=== PATIENT | female | born 1930 | race Caucasian/White ===

== ENCOUNTER 2016-12-15 17:38 | Emergency (ER) | payer MEDICARE, OTHER ==
[~2016-12-15] VITALS: Ht 167.6 cm; Wt 97.8 kg
[~2016-12-15 17:38] MED LIST: ACET-703 PO; APIX2.5T PO; ASPI1TAB69 PO; CENTTAB8 PO; CO Q100C9 PO; CODCAP PO; CPAP; FURO40TA PO; IPRASOL INH; LEVEMIR SQ; LIPI80TA PO; LOSA25TA PO; METO100T PO
[2016-12-15 17:42] VITALS: BP 160/86; PULSE 90; RESP 20; TEMP 97.5; O2SAT 92
--- NOTE | 2016-12-15 18:01 | PD ---
HPI . Cough Chief Complaint: Cold / Flu Symptoms Time Seen by Provider: 17:53 Travel History International Travel<30 days: No Contact w/Intl Traveler<30days: No Traveled to known affect area: No History of Present Illness HPI This patient presents with a four-day history of a dry cough. She states that she is concerned about pneumonia. She is also complaining with some nasal congestion. She denies any purulent nasal drainage or purulent sputum production. She has not been running a fever. He states that she has been taking Claritin and using her nebulizer machine with some relief of her symptoms. No exacerbating factors. Symptoms are mild. PFSH Past Medical History Hx Anticoagulant Therapy: Yes Arthritis: No Asthma: No Atrial Fibrillation: Yes Autoimmune Disease: Yes (CLL) Heart Rhythm Problems: Yes (CHRONIC AFIB, CARDIOVERSION) Cancer: Yes (CLL ) Cardiovascular Problems: Yes High Cholesterol: Yes Chest Pain: No Congestive Heart Failure: No COPD: No Cerebrovascular Accident: No Diabetes: Yes Diminished Hearing: No Endocrine: Yes Gastrointestinal Disorders: No GERD: No Genitourinary: Yes Hypertension: Yes Immune Disorder: No Kidney Stones: No Musculoskeletal: Yes Neurologic: No Psychiatric: No Reproductive: No Respiratory: Yes ( ) Immunizations Current: Yes Migraines: No Radiation Therapy: No Renal Failure: Yes (last february while in hospital) Seizures: No Sleep Apnea: Yes (SLEEP APNEA) Thyroid Disease: No (hx of biopsy on thyroid - states benign ) Ulcer: Yes Past Surgical History Abdominal Surgery: No Body Medical Devices: "clip in a breast from a biopsy- unsure of what side" Cardiac Surgery: No Section: Yes Ear Surgery: No Eye Surgery: Yes (bleeding behind eye-lazer surg) Gynecologic Surgery: Yes (2 C-SECTIONS, "clip in one breast - unsure if left or right" ) Insulin Pump: No Joint Replacement: No Oral Surgery: Yes (tonsillectomy ) Thoracic Surgery: No Tonsillectomy: Yes Other Surgery: Yes Social History Alcohol Use: No Tobacco Use: No Substance Use: No Allergies-Medications (Allergen,Severity, Reaction): Coded Allergies: pregabalin (Unverified Allergy, Severe, Anaphylaxis, 12/15/16) Reported Meds & Prescriptions Reported Meds & Active Scripts Active Prometh-Codein 6.25-10 mg/5 ml (Promethazine HCl/Codeine) 5 Ml Syrup 10 Ml PO Q4HR Reported Aspirin 81 Mg Chew 81 Mg CHEW DAILY Co Q 10 (Coenzyme Q10 (Ubidecarenone)) 100 Mg Cap 200 Mg PO DAILY Duoneb (Ipratropium-Albuterol Neb) 0.5-2.5 Mg/3 Ml Neb 1 Nebule INH Q4HR NEB Metoprolol Tartrate 100 Mg Tab 100 Mg PO BID Losartan (Losartan Potassium) 25 Mg Tab 25 Mg PO DAILY Levemir Inj (Insulin Detemir) 1,000 unit/ 10 ML Vial 40 Units SQ DAILY Do not mix with any other Insulin. Furosemide 40 Mg Tab 40 Mg PO DAILY Lipitor (Atorvastatin Calcium) 80 Mg Tab 80 Mg PO HS Eliquis (Apixaban) 2.5 Mg Tab 2.5 Mg PO BID [Cpap] Review of Systems Except as stated in HPI: all other systems reviewed are Neg General / Constitutional: No: Fever, Chills HENT: Positive: Congestion Cardiovascular: No: Chest Pain or Discomfort Respiratory: Positive: Cough, No: Shortness of Breath Physical Exam Narrative Vital Signs Date Time Temp Pulse Resp B/P (MAP) Pulse Ox O2 Delivery O2 Flow Rate FiO2 12/15/16 17:42 97.5 90 20 160/86 (110) 92 GENERAL: Awake and alert and in no acute distress. SKIN: Warm and dry. HEAD: Atraumatic. Normocephalic. EYES: Pupils equal and round. No conjunctival injection or discharge. ENT: Sinuses are nontender. Nasal turbinates are mildly edematous. No purulent drainage. Oropharynx is clear. NECK: Trachea midline. Neck is supple with no cervical lymphadenopathy. CARDIOVASCULAR: Irregularly irregular rhythm with a controlled rate. RESPIRATORY: No accessory muscle use. Lungs are clear with full air movement throughout. MUSCULOSKELETAL: No obvious deformities. No edema. NEUROLOGICAL: Awake and alert. No obvious cranial nerve deficits. Motor grossly within normal limits. Normal speech. PSYCHIATRIC: Appropriate mood and affect; insight and judgment normal. Data Data Last Documented VS Vital Signs Date Time Temp Pulse Resp B/P (MAP) Pulse Ox O2 Delivery O2 Flow Rate FiO2 12/15/16 18:11 88 20 97 12/15/16 17:42 97.5 160/86 (110) Orders Orders Chest, Pa & Lat (12/15/16 17:56) MDM Medical Decision Making Medical Screen Exam Complete: Yes Emergency Medical Condition: Yes Differential Diagnosis Differential diagnosis includes but is not limited to viral respiratory illness , bronchitis, pneumonia, allergies, CHF, asthma/COPD. Narrative Course This patient presents with a cough. She is worried about pneumonia. Her lungs are clear with full air movement throughout. Chest x-ray has been ordered. CXR: No acute cardiopulmonary disease demonstrated. Mild chronic interstitial changes. Diagnosis Primary Impression: Cough Patient Instructions: Acute Cough (ED), General Instructions Med/Other Pt SpecificInfo: Prescription(s) given Scripts Promethazine HCl/Codeine (Prometh-Codein 6.25-10 mg/5 ml) 5 Ml Syrup 10 ML PO Q4HR for cough, #180 Prov: Isidra Mariee MD 12/15/16 Disposition: 01 DISCHARGE HOME Condition: Stable Isidra Mariee MD Dec 15, 2016 18:01
[2016-12-15] MEDS ORDERED: ASPI81CH CHEW (18:02)
[2016-12-15 18:55] VITALS: BP 163/79; PULSE 85; RESP 16; O2SAT 95
[2016-12-15] MEDS ORDERED: PROM2SYP2 PO (18:56)
--- NOTE | 2016-12-15 18:56 | RADRPT ---
EXAM DATE/TIME: 12/15/2016 18:28 [facility] COMPARISON: CHEST SINGLE AP, February 02, 2015, 7:34. INDICATIONS : Short of breath, cough MEDICAL HISTORY : a fib SURGICAL HISTORY : None. ENCOUNTER: Initial ACUITY: 3 days PAIN SCORE: 0/10 LOCATION: Bilateral chest FINDINGS: Mild basilar predominant interstitial opacities are present, probably chronic. No dense or confluent consolidation. No pleural effusion or pneumothorax. Heart size stable, upper limits of normal. CONCLUSION: No acute cardiopulmonary disease demonstrated. Mild chronic interstitial changes. Eben Washburn MD on December 15, 2016 at 18:54 Board Certified Radiologist. This report was verified electronically.
== END 2016-12-15 19:30 | disposition home or self-care (01) ==
LOC: PHED 17:38
DX: R05 Cough (principal); Z79.01 Long term (current) use of anticoagulants; I48.2 Chronic atrial fibrillation; C91.10 Chronic lymphocytic leukemia of B-cell type not having achieved remission; E78.00 Pure hypercholesterolemia, unspecified; E11.9 Type 2 diabetes mellitus without complications; I10 Essential (primary) hypertension; G47.30 Sleep apnea, unspecified
CPT/HCPCS: 71020; 99283

== ENCOUNTER → 2017-03-11 | Outpatient (CLI) | payer MEDICARE, OTHER ==
[~2017-03-11] MED LIST changes: -ACET-703 PO; +ASPI-516 CHEW; -ASPI1TAB69 PO; +AZIT250T3 PO; +BUME2TAB PO; +Budeson-Formot 160-4.5 Mg Inh INH; +CENTCHW4 CHEW; -CENTTAB8 PO; -CODCAP PO; +CODCAP4 PO; +IPRA17I INH; +PRED20 PO; +PROM2SYP2 PO; +VENTAER INH; +guaiFENesin ER PO
[2017-03-11 07:57] LABS: BLOOD GAS BASE EXCESS -3.2 mmol/L (-2-2); BLOOD GAS CARBOXYHEMOGLOBIN 1.8 % (0-4); BLOOD GAS HCO3 22 mmol/L (22-26); BLOOD GAS METHEMOGLOBIN 0.9 % (0-2); BLOOD GAS O2 HGB SATURATION 90 % (90-100); BLOOD GAS OXYGEN CONTENT 12.9 Vol % (12.0-20.0); BLOOD GAS PCO2 40 mmHG (38-42); BLOOD GAS PO2 64 mmHG (61-120); BLOOD GAS TOTAL HGB 10.1 G/DL (12.0-16.0); CRITICAL VALUE NO; DRAW SITE LT RADIAL; NUMBER OF ARTERIAL PUNCTURES 1; OXYGEN DEVICE RA; STAT NO; TEMP CORR TO 98.6; ULNAR PULSE Y
--- NOTE | 2017-03-20 09:12 | RSPPFT ---
DATE OF PROCEDURE: 03/11/17 COMMENTS: Spirometry shows FVC of 1.8 at 72% of predicted, FEV1 of 1.2 at 70%, FEV1/FVC ratio is decreased. Flow is decreased at FEF 25, FEF 50, FEF 75 and FEF 25-75. There is no response after bronchodilator treatment. Lung volumes show residual volume is increased. TLC is normal. Diffusion capacity is decreased. Flow volume loop indicates an obstructive pattern. IMPRESSION: 1. Moderately severe obstructive lung disease. 2. No response after bronchodilator treatment. 3. Lung volumes show mild hyperinflation. 4. Diffusion capacity is decreased.
== END ==
LOC: PHRSP 07:17
PROVIDERS: ATTEND Specialist
DX: R06.00 Dyspnea, unspecified (principal)
CPT/HCPCS: 36600; 82805; 94060; 94726; 94729

== ENCOUNTER 2017-03-13 08:20 | Observation (INO) | payer MEDICARE, OTHER ==
[~2017-03-13] VITALS: Ht 170.2 cm; Wt 100.1 kg
[2017-03-13] VITALS (10 sets, daily range): BP systolic 105–136; BP diastolic 41–62; PULSE 86–109; RESP 20–24; TEMP 97.2–98.9; O2SAT 91–98
[~2017-03-13 08:20] MED LIST changes: -AZIT250T3 PO; -BUME2TAB PO; -Budeson-Formot 160-4.5 Mg Inh INH; -CENTCHW4 CHEW; -CODCAP4 PO; -IPRA17I INH; -PRED20 PO; -VENTAER INH; -guaiFENesin ER PO
--- NOTE | 2017-03-13 08:53 | PD ---
HPI Chief Complaint: Respiratory Symptoms Time Seen by Provider: 08:36 Travel History International Travel<30 days: No Contact w/Intl Traveler<30days: No Traveled to known affect area: No History of Present Illness HPI c/o cough, dry, ongoing for past 4 days, not improving. patient is not oxygen dependant. no alleviating/aggravating factors. chart and rn notes reviewed pcp is dr chappell all:pregabilin pmhx: afib, htn, hyperchol, sciatica, cll, dm, anemia, tia PFSH Past Medical History Hx Anticoagulant Therapy: Yes Arthritis: No Asthma: No Atrial Fibrillation: Yes Autoimmune Disease: Yes (CLL) Heart Rhythm Problems: Yes (CHRONIC AFIB, CARDIOVERSION) Cancer: Yes (CLL ) Cardiovascular Problems: Yes (htn on meds) High Cholesterol: Yes Chest Pain: No Congestive Heart Failure: No COPD: No Cerebrovascular Accident: No Diabetes: Yes (type 2) Patient Takes Glucophage: No Diminished Hearing: No Endocrine: Yes Gastrointestinal Disorders: Yes (hx of bleeding from internal hemmeroid, was treated ) GERD: No Genitourinary: Yes Hypertension: Yes Immune Disorder: No Kidney Stones: No Musculoskeletal: Yes Neurologic: No Psychiatric: No Reproductive: No Respiratory: Yes ( ) Immunizations Current: Yes Migraines: No Radiation Therapy: No Renal Failure: Yes (last february while in hospital) Seizures: No Sleep Apnea: Yes (SLEEP APNEA) Thyroid Disease: No (hx of biopsy on thyroid - states benign ) Ulcer: Yes ?: Not Past Surgical History Abdominal Surgery: No Body Medical Devices: "clip in a breast from a biopsy- unsure of what side" Cardiac Surgery: No Section: Yes (X 2) Ear Surgery: No Eye Surgery: Yes (bleeding behind eye-lazer surg) Gynecologic Surgery: Yes ("marker in one breast - unsure if left or right" ) Insulin Pump: No Joint Replacement: No Oral Surgery: Yes Thoracic Surgery: No Tonsillectomy: Yes Other Surgery: Yes Social History Alcohol Use: No Tobacco Use: No (FORMER) Substance Use: No Allergies-Medications (Allergen,Severity, Reaction): Coded Allergies: pregabalin (Unverified Allergy, Severe, Anaphylaxis, 03/13/17) Reported Meds & Prescriptions Reported Meds & Active Scripts Active Reported Centrum (Multiple Vitamins W/ Minerals) 1 Chew 1 Tab CHEW DAILY Cod Liver Oil 1 Each Capsule 1 Tab PO DAILY Bumetanide 2 Mg Tab 2 Mg PO DAILY Aspirin 81 Mg Chew 81 Mg CHEW DAILY Co Q 10 (Coenzyme Q10 (Ubidecarenone)) 100 Mg Cap 200 Mg PO DAILY Duoneb (Ipratropium-Albuterol Neb) 0.5-2.5 Mg/3 Ml Neb 1 Nebule INH Q4HR NEB Metoprolol Tartrate 100 Mg Tab 100 Mg PO BID Losartan (Losartan Potassium) 25 Mg Tab 25 Mg PO DAILY Levemir Inj (Insulin Detemir) 1,000 unit/ 10 ML Vial 36 Units SQ DAILY Do not mix with any other Insulin. Lipitor (Atorvastatin Calcium) 80 Mg Tab 80 Mg PO HS Eliquis (Apixaban) 2.5 Mg Tab 2.5 Mg PO BID [Cpap] Review of Systems Except as stated in HPI: all other systems reviewed are Neg General / Constitutional: No: Fever Eyes: No: Visual changes HENT: No: Headaches Cardiovascular: No: Chest Pain or Discomfort Respiratory: Positive: Cough, Wheezing Gastrointestinal: No: Abdominal Pain Genitourinary: No: Dysuria Musculoskeletal: No: Pain Skin: No Rash Neurologic: No: Weakness Psychiatric: No: Depression Endocrine: No: Polydipsia Hematologic/Lymphatic: No: Easy Bruising Physical Exam Narrative GENERAL: SKIN: Warm and dry. HEAD: Atraumatic. Normocephalic. EYES: Pupils equal and round. No scleral icterus. No injection or drainage. ENT: No nasal bleeding or discharge. Mucous membranes pink and moist. NECK: Trachea midline. No JVD. CARDIOVASCULAR: Regular rate and rhythm. RESPIRATORY: No accessory muscle use. wheezes, tachypnea, GASTROINTESTINAL: Abdomen soft, non-tender, nondistended. MUSCULOSKELETAL: Extremities without clubbing, cyanosis, or edema. No obvious deformities. NEUROLOGICAL: Awake and alert. No obvious cranial nerve deficits. Motor grossly within normal limits. Five out of 5 muscle strength in the arms and legs. Normal speech. PSYCHIATRIC: Appropriate mood and affect; insight and judgment normal. Data Data Last Documented VS Vital Signs Date Time Temp Pulse Resp B/P (MAP) Pulse Ox O2 Delivery O2 Flow Rate FiO2 03/13/17 10:53 88 24 105/41 (62) 97 Nasal Cannula 2.00 03/13/17 08:27 98.1 Orders Orders Complete Blood Count With Diff (03/13/17 08:53) Comprehensive Metabolic Panel (03/13/17 08:53) B-Type Natriuretic Peptide (03/13/17 08:53) Troponin I (03/13/17 08:53) Influenzae A/B Antigen (03/13/17 08:53) Iv Access Insert/Monitor (03/13/17 08:53) Electrocardiogram (03/13/17 08:53) Ecg Monitoring (03/13/17 08:53) Oximetry (03/13/17 08:53) Oxygen Administration (03/13/17 08:53) Chest, Single Ap (03/13/17 08:53) Sodium Chloride 0.9% Flush (Ns Flush) (03/13/17 09:00) Methylprednisolone So Succ Inj (Solumedr (03/13/17 09:00) Albuterol Neb (Albuterol Neb) (03/13/17 09:00) Lorazepam Inj (Ativan Inj) (03/13/17 10:15) Albuterol Neb (Albuterol Neb) (03/13/17 11:00) Ceftriaxone Inj (Rocephin Inj) (03/13/17 12:00) Azithromycin Inj (Zithromax Inj) (03/13/17 11:00) Admit Order (Ed Use Only) (03/13/17 10:58) Labs Laboratory Tests Test 03/13/17 09:00 White Blood Count 93.0 TH/MM3 Red Blood Count 3.64 MIL/MM3 Hemoglobin 10.8 GM/DL Hematocrit 34.3 % Mean Corpuscular Volume 94.3 FL Mean Corpuscular Hemoglobin 29.5 PG Mean Corpuscular Hemoglobin Concent 31.3 % Red Cell Distribution Width 12.9 % Platelet Count 191 TH/MM3 Mean Platelet Volume 8.2 FL Neutrophils (%) (Auto) 10.3 % Lymphocytes (%) (Auto) 81.7 % Monocytes (%) (Auto) 6.5 % Eosinophils (%) (Auto) 0.1 % Basophils (%) (Auto) 1.4 % Neutrophils # (Auto) 9.6 TH/MM3 Lymphocytes # (Auto) 76.0 TH/MM3 Monocytes # (Auto) 6.0 TH/MM3 Eosinophils # (Auto) 0.1 TH/MM3 Basophils # (Auto) 1.3 TH/MM3 CBC Comment AUTO DIFF Differential Total Cells Counted 100 Neutrophils % (Manual) 8 % Band Neutrophils % 1 % Lymphocytes % 87 % Monocytes % 4 % Neutrophils # (Manual) 8.4 TH/MM3 Differential Comment FINAL DIFF MANUAL Blood Urea Nitrogen 42 MG/DL Creatinine 2.20 MG/DL Random Glucose 58 MG/DL Total Protein 6.6 GM/DL Albumin 3.7 GM/DL Calcium Level 9.1 MG/DL Alkaline Phosphatase 106 U/L Aspartate Amino Transf (AST/SGOT) 22 U/L Alanine Aminotransferase (ALT/SGPT) 21 U/L Total Bilirubin 1.1 MG/DL Sodium Level 138 MEQ/L Potassium Level 4.0 MEQ/L Chloride Level 105 MEQ/L Carbon Dioxide Level 24.7 MEQ/L Anion Gap 8 MEQ/L Estimat Glomerular Filtration Rate 21 ML/MIN Troponin I 0.02 NG/ML B-Type Natriuretic Peptide 191 PG/ML MDM Medical Decision Making Medical Screen Exam Complete: Yes Emergency Medical Condition: Yes Medical Record Reviewed: Yes Interpretation(s) pulse ox: nl oxygenation 96% on ra, with normal pleth wave ekg: afib with cvr, no stemi pattern Differential Diagnosis pna v flu v bronchitis v bronchospasm v atypical stemi Narrative Course flu neg, neg stemi on ekg, bronchospasm improved with treatments however still ongoing and tachypnea is not greatly improved...will order ct r/o pe and admit patient for further evaluation and care, Diagnosis Primary Impression: bronchospasm/dyspnea Additional Impression: renal insufficiency Coy Mireles MD Mar 13, 2017 08:53
[2017-03-13] MEDS ORDERED: BUME2TAB PO (08:54)
[2017-03-13] MEDS ORDERED: CODCAP4 PO (08:54)
[2017-03-13] MEDS ORDERED: CENTCHW4 CHEW (08:54)
[2017-03-13] MEDS ORDERED: SODIUM CHLORIDE 0.9% FLUSH 10 ML FLUSH IVF PRN (09:00)
[2017-03-13] MEDS ORDERED: methylPREDNISolone SOD SUCC 125 MG/2 ML VIAL IV PUSH ONE (09:00)
[2017-03-13] MEDS: RESP: ALBUTEROL 2.5 MG/3 ML NEB (SCH) INH ×2 (09:10→11:12)
[2017-03-13 09:27] LABS: AUTOMATED NEUTROPHIL # 9.6 TH/MM3 (1.8-7.7); BASOPHIL # 1.3 TH/MM3 (0-0.2); BASOPHIL % 1.4 % (0.0-2.0); EOSINOPHIL # 0.1 TH/MM3 (0-0.4); EOSINOPHIL % 0.1 % (0.0-4.0); HEMATOCRIT 34.3 % (35.0-46.0); LYMPH % 81.7 % (9.0-44.0); MEAN CELL VOLUME 94.3 FL (80.0-100.0); MEAN CORPUSCULAR HEMOGLOBIN 29.5 PG (27.0-34.0); MEAN CORPUSCULAR HGB CONC 31.3 % (32.0-36.0); MONO % 6.5 % (0.0-8.0); NEUT % 10.3 % (16.0-70.0); PLATELET COUNT 191 TH/MM3 (150-450); RED BLOOD COUNT 3.64 MIL/MM3 (4.00-5.30); RED CELL DISTRIBUTION WIDTH 12.9 % (11.6-17.2)
[2017-03-13 09:28] LABS: HEMO FLAGS AUTO DIFF
[2017-03-13 09:50] LABS: BANDS 1 % (0-6); NEUTROPHIL # MANUAL DIFF 8.4 TH/MM3 (1.8-7.7); POLYS (SEG NEUTROPHILS) 8 % (16-70); SCAN/DIFF FINAL DIFF MANUAL; WBC DIFF SAMPLE 100
--- NOTE | 2017-03-13 10:04 | RADRPT ---
EXAM DATE/TIME: 03/13/2017 09:49 [facility] COMPARISON: CHEST SINGLE AP, February 02, 2015, 7:34. INDICATIONS : Short of breath, cough, wheezing. MEDICAL HISTORY : Hypercholesterolemia. Hypertension Diabetes mellitus type II. Thyroid disease. A-fib. Sleep apnea . Wheezing. Ulcer. Renal disease/failure. Sciatica. Former smoker. SURGICAL HISTORY : Tonsillectomy. section. Cataract. ENCOUNTER: Initial ACUITY: 4 - 6 days PAIN SCORE: 0/10 LOCATION: chest FINDINGS: Result infiltrate in the left upper lung. Persistent airspace infiltrates in the left mid and left l ower lung. Right lung is clear. The heart is normal size. Both hemidiaphragms well delineated. CONCLUSION: Persistent left mid and lower lung infiltrates and resolved left upper lung infiltrate. Noel Schwartz MD on March 13, 2017 at 10:01 Board Certified Radiologist. This report was verified electronically.
[2017-03-13 10:11] LABS: BICARBONATE 24.7 MEQ/L (21.0-32.0)
[2017-03-13 10:14] LABS: ALT (GPT) 21 U/L (10-53); GLOMERULAR FILTRATION RATE 21 ML/MIN (>89)
[2017-03-13] MEDS ORDERED: LORazepam 2 MG/ML VIAL IV PUSH ONE (10:15)
[2017-03-13 10:16] LABS: ANION GAP 8 MEQ/L (5-15); CHLORIDE 105 MEQ/L (98-107); SODIUM (NA) 138 MEQ/L (136-145); TOTAL BILIRUBIN ADULT 1.1 MG/DL (0.2-1.0)
[2017-03-13 10:17] LABS: ALKALINE PHOSPHATASE 106 U/L (45-117); AST (GOT) 22 U/L (15-37); BLOOD UREA NITROGEN 42 MG/DL (7-18)
[2017-03-13] MEDS ORDERED: AZITHROMYCIN INJ 500 MG in SODIUM CHLOR 0.9% 250 ML INJ 250 ML IV ONE (11:00)
--- NOTE | 2017-03-13 11:25 | HHI.HP ---
[facility] Michael Henderson MD Admission Diagnosis DYSPNEA,RENAL INSUFF, CLL Diagnoses: (1) Asthma exacerbation Chief Complaint: Shortness of breath and wheezing Travel History International Travel<30 Days: No Contact w/Intl Traveler <30 Da: No Traveled to Known Affected Are: No History of Present Illness 86-year-old female with a history of CLL, A. fib presented to the ED for evaluation of 4 days history of shortness of breath, nonproductive cough and wheezing. She denies any febrile episode. Per patient's she has been sleeping more with generalized weakness and lack of appetite. Chest x-ray on admission reveals persisting left mid and lower lung infiltrates and resolved left upper lung infiltrate. Review of Systems Except as stated in HPI: all other systems reviewed are Neg Past Family Social History Past Medical History Chronic lymphocytic leukemia Hypertension Atrial fibrillation Diabetes Hyperlipidemia Chronic kidney disease Hypogammaglobinemia History of GI bleed 1 Past Surgical History Cardioversion 2 Reported Medications Centrum (Multiple Vitamins W/ Minerals) 1 Chew 1 Tab CHEW DAILY Cod Liver Oil 1 Each Capsule 1 Tab PO DAILY Bumetanide 2 Mg Tab 2 Mg PO DAILY Aspirin 81 Mg Chew 81 Mg CHEW DAILY Co Q 10 (Coenzyme Q10 (Ubidecarenone)) 100 Mg Cap 200 Mg PO DAILY Duoneb (Ipratropium-Albuterol Neb) 0.5-2.5 Mg/3 Ml Neb 1 Nebule INH Q4HR NEB Metoprolol Tartrate 100 Mg Tab 100 Mg PO BID Losartan (Losartan Potassium) 25 Mg Tab 25 Mg PO DAILY Levemir Inj (Insulin Detemir) 1,000 unit/ 10 ML Vial 36 Units SQ DAILY Do not mix with any other Insulin. Lipitor (Atorvastatin Calcium) 80 Mg Tab 80 Mg PO HS Eliquis (Apixaban) 2.5 Mg Tab 2.5 Mg PO BID [Cpap] Allergies: Coded Allergies: pregabalin (Unverified Allergy, Severe, Anaphylaxis, 03/13/17) Family History Due to patient's advanced age, family history not relevant Social History Alcohol Use: No Tobacco Use: No (FORMER) Substance Use: No Physical Exam Vital Signs Vital Signs Date Time Temp Pulse Resp B/P (MAP) Pulse Ox O2 Delivery O2 Flow Rate FiO2 03/13/17 09:54 86 24 136/55 (82) 97 Nasal Cannula 2.00 03/13/17 09:13 97 Nasal Cannula 2.00 03/13/17 09:05 20 96 2.00 03/13/17 09:05 96 Nasal Cannula 2.00 03/13/17 08:39 84 20 93 Room Air 03/13/17 08:27 98.1 87 20 136/62 (86) 91 Physical Exam GENERAL: This is a well-nourished, well-developed patient, in no apparent distress. SKIN: No rashes, ecchymoses or lesions. Cool and dry. HEAD: Atraumatic. Normocephalic. No temporal or scalp tenderness. EYES: Pupils equal round and reactive. Extraocular motions intact. No scleral icterus. No injection or drainage. ENT: Nose without bleeding, purulent drainage or septal hematoma. Throat without erythema, tonsillar hypertrophy or exudate. Uvula midline. Airway patent. NECK: Trachea midline. No JVD or lymphadenopathy. Supple, nontender, no meningeal signs. CARDIOVASCULAR: Regular rate and rhythm without murmurs, gallops, or rubs. RESPIRATORY: Clear to auscultation. Breath sounds decrease bilaterally. Bilateral exterior auditory wheezes GASTROINTESTINAL: Abdomen soft, non-tender, nondistended. No hepato-splenomegaly , or palpable masses. No guarding. MUSCULOSKELETAL: Extremities without clubbing, cyanosis.+Trace edema. No joint tenderness, effusion, or edema noted. No calf tenderness. Negative Homans sign bilaterally. NEUROLOGICAL: Awake and alert. Cranial nerves II through XII intact. Motor and sensory grossly within normal limits. Five out of 5 muscle strength in all muscle groups. Normal speech. Laboratory Laboratory Tests Test 03/13/17 09:00 White Blood Count 93.0 Red Blood Count 3.64 Hemoglobin 10.8 Hematocrit 34.3 Mean Corpuscular Volume 94.3 Mean Corpuscular Hemoglobin 29.5 Mean Corpuscular Hemoglobin Concent 31.3 Red Cell Distribution Width 12.9 Platelet Count 191 Mean Platelet Volume 8.2 Neutrophils (%) (Auto) 10.3 Lymphocytes (%) (Auto) 81.7 Monocytes (%) (Auto) 6.5 Eosinophils (%) (Auto) 0.1 Basophils (%) (Auto) 1.4 Neutrophils # (Auto) 9.6 Lymphocytes # (Auto) 76.0 Monocytes # (Auto) 6.0 Eosinophils # (Auto) 0.1 Basophils # (Auto) 1.3 CBC Comment AUTO DIFF Differential Total Cells Counted 100 Neutrophils % (Manual) 8 Band Neutrophils % 1 Lymphocytes % 87 Monocytes % 4 Neutrophils # (Manual) 8.4 Differential Comment FINAL DIFF MANUAL Blood Urea Nitrogen 42 Creatinine 2.20 Random Glucose 58 Total Protein 6.6 Albumin 3.7 Calcium Level 9.1 Alkaline Phosphatase 106 Aspartate Amino Transf (AST/SGOT) 22 Alanine Aminotransferase (ALT/SGPT) 21 Total Bilirubin 1.1 Sodium Level 138 Potassium Level 4.0 Chloride Level 105 Carbon Dioxide Level 24.7 Anion Gap 8 Estimat Glomerular Filtration Rate 21 Troponin I 0.02 B-Type Natriuretic Peptide 191 Date/Time Source Procedure Growth Status 03/13/17 09:05 Nasal Washing Influenza Types A,B Antigen (CHAPIN) - Final NEGATIVE FOR FLU A AND B ANTIGEN.... Complete Result Diagram: 03/13/17 0900 03/13/17 09 Imaging Last Impressions Chest X-Ray 03/13/17 0853 Signed Impressions: Service Date/Time: February 09:49 - CONCLUSION: Persistent left mid and lower lung infiltrates and resolved left upper lung infiltrate. MD [place] VTE Risk Assessment [place] VTE Risk Assessment: Mod/High Risk (score >= 2) Caprini Risk Assessment Model Point Value = 1 Point Value = 2 Point Value = 3 Point Value = 5 Age 41-60 Minor surgery BMI > 25 kg/m2 Swollen legs Varicose veins or History of unexplained or recurrent spontaneous Oral contraceptives or hormone replacement Sepsis (< 1 month) Serious lung disease, including pneumonia (< 1 month) Abnormal pulmonary function Acute myocardial infarction Congestive heart failure (< 1 month) History of inflammatory bowel disease Medical patient at bed rest Age 61-74 Arthroscopic surgery Major open surgery (> 45 min) Laparoscopic surgery (> 45 min) Malignancy Confined to bed (> 72 hours) Immobilizing plaster cast Central venous access Age >= 75 History of VTE Family history of VTE Factor V Leiden Prothrombin [id number] Lupus anticoagulant Anticardiolipin antibodies Elevated serum homocysteine Heparin-induced thrombocytopenia Other congenital or acquired thrombophilia Stroke (< 1 month) Elective arthroplasty Hip, pelvis, or leg fracture Acute spinal cord injury (< 1 month) Prophylaxis Regimen Total Risk Factor Score Risk Level Prophylaxis Regimen 0-1 Low Early ambulation 2 Moderate Order ONE of the following: *Sequential Compression Device (SCD) *Heparin 5000 units SQ BID 3-4 Higher Order ONE of the following medications: *Heparin 5000 units SQ TID *Enoxaparin/Lovenox 40 mg SQ daily (WT < 150 kg, CrCl > 30 mL/min) *Enoxaparin/Lovenox 30 mg SQ daily (WT < 150 kg, CrCl > 10-29 mL/min) *Enoxaparin/Lovenox 30 mg SQ BID (WT < 150 kg, CrCl > 30 mL/min) AND/OR *Sequential Compression Device (SCD) 5 or more Highest Order ONE of the following medications: *Heparin 5000 units SQ TID (Preferred with Epidurals) *Enoxaparin/Lovenox 40 mg SQ daily (WT < 150 kg, CrCl > 30 mL/min) *Enoxaparin/Lovenox 30 mg SQ daily (WT < 150 kg, CrCl > 10-29 mL/min) *Enoxaparin/Lovenox 30 mg SQ BID (WT < 150 kg, CrCl > 30 mL/min) AND *Sequential Compression Device (SCD) Assessment and Plan Problem List: (1) Asthma exacerbation ICD Code: J45.901 - Unspecified asthma with (acute) exacerbation (2) Shortness of breath dyspnea ICD Code: R06.02 - Shortness of breath Status: Acute Assessment and Plan 86-year-old female with Asthma exacerbation Shortness of breath dyspnea Chest x-ray noted and review by me with finding of persistent left mid and lower lung infiltrates and resolved left upper lung infiltrate Status post Solu-Medrol 125 mg IV 1, Solu-Medrol 40 mg IV every 8 hours, Neb scheduled and when necessary, azithromycin 250 mg daily, Symbicort, Mucinex Maintain oxygen saturation above 92% and check ABG History of CLL Chronic, outpatient monitoring Hypertension Resume home medications Hyperlipidemia Resume home medications Diabetes Resume Levemir and Start Accu-Cheks with sliding scale insulin Chronic atrial fibrillation status post ablation Resume home medications and anticoagulation Chronic kidney disease Renal functions appear to be relatively stable Continue monitor renal function DVT prevention: Eliquis Code Status Full code Discussed Condition With Patient, , ED physician Carlos Lan MD Mar 13, 2017 11:25
[2017-03-13] MEDS ORDERED: GLUCAGON 1 MG/ML VIAL OTHER PRN (11:30)
[2017-03-13] MEDS ORDERED: RESP: ALBUTEROL 2.5 MG/IPRATROPIUM 0.5 MG NEB (PRN) NEB (11:30)
[2017-03-13] MEDS ORDERED: ACETAMINOPHEN 325 MG TAB PO PRN ×2 (11:30)
[2017-03-13] MEDS ORDERED: DEXTROSE 50% IN WATER 50 ML VIAL(D50) IV PUSH PRN (11:30)
[2017-03-13] MEDS ORDERED: ONDANSETRON HCL 4 MG/2 ML VIAL IVP PRN (11:30)
[2017-03-13] MEDS ORDERED: SODIUM CHLORIDE 0.9% FLUSH 10 ML FLUSH IV FLUSH PRN (11:30)
[2017-03-13] MEDS ORDERED: NALOXONE HCL 0.4 MG/ML AMP IV PUSH PRN (11:30)
[2017-03-13] MEDS ORDERED: MAGNESIUM HYDROXIDE SUSP 30 ML CUP PO PRN (11:30)
[2017-03-13] MEDS: INSULIN ASPART SUPPLEMENTAL SCALE SQ SCH ×3 (12:00→20:22)
[2017-03-13] MEDS ORDERED: cefTRIAXone INJ 1,000 MG in SODIUM CHLORIDE 0.9% INJ 100 ML IV ONE (12:00)
[2017-03-13 13:53] LABS: BLOOD GAS BASE EXCESS -4.5 mmol/L (-2-2); BLOOD GAS CARBOXYHEMOGLOBIN 1.5 % (0-4); BLOOD GAS HCO3 21 mmol/L (22-26); BLOOD GAS METHEMOGLOBIN 0.9 % (0-2); BLOOD GAS O2 HGB SATURATION 92 % (90-100); BLOOD GAS PCO2 46 mmHG (38-42); BLOOD GAS PO2 77 mmHG (61-120); TEMP CORR TO 98.6
[2017-03-13 13:55] LABS: CRITICAL VALUE YES; DRAW SITE RT BRACHIAL; FIO2 28 %; LITER FLOW 2 L/M; NUMBER OF ARTERIAL PUNCTURES 1; OXYGEN DEVICE NASAL CANNULA; STAT YES; ULNAR PULSE PRESENT
[2017-03-13] MEDS: RESP: ALBUTEROL 2.5 MG/IPRATROPIUM 0.5 MG NEB (SCH) NEB ×2 (13:56→19:43)
--- NOTE | 2017-03-13 14:56 | EKG ---
Date Performed: 03/13/2017 Time Performed: 09:08:25 PTAGE: 86 years EKG: ATRIAL FIBRILLATION MARKED LEFT AXIS DEVIATION MODERATE INTRAVENTRICULAR CONDUCTION DELAY N ONSPECIFIC ST & T-WAVE ABNORMALITY ABNORMAL ECG PREVIOUS TRACING : 12/22/2015 15.51 DOCTOR: Doug Conde Interpretating Date/Time 03/13/2017 14:55:28
[2017-03-13] MEDS: methylPREDNISolone SOD SUCC 40 MG/1 ML VIAL IV PUSH SCH (15:32)
[2017-03-13] MEDS: guaiFENesin E.R. 600 MG TAB PO SCH (20:13)
[2017-03-13] MEDS: APIXABAN 2.5 MG TABLET PO SCH (20:13)
[2017-03-13] MEDS: METOPROLOL TARTRATE 100 MG TAB PO SCH (20:13)
[2017-03-13] MEDS: SODIUM CHLORIDE 0.9% FLUSH 10 ML FLUSH IV FLUSH SCH (20:14)
[2017-03-13] MEDS: BUDESONIDE-FORMOTEROL 160/4.5 MCG INHALER INH SCH (20:21)
[2017-03-13] MEDS ORDERED: methylPREDNISolone SOD SUCC 40 MG/1 ML VIAL IV PUSH SCH (21:00)
[2017-03-13] MEDS ORDERED: ATORVASTATIN 40 MG TAB PO SCH (21:00)
[2017-03-14] VITALS: BP 114/56; PULSE 80; RESP 20; TEMP 97.6; O2SAT 94
[2017-03-14] MEDS: methylPREDNISolone SOD SUCC 40 MG/1 ML VIAL IV PUSH SCH ×2 (01:53→08:39)
[2017-03-14 04:00] VITALS: BP 121/62; PULSE 92; RESP 20; TEMP 98.1; O2SAT 96
[2017-03-14 06:52] LABS: HEMATOCRIT 30.4 % (35.0-46.0); MEAN CELL VOLUME 96.9 FL (80.0-100.0); MEAN CORPUSCULAR HEMOGLOBIN 32.5 PG (27.0-34.0); MEAN CORPUSCULAR HGB CONC 33.5 % (32.0-36.0); PLATELET COUNT 143 TH/MM3 (150-450); RED BLOOD COUNT 3.14 MIL/MM3 (4.00-5.30); RED CELL DISTRIBUTION WIDTH 13.9 % (11.6-17.2); WHITE BLOOD COUNT 94.1 TH/MM3 (4.0-11.0)
[2017-03-14 07:00] LABS: HEMO FLAGS AUTO DIFF
[2017-03-14 07:02] LABS: CHLORIDE 102 MEQ/L (98-107); POTASSIUM 4.3 MEQ/L (3.5-5.1); SODIUM (NA) 135 MEQ/L (136-145)
[2017-03-14 07:09] LABS: ANION GAP 11 MEQ/L (5-15); BICARBONATE 22.1 MEQ/L (21.0-32.0)
[2017-03-14 07:22] LABS: ALKALINE PHOSPHATASE 107 U/L (45-117); ALT (GPT) 21 U/L (10-53); AST (GOT) 21 U/L (15-37); BLOOD UREA NITROGEN 56 MG/DL (7-18); GLOMERULAR FILTRATION RATE 17 ML/MIN (>89); TOTAL BILIRUBIN ADULT 0.6 MG/DL (0.2-1.0)
[2017-03-14] MEDS: RESP: ALBUTEROL 2.5 MG/IPRATROPIUM 0.5 MG NEB (SCH) NEB (07:38)
[2017-03-14 07:39] VITALS: O2SAT 99
[2017-03-14 07:47] LABS: NEUTROPHIL # MANUAL DIFF 10.4 TH/MM3 (1.8-7.7); PLATELET ESTIMATE SMEAR NORMAL (NORMAL); PLATELET MORPHOLOGY NORMAL (NORMAL); POLYS (SEG NEUTROPHILS) 11 % (16-70); SCAN/DIFF FINAL DIFF MANUAL; SMUDGE CELLS PRESENT PRESENT; WBC DIFF SAMPLE 100
[2017-03-14 07:57] VITALS: O2SAT 97
[2017-03-14 08:00] VITALS: BP_SYST 118; BP_SYST 120; BP_DIAS 59; BP_DIAS 68; PULSE 68; PULSE 90; RESP 20; TEMP 97.3; O2SAT 92; O2SAT 93
[2017-03-14] MEDS: INSULIN ASPART SUPPLEMENTAL SCALE SQ SCH (08:00)
[2017-03-14] MEDS: METOPROLOL TARTRATE 100 MG TAB PO SCH (08:38)
[2017-03-14] MEDS: APIXABAN 2.5 MG TABLET PO SCH (08:38)
[2017-03-14] MEDS: guaiFENesin E.R. 600 MG TAB PO SCH (08:38)
[2017-03-14] MEDS: SODIUM CHLORIDE 0.9% FLUSH 10 ML FLUSH IV FLUSH SCH (08:39)
[2017-03-14] MEDS: BUDESONIDE-FORMOTEROL 160/4.5 MCG INHALER INH SCH (08:41)
[2017-03-14] MEDS ORDERED: ASPIRIN 81 MG CHEW TAB CHEW SCH (09:00)
[2017-03-14] MEDS ORDERED: INSULIN DETEMIR 100 UNITS/ML VIAL SQ SCH (09:00)
[2017-03-14] MEDS ORDERED: AZITHROMYCIN 250 MG TAB PO SCH (09:00)
[2017-03-14] MEDS ORDERED: BUMETANIDE 1 MG TAB PO SCH (09:00)
[2017-03-14] MEDS ORDERED: LOSARTAN 25 MG TAB PO SCH (09:00)
--- NOTE | 2017-03-14 10:49 | HHI.PR ---
Subjective Remarks Follow-up asthma exacerbation 03/14/17-patient seen and examined, reports significant improvement of shortness of breath and denies any chest pain. Wheezing improving. Would like to go home. Objective Vitals Vital Signs Date Time Temp Pulse Resp B/P (MAP) Pulse Ox O2 Delivery O2 Flow Rate FiO2 03/14/17 08:00 97.3 90 20 118/59 (78) 92 03/14/17 07:57 97 03/14/17 07:39 99 Nasal Cannula 03/14/17 04:00 98.1 92 20 121/62 (81) 96 03/14/17 00:00 97.6 80 20 114/56 (75) 94 03/13/17 20:00 98.9 109 20 119/59 (79) 95 03/13/17 19:45 93 Nasal Cannula 2.00 03/13/17 13:56 98 Nasal Cannula 3.00 03/13/17 12:00 97.2 92 24 114/56 (75) 93 03/13/17 11:53 92 24 109/56 (73) 96 Nasal Cannula 2.00 03/13/17 11:53 03/13/17 10:53 88 24 105/41 (62) 97 Nasal Cannula 2.00 I/O 03/13/17 03/13/17 03/13/17 03/14/17 03/14/17 03/14/17 06:59 14:59 22:59 06:59 14:59 22:59 Intake Total 100 ml 940 ml 680 ml Balance 100 ml 940 ml 680 ml Intake Oral 690 ml 680 ml IV Total 100 ml 250 ml # Voids 5 3 # Bowel Movements 0 Result Diagram: 03/14/1715 03/14/1715 Imaging Last Impressions Chest X-Ray 03/13/17 0853 Signed Impressions: Service Date/Time: February 09:49 - CONCLUSION: Persistent left mid and lower lung infiltrates and resolved left upper lung infiltrate. Noel Schwartz MD Objective Remarks GENERAL: NAD SKIN: Warm and dry. HEAD: Normocephalic. EYES: No scleral icterus. No injection or drainage. NECK: Supple, trachea midline. No JVD or lymphadenopathy. CARDIOVASCULAR: Regular rate and rhythm without murmurs, gallops, or rubs. RESPIRATORY: Breath sounds equal bilaterally. No accessory muscle use. Slight expiratory wheeze GASTROINTESTINAL: Abdomen soft, non-tender, nondistended. MUSCULOSKELETAL: No cyanosis, or edema. BACK: Nontender without obvious deformity. No CVA tenderness. A/P Problem List: (1) Asthma exacerbation ICD Code: J45.901 - Unspecified asthma with (acute) exacerbation (2) Shortness of breath dyspnea ICD Code: R06.02 - Shortness of breath Status: Acute Assessment and Plan 86-year-old female with Asthma exacerbation-resolved Shortness of breath dyspnea-improved Chest x-ray with finding of persistent left mid and lower lung infiltrates and resolved left upper lung infiltrate Currently on Solu-Medrol 40 mg IV every 8 hours, Neb scheduled and when necessary, azithromycin 250 mg daily, Symbicort, Mucinex Will switch to by mouth prednisone Maintain oxygen saturation above 92% History of CLL Chronic, outpatient monitoring Hypertension Continue home medications Hyperlipidemia Continue home medications Diabetes Continue Levemir and Start Accu-Cheks with sliding scale insulin Chronic atrial fibrillation status post ablation Continue home medications and anticoagulation Chronic kidney disease Renal functions appear to be relatively stable Continue monitor renal function DVT prevention: Eliquis Discharge Planning Discharge patient to home Condition on discharge: Improved Regular Diet as tolerated Ad Maribell activity Rx written:Prednisone taper, Azithromycin 250mg daily Follow-up with primary care physician in 1 week Carlos Lan MD Mar 14, 2017 10:49
[2017-03-14] MEDS ORDERED: VENTAER INH (10:53)
[2017-03-14] MEDS ORDERED: Budeson-Formot 160-4.5 Mg Inh INH (10:53)
[2017-03-14] MEDS ORDERED: PRED20 PO (10:53)
[2017-03-14] MEDS ORDERED: guaiFENesin ER PO (10:53)
[2017-03-14] MEDS ORDERED: AZIT250T3 PO (10:53)
[2017-03-14] MEDS ORDERED: IPRA17I INH (10:53)
== END 2017-03-14 11:16 | disposition home or self-care (01) ==
LOC: PHED 08:20 → PHEDA 10:59 → PH3A 12:03
PROVIDERS: ADMIT Hospitalist; ATTEND Hospitalist
DX: J45.901 Unspecified asthma with (acute) exacerbation (principal); C91.10 Chronic lymphocytic leukemia of B-cell type not having achieved remission; I12.9 Hypertensive chronic kidney disease with stage 1 through stage 4 chronic kidney disease, or unspecified chronic kidney disease; N18.9 Chronic kidney disease, unspecified; E11.22 Type 2 diabetes mellitus with diabetic chronic kidney disease; E78.5 Hyperlipidemia, unspecified; I48.2 Chronic atrial fibrillation; G47.30 Sleep apnea, unspecified; Z79.4 Long term (current) use of insulin
CPT/HCPCS: 36600; 71010; 80053; 82805; 82948; 83880; 84484; 85007; 85027; 87804; 93005; 94640; 94664; 94799; 96365; 96367; 96372; 96375; 96376; 97162; 99285; G0378; G8987; G8988; J0456; J0696; J1815; J2060; J2920; J2930; J7050; J7613

== ENCOUNTER 2017-06-26 12:50 | Emergency (ER) | payer MEDICARE, OTHER ==
[~2017-06-26] VITALS: Ht 170.2 cm; Wt 94.8 kg
[~2017-06-26 12:50] MED LIST changes: +AZIT250T3 PO; +BUME2TAB PO; +Budeson-Formot 160-4.5 Mg Inh INH; +CENTCHW4 CHEW; +CODCAP4 PO; -FURO40TA PO; +IPRA17I INH; -IPRASOL INH; +PRED20 PO; -PROM2SYP2 PO; +VENTAER INH; +guaiFENesin ER PO
[2017-06-26 13:02] VITALS: BP 132/64; PULSE 82; RESP 18; TEMP 98.1; O2SAT 89
[2017-06-26 13:23] VITALS: O2SAT 96
--- NOTE | 2017-06-26 13:31 | PD ---
HPI Chief Complaint: ENT Complaint Time Seen by Provider: 13:16 Travel History International Travel<30 days: No Contact w/Intl Traveler<30days: No Traveled to known affect area: No History of Present Illness HPI 87yo F with PMH of CLL on immunotherapy here with c/o hoarseness that has improved. Said she was diagnosed with the flu 1 month ago and then has been coughing so much so lose her voice. She is starting to get her voice back but it sounds hoarse so she just wanted to come in to make sure. Pt denies any fever, chest pain, sob, n/v, abdominal pain, focal weakness or numbness. PFSH Past Medical History Hx Anticoagulant Therapy: Yes Arthritis: No Asthma: No Atrial Fibrillation: Yes Autoimmune Disease: Yes (CLL) Heart Rhythm Problems: Yes (CHRONIC AFIB, CARDIOVERSION) Cancer: Yes (CLL ) Cardiovascular Problems: Yes High Cholesterol: Yes Chest Pain: No Congestive Heart Failure: No COPD: No Cerebrovascular Accident: No Diabetes: Yes Patient Takes Glucophage: No Diminished Hearing: No Endocrine: Yes Gastrointestinal Disorders: Yes (hx of bleeding from internal hemmeroid, was treated ) GERD: No Genitourinary: Yes Hypertension: Yes Immune Disorder: No Kidney Stones: No Musculoskeletal: Yes Neurologic: No Psychiatric: No Reproductive: No Respiratory: Yes Immunizations Current: Yes Migraines: No Radiation Therapy: No Renal Failure: Yes (last february while in hospital) Seizures: No Sleep Apnea: Yes (SLEEP APNEA) Ulcer: Yes Tetanus Vaccination: Unknown ?: Not Past Surgical History Abdominal Surgery: No Body Medical Devices: "clip in a breast from a biopsy- unsure of what side" Cardiac Surgery: No Section: Yes (X 2) Ear Surgery: No Eye Surgery: Yes (bleeding behind eye-lazer surg) Gynecologic Surgery: Yes ("marker in one breast - unsure if left or right" ) Insulin Pump: No Joint Replacement: No Oral Surgery: Yes Thoracic Surgery: No Tonsillectomy: Yes Other Surgery: Yes Social History Alcohol Use: No Tobacco Use: No (FORMER) Substance Use: No Allergies-Medications (Allergen,Severity, Reaction): Coded Allergies: pregabalin (Unverified Allergy, Severe, Anaphylaxis, 06/26/17) Reported Meds & Prescriptions Reported Meds & Active Scripts Active Ventolin Hfa 18 GM Inh (Albuterol Sulfate) 90 Mcg/Act Aer 2 Puff INH Q4-6H PRN Atrovent HFA 12.9 GM Inh (Ipratropium [place]) 17 Mcg/Actuation Aer 2 Puff INH Q6HR PRN [Budeson-Formot 160-4.5 Mg Inh] 60 PUFF Aero 2 Puff INH Q12HR Reported Centrum (Multiple Vitamins W/ Minerals) 1 Chew 1 Tab CHEW DAILY Cod Liver Oil 1 Each Capsule 1 Tab PO DAILY Bumetanide 2 Mg Tab 2 Mg PO DAILY Aspirin 81 Mg Chew 81 Mg CHEW DAILY Co Q 10 (Coenzyme Q10 (Ubidecarenone)) 100 Mg Cap 200 Mg PO DAILY Metoprolol Tartrate 100 Mg Tab 100 Mg PO BID Losartan (Losartan Potassium) 25 Mg Tab 25 Mg PO DAILY Levemir Inj (Insulin Detemir) 1,000 unit/ 10 ML Vial 36 Units SQ DAILY Do not mix with any other Insulin. Lipitor (Atorvastatin Calcium) 80 Mg Tab 80 Mg PO HS Eliquis (Apixaban) 2.5 Mg Tab 2.5 Mg PO BID [Cpap] Review of Systems Except as stated in HPI: all other systems reviewed are Neg Physical Exam Narrative GENERAL: 87yo F not in distress. SKIN: Focused skin assessment warm/dry. HEAD: Atraumatic. Normocephalic. EYES: Pupils equal and round. No scleral icterus. No injection or drainage. ENT: Throat: Uvula midline. No exudate. No trismus. No tongue elevation. NECK: No mass, tenderness to palpation. No redness. CARDIOVASCULAR: Regular rate and rhythm. No murmur appreciated. RESPIRATORY: No accessory muscle use. Clear to auscultation. Breath sounds equal bilaterally. GASTROINTESTINAL: Abdomen soft, non-tender, nondistended. MUSCULOSKELETAL: No obvious deformities. No clubbing. No cyanosis. No edema. NEUROLOGICAL: Awake and alert. No obvious cranial nerve deficits. Motor grossly within normal limits. Normal speech. PSYCHIATRIC: Appropriate mood and affect; insight and judgment normal. Data Data Last Documented VS Vital Signs Date Time Temp Pulse Resp B/P (MAP) Pulse Ox O2 Delivery O2 Flow Rate FiO2 06/26/17 13:23 96 06/26/17 13:02 98.1 82 18 132/64 (86) Orders Orders Ed Discharge Order (06/26/17 13:51) MDM Medical Decision Making Medical Screen Exam Complete: Yes Emergency Medical Condition: Yes Differential Diagnosis Viral laryngitis vs. URI Narrative Course 87yo F here with hoarse voice after coughing and losing her voice. Her symptoms have actually improve but she just wanted to make sure there is no medication she can take to make it improve faster. Pt is nontoxic appearing. Pt has no fever here, no tachycardia. O2 sat was documented in triage at 89% but on recheck in the room, it was 95-96%. I do not think the 89 was accurate. Pt denies any chest pain or sob. Pt said she does not have throat pain and does not want anything for it. She is eating and drinking normally, no tripoding, no trismus, no signs of neck infection. Pt has good follow up. Return precautions given. Diagnosis Primary Impression: Hoarseness of voice Patient Instructions: General Instructions Departure Forms: Tests/Procedures Additional Instructions: Please follow up with your primary care physician in 2-3 days. Return to the ED if you have pain, fever, decrease intake, trouble breathing or any other concerning symptoms. Drink tea with honey as needed. Med/Other Pt SpecificInfo: No Change to Meds Disposition: 01 DISCHARGE HOME Condition: Stable Raquel Serrano DO Jun 26, 2017 13:31
== END 2017-06-26 14:15 | disposition home or self-care (01) ==
LOC: PHED 12:50
DX: R49.0 Dysphonia (principal); C91.10 Chronic lymphocytic leukemia of B-cell type not having achieved remission; I10 Essential (primary) hypertension; I48.2 Chronic atrial fibrillation; E78.00 Pure hypercholesterolemia, unspecified; E11.9 Type 2 diabetes mellitus without complications; N19 Unspecified kidney failure; Z87.891 Personal history of nicotine dependence; Z88.8 Allergy status to other drugs, medicaments and biological substances; Z79.4 Long term (current) use of insulin; Z79.01 Long term (current) use of anticoagulants; Z79.899 Other long term (current) drug therapy
CPT/HCPCS: 99282

== ENCOUNTER 2017-07-23 10:18 | Inpatient (IN) | payer MEDICARE, OTHER ==
[~2017-07-23] VITALS: Ht 170.2 cm; Wt 105.4 kg
[2017-07-23] VITALS (7 sets, daily range): BP systolic 130–166; BP diastolic 58–70; PULSE 73–96; RESP 12–24; TEMP 98.3–98.4; O2SAT 86–99
[~2017-07-23 10:18] MED LIST changes: -AZIT250T3 PO; -PRED20 PO; -guaiFENesin ER PO
--- NOTE | 2017-07-23 10:34 | PD ---
HPI Chief Complaint: Fall Time Seen by Provider: 10:26 Travel History International Travel<30 days: No Contact w/Intl Traveler<30days: No Traveled to known affect area: No History of Present Illness HPI The patient was seen and examined in the presence of the nurse. This patient is brought in by paramedics after suffering a fall. She lost her balance when she abruptly turned and stumbled and fell. She landed on her right side. She complains of pain in her right shoulder and her right hip. Symptom severity is moderate. Duration is 1 hour. No alleviating factors. Pain is exacerbated by movement. She takes Eliquis for history of A. fib. PFSH Past Medical History Hx Anticoagulant Therapy: Yes Arthritis: No Asthma: No Atrial Fibrillation: Yes Autoimmune Disease: Yes (CLL) Heart Rhythm Problems: Yes (CHRONIC AFIB, CARDIOVERSION) Cancer: Yes (CLL ) Cardiovascular Problems: Yes High Cholesterol: Yes Chest Pain: No Congestive Heart Failure: No COPD: No Cerebrovascular Accident: No Diabetes: Yes Diminished Hearing: No Endocrine: Yes Gastrointestinal Disorders: Yes (hx of bleeding from internal hemmeroid, was treated ) GERD: No Genitourinary: Yes Hypertension: Yes Immune Disorder: No Kidney Stones: No Musculoskeletal: Yes Neurologic: No Psychiatric: No Reproductive: No Respiratory: Yes Immunizations Current: Yes Migraines: No Radiation Therapy: No Renal Failure: Yes (last february while in hospital) Seizures: No Sleep Apnea: Yes (SLEEP APNEA) Ulcer: Yes Past Surgical History Abdominal Surgery: No Body Medical Devices: "clip in a breast from a biopsy- unsure of what side" Cardiac Surgery: No Section: Yes (X 2) Ear Surgery: No Eye Surgery: Yes (bleeding behind eye-lazer surg) Gynecologic Surgery: Yes ("marker in one breast - unsure if left or right" ) Insulin Pump: No Joint Replacement: No Oral Surgery: Yes Thoracic Surgery: No Tonsillectomy: Yes Other Surgery: Yes Social History Alcohol Use: No Tobacco Use: No (FORMER) Substance Use: No Allergies-Medications (Allergen,Severity, Reaction): Coded Allergies: pregabalin (Unverified Allergy, Severe, Anaphylaxis, 07/23/17) Reported Meds & Prescriptions Reported Meds & Active Scripts Active Ventolin Hfa 18 GM Inh (Albuterol Sulfate) 90 Mcg/Act Aer 2 Puff INH Q4-6H PRN Atrovent HFA 12.9 GM Inh (Ipratropium [place]) 17 Mcg/Actuation Aer 2 Puff INH Q6HR PRN [Budeson-Formot 160-4.5 Mg Inh] 60 PUFF Aero 2 Puff INH Q12HR Reported Albuterol Neb (Albuterol Sulfate) 2.5 Mg/3 Ml Neb 2.5 Mg NEB Q4HR PRN Centrum (Multiple Vitamins W/ Minerals) 1 Chew 1 Tab CHEW DAILY Cod Liver Oil 1 Each Capsule 1 Tab PO DAILY Bumetanide 2 Mg Tab 2 Mg PO DAILY Aspirin 81 Mg Chew 81 Mg CHEW DAILY Co Q 10 (Coenzyme Q10 (Ubidecarenone)) 100 Mg Cap 200 Mg PO DAILY Metoprolol Tartrate 100 Mg Tab 100 Mg PO BID Losartan (Losartan Potassium) 25 Mg Tab 25 Mg PO DAILY Levemir Inj (Insulin Detemir) 1,000 unit/ 10 ML Vial 50 Units SQ HS Do not mix with any other Insulin. Lipitor (Atorvastatin Calcium) 80 Mg Tab 80 Mg PO HS Eliquis (Apixaban) 2.5 Mg Tab 2.5 Mg PO BID Review of Systems General / Constitutional: No: Fever Eyes: No: Visual changes HENT: No: Headaches Cardiovascular: No: Chest Pain or Discomfort Respiratory: No: Shortness of Breath Gastrointestinal: No: Abdominal Pain Genitourinary: No: Dysuria Musculoskeletal: Positive: Arthralgias, Limited ROM, Pain Skin: No Rash Neurologic: No: Weakness Psychiatric: No: Depression Endocrine: No: Polydipsia Hematologic/Lymphatic: No: Easy Bruising Physical Exam Narrative GENERAL: Well-nourished, well-developed patient with right hip and right shoulder pain SKIN: Focused skin assessment reveals no rash and nodules. Skin is Warm and dry. HEAD: Atraumatic. Normocephalic. EYES: Pupils equal and round. No scleral icterus. No injection or drainage. ENT: No nasal bleeding or discharge. Mucous membranes pink and moist. NECK: Trachea midline. No JVD. CARDIOVASCULAR: Regular rate and rhythm. No murmur appreciated. RESPIRATORY: No accessory muscle use. Clear to auscultation. Breath sounds equal bilaterally. GASTROINTESTINAL: Abdomen soft, non-tender, nondistended. Hepatic and splenic margins not palpable. MUSCULOSKELETAL: No obvious deformities. No clubbing. No cyanosis. No edema. Patient has tenderness of the right humeral head without open wound or bruising. Right arm is neurovascularly intact. There is tenderness near the right hip and pain when she has right hip movement. Pulse and sensation of the right leg intact NEUROLOGICAL: Awake and alert. No obvious cranial nerve deficits. Motor grossly within normal limits. Normal speech. PSYCHIATRIC: Appropriate mood and affect; insight and judgment normal. Data Data Last Documented VS Vital Signs Date Time Temp Pulse Resp B/P (MAP) Pulse Ox O2 Delivery O2 Flow Rate FiO2 07/23/17 13:00 82 24 153/70 (97) 97 Nasal Cannula 3.00 07/23/17 10:37 98.4 Orders Orders Pelvis, Ap Only (Routine) (07/23/17 ) Femur (Ap & Lat/2vws) (07/23/17 ) Shoulder, Complete (>2vws) (07/23/17 ) Complete Blood Count With Diff (07/23/17 12:23) Basic Metabolic Panel (Bmp) (07/23/17 12:23) Chest, Single Ap (07/23/17 ) Electrocardiogram (07/23/17 ) Iv Access Insert/Monitor (07/23/17 12:23) Support Splint (07/23/17 12:50) Harrison's Traction (07/23/17 ) Oxycodone-Acetamin 5-325 Mg (Percocet (07/23/17 13:00) Urinary Catheter Insert/Apply (07/23/17 12:52) Ct Shoulder W/O Contrast (07/23/17 ) Diet Heart Healthy (07/23/17 Lunch) Diet Diabetic (07/23/17 Lunch) Vital Signs (Adult) VERONICA.Q4H (07/23/17 13:25) Consult Orthopedic (07/23/17 ) Morphine Inj (Morphine Inj) (07/23/17 13:30) Acetamin-Hydrocod 325-5 Mg ([place] 5-325 (07/23/17 13:30) Acetamin-Hydrocod 325-5 Mg ([place] 5-325 (07/23/17 13:30) Blood Glucose Goal (Criteria) (07/23/17 13:25) Hypoglycemia 70 Mg/Dl Or < (07/23/17 13:25) Notify Dr: Other (07/23/17 13:25) Dextrose 50% In [place] (Vial) Inj (D50w (Vi (07/23/17 13:30) Glucagon Inj (Glucagon Inj) (07/23/17 13:30) Insulin Aspart Supplemtl Scale (Novolog (07/23/17 17:00) Albuterol Neb (Albuterol Neb) (07/23/17 13:30) Atorvastatin (Lipitor) (07/23/17 21:00) Bumetanide (Bumetanide) (07/24/17 09:00) Losartan (Cozaar) (07/24/17 09:00) Metoprolol Tartrate (Lopressor) (07/23/17 21:00) (Nf) [Budeson-Formot 160-4.5 Mg Inh] (Sy (07/23/17 21:00) (Hub Use Only)Inp Phy Cons/Ref (07/23/17 ) Labs Laboratory Tests Test 07/23/17 10:43 White Blood Count 107.9 TH/MM3 Red Blood Count 3.27 MIL/MM3 Hemoglobin 9.6 GM/DL Hematocrit 31.2 % Mean Corpuscular Volume 95.4 FL Mean Corpuscular Hemoglobin 29.4 PG Mean Corpuscular Hemoglobin Concent 30.8 % Red Cell Distribution Width 16.4 % Platelet Count 189 TH/MM3 Mean Platelet Volume 9.1 FL Neutrophils (%) (Auto) 10.7 % Lymphocytes (%) (Auto) 86.4 % Monocytes (%) (Auto) 2.6 % Eosinophils (%) (Auto) 0.2 % Basophils (%) (Auto) 0.1 % Neutrophils # (Auto) 11.5 TH/MM3 Lymphocytes # (Auto) 93.2 TH/MM3 Monocytes # (Auto) 2.9 TH/MM3 Eosinophils # (Auto) 0.2 TH/MM3 Basophils # (Auto) 0.2 TH/MM3 CBC Comment AUTO DIFF Blood Urea Nitrogen 33 MG/DL Creatinine 1.60 MG/DL Random Glucose 93 MG/DL Calcium Level 8.1 MG/DL Sodium Level 144 MEQ/L Potassium Level 4.0 MEQ/L Chloride Level 113 MEQ/L Carbon Dioxide Level 22.6 MEQ/L Anion Gap 8 MEQ/L Estimat Glomerular Filtration Rate 31 ML/MIN MDM Medical Decision Making Medical Screen Exam Complete: Yes Emergency Medical Condition: Yes Medical Record Reviewed: Yes Differential Diagnosis Hip fracture, pelvic fracture, shoulder dislocation Narrative Course I have reviewed the patient's electronic medical record. I have ordered a series of x-rays to include shoulder pelvis and femur Patient received 10 mg of morphine in route I reviewed her EKG which reveals A. fib I reviewed her pelvis x-ray which shows no pelvic fracture. I reviewed her femur x-rays which suggest nondisplaced Fracture I reviewed her shoulder x-rays which show a multi-part fracture of the right humerus. The top half of the humeral head is very displaced These were reviewed in detail with orthopedist Dr. Teran who will be consulted I discussed with the hospitalist will admit CBC shows extreme leukocytosis consistent with her CLL history Metabolic profile reveals some mild renal insufficiency Orthopedist has recommended shoulder sling and Harrison's traction Diagnosis Primary Impression: Right humeral fracture Qualified Codes: S42.231A - 3-part fracture of surgical neck of right humerus , initial encounter for closed fracture Additional Impressions: Fracture of femoral neck, right Qualified Codes: S72.001A - Fracture of unspecified part of neck of right femur, initial encounter for closed fracture DM (diabetes mellitus) Qualified Codes: E11.8 - Type 2 diabetes mellitus with unspecified complications; Z79.4 - senior living (current) use of insulin CLL (chronic lymphocytic leukemia) Admitting Information Admitting Physician Requests: Admit Sukumar Forbes MD Jul 23, 2017 10:34
[2017-07-23] MEDS ORDERED: ALBU0.08 NEB (10:41)
--- NOTE | 2017-07-23 11:32 | RADRPT ---
EXAM DATE/TIME: 07/23/2017 10:56 [facility] COMPARISON: No previous studies available for comparison. INDICATIONS : Fall this morning. MEDICAL HISTORY : AFIB SURGICAL HISTORY : None. ENCOUNTER: Initial ACUITY: 1 day PAIN SCORE: 5/10 LOCATION: Right Shoulder FINDINGS: There is a multipart fracture dislocation of the shoulder with a displaced and angulated fragment inv olving the head of the humerus and a displaced and angulated fragment involving greater tuberosity. The shaft of the humerus is displaced inferior and posterior. The a.c. joint is intact the visualize d right upper ribs are intact. CONCLUSION: At least 3 part fracture of the proximal humerus with significantly displaced fragments of the andrez l head and greater tuberosity. Noel Schwartz MD on July 23, 2017 at 11:29 Board Certified Radiologist. This report was verified electronically.
--- NOTE | 2017-07-23 11:33 | RADRPT ---
EXAM DATE/TIME: 07/23/2017 10:59 This report includes an Addendum and supersedes previous reports for this exam. [facility] COMPARISON: No previous studies available for comparison. INDICATIONS : Fall this morning. MEDICAL HISTORY : AFIB SURGICAL HISTORY : None. ENCOUNTER: Initial ACUITY: 1 day PAIN SCORE: 7/10 LOCATION: Right Hip FINDINGS: A single frontal view of the pelvis demonstrates no evidence of fracture. The bony pelvic ring is in tact. Mild and symmetric degenerative changes in both hips. Bony mineralization is diffusely decrea sed. The soft tissues are intact. CONCLUSION: The bony pelvic ring is grossly intact. Noel Schwartz MD on July 23, 2017 at 11:30 Board Certified Radiologist. This report was verified electronically. ADDENDUM: Further view of the radiographs demonstrate a nondisplaced intertrochanteric fracture on the right Duncan Ruiz MD on July 24, 2017 at 8:37 Board Certified Radiologist. This report was verified electronically.
--- NOTE | 2017-07-23 11:59 | RADRPT ---
EXAM DATE/TIME: 07/23/2017 11:00 [facility] COMPARISON: No previous studies available for comparison. INDICATIONS : Fall this morning. MEDICAL HISTORY : AFIB SURGICAL HISTORY : None. ENCOUNTER: Initial ACUITY: 1 day PAIN SCORE: 7/10 LOCATION: Right Hip FINDINGS: There is diffuse osteopenia stopped there is cortical discontinuity the junction of the femoral neck and greater trochanter suggesting a nondisplaced fracture. The shaft of the femur is intact. CONCLUSION: Findings suggestive nondisplaced fracture at the base of the femoral neck and greater trochanter. Noel Schwartz MD on July 23, 2017 at 11:53 Board Certified Radiologist. This report was verified electronically.
--- NOTE | 2017-07-23 12:53 | RADRPT ---
EXAM DATE/TIME: 07/23/2017 12:25 [facility] COMPARISON: CHEST SINGLE AP, March 13, 2017, 9:49. INDICATIONS : Short of breath, fall pain right hip. MEDICAL HISTORY : Renal failure, acute. SURGICAL HISTORY : None. ENCOUNTER: Initial ACUITY: 1 day PAIN SCORE: 2/10 LOCATION: Bilateral chest FINDINGS: A single view of the chest demonstrates the lungs to be symmetrically aerated without evidence of mas s, infiltrate or effusion. The cardiomediastinal contours are unremarkable. Comminuted fracture prox imal right humerus extending to the humeral head and neck. CONCLUSION: 1. No active disease. There is a comminuted fracture of the proximal right humerus. Brock Myrick MD on July 23, 2017 at 12:50 Board Certified Radiologist. This report was verified electronically.
[2017-07-23] MEDS ORDERED: oxyCODONE/ACETAMINOPHEN 5 MG/325 MG TAB PO ONE (13:00)
[2017-07-23 13:05] LABS: AUTOMATED NEUTROPHIL # 11.5 TH/MM3 (1.8-7.7); BASOPHIL # 0.2 TH/MM3 (0-0.2); BASOPHIL % 0.1 % (0.0-2.0); EOSINOPHIL # 0.2 TH/MM3 (0-0.4); EOSINOPHIL % 0.2 % (0.0-4.0); HEMATOCRIT 31.2 % (35.0-46.0); HEMOGLOBIN 9.6 GM/DL (11.6-15.3); LYMPH % 86.4 % (9.0-44.0); LYMPHOCYTE # 93.2 TH/MM3 (1.0-4.8); MEAN CELL VOLUME 95.4 FL (80.0-100.0); MEAN CORPUSCULAR HEMOGLOBIN 29.4 PG (27.0-34.0); MEAN CORPUSCULAR HGB CONC 30.8 % (32.0-36.0); MEAN PLATELET VOLUME 9.1 FL (7.0-11.0); MONO % 2.6 % (0.0-8.0); MONOCYTE # 2.9 TH/MM3 (0-0.9); NEUT % 10.7 % (16.0-70.0); PLATELET COUNT 189 TH/MM3 (150-450); RED BLOOD COUNT 3.27 MIL/MM3 (4.00-5.30); RED CELL DISTRIBUTION WIDTH 16.4 % (11.6-17.2); WHITE BLOOD COUNT 107.9 TH/MM3 (4.0-11.0)
[2017-07-23 13:21] LABS: BICARBONATE 22.6 MEQ/L (21.0-32.0); CALCIUM 8.1 MG/DL (8.5-10.1); CREATININE 1.6 MG/DL (0.50-1.00)
[2017-07-23] MEDS ORDERED: DEXTROSE 50% IN WATER 50 ML VIAL(D50) IV PUSH PRN (13:30)
[2017-07-23] MEDS ORDERED: ACETAMINOPHEN/HYDROcodone 325 MG/5 MG TAB PO PRN (13:30)
[2017-07-23] MEDS ORDERED: GLUCAGON 1 MG/ML VIAL OTHER PRN (13:30)
[2017-07-23] MEDS ORDERED: RESP: ALBUTEROL 2.5 MG/3 ML NEB (PRN) NEB (13:30)
--- NOTE | 2017-07-23 13:38 | HHI.HP ---
[facility] Primary Care Physician Michael Henderson MD Admission Diagnosis right humerus/ femoral neck fractures Diagnoses: (1) Right humeral fracture Diagnosis: Principal (2) Fracture of femoral neck, right Diagnosis: Principal Chief Complaint: fall Travel History International Travel<30 Days: No Contact w/Intl Traveler <30 Da: No Traveled to Known Affected Are: No History of Present Illness patient is a 87 y/o female with history of CLL,atrial fibrillation, asthma, diabetes mellitus, chronic renal insufficiency,who presented to ER after she fell earlier today. she says that she was walking outside the house when she fell on her right side after which she started to have some pain to the right shoulder and hip. she denies any prodromal symptoms including chest pain, sob or dizziness. there's no report of syncopal episode or head trauma. pain was moderate at the time of my evaluation.she denies any abdominal pain, nausea or vomiting. Review of Systems Constitutional: DENIES: Fever, Weight loss, Chills, Night Sweats Eyes: DENIES: Blurred vision, Diplopia, Vision loss, Double Vision Ears, nose, mouth, throat: DENIES: Tinnitus, Vertigo, Throat pain, Epistaxis Respiratory: DENIES: Apneas, Cough, Snoring, Wheezing, Hemoptysis, Sputum production, Shortness of breath Cardiovascular: DENIES: Chest pain, Palpitations, Syncope, Dyspnea on Exertion , PND, Lower Extremity Edema, Orthopnea, Claudication Gastrointestinal: DENIES: Abdominal pain, Black stools, Bloody stools, Constipation, Diarrhea, Nausea, Vomiting, Difficulty Swallowing, Anorexia Genitourinary: DENIES: Urinary frequency, Urgency, Hematuria, Dysuria Musculoskeletal: COMPLAINS OF: Joint pain (right hip and shoulder.), DENIES: Muscle aches, Stiffness, Joint Swelling Integumentary: DENIES: Rash Neurologic: DENIES: Abnormal gait, Headache, Localized weakness, Paresthesias, Seizures, Speech Problems, Tremor, Poor Balance Psychiatric: DENIES: Anxiety, Confusion, Mood changes, Depression, Hallucinations, Agitation, Suicidal Ideation, Homicidal Ideation, Delusions Past Family Social History Past Medical History atrial fibrillation/ diabetes mellitus/ CLL/ asthma/ CRI Past Surgical History / tonsillectomy. Reported Medications Ventolin Hfa 18 GM Inh (Albuterol Sulfate) 90 Mcg/Act Aer 2 Puff INH Q4-6H PRN Atrovent HFA 12.9 GM Inh (Ipratropium [place]) 17 Mcg/Actuation Aer 2 Puff INH Q6HR PRN [Budeson-Formot 160-4.5 Mg Inh] 60 PUFF Aero 2 Puff INH Q12HR Reported Centrum (Multiple Vitamins W/ Minerals) 1 Chew 1 Tab CHEW DAILY Cod Liver Oil 1 Each Capsule 1 Tab PO DAILY Bumetanide 2 Mg Tab 2 Mg PO DAILY Aspirin 81 Mg Chew 81 Mg CHEW DAILY Co Q 10 (Coenzyme Q10 (Ubidecarenone)) 100 Mg Cap 200 Mg PO DAILY Metoprolol Tartrate 100 Mg Tab 100 Mg PO BID Losartan (Losartan Potassium) 25 Mg Tab 25 Mg PO DAILY Levemir Inj (Insulin Detemir) 1,000 unit/ 10 ML Vial 36 Units SQ DAILY Do not mix with any other Insulin. Lipitor (Atorvastatin Calcium) 80 Mg Tab 80 Mg PO HS Eliquis (Apixaban) 2.5 Mg Tab 2.5 Mg PO BID [Cpap] Allergies: Coded Allergies: pregabalin (Unverified Allergy, Severe, Anaphylaxis, 07/23/17) Active Ordered Medications Inpatient Medications Oxycodone/ Acetaminophen (Percocet 5-325 Mg) 2 tab ONCE ONCE PO Last administered on 07/23/17at 13:13; Start 07/23/17 at 13:00; Stop 07/23/17 at 13:01; Status DC Family History not relevant to this admission. Social History quit smoking and drinking years ago. Physical Exam Vital Signs Vital Signs Date Time Temp Pulse Resp B/P (MAP) Pulse Ox O2 Delivery O2 Flow Rate FiO2 07/23/17 13:00 82 24 153/70 (97) 97 Nasal Cannula 3.00 07/23/17 12:21 85 12 130/63 (85) 94 Nasal Cannula 3.00 07/23/17 10:38 Nasal Cannula 2.00 07/23/17 10:37 98.4 73 14 166/69 (101) 86 Room Air Physical Exam GENERAL: This is a well-nourished, well-developed patient, in no apparent distress. SKIN: No rashes, ecchymoses or lesions. Cool and dry. HEAD: Atraumatic. Normocephalic. No temporal or scalp tenderness. EYES: Pupils equal round and reactive. Extraocular motions intact. No scleral icterus. No injection or drainage. ENT: Nose without bleeding, purulent drainage or septal hematoma. Throat without erythema, tonsillar hypertrophy or exudate. Uvula midline. Airway patent. NECK: Trachea midline. No JVD or lymphadenopathy. Supple, nontender, no meningeal signs. CARDIOVASCULAR: Regular rate and rhythm without murmurs, gallops, or rubs. RESPIRATORY: Clear to auscultation. Breath sounds equal bilaterally. No wheezes , rales, or rhonchi. GASTROINTESTINAL: Abdomen soft, non-tender, nondistended. No hepato-splenomegaly , or palpable masses. No guarding. MUSCULOSKELETAL: Extremities without clubbing, cyanosis, or edema. No joint tenderness, effusion, or edema noted. No calf tenderness. Negative Homans sign bilaterally. NEUROLOGICAL: Awake and alert. Cranial nerves II through XII intact. Motor and sensory grossly within normal limits. Five out of 5 muscle strength in all muscle groups. Normal speech. Laboratory Laboratory Tests Test 07/23/17 10:43 White Blood Count 107.9 Red Blood Count 3.27 Hemoglobin 9.6 Hematocrit 31.2 Mean Corpuscular Volume 95.4 Mean Corpuscular Hemoglobin 29.4 Mean Corpuscular Hemoglobin Concent 30.8 Red Cell Distribution Width 16.4 Platelet Count 189 Mean Platelet Volume 9.1 Neutrophils (%) (Auto) 10.7 Lymphocytes (%) (Auto) 86.4 Monocytes (%) (Auto) 2.6 Eosinophils (%) (Auto) 0.2 Basophils (%) (Auto) 0.1 Neutrophils # (Auto) 11.5 Lymphocytes # (Auto) 93.2 Monocytes # (Auto) 2.9 Eosinophils # (Auto) 0.2 Basophils # (Auto) 0.2 CBC Comment AUTO DIFF Blood Urea Nitrogen 33 Creatinine 1.60 Random Glucose 93 Calcium Level 8.1 Sodium Level 144 Potassium Level 4.0 Chloride Level 113 Carbon Dioxide Level 22.6 Anion Gap 8 Estimat Glomerular Filtration Rate 31 Result Diagram: 07/23/17 1043 07/23/17 1043 Imaging Last Impressions Shoulder X-Ray 07/23/17 0000 Signed Impressions: Service Date/Time: Sunday, July 23, 2017 10:56 - CONCLUSION: At least 3 part fracture of the proximal humerus with significantly displaced fragments of the humeral head and greater tuberosity. Noel Schwartz MD Pelvis X-Ray 07/23/17 0000 Signed Impressions: Service Date/Time: Sunday, July 23, 2017 10:59 - CONCLUSION: The bony pelvic ring is grossly intact. Noel Schwartz MD Femur X-Ray 07/23/17 Signed Impressions: Service Date/Time: Sunday, July 23, 2017 11:00 - CONCLUSION: Findings suggestive nondisplaced fracture at the base of the femoral neck and greater trochanter. Noel Schwartz MD Chest X-Ray 07/23/17 Signed Impressions: Service Date/Time: Sunday, July 23, 2017 12:25 - CONCLUSION: 1. No active disease. There is a comminuted fracture of the proximal right humerus. Brock Myrick MD Caprini VTE Risk Assessment Caprini VTE Risk Assessment: Mod/High Risk (score >= 2) Caprini Risk Assessment Model Point Value = 1 Point Value = 2 Point Value = 3 Point Value = 5 Age 41-60 Minor surgery BMI > 25 kg/m2 Swollen legs Varicose veins or History of unexplained or recurrent spontaneous Oral contraceptives or hormone replacement Sepsis (< 1 month) Serious lung disease, including pneumonia (< 1 month) Abnormal pulmonary function Acute myocardial infarction Congestive heart failure (< 1 month) History of inflammatory bowel disease Medical patient at bed rest Age 61-74 Arthroscopic surgery Major open surgery (> 45 min) Laparoscopic surgery (> 45 min) Malignancy Confined to bed (> 72 hours) Immobilizing plaster cast Central venous access Age >= 75 History of VTE Family history of VTE Factor V Leiden Prothrombin [id number] Lupus anticoagulant Anticardiolipin antibodies Elevated serum homocysteine Heparin-induced thrombocytopenia Other congenital or acquired thrombophilia Stroke (< 1 month) Elective arthroplasty Hip, pelvis, or leg fracture Acute spinal cord injury (< 1 month) Prophylaxis Regimen Total Risk Factor Score Risk Level Prophylaxis Regimen 0-1 Low Early ambulation 2 Moderate Order ONE of the following: *Sequential Compression Device (SCD) *Heparin 5000 units SQ BID 3-4 Higher Order ONE of the following medications: *Heparin 5000 units SQ TID *Enoxaparin/Lovenox 40 mg SQ daily (WT < 150 kg, CrCl > 30 mL/min) *Enoxaparin/Lovenox 30 mg SQ daily (WT < 150 kg, CrCl > 10-29 mL/min) *Enoxaparin/Lovenox 30 mg SQ BID (WT < 150 kg, CrCl > 30 mL/min) AND/OR *Sequential Compression Device (SCD) 5 or more Highest Order ONE of the following medications: *Heparin 5000 units SQ TID (Preferred with Epidurals) *Enoxaparin/Lovenox 40 mg SQ daily (WT < 150 kg, CrCl > 30 mL/min) *Enoxaparin/Lovenox 30 mg SQ daily (WT < 150 kg, CrCl > 10-29 mL/min) *Enoxaparin/Lovenox 30 mg SQ BID (WT < 150 kg, CrCl > 30 mL/min) AND *Sequential Compression Device (SCD) Assessment and Plan Assessment and Plan A/P - right humerus and femoral neck fracture after a fall continue with pain control- consult ortho. -atrial fibrillation; HR controlled- continue metoprolol- hold eliquis till ortho evaluation -diabetes mellitus; start on accu-check with SSI -chronic renal insufficiency; at her baseline- will monitor -asthma; resume symbicort- neb treatment as needed -CLL- f/u as outpatient -DVT prophylaxis; pending ortho evaluation. Discussed Condition With ER physician and the patient. Physician Certification 2 Midnight Certification Type: Admission for Inpatient Services Order for Inpatient Services The services are ordered in accordance with Medicare regulations or non- Medicare payer requirements, as applicable. In the case of services not specified as inpatient-only, they are appropriately provided as inpatient services in accordance with the 2-midnight benchmark. Estimated LOS (days): 3 days is the estimated time the patient will need to remain in the hospital, assuming treatment plan goals are met and no additional complications. Post-Hospital Plan: Not yet determined Sharon Martinez MD Jul 23, 2017 13:38
[2017-07-23 13:45] LABS: LYMPHOCYTES 89 % (9-44); MONOCYTES 1 % (0-8); NEUTROPHIL # MANUAL DIFF 9.7 TH/MM3 (1.8-7.7); POLYS (SEG NEUTROPHILS) 9 % (16-70); SMUDGE CELLS PRESENT PRESENT
[2017-07-23 13:46] LABS: ACANTHOCYTES 1+ (NORMAL); KERATOCYTES OCC (NORMAL); OVALOCYTES 1+ (NORMAL)
--- NOTE | 2017-07-23 13:51 | RADRPT ---
EXAM DATE/TIME: 07/23/2017 13:28 [facility] COMPARISON: No previous studies available for comparison. INDICATIONS : Fall, right shoulder pain RADIATION DOSE: 32.25 CTDIvol (mGy) MEDICAL HISTORY : Cardiovascular disease. Hypertension. Diabetes, Asthma, Chronic lymphocytic leukemia SURGICAL HISTORY : None. ENCOUNTER: Initial ACUITY: 1 day PAIN SCALE: 4/10 LOCATION: Right Shoulder TECHNIQUE: Volumetric scanning of the shoulder was performed. Using automated exposure control and adjustment o f the mA and/or kV according to patient size, radiation dose was kept as low as reasonably achievable to obtain optimal diagnostic quality images. DICOM format image data is available electronically f or review and comparison. FINDINGS: There is a a three-part fracture of the proximal humerus with comminution. The shaft of the humerus is displaced anterior to the coronoid process. The humeral head fragment is rotated 170, and is dir ected superior and is displaced 4 cm lateral to the glenoid. The greater tuberosity fracture is disp laced anterior and superior, is mildly comminuted, but not significantly rotated. The bony glenoid and scapula appear grossly intact. The a.c. joint is intact. The visualized right upper ribs are intact. Diffuse osteopenia. CONCLUSION: Three-part proximal humeral fracture with significant displacement and rotation of the humeral head a nd location of the 3 components as above. Noel Schwartz MD on July 23, 2017 at 13:44 Board Certified Radiologist. This report was verified electronically.
[2017-07-23] MEDS: MORPHINE SULFATE 2 MG/ML SYRINGE IV PUSH PRN ×3 (16:41→20:56)
[2017-07-23] MEDS: INSULIN ASPART SUPPLEMENTAL SCALE SQ SCH ×2 (17:00→21:03)
[2017-07-23] MEDS: ACETAMINOPHEN/HYDROcodone 325 MG/5 MG TAB PO PRN ×2 (17:33→21:35)
[2017-07-23] MEDS: ATORVASTATIN 80 MG TAB PO SCH (20:56)
[2017-07-23] MEDS: METOPROLOL TARTRATE 100 MG TAB PO SCH (20:56)
[2017-07-23] MEDS: BUDESONIDE-FORMOTEROL 160/4.5 MCG INHALER INH SCH (21:03)
[2017-07-24] VITALS: BP 101/51; PULSE 83; RESP 20; TEMP 97.7; O2SAT 96
[2017-07-24] MEDS: MORPHINE SULFATE 2 MG/ML SYRINGE IV PUSH PRN (00:36)
[2017-07-24] MEDS ORDERED: CHLORHEXIDINE GLUCONATE 2 % 1 PACK (2 CLOTHS) TOPICAL PRN (01:30)
[2017-07-24] MEDS ORDERED: POVIDONE IODINE 5% (ANTISEPSIS KIT) 4 APPLICATIONS EACH NARE PRN (01:30)
[2017-07-24] MEDS ORDERED: SODIUM CHLORID 0.9% 500 ML IV PRN (01:30)
[2017-07-24] MEDS ORDERED: LACTATED RINGER'S 1000 ML IV PRN (01:30)
[2017-07-24] MEDS: ACETAMINOPHEN/HYDROcodone 325 MG/5 MG TAB PO PRN (03:42)
[2017-07-24 03:44] VITALS: BP 114/56; PULSE 85; RESP 17; TEMP 98.8; O2SAT 95
[2017-07-24 04:32] LABS: INTERNATIONAL NORMALIZED RATIO 1.1 RATIO; PROTHROMBIN TIME - PATIENT 11.4 SEC (9.8-11.6)
[2017-07-24] MEDS ORDERED: ACETAMINOPHEN 1000 MG/100 ML 100 ML IV ONE (06:38)
--- NOTE | 2017-07-24 06:41 | PD.ORT.PN ---
Subjective Subjective Remarks s/p fall at home right shoulder and right hip pain Objective Vitals Vital Signs Date Time Temp Pulse Resp B/P (MAP) Pulse Ox O2 Delivery O2 Flow Rate FiO2 07/24/17 03:44 98.8 85 17 114/56 (75) 95 07/24/17 00:00 97.7 83 20 101/51 (68) 96 07/23/17 20:00 98.3 91 18 138/58 (84) 99 07/23/17 16:55 98.4 96 18 137/61 (86) 96 07/23/17 16:02 07/23/17 15:08 14 07/23/17 14:00 86 13 157/70 (99) 93 Nasal Cannula 3.00 07/23/17 13:59 92 12 158/65 (96) 92 Nasal Cannula 3.00 07/23/17 13:00 82 24 153/70 (97) 97 Nasal Cannula 3.00 07/23/17 12:21 85 12 130/63 (85) 94 Nasal Cannula 3.00 07/23/17 10:38 Nasal Cannula 2.00 07/23/17 10:37 98.4 73 14 166/69 (101) 86 Room Air Result Diagram: 07/23/17 1043 07/23/17 1043 Other Results Laboratory Tests Test 07/24/17 03:51 Prothromb Time International Ratio 1.1 RATIO Prothrombin Time 11.4 SEC (9.8-11.6) Objective Remarks RLE: +bucks traction. pain in hip. nvi RUE: +sling. nvi to fingers and wrist. Assessment & Plan Assessment and Plan 1) Right Proximal Humerus Fx 2) Right Greater Trochanter Fx -consents -surgery today with Alexnadru Rowe[employer] PA Jul 24, 2017 06:41
[2017-07-24] MEDS ORDERED: WHEEMIS3 (06:43)
[2017-07-24] MEDS ORDERED: VITA500012 PO (06:43)
[2017-07-24] MEDS ORDERED: XARE10TA PO (06:43)
[2017-07-24] MEDS ORDERED: VITA2000 PO (06:43)
[2017-07-24] MEDS ORDERED: HYDR-3580 PO (06:43)
[2017-07-24] MEDS ORDERED: CALCTAB19 PO (06:43)
[2017-07-24] MEDS: METOPROLOL TARTRATE 100 MG TAB PO SCH ×2 (06:48→21:07)
[2017-07-24] MEDS: INSULIN ASPART SUPPLEMENTAL SCALE SQ SCH ×4 (06:53→21:07)
[2017-07-24] MEDS ORDERED: GENTAMICIN SULFATE 80 MG/2 ML VIAL ONE (07:23)
[2017-07-24] MEDS ORDERED: BUPIVACAINE/EPINEPHRINE 0.25% 50 ML VIAL ONE (07:23)
[2017-07-24] MEDS ORDERED: VANCOMYCIN HCL 1000 MG VIAL ONE ×2 (07:24→09:27)
[2017-07-24] MEDS ORDERED: SODIUM CHLOR 0.9% 250 ML INJ 250 ML ONE (07:24)
--- NOTE | 2017-07-24 07:32 | MB ---
cc: George Hernandez MD DATE: 07/24/2017 REASON FOR CONSULTATION: 1. Right hip fracture. 2. Right proximal humerus fracture. HISTORY OF PRESENT ILLNESS: Raya is an 87-year-old female who had a fall. She was walking outside of her house when she fell. She landed on her right side. She denies dizziness, syncope or loss of consciousness. She describes a mechanical fall. She was unable to stand or ambulate. She presented to the Emergency Room where x-rays revealed a right hip intertrochanteric fracture and a displaced comminuted right proximal humerus fracture. She is currently awake and alert on orthopedic floor. She complains of right shoulder pain and right hip pain. The pain is worse with movement. PAST MEDICAL HISTORY: Atrial fibrillation, diabetes, chronic lymphocytic leukemia, asthma and chronic renal insufficiency. PAST SURGICAL HISTORY: and tonsillectomy. MEDICATIONS: 1. Ventolin. 2. Atrovent. 3. Bumetanide. 4. Aspirin. 5. Metoprolol. 6. Losartan. 7. Levemir. 8. Lipitor. 9. Eliquis. ALLERGIES: PREGABALIN. SOCIAL HISTORY: The patient denies alcohol, tobacco or drug use. FAMILY HISTORY: Noncontributory. REVIEW OF SYSTEMS: The patient denies headache, visual changes, neck pain, chest pain, abdominal pain, nausea, vomiting, recent weight loss, fevers or chills, numbness or tingling in extremities or bowel or bladder incontinence. She complains of right shoulder pain and right hip pain. The pain is worse with movement. LABORATORY DATA: The patient has a white blood cell count of 107, hematocrit of 31.2, and platelet count of 189. INR is 1.1. BUN is 33 and creatinine is 1.60. IMAGING STUDIES: X-rays of the right shoulder were reviewed. X-rays reveal a displaced comminuted right proximal humerus fracture. X-rays of the right hip are reviewed. X-rays reveal a minimally displaced right intertrochanteric hip fracture. PHYSICAL EXAMINATION: GENERAL: The patient is a pleasant 87-year-old female. She is awake and alert. She appears mildly anxious. She appears moderately overweight. VITAL SIGNS: Temperature 98.8, pulse 85, respirations 17, blood pressure 114/56, O2 saturation is 95% on room air. HEENT: Head: The patient is normocephalic. Pupils are equal. NECK: Soft, nontender. The trachea is in the midline. ABDOMEN: Soft, nontender, and nondistended. EXTREMITIES: Examination of the right arm reveals mild swelling and bruising around the shoulder. She has pain with any shoulder motion. She has no tenderness around her elbow, wrist or fingers. She has intact sensation in all fingers. She has good capillary refill at fingers. Skin is intact. Examination of left arm reveals no pain with shoulder, elbow or wrist motion. She has intact sensation in all fingers. She has good capillary refill in all fingers. Skin is intact. Examination of left leg reveals no pain with hip, knee or ankle motion. Skin is intact. Dorsalis pedis pulse is palpable. Sensation is intact. Examination of right leg reveals tenderness to palpation over the proximal femur. She has pain with any hip motion. Calf and thigh compartments are soft. She has minimal tenderness around her knee, tibia and ankle. Sensation intact in her right foot. She has good capillary refill in her toes. IMPRESSION: 1. Chronic lymphocytic leukemia. 2. Diabetes. 3. Hypertension. 4. Comminuted right proximal humerus fracture. 5. Minimally displaced right hip intertrochanteric fracture. PLAN: Treatment options were discussed with the patient. At this point, I would recommend surgery for her right hip and right femur. I would recommend right hip intramedullary nail fixation. For her shoulder, I would recommend right shoulder hemiarthroplasty. Risks of surgery include bleeding, infection; injuries to arteries, nerves or blood vessels; shoulder dislocation, loss of shoulder motion, shoulder weakness as well as medical complications including blood clot, stroke, heart attack and . All questions were answered. I will plan on surgery today. A mid-level provider in my office, nurse practitioner or PA, may see this patient on a follow-up basis and continue to implement the objective of this plan including: Starting or adjusting medications, injections of muscle, tendon, bursa or joints, cast application, orthotic or brace application, physical therapy, further radiographic studies including x-ray, MRI, CT, ultrasounds or bone scan, vascular studies, neurologic studies, or other specialist consultations, and proceeding with surgical management as appropriate. MD MARGOT Timmons/JANES , 07:11 AM , 07:31 AM
[2017-07-24] MEDS ORDERED: ceFAZolin INJ 1,000 MG VIAL ONE (08:44)
[2017-07-24] MEDS: BUDESONIDE-FORMOTEROL 160/4.5 MCG INHALER INH SCH ×2 (09:00→21:00)
[2017-07-24] MEDS: LOSARTAN 25 MG TAB PO SCH (09:00)
[2017-07-24] MEDS: BUMETANIDE 1 MG TAB PO SCH (09:00)
[2017-07-24] MEDS ORDERED: ceFAZolin 2 GM PREMIX 50 ML IV SCH (10:45)
[2017-07-24] MEDS ORDERED: ONDANSETRON HCL 4 MG/2 ML VIAL IVP PRN (10:45)
--- NOTE | 2017-07-24 10:53 | PD.OP ---
cc: George Daniels MD Operative Report Date of Surgery: Jul 24, 2017 Preoperative Diagnosis: Right hip intertrochanteric fracture, displaced 4 part right proximal humerus fracture Postoperative Diagnosis: Procedure: Right hip reduction and intramedullary nail fixation, right shoulder marily- arthroplasty Anesthesia: Gen. Surgeon: George Daniels Green Chainer(s): EDNA Colón PA-C The surgical procedure was assisted by my physician recruitment and outreach assistant. My P.A. presence was necessary throughout this case for the manipulation and positioning of the surgical extremity. My P.A. was assisting me throughout the duration of this procedure. The skill set of a physician recruitment and outreach assistant was medically necessary to complete this procedure. During the surgical case the photographic technician was working at the back table and the physician recruitment and outreach assistant was directly assisting me. Operation and Findings: Implants used: [12]mm Synthes TFNA short troch nail, Depuy size 12 global advantage stem, size 48 mm x 18 mm humeral head Plan of activity: Weight-bear as tolerated right leg, nonweightbearing right arm Patient was seen and evaluated preoperatively. The patient has significant hip pain from intertrochanteric hip fracture. The risk and benefits of surgery were discussed in depth with the patient to include bleeding infection nonunion malunion and need for hip replacement painful hardware as well as medical competitions including but not stroke heart attack and . Informed consent was obtained. Operative site was marked. Patient was brought to the operating room and placed on fracture table. IV sedation was administered by anesthesiologist. Timeout procedure was performed. Hip and leg were prepped with alcohol followed by DuraPrep and draped in the usual sterile fashion. IV antibiotics were given prior to incision. Procedure began with reduction of fracture. Traction was applied. The leg was manipulated to achieve reduction. Excellent reduction was achieved. Fluoroscopy was used to confirm reduction. A three inch incision was made proximal to the trochanter. Subcutaneous tissue was dissected bluntly. Guidepin was placed at the tip of the trochanter and advanced into the femoral canal. Fluoroscopy confirmed appropriate guidepin placement. A opening reamer was placed over the guidepin. The nail was attached to the insertion handle. Nail was now placed through the tip of the trochanter into the femoral canal. Fluoroscopy confirmed appropriate nail placement. A second incision was made over the lateral thigh. Cannulas were placed through the insertion handle down to the femur. Guidepin was now placed through the femoral nail into the center of the femoral head. Fluoroscopy confirmed appropriate guidepin placement. Screw length was measured. Cannulated drill was placed over the guidepin. Appropriate length lag screw was now placed. Traction was released and compression was applied. The set screw was now tightened in dynamic mode. Using the insertion handle as a guide a distal interlocking screw was drilled and placed. Final fluoroscopy revealed well aligned fracture with well-placed hardware. Incision was closed with 3-0 Vicryl and julieta. Sterile dressings were applied. Patient was now repositioned in a beachchair position. The operative arm and shoulder were prepped with alcohol, followed by Hibiclens and draped in the usual sterile fashion. Time out procedure was performed. Clean air was used for this procedure. The procedure began with a 5 inch incision over the anterior shoulder. Subcutaneous tissues were dissected with Bovie. The fascia was opened. The deltopectoral interval was utilized. At this point, attention was turned towards the fracture. The fracture had a significant displacement and was in 4 fragments. The greater tuberosity had some displacement relative to the humeral head. The greater tuberosity and the lesser tuberosity were identified and tagged with FiberWire suture. The humeral head was identified and was now removed. There were no remaining soft tissue attachments. The humeral head was measured and appropriately sized. At this point, attention was turned to preparation of the proximal humerus. There was some comminution of the metaphyseal region. A reamer was used to open the humeral canal. The canal was reamed up to size 12. Next the canal was broached up to size 12 to achieve a good press-fit . A trial head was now placed. The shoulder was reduced. The patient had good stability. Fluoroscopy confirmed appropriate alignment of the prosthesis. The trial components were now removed. A DePuy Global Advantage stem was now impacted in appropriate version. Care was taken to keep approximately 30 degrees of retroversion. Next , the humeral head was now impacted onto the stem. The shoulder was now reduced. At this point, attention was turned to repair of the tuberosities. Three #5 FiberWire sutures were utilized to repair the tuberosities. The greater and lesser tuberosities were each repaired with #5 FiberWire sutures. The sutures were now passed through the stem to help hold the prostheses in appropriate position. Bone graft was placed in the tuberosities. An additional cerclage suture was passed around the stem and through the rotator cuff. A drill hole was made into the metaphyseal region. The sutures from the rotator cuff were now sutures to the metaphyseal region of the proximal humerus. Final fluoroscopy revealed a well reduced shoulder with well placed stem. The wound was thoroughly irrigated. The fascia was closed with #1 Vicryl. The subcutaneous tissues were closed with 3-0 Vicryl. Skin was closed with julieta. Sterile dressings were applied. The patient was placed into a sling and swath, then awakened and transferred to recovery in stable condition. George Daniels MD Jul 24, 2017 10:53
[2017-07-24] MEDS ORDERED: DO NOT ADM ANY ANTICOAGULANT DRUGS PRN (11:00)
--- NOTE | 2017-07-24 11:38 | RADRPT ---
EXAM DATE/TIME: 07/24/2017 08:59 [facility] COMPARISON: FEMUR RIGHT (AP & LAT/2VWS), July 23, 2017, 11:00. INDICATIONS : Right hip troch nail. MEDICAL HISTORY : Renal failure, acute. SURGICAL HISTORY : None. ENCOUNTER: Initial ACUITY: 1 day PAIN SCORE: Non-responsive. LOCATION: Right hip FINDINGS: A two view examination of the right hip was performed. Interval open reduction internal fixation of t he right femoral neck fracture now secured with a medullary karen and compression screw. Fracture fragm ents are in excellent anatomic alignment. CONCLUSION: Internal fixation of the right femoral neck fracture as above. Dwayne Solomon MD on July 24, 2017 at 11:35 Board Certified Radiologist. This report was verified electronically.
--- NOTE | 2017-07-24 11:45 | RADRPT ---
EXAM DATE/TIME: 07/24/2017 10:23 [facility] COMPARISON: No previous studies available for comparison. INDICATIONS : Right shoulder replacement/open reduction internal fixation MEDICAL HISTORY : Renal failure, acute. SURGICAL HISTORY : None. ENCOUNTER: Initial ACUITY: 1 day PAIN SCORE: Non-responsive. LOCATION: Right shoulder FINDINGS: 3 images were recorded digitally in the operating room using C-arm during placement of a right proxim al shoulder prosthesis. CONCLUSION: Intraoperative images. Noel Schwartz MD on July 24, 2017 at 11:42 Board Certified Radiologist. This report was verified electronically.
[2017-07-24] MEDS ORDERED: ONDANSETRON HCL 4 MG/2 ML VIAL IV ONE (12:00)
[2017-07-24] MEDS ORDERED: NEOSTIGMINE 5 MG/5 ML SYRINGE IV PUSH ONE (12:00)
[2017-07-24] MEDS ORDERED: PHENYLEPHRINE HCL 10 MG/ML VIAL IV ONE (12:00)
[2017-07-24] MEDS ORDERED: PROPOFOL 200 MG/20 ML AMP IV ONE (12:00)
[2017-07-24] MEDS ORDERED: DEXAMETHASONE SOD PHOS 4 MG/ML VIAL IV ONE (12:00)
[2017-07-24] MEDS ORDERED: GLYCOPYRROLATE 1 MG/5 ML SYRINGE IV PUSH ONE (12:00)
[2017-07-24] MEDS ORDERED: LIDOCAINE HCL 1% PF 5 ML SYRINGE OTHER ONE (12:00)
[2017-07-24] MEDS ORDERED: ROCURONIUM INJ 50 MG/5 ML SYRINGE IV PUSH ONE (12:00)
[2017-07-24] MEDS ORDERED: PHENYLEPH/NS 1000 MCG/10 ML SYR IV ONE (12:00)
[2017-07-24] MEDS: CALCIUM/VITAMIN D 250 MG/125 U TAB PO SCH ×2 (13:00→17:16)
[2017-07-24 13:30] VITALS: BP 115/53; PULSE 82; RESP 17; TEMP 97.2; O2SAT 93
--- NOTE | 2017-07-24 13:36 | HHI.PR ---
Subjective Remarks had surgery earlier today. looks fairly comfortable. no new complaints. Objective Vitals Vital Signs Date Time Temp Pulse Resp B/P (MAP) Pulse Ox O2 Delivery O2 Flow Rate FiO2 07/24/17 13:00 98.2 80 12 105/51 (69) 98 Nasal Cannula 3 07/24/17 12:45 78 12 108/51 (70) 93 Nasal Cannula 3 07/24/17 12:30 78 12 103/48 (66) 95 Nasal Cannula 3 07/24/17 12:15 79 12 107/52 (70) 95 Nasal Cannula 3 07/24/17 12:00 80 12 116/56 (76) 98 Nasal Cannula 3 07/24/17 11:45 80 12 98/47 (64) 98 Nasal Cannula 3 07/24/17 11:30 77 12 114/56 (75) 93 Nasal Cannula 3 07/24/17 11:15 77 17 114/53 (73) 93 Nasal Cannula 3 07/24/17 11:00 79 18 98/50 (66) 96 Nasal Cannula 4 07/24/17 10:56 98.1 80 18 115/56 (75) 91 Nasal Cannula 4 07/24/17 03:44 98.8 85 17 114/56 (75) 95 07/24/17 00:00 97.7 83 20 101/51 (68) 96 07/23/17 20:00 98.3 91 18 138/58 (84) 99 07/23/17 16:55 98.4 96 18 137/61 (86) 96 07/23/17 16:02 07/23/17 15:08 14 07/23/17 14:00 86 13 157/70 (99) 93 Nasal Cannula 3.00 07/23/17 13:59 92 12 158/65 (96) 92 Nasal Cannula 3.00 I/O 07/23/17 07/23/17 07/23/17 07/24/17 07/24/17 07/24/17 07:00 15:00 23:00 07:00 15:00 23:00 Intake Total 0 ml 1300 ml Output Total 325 ml 350 ml Balance -325 ml 950 ml Intake Oral 0 ml 0 ml IV Total 0 ml Other 1300 ml Output Urine Total 325 ml 150 ml Estimated Blood Loss 200 ml # Bowel Movements 0 Result Diagram: 07/23/17 1043 07/23/17 1043 Imaging Last Impressions Shoulder X-Ray 07/24/17 0000 Signed Impressions: Service Date/Time: July 10:23 - CONCLUSION: Intraoperative images. Noel Schwartz MD Hip X-Ray 07/24/17 0000 Signed Impressions: Service Date/Time: July 08:59 - CONCLUSION: Internal fixation of the right femoral neck fracture as above. Dwayne Solomon MD Upper Extremity CT 07/23/17 Signed Impressions: Service Date/Time: Sunday, July 23, 2017 13:28 - CONCLUSION: Three-part proximal humeral fracture with significant displacement and rotation of the humeral head and location of the 3 components as above. Noel Schwartz MD Pelvis X-Ray 07/23/17 0000 Signed Impressions: Service Date/Time: Sunday, July 23, 2017 10:59 - CONCLUSION: The bony pelvic ring is grossly intact. Noel Schwartz MD ADDENDUM: Further view of the radiographs demonstrate a nondisplaced intertrochanteric fracture on the right Duncan Ruiz MD Femur X-Ray 07/23/17 0000 Signed Impressions: Service Date/Time: Sunday, July 23, 2017 11:00 - CONCLUSION: Findings suggestive nondisplaced fracture at the base of the femoral neck and greater trochanter. Noel Schwartz MD Chest X-Ray 07/23/17 0000 Signed Impressions: Service Date/Time: Sunday, July 23, 2017 12:25 - CONCLUSION: 1. No active disease. There is a comminuted fracture of the proximal right humerus. Brock Myrick MD Objective Remarks GENERAL: This is a well-nourished, well-developed patient, in no apparent distress. CARDIOVASCULAR: Regular rate and regular rhythm without murmurs, gallops, or rubs. RESPIRATORY: Clear to auscultation. Breath sounds equal bilaterally. No wheezes , rales, or rhonchi. GASTROINTESTINAL: Abdomen soft, non-tender, nondistended. Normal, active bowel sounds MUSCULOSKELETAL: Extremities without clubbing, cyanosis, or edema. NEURO: mildly lethargic but easily arousable. Medications and IVs Inpatient Medications Acetaminophen/ Hydrocodone Bitart ([place] 5-325 Mg) 2 tab Q4H PRN PO PAIN 6-10 Last administered on 07/24/17at 03:42; Start 07/23/17 at 13:30; Stop 07/24/17 at 11: 46; Status DC Acetaminophen/ Hydrocodone Bitart ([place] 10-325 Mg) 1 tab Q3H PRN PO pain 2<10 ; Start 07/24/17 at 10:45 Albuterol Sulfate (Albuterol Neb) 2.5 mg Q4HR NEB PRN NEB SOB/WHEEZING; Start 07/23/17 at 13:30 Atorvastatin Calcium (Lipitor) 80 mg HS PO Last administered on 07/23/17at 20:56 ; Start 07/23/17 at 21:00 Budesonide/ Formoterol Fumarate (Symbicort 160-4.5 Mcg Inh) 2 puff Q12HR INH ; Start 07/23/17 at 21:00 Bumetanide (Bumetanide) 2 mg DAILY PO ; Start 07/24/17 at 09:00 Calcium/Vitamin D (Oscal-D 250-125) 250 mg TID PO ; Start 07/24/17 at 13:00 Cefazolin Sodium 2000 mg/Sodium Chloride 120 ml @ 240 mls/hr Q8H IV ; Start 07/24/17 at 17:00; Stop 07/26/17 at 09:29 Chlorhexidine Gluconate (Chlorhexidine 2% Cloth) 3 pack INSTRUMENTATION FITTER PRN TOPICAL SEE LABEL COMMENTS; Start 07/24/17 at 01:30; Stop 07/24/17 at 13:10; Status DC Cholecalciferol (Vitamin D3) 1,000 units DAILY PO ; Start 07/25/17 at 09:00 Dextrose (D50w (Vial) Inj) 50 ml UNSCH PRN IV PUSH HYPOGLYCEMIA-SEE COMMENTS; Start 07/23/17 at 13:30 Diphenhydramine HCl (Benadryl) 25 mg Q6H PRN PO ITCHING; Start 07/24/17 at 10:45 Ergocalciferol (Drisdol) 50,000 units Q7D PO ; Start 07/24/17 at 12:00 Glucagon (Glucagon Inj) 1 mg UNSCH PRN OTHER HYPOGLYCEMIA-SEE COMMENTS; Start 07/23/17 at 13:30 Insulin Aspart (NovoLOG SUPPLEMENTAL SCALE) 1 ACHS SLIDING SCALE SQ Last administered on 07/24/17at 06:53; Start 07/23/17 at 17:00 Lactated Ringer's 1,000 ml @ 30 mls/hr Q24H PRN IV SEE LABEL COMMENTS Last administered on 07/24/17at 06:36; Start 07/24/17 at 01:30; Stop 07/24/17 at 13:10; Status DC Losartan Potassium (Cozaar) 25 mg DAILY PO ; Start 07/24/17 at 09:00 Metoprolol Tartrate (Lopressor) 100 mg BID PO Last administered on 07/24/17at 06: 48; Start 07/23/17 at 21:00 Miscellaneous Information ALL NURSING DEPARTME... UNSCH PRN .XX SEE LABEL COMMENTS; Start 07/24/17 at 11:00; Stop 07/25/17 at 10:59 Morphine Sulfate (Morphine Inj) 4 mg Q3H PRN IV PUSH break thru pain; Start 07/24/17 at 10:45 Ondansetron HCl (Zofran Inj) 4 mg Q4H PRN IVP NAUSEA OR VOMITING; Start at 10:45 Oxycodone/ Acetaminophen (Percocet 5-325 Mg) 2 tab ONCE ONCE PO Last administered on 07/23/17at 13:13; Start 07/23/17 at 13:00; Stop 07/23/17 at 13:01; Status DC Povidone Iodine (Betadine 5% Antisepsis Kit) 1 applic INSTRUMENTATION FITTER PRN EACH NARE SEE LABEL COMMENTS; Start 07/24/17 at 01:30; Stop 07/24/17 at 13:10; Status DC Senna/Docusate Sodium (Donna-Colace) 1 tab BID PO ; Start 07/24/17 at 21:00 Sodium Chloride 500 ml @ 30 mls/hr [id number] PRN IV SEE LABEL COMMENTS; Start 07/24/17 at 01:30; Stop 07/24/17 at 13:10; Status DC A/P Problem List: (1) Right humeral fracture ICD Code: S42.301A - Unspecified fracture of shaft of humerus, right arm, initial encounter for closed fracture (2) Fracture of femoral neck, right ICD Code: S72.001A - Fracture of unspecified part of neck of right femur, initial encounter for closed fracture Assessment and Plan A/P - right humerus and femoral neck fracture after a fall continue with pain control- consulted ortho. s/p Right hip reduction and intramedullary nail fixation, right shoulder marily- arthroplasty -atrial fibrillation; HR controlled- continue metoprolol- resume eliquis when ok with ortho. -diabetes mellitus; started on accu-check with SSI -chronic renal insufficiency; at her baseline- will monitor -asthma; resumed symbicort- neb treatment as needed -CLL- f/u as outpatient -DVT prophylaxis; resume Eliquis when ok with ortho. Problem Qualifiers (1) Right humeral fracture: Qualified Codes: S42.231A - 3-part fracture of surgical neck of right humerus, initial encounter for closed fracture (2) Fracture of femoral neck, right: Qualified Codes: S72.001A - Fracture of unspecified part of neck of right femur , initial encounter for closed fracture Sharon Martinez MD Jul 24, 2017 13:36
--- NOTE | 2017-07-24 13:56 | EKG ---
Date Performed: 07/23/2017 Time Performed: 13:02:07 PTAGE: 87 years EKG: ATRIAL FIBRILLATION WITH ABERRANT CONDUCTION OR VENTRICULAR PREMATURE COMPLEXES MARKED LEFT AXIS DEVIATION MODERATE INTRAVENTRICULAR CONDUCTION DELAY NONSPECIFIC ST & T-WAVE ABNORMALITY ABNORM AL ECG Since the PREVIOUS TRACING , no significant change noted PREVIOUS TRACIN03/13/2017 09.08 DOCTOR: Eliane Sarabia Interpretating Date/Time 07/24/2017 13:57:02
[2017-07-24 16:10] VITALS: BP 104/60; PULSE 81; RESP 18; TEMP 97.6; O2SAT 92
[2017-07-24] MEDS: CEFAZOLIN INJ 2,000 MG in SODIUM CHLORIDE 0.9% INJ 100 ML IV SCH (17:16)
[2017-07-24] MEDS: ERGOCALCIFEROL (VIT D2) 50,000 UNIT CAP PO SCH (17:21)
[2017-07-24 21:00] VITALS: BP 117/55; PULSE 81; RESP 20; TEMP 98.4; O2SAT 91
[2017-07-24] MEDS: DOCUSATE SODIUM 50 MG/SENNA 8.6 MG TAB PO SCH (21:07)
[2017-07-24] MEDS: ATORVASTATIN 80 MG TAB PO SCH (21:07)
[2017-07-25] VITALS (8 sets, daily range): BP systolic 106–120; BP diastolic 50–58; PULSE 82–94; RESP 18–20; TEMP 97.7–98.4; O2SAT 86–94
[2017-07-25] MEDS: CEFAZOLIN INJ 2,000 MG in SODIUM CHLORIDE 0.9% INJ 100 ML IV SCH ×3 (00:34→17:16)
[2017-07-25] MEDS: ACETAMINOPHEN/HYDROcodone 325 MG/10 MG TAB PO PRN ×3 (03:23→21:11)
[2017-07-25 07:38] LABS: HEMATOCRIT 23.1 % (35.0-46.0); HEMOGLOBIN 6.8 GM/DL (11.6-15.3)
[2017-07-25] MEDS ORDERED: SODIUM CHLOR 0.9% 250 ML INJ 250 ML IV ONE (08:00)
[2017-07-25] MEDS: METOPROLOL TARTRATE 100 MG TAB PO SCH (09:00)
[2017-07-25] MEDS: BUMETANIDE 1 MG TAB PO SCH (09:56)
[2017-07-25] MEDS: CHOLECALCIFEROL (VIT D3) 1000 UNIT TAB PO SCH (09:56)
[2017-07-25] MEDS: DOCUSATE SODIUM 50 MG/SENNA 8.6 MG TAB PO SCH ×2 (09:56→21:00)
[2017-07-25] MEDS: CALCIUM/VITAMIN D 250 MG/125 U TAB PO SCH ×3 (09:56→17:17)
[2017-07-25] MEDS: LOSARTAN 25 MG TAB PO SCH (09:57)
[2017-07-25] MEDS: BUDESONIDE-FORMOTEROL 160/4.5 MCG INHALER INH SCH ×2 (09:59→21:00)
[2017-07-25] MEDS: INSULIN ASPART SUPPLEMENTAL SCALE SQ SCH ×4 (10:02→21:59)
--- NOTE | 2017-07-25 10:39 | PD.ORT.PN ---
Subjective Subjective Remarks Resting comfortably Objective Vitals Vital Signs Date Time Temp Pulse Resp B/P (MAP) Pulse Ox O2 Delivery O2 Flow Rate FiO2 07/25/17 04:00 98.4 87 20 120/58 (78) 94 07/25/17 00:00 98.3 86 18 111/55 (73) 94 07/24/17 21:00 98.4 81 20 117/55 (75) 91 07/24/17 16:10 97.6 81 18 104/60 (75) 92 07/24/17 13:30 97.2 82 17 115/53 (73) 93 07/24/17 13:00 98.2 80 12 105/51 (69) 98 Nasal Cannula 3 07/24/17 12:45 78 12 108/51 (70) 93 Nasal Cannula 3 07/24/17 12:30 78 12 103/48 (66) 95 Nasal Cannula 3 07/24/17 12:15 79 12 107/52 (70) 95 Nasal Cannula 3 07/24/17 12:00 80 12 116/56 (76) 98 Nasal Cannula 3 07/24/17 11:45 80 12 98/47 (64) 98 Nasal Cannula 3 07/24/17 11:30 77 12 114/56 (75) 93 Nasal Cannula 3 07/24/17 11:15 77 17 114/53 (73) 93 Nasal Cannula 3 07/24/17 11:00 79 18 98/50 (66) 96 Nasal Cannula 4 07/24/17 10:56 98.1 80 18 115/56 (75) 91 Nasal Cannula 4 I/O 07/24/17 07/24/17 07/24/17 07/25/17 07/25/17 07/25/17 07:00 15:00 23:00 07:00 15:00 23:00 Intake Total 0 ml 1300 ml 360 ml 360 ml Output Total 325 ml 350 ml 300 ml 325 ml Balance -325 ml 950 ml 60 ml 35 ml Intake Oral 0 ml 0 ml 240 ml 240 ml IV Total 0 ml 120 ml 120 ml Other 1300 ml Output Urine Total 325 ml 150 ml 300 ml 325 ml Estimated Blood Loss 200 ml # Bowel Movements 0 0 0 Result Diagram: 07/25/17 0603 07/23/17 1043 Objective Remarks Right lower extremity: Clean dry dressings intact with mild swelling. Distally intact sensation with good capillary refills. Active dorsiflexion plantar flexion of foot Right upper extremity: A dry dressings intact. Sling with abduction pillow in place. Distally intact sensation over radial ulnar and median nerve distributions with good capillary refills. She is able fully extend her fingers and make a fist Assessment & Plan Assessment and Plan Right shoulder hemiarthroplasty POD 1 Nonweightbearing right upper extremity Remain in sling and swath at all times Daily dressing changes beginning POD 2 Right intertrochanteric femur fracture POD 1 IM nail Weightbearing as tolerated right lower extremity Daily dressing changes beginning POD 2 Lovenox Incentive spirometry Case management for discharge planning to rehabilitation plan for discharge to rehabilitation on Friday or Friday if bed available Follow-up Dr. Daniels or [place] in 2 weeks. At that time we will progress range of motion exercises of her shoulder John Paul Fernandez Jr. Jul 25, 2017 10:39
--- NOTE | 2017-07-25 12:58 | HHI.PR ---
Subjective Remarks in no acute distress. pain is fairly controlled. H/H trend noted. d/w the RN. Objective Vitals Vital Signs Date Time Temp Pulse Resp B/P (MAP) Pulse Ox O2 Delivery O2 Flow Rate FiO2 07/25/17 08:00 97.7 83 18 106/52 (70) 94 07/25/17 04:00 98.4 87 20 120/58 (78) 94 07/25/17 00:00 98.3 86 18 111/55 (73) 94 07/24/17 21:00 98.4 81 20 117/55 (75) 91 07/24/17 16:10 97.6 81 18 104/60 (75) 92 07/24/17 13:30 97.2 82 17 115/53 (73) 93 07/24/17 13:00 98.2 80 12 105/51 (69) 98 Nasal Cannula 3 I/O 07/24/17 07/24/17 07/24/17 07/25/17 07/25/17 07/25/17 07:00 15:00 23:00 07:00 15:00 23:00 Intake Total 0 ml 1300 ml 360 ml 360 ml Output Total 325 ml 350 ml 300 ml 325 ml Balance -325 ml 950 ml 60 ml 35 ml Intake Oral 0 ml 0 ml 240 ml 240 ml IV Total 0 ml 120 ml 120 ml Other 1300 ml Output Urine Total 325 ml 150 ml 300 ml 325 ml Estimated Blood Loss 200 ml # Bowel Movements 0 0 0 Result Diagram: 07/25/17 0603 07/23/17 1043 Imaging Last Impressions Shoulder X-Ray 07/24/17 0000 Signed Impressions: Service Date/Time: July 10:23 - CONCLUSION: Intraoperative images. Noel Schwartz MD Hip X-Ray 07/24/17 0000 Signed Impressions: Service Date/Time: July 08:59 - CONCLUSION: Internal fixation of the right femoral neck fracture as above. Dwayne Solomon MD Upper Extremity CT 07/23/17 0000 Signed Impressions: Service Date/Time: Sunday, July 23, 2017 13:28 - CONCLUSION: Three-part proximal humeral fracture with significant displacement and rotation of the humeral head and location of the 3 components as above. Noel Schwartz MD Pelvis X-Ray 07/23/17 0000 Signed Impressions: Service Date/Time: Sunday, July 23, 2017 10:59 - CONCLUSION: The bony pelvic ring is grossly intact. Noel Schwartz MD ADDENDUM: Further view of the radiographs demonstrate a nondisplaced intertrochanteric fracture on the right Duncan Ruiz MD Femur X-Ray 07/23/17 0000 Signed Impressions: Service Date/Time: Sunday, July 23, 2017 11:00 - CONCLUSION: Findings suggestive nondisplaced fracture at the base of the femoral neck and greater trochanter. Noel Schwartz MD Chest X-Ray 07/23/17 0000 Signed Impressions: Service Date/Time: Sunday, July 23, 2017 12:25 - CONCLUSION: 1. No active disease. There is a comminuted fracture of the proximal right humerus. Brock Myrick MD Objective Remarks GENERAL: This is a well-nourished, well-developed patient, in no apparent distress. CARDIOVASCULAR: Regular rate and regular rhythm without murmurs, gallops, or rubs. RESPIRATORY: Clear to auscultation. Breath sounds equal bilaterally. No wheezes , rales, or rhonchi. GASTROINTESTINAL: Abdomen soft, non-tender, nondistended. Normal, active bowel sounds MUSCULOSKELETAL: Extremities without clubbing, cyanosis, or edema. NEURO: mildly lethargic but easily arousable. Medications and IVs Inpatient Medications Acetaminophen/ Hydrocodone Bitart ([place] 5-325 Mg) 2 tab Q4H PRN PO PAIN 6-10 Last administered on 07/24/17at 03:42; Start 07/23/17 at 13:30; Stop 07/24/17 at 11: 46; Status DC Acetaminophen/ Hydrocodone Bitart ([place] 10-325 Mg) 1 tab Q3H PRN PO pain 2<10 Last administered on 07/25/17at 12:20; Start 07/24/17 at 10:45 Albuterol Sulfate (Albuterol Neb) 2.5 mg Q4HR NEB PRN NEB SOB/WHEEZING; Start 07/23/17 at 13:30 Atorvastatin Calcium (Lipitor) 80 mg HS PO Last administered on 07/24/17at 21:07 ; Start 07/23/17 at 21:00 Budesonide/ Formoterol Fumarate (Symbicort 160-4.5 Mcg Inh) 2 puff Q12HR INH Last administered on 07/25/17 09:59; Start 07/23/17 at 21:00 Bumetanide (Bumetanide) 2 mg DAILY PO Last administered on 07/25/17at 09:56; Start 07/24/17 at 09:00 Calcium/Vitamin D (Oscal-D 250-125) 250 mg TID PO Last administered on at 12:20; Start 07/24/17 at 13:00 Cefazolin Sodium 2000 mg/Sodium Chloride 120 ml @ 240 mls/hr Q8H IV Last administered on 07/25/17at 10:01; Start 07/24/17 at 17:00; Stop 07/26/17 at 09:29 Chlorhexidine Gluconate (Chlorhexidine 2% Cloth) 3 pack SUPERVISOR CHANNEL PROCESS PRN TOPICAL SEE LABEL COMMENTS; Start 07/24/17 at 01:30; Stop 07/24/17 at 13:10; Status DC Cholecalciferol (Vitamin D3) 1,000 units DAILY PO Last administered on at 09:56; Start 07/25/17 at 09:00 Dextrose (D50w (Vial) Inj) 50 ml UNSCH PRN IV PUSH HYPOGLYCEMIA-SEE COMMENTS; Start 07/23/17 at 13:30 Diphenhydramine HCl (Benadryl) 25 mg Q6H PRN PO ITCHING; Start 07/24/17 at 10:45 Ergocalciferol (Drisdol) 50,000 units Q7D PO Last administered on 07/24/17at 17: 21; Start 07/24/17 at 12:00 Glucagon (Glucagon Inj) 1 mg UNSCH PRN OTHER HYPOGLYCEMIA-SEE COMMENTS; Start 07/23/17 at 13:30 Insulin Aspart (NovoLOG SUPPLEMENTAL SCALE) 1 ACHS SLIDING SCALE SQ Last administered on 07/25/17at 12:31; Start 07/23/17 at 17:00 Lactated Ringer's 1,000 ml @ 30 mls/hr Q24H PRN IV SEE LABEL COMMENTS Last administered on 07/24/17at 06:36; Start 07/24/17 at 01:30; Stop 07/24/17 at 13:10; Status DC Losartan Potassium (Cozaar) 25 mg DAILY PO ; Start 07/24/17 at 09:00 Metoprolol Tartrate (Lopressor) 100 mg BID PO Last administered on 07/24/17at 21: 07; Start 07/23/17 at 21:00 Miscellaneous Information ALL NURSING DEPARTME... UNSCH PRN .XX SEE LABEL COMMENTS; Start 07/24/17 at 11:00; Stop 07/25/17 at 10:59; Status DC Morphine Sulfate (Morphine Inj) 4 mg Q3H PRN IV PUSH break thru pain; Start 07/24/17 at 10:45 Ondansetron HCl (Zofran Inj) 4 mg Q4H PRN IVP NAUSEA OR VOMITING; Start at 10:45 Oxycodone/ Acetaminophen (Percocet 5-325 Mg) 2 tab ONCE ONCE PO Last administered on 07/23/17at 13:13; Start 07/23/17 at 13:00; Stop 07/23/17 at 13:01; Status DC Povidone Iodine (Betadine 5% Antisepsis Kit) 1 applic SUPERVISOR CHANNEL PROCESS PRN EACH NARE SEE LABEL COMMENTS; Start 07/24/17 at 01:30; Stop 07/24/17 at 13:10; Status DC Senna/Docusate Sodium (Donna-Colace) 1 tab BID PO Last administered on 07/25/17at 09:56; Start 07/24/17 at 21:00 Sodium Chloride 250 ml @ 15 mls/hr ONCE ONCE IV ; Start 07/25/17 at 08:00; Stop 07/26/17 at 00:39 A/P Problem List: (1) Right humeral fracture ICD Code: S42.301A - Unspecified fracture of shaft of humerus, right arm, initial encounter for closed fracture (2) Fracture of femoral neck, right ICD Code: S72.001A - Fracture of unspecified part of neck of right femur, initial encounter for closed fracture Assessment and Plan A/P - right humerus and femoral neck fracture after a fall continue with pain control- consulted ortho. s/p Right hip reduction and intramedullary nail fixation, right shoulder marily- arthroplasty -anemia- acute on chronic due to blood [id number]; will transfuse with PRBC today and monitor H/H. -atrial fibrillation; HR controlled- decrease metoprolol- resume eliquis when ok with ortho. -diabetes mellitus; started on accu-check with SSI -chronic renal insufficiency; at her baseline- will monitor -asthma; resumed symbicort- neb treatment as needed -CLL- f/u as outpatient -DVT prophylaxis; resume Eliquis when ok with ortho. Problem Qualifiers (1) Right humeral fracture: Qualified Codes: S42.231A - 3-part fracture of surgical neck of right humerus, initial encounter for closed fracture (2) Fracture of femoral neck, right: Qualified Codes: S72.001A - Fracture of unspecified part of neck of right femur , initial encounter for closed fracture Sharon Martinez MD Jul 25, 2017 12:58
[2017-07-25] MEDS ORDERED: FUROSEMIDE 20 MG/2 ML VIAL IV PUSH ONE (14:00)
[2017-07-25 18:39] LABS: HEMATOCRIT 24.3 % (35.0-46.0); HEMOGLOBIN 7.3 GM/DL (11.6-15.3); MEAN CELL VOLUME 95.3 FL (80.0-100.0); MEAN CORPUSCULAR HEMOGLOBIN 28.6 PG (27.0-34.0); MEAN PLATELET VOLUME 8.6 FL (7.0-11.0); PLATELET COUNT 148 TH/MM3 (150-450); RED BLOOD COUNT 2.55 MIL/MM3 (4.00-5.30); RED CELL DISTRIBUTION WIDTH 17.7 % (11.6-17.2); WHITE BLOOD COUNT 118.4 TH/MM3 (4.0-11.0)
[2017-07-25 18:47] LABS: PROTHROMBIN TIME - PATIENT 10.5 SEC (9.8-11.6)
--- NOTE | 2017-07-25 18:55 | RADRPT ---
EXAM DATE/TIME: 07/25/2017 18:34 [facility] COMPARISON: CT BRAIN W/O CONTRAST, December 22, 2015, 15:53. INDICATIONS : Stroke alert RADIATION DOSE: 39.56 CTDIvol (mGy) This report was called Raza at [phone] MEDICAL HISTORY : Cardiovascular disease. Afib,CCL,Chemo SURGICAL HISTORY : None. ENCOUNTER: Initial ACUITY: 1 day PAIN SCALE: Non-responsive LOCATION: cranial TECHNIQUE: Multiple contiguous axial images were obtained of the head. Using automated exposure control and adj ustment of the mA and/or kV according to patient size, radiation dose was kept as low as reasonably a chievable to obtain optimal diagnostic quality images. DICOM format image data is available electro nically for review and comparison. FINDINGS: CEREBRUM: The ventricles are normal for age. No evidence of midline shift, mass lesion, hemorrhage or acute in farction. No extra-axial fluid collections are seen. POSTERIOR FOSSA: The cerebellum and brainstem are intact. The 4th ventricle is midline. The cerebellopontine angle i s unremarkable. EXTRACRANIAL: The visualized portion of the orbits is intact. SKULL: The calvaria is intact. No evidence of skull fracture. CONCLUSION: Negative for acute process Shemar Weir MD FACR on July 25, 2017 at 18:51 Board Certified Radiologist. This report was verified electronically.
[2017-07-25] MEDS ORDERED: IODIXANOL 320 MG/ML 10 ML VIAL (for Rad CT) IVCONTRAST ONE (18:57)
[2017-07-25] MEDS ORDERED: SODIUM CHLOR 0.9% 250 ML INJ 200 ML IV ONE (19:00)
[2017-07-25 19:11] LABS: TROPONIN I 0.02 NG/ML (0.02-0.05)
--- NOTE | 2017-07-25 19:18 | RADRPT ---
EXAM DATE/TIME: 07/25/2017 18:54 [facility] COMPARISON: No previous studies available for comparison. INDICATIONS : Stroke alert, aphasia IV CONTRAST: 100 cc Visipaque (iodixanol) IV ; Cumulative dose for multiple exams. RADIATION DOSE: 28.48 CTDIvol (mGy) ; Combined studies MEDICAL HISTORY : Cardiovascular disease. CLL, Known caroid occlusion left SURGICAL HISTORY : Non-responsive. ENCOUNTER: Initial ACUITY: 1 day PAIN SCALE: Non-responsive LOCATION: Bilateral cranial TECHNIQUE: Volumetric scanning was performed using a multi-row detector CT scanner. The data was post processed with a variety of visualization algorithms including full volume maximum intensity projection, multi -planar sliding thin slab reformation, curved planar reformation, and surface rendering techniques. Using automated exposure control and adjustment of the mA and/or kV according to patient size, radiat ion dose was kept as low as reasonably achievable to obtain optimal diagnostic quality images. DICO M format image data is available electronically for review and comparison. FINDINGS: There is excellent visualization of the major intracranial arteries out to the second-order branch ve ssels. There is no evidence for aneurysm, vessel truncation or stenosis, and no evidence for vascula r malformation. No major branch vessel occlusion. CONCLUSION: Negative for major branch vessel occlusion.. Shemar Weir MD FACR on July 25, 2017 at 19:14 Board Certified Radiologist. This report was verified electronically.
--- NOTE | 2017-07-25 19:38 | RADRPT ---
EXAM DATE/TIME: 07/25/2017 18:54 [facility] COMPARISON: No previous studies available for comparison. INDICATIONS : Stroke alert, aphasia IV CONTRAST: 100 cc Visipaque (iodixanol) IV ; Cumulative dose for multiple exams. RADIATION DOSE: 28.48 CTDIvol (mGy) ; Combined studies MEDICAL HISTORY : Cardiovascular disease. CLL,Chemo, known left carotid occlusion SURGICAL HISTORY : Non-responsive. ENCOUNTER: Initial ACUITY: 1 day PAIN SCALE: 0/10 LOCATION: neck Elevated flow velocities and ICA/CCA ratios have been found to correlate with increased degrees of vessel stenosis, calculated as percentage of diameter relative to a normal segment of distal ICA/CCA. TECHNIQUE: Volumetric scanning was performed using a multirow detector CT scanner. The data was post processed with a variety of visualization algorithms including full-volume maximum intensity projection, multip lanar sliding thin-slab reformation, curved-planar reformation, and surface-rendering techniques. Us ing automated exposure control and adjustment of the mA and/or kV according to patient size, radiatio n dose was kept as low as reasonably achievable to obtain optimal diagnostic quality images. DICOM f ormat image data is available electronically for review and comparison. FINDINGS: AORTIC ARCH: There is a three-vessel origin of the great vessels from the aorta. No evidence of ostial narrowing. RIGHT CAROTID: Minimal calcific plaque at the bifurcation Not felt to be hemodynamically significant. LEFT CAROTID: Known occlusion of the left internal carotid. VERTEBRALS: The vertebral arteries have a symmetric diameter. No stenotic lesions are seen. CONCLUSION: Known occlusion left internal carotid. Minimal calcific plaque right carotid bifurca tion. Shemar Weir MD FACR on July 25, 2017 at 19:33 Board Certified Radiologist. This report was verified electronically.
--- NOTE | 2017-07-25 20:02 | MB ---
cc: Duncan Person MD DATE: 07/25/2017 HISTORY OF PRESENT ILLNESS: An 87-year-old woman with a history of atrial fibrillation. She has not been seen by neurology here before. She was brought in after a fall by paramedics, lost her balance, had turned suddenly and stumbled and fell, landed on her right side, with a right hip and shoulder fracture. She takes Eliquis with a history of atrial fibrillation. PAST MEDICAL HISTORY: There is a history of CLL, the atrial fibrillation, high cholesterol, hemorrhoid bleeding, hypertension, sleep apnea. Also for some asthma, chronic renal insufficiency, diabetes. SOCIAL HISTORY: Nonsmoker or drinker. ALLERGIES: ALLERGIC TO PREGABALIN. MEDICATIONS: 1. Ventolin. 2. Atrovent. 3. Cod liver oil. 4. Bumex. 5. Aspirin 81 mg. 6. Coenzyme Q. 7. Metoprolol. 8. Losartan. 9. Levemir. 10. Eliquis 2.5 b.i.d. 11. Lipitor. CURRENT MEDICATIONS: She is due for Eliquis, but has not received yet and has not received it since the . She is on Donna-Colace, cefazolin, Drisdol, hydrocodone (the last time she got that evidently was about noon today), Benadryl p.r.n., Bumex, Cozaar, Lipitor, Symbicort. PHYSICAL EXAMINATION: VITAL SIGNS: Afebrile, heart rate 84, respirations 18, blood pressure 109/54, 92% O2 saturation. NECK: There were no carotid bruits. GENERAL: She is somewhat obese. HEART: Regular rhythm. NEUROLOGIC: The pupils are equal. It is hard to say if she can see well to the right or not. She had a minimal right facial droop. Tongue was midline. She wiggled her fingers on the right hand. She is status post surgery on the right upper extremity. Status post surgery in the right lower extremity. She wiggles the toes on the right. She can hold up the left leg and seems to move the left arm well. Toes are downgoing bilaterally. DTRs unable to access at this time. Seemed to feel discomfort throughout. She could read some words. She could show me her left thumb and right middle finger and wiggle her toes on either side, but she could repeat and calculate well. She was thought to have aphasia earlier, it appears to have somewhat improved, but I cannot tell if she has some vision problems over to the right. She is very inconsistent counting fingers and often counts them wrong to the right, seems to do much better to the left. There is no nystagmus. LABORATORY AND DIAGNOSTIC STUDIES: White count is 118,000. The hematocrit is 24. Hemoglobin was 6.8. She was just getting a transfusion during this. Platelet count is 148. Two days ago, her BMP, the creatinine was 1.6, is pending now. BUN is 33. LFTs were normal in February. No MUGAs. B12 was normal in 2014. CAT scan of the brain done today is negative. She has got some calcification in the ventricles only. CTA is pending. She had an MRI of the brain in 2016, suspected occlusion of the left internal carotid artery. Neck MRA at that time was limited, but she has a known occlusion of the left internal carotid artery, reconstitutes in the supraclinoid region. Review of the MRA films at that time, no significant stroke on the left. There are good flow voids in the MCAs bilaterally. There was a very limited MRA of the neck. I really cannot make out much of it, cannot tell for sure if there is an occlusion there or not. She had a carotid ultrasound done in 2016. There was read an occlusion there and 50-69% on the right. IMPRESSION: Possible stroke here with some vision problem over to the right. History of old left carotid occlusion. No stroke from a 2016 MRI. We will see what the CTA shows here. She does have a history of atrial fibrillation and we could get an MRI after this and if this is no major infarct, we could go ahead and give her the Eliquis stat. I do not see any old occipital lobe infarcts on the CT. She is not a candidate for IV tPA due to the surgery just yesterday on her shoulder and leg. I have her current NIH stroke scale as a 2 as far as I can tell. The CTA preliminary shows a left carotid occlusion. She has got good flow in the middle cerebral arteries bilaterally and the posterior cerebral artery as far as I can tell. There is good collateral flow through the posterior communicating arteries bilaterally, also. MD TIMOTHY Raygoza/JANES , 07:03 PM , 08:01 PM
--- NOTE | 2017-07-25 20:02 | RADRPT ---
EXAM DATE/TIME: 07/25/2017 19:25 [facility] COMPARISON: MRI BRAIN W/O CONTRAST, December 23, 2015, 12:19. INDICATIONS : CVA. MEDICAL HISTORY : Hypertension. SURGICAL HISTORY : Hysterectomy. Orthopaedic surgeries. ENCOUNTER: Initial ACUITY: 1 day PAIN SCORE: 0/10 LOCATION: cranial TECHNIQUE: Multiplanar, multisequence MRI of the brain was performed without contrast. FINDINGS: Mild periventricular white matter changes There is no restricted diffusion. Ventricle size appropriate. No parenchymal hemorrhages. No extra-axial fluid Midline structures are intact Posterior fossa unremarkable. Occluded left internal carotid.. CONCLUSION: Negative for an acute process. There is no restricted diffusion. Shemar Weir MD FACR on July 25, 2017 at 19:56 Board Certified Radiologist. This report was verified electronically.
[2017-07-25 20:27] LABS: LYMPHOCYTES 91 % (9-44); MONOCYTES 2 % (0-8); NEUTROPHIL # MANUAL DIFF 8.3 TH/MM3 (1.8-7.7); POLYS (SEG NEUTROPHILS) 7 % (16-70); SMUDGE CELLS PRESENT PRESENT
[2017-07-25] MEDS: APIXABAN 2.5 MG TABLET PO SCH (20:28)
[2017-07-25 20:29] LABS: ACANTHOCYTES OCC (NORMAL); OVALOCYTES 1+ (NORMAL)
[2017-07-25] MEDS ORDERED: INSULIN HUMAN REGULAR 1,000 UNITS/10 ML VIAL IV PUSH ONE ×2 (21:00→21:30)
[2017-07-25] MEDS: ATORVASTATIN 80 MG TAB PO SCH (21:00)
[2017-07-25] MEDS ORDERED: CALCIUM GLUCONATE 10% 1 GM/10 ML VIAL IV PUSH ONE (21:00)
[2017-07-25] MEDS: SODIUM BICARBONATE 8.4% INJ 75 MEQ in SODIUM CHLOR 0.45% 1000 ML INJ 1,000 ML IV SCH (21:00)
[2017-07-25] MEDS ORDERED: DEXTROSE 50% IN WATER 50 ML VIAL(D50) IV PUSH ONE ×2 (21:00→21:30)
--- NOTE | 2017-07-25 21:03 | PD.CONS ---
HPI Service Nephrology Consult Requested By Dr. Person Reason for Consult Acute renal failure Primary Care Physician Michael Henderson MD History of Present Illness Patient is a 87-year-old white female with history of atrial fibrillation who had a fall, fracture of humerus and left femur, patient is admitted to ICU with stroke alert, she is known to have left carotid stenosis, she underwent contrast studies which showed left carotid occlusion, MRI of brain did not showed any recent stroke, patient is being observed in ICU, patient underwent right shoulder and right hip surgery I have been consulted because her creatinine was 1.6 and went up to 3.3 Has CTA of the neck and head Patient known to have CLL Review of Systems Constitutional: COMPLAINS OF: Fatigue Musculoskeletal: COMPLAINS OF: Joint pain, Muscle aches, Stiffness, Joint Swelling, Back pain Neurologic: COMPLAINS OF: Headache, Localized weakness Psychiatric: COMPLAINS OF: Anxiety Past Family Social History Allergies: Coded Allergies: pregabalin (Unverified Allergy, Severe, Anaphylaxis, 07/23/17) Past Medical History Chronic kidney disease Diabetes Atrial fibrillation Hypertension Osteoarthritis CLL Past Surgical History Tonsillectomy ABLATION Reported Medications Reported Meds & Active Scripts Active Calcium 600+D 200 (Calcium Carbonate-Vitamin D) 600-200 Mg-Unit Tab 1 Tab PO BID Vitamin D3 (Cholecalciferol) 2,000 Unit Cap 2,000 Units PO DAILY Ergocalciferol 50,000 Unit Cap 50,000 Units PO Q7D Xarelto (Rivaroxaban) 10 Mg Tab 10 Mg PO DAILY 14 Days Hydrocodone-Acetaminophen 7.5 Mg-325 Mg Tab 1 Tab PO Q4H PRN Ventolin Hfa 18 GM Inh (Albuterol Sulfate) 90 Mcg/Act Aer 2 Puff INH Q4-6H PRN Atrovent HFA 12.9 GM Inh (Ipratropium [place]) 17 Mcg/Actuation Aer 2 Puff INH Q6HR PRN [Budeson-Formot 160-4.5 Mg Inh] 60 PUFF Aero 2 Puff INH Q12HR Reported Albuterol Neb (Albuterol Sulfate) 2.5 Mg/3 Ml Neb 2.5 Mg NEB Q4HR PRN Centrum (Multiple Vitamins W/ Minerals) 1 Chew 1 Tab CHEW DAILY Cod Liver Oil 1 Each Capsule 1 Tab PO DAILY Bumetanide 2 Mg Tab 2 Mg PO DAILY Aspirin 81 Mg Chew 81 Mg CHEW DAILY Co Q 10 (Coenzyme Q10 (Ubidecarenone)) 100 Mg Cap 200 Mg PO DAILY Metoprolol Tartrate 100 Mg Tab 100 Mg PO BID Losartan (Losartan Potassium) 25 Mg Tab 25 Mg PO DAILY Levemir Inj (Insulin Detemir) 1,000 unit/ 10 ML Vial 50 Units SQ HS Do not mix with any other Insulin. Lipitor (Atorvastatin Calcium) 80 Mg Tab 80 Mg PO HS Eliquis (Apixaban) 2.5 Mg Tab 2.5 Mg PO BID Active Ordered Medications Current Medications Medications (Trade) Dose Ordered Sig/Hope Route Start Time Stop Time Status Last Admin (D50w (Vial) Inj) 50 ml UNSCH PRN IV PUSH 07/23/17 13:30 (Glucagon Inj) 1 mg UNSCH PRN OTHER 07/23/17 13:30 (NovoLOG SUPPLEMENTAL SCALE) 1 ACHS SLIDING SCALE SQ 07/23/17 17:00 07/25/17 17:17 (Albuterol Neb) 2.5 mg Q4HR NEB PRN NEB 07/23/17 13:30 (Lipitor) 80 mg HS PO 07/23/17 21:00 07/24/17 21:07 (Bumetanide) 2 mg DAILY PO 07/24/17 09:00 Future Hold 07/25/17 09:56 (Cozaar) 25 mg DAILY PO 07/24/17 09:00 (Lopressor) 100 mg BID PO 07/23/17 21:00 Future Hold 07/24/17 21:07 (Symbicort 160-4.5 Mcg Inh) 2 puff Q12HR INH 07/23/17 21:00 07/25/17 09:59 (Donna-Colace) 1 tab BID PO 07/24/17 21:00 07/25/17 09:56 ([place] 10-325 Mg) 1 tab Q3H PRN PO 07/24/17 10:45 07/25/17 21:11 (Zofran Inj) 4 mg Q4H PRN IVP 07/24/17 10:45 (Oscal-D 250-125) 250 mg TID PO 07/24/17 13:00 07/25/17 17:17 (Benadryl) 25 mg Q6H PRN PO 07/24/17 10:45 (Morphine Inj) 4 mg Q3H PRN IV PUSH 07/24/17 10:45 (Drisdol) 50,000 units Q7D PO 07/24/17 12:00 07/24/17 17:21 (Vitamin D3) 1,000 units DAILY PO 07/25/17 09:00 07/25/17 09:56 Cefazolin Sodium 2000 mg/Sodium Chloride 120 ml @ 240 mls/hr Q8H IV 07/24/17 17:00 07/26/17 09:29 07/25/17 17:16 Sodium Chloride 250 ml @ 15 mls/hr ONCE ONCE IV 07/25/17 08:00 07/26/17 00:39 07/25/17 14:30 (Eliquis) 2.5 mg BID PO 07/25/17 21:00 07/25/17 20:28 Sodium Bicarbonate 75 meq/Sodium Chloride 1,075 ml @ 83 mls/hr [id number] IV 07/25/17 21:00 Family History Noncontributory Social History Not smoke or drink Physical Exam Vital Signs Vital Signs Date Time Temp Pulse Resp B/P (MAP) Pulse Ox O2 Delivery O2 Flow Rate FiO2 07/25/17 17:36 92 Nasal Cannula 2.00 07/25/17 14:45 97.9 84 18 109/54 92 07/25/17 14:15 88 18 112/58 07/25/17 14:15 98.4 07/25/17 08:00 97.7 83 18 106/52 (70) 94 07/25/17 04:00 98.4 87 20 120/58 (78) 94 07/25/17 00:00 98.3 86 18 111/55 (73) 94 07/24/17 21:00 98.4 81 20 117/55 (75) 91 Physical Exam GENERAL: Well-nourished, well-developed, moaning in pain , SKIN: Warm and dry. HEAD: Normocephalic. EYES: No scleral icterus. No injection or drainage. NECK: Supple, trachea midline. No JVD or lymphadenopathy. CARDIOVASCULAR: Irregularly irregular tachycardic RESPIRATORY: Breath sounds equal bilaterally. No accessory muscle use. GASTROINTESTINAL: Abdomen soft, non-tender, nondistended. EXTREMITIES: No cyanosis, or edema. She has right shoulder stabilized NEUROLOGICAL: Awake, moans in pain Laboratory Laboratory Tests Test 07/25/17 06:03 07/25/17 18:20 Hemoglobin 6.8 7.3 Hematocrit 23.1 24.3 White Blood Count 118.4 Red Blood Count 2.55 Bedside Hemoglobin 7.5 Bedside Hematocrit 22.0 Mean Corpuscular Volume 95.3 Mean Corpuscular Hemoglobin 28.6 Mean Corpuscular Hemoglobin Concent 30.0 Red Cell Distribution Width 17.7 Platelet Count 148 Mean Platelet Volume 8.6 CBC Comment AUTO DIFF Differential Total Cells Counted 100 Neutrophils % (Manual) 7 Lymphocytes % 91 Monocytes % 2 Neutrophils # (Manual) 8.3 Differential Comment FINAL DIFF MANUAL Smudge Cells PRESENT Platelet Estimate LOW Platelet Morphology Comment NORMAL Ovalocytes 1+ Acanthocytes OCC Prothrombin Time 10.5 Prothromb Time International Ratio 1.0 Activated Partial Thromboplast Time 21.7 Fibrinogen 392 Bedside Sodium 131 Bedside Potassium 6.4 Bedside Chloride 103 Bedside Blood Urea Nitrogen 70 Bedside Creatinine 3.3 Bedside Glucose 248 Total Creatine Kinase 543 Creatine Kinase MB 4.2 Creatine Kinase MB % 0.8 Troponin I 0.02 Result Diagram: 07/25/17 1820 07/23/17 1043 Imaging Last Impressions Brain MRI 07/25/17 1903 Signed Impressions: Service Date/Time: Tuesday, July 25, 2017 19:25 - CONCLUSION: Negative for an acute process. There is no restricted diffusion. Shemar Weir MD FACR Neck CTA 07/25/17 0000 Signed Impressions: Service Date/Time: Tuesday, July 25, 2017 18:54 - CONCLUSION: Known occlusion left internal carotid. Minimal calcific plaque right carotid bifurcation. Shemar Weir MD FACR Head CTA 07/25/17 0000 Signed Impressions: Service Date/Time: Tuesday, July 25, 2017 18:54 - CONCLUSION: Negative for major branch vessel occlusion.. Shemar Weir MD FACR Head CT 07/25/17 0000 Signed Impressions: Service Date/Time: Tuesday, July 25, 2017 18:34 - CONCLUSION: Negative for acute process Shemar Weir MD FACR Shoulder X-Ray 07/24/17 0000 Signed Impressions: Service Date/Time: July 10:23 - CONCLUSION: Intraoperative images. Noel Schwartz MD Hip X-Ray 07/24/17 0000 Signed Impressions: Service Date/Time: July 08:59 - CONCLUSION: Internal fixation of the right femoral neck fracture as above. Dwayne Solomon MD Upper Extremity CT 07/23/17 0000 Signed Impressions: Service Date/Time: Sunday, July 23, 2017 13:28 - CONCLUSION: Three-part proximal humeral fracture with significant displacement and rotation of the humeral head and location of the 3 components as above. Noel Schwartz MD Pelvis X-Ray 07/23/17 0000 Signed Impressions: Service Date/Time: Sunday, July 23, 2017 10:59 - CONCLUSION: The bony pelvic ring is grossly intact. Noel Schwartz MD ADDENDUM: Further view of the radiographs demonstrate a nondisplaced intertrochanteric fracture on the right Duncan Ruiz MD Femur X-Ray 07/23/17 0000 Signed Impressions: Service Date/Time: Sunday, July 23, 2017 11:00 - CONCLUSION: Findings suggestive nondisplaced fracture at the base of the femoral neck and greater trochanter. Noel Schwartz MD Chest X-Ray 07/23/17 0000 Signed Impressions: Service Date/Time: Sunday, July 23, 2017 12:25 - CONCLUSION: 1. No active disease. There is a comminuted fracture of the proximal right humerus. Brock Myrick MD Assessment and Plan Problem List: (1) Acute kidney injury ICD Codes: N17.9 - Acute kidney failure, unspecified Status: Acute Plan: Acute renal failure possibly pre renal, and now received contrast will start IVF 1/2 NS with bicarbonate 75 meq 83 cc /hr follow BMP PO4,Mg in am Avoid nephrotoxins (2) Hyperkalemia ICD Codes: E87.5 - Hyperkalemia Plan: Calcium gluconate, D50, insulin, sodium bicarbonate and Kayexalate ordered (3) Chronic lymphocytic leukemia ICD Codes: C91.10 - Chronic lymphocytic leukemia of B-cell type not having achieved remission Status: Acute Plan: High WBC count (4) TIA (transient ischemic attack) ICD Codes: G45.9 - Transient cerebral ischemic attack, unspecified Status: Acute Plan: Neurology following (5) HTN (hypertension) ICD Codes: I10 - Essential (primary) hypertension Status: Chronic Plan: Monitor blood pressure (6) Fracture of femoral neck, right ICD Codes: S72.001A - Fracture of unspecified part of neck of right femur, initial encounter for closed fracture Plan: Followed by orthopedic (7) Right humeral fracture ICD Codes: S42.301A - Unspecified fracture of shaft of humerus, right arm, initial encounter for closed fracture Plan: Orthopedic surgery following Problem Qualifiers (1) Fracture of femoral neck, right: Qualified Codes: S72.001A - Fracture of unspecified part of neck of right femur , initial encounter for closed fracture (2) Right humeral fracture: Qualified Codes: S42.231A - 3-part fracture of surgical neck of right humerus, initial encounter for closed fracture Pillo Medina MD Jul 25, 2017 21:03
[2017-07-25] MEDS ORDERED: SODIUM BICARBONATE 8.4% SOLN 50 MEQ/50 ML VIAL SLOW IVP ONE (21:30)
[2017-07-25] MEDS ORDERED: SODIUM POLYSTYRENE SULFONATE SUSP 15 GM/60 ML CUP PO ONE (21:30)
[2017-07-25] MEDS ORDERED: CALCIUM GLUCONATE 10% 1 GM/10 ML VIAL SLOW IVP ONE (21:30)
[2017-07-25] MEDS: MORPHINE SULFATE 4 MG/ML INJ IV PUSH PRN (21:52)
[2017-07-26] VITALS (10 sets, daily range): BP systolic 103–129; BP diastolic 51–77; PULSE 16–114; RESP 13–23; TEMP 97.7–98.6; O2SAT 94–100
[2017-07-26] MEDS: CEFAZOLIN INJ 2,000 MG in SODIUM CHLORIDE 0.9% INJ 100 ML IV SCH ×2 (01:08→09:04)
[2017-07-26 01:56] LABS: HEMATOCRIT 21.9 % (35.0-46.0)
[2017-07-26 02:08] LABS: HEMOGLOBIN 6.9 GM/DL (11.6-15.3)
[2017-07-26 02:19] LABS: BICARBONATE 24.2 MEQ/L (21.0-32.0); CALCIUM 8.5 MG/DL (8.5-10.1); CREATININE 3.22 MG/DL (0.50-1.00)
[2017-07-26] MEDS: MORPHINE SULFATE 4 MG/ML INJ IV PUSH PRN (04:58)
[2017-07-26] MEDS: ACETAMINOPHEN/HYDROcodone 325 MG/10 MG TAB PO PRN ×2 (06:42→17:33)
[2017-07-26] MEDS: CALCIUM/VITAMIN D 250 MG/125 U TAB PO SCH ×3 (07:57→17:33)
[2017-07-26] MEDS: DOCUSATE SODIUM 50 MG/SENNA 8.6 MG TAB PO SCH ×2 (07:57→21:47)
[2017-07-26] MEDS: CHOLECALCIFEROL (VIT D3) 1000 UNIT TAB PO SCH (07:57)
[2017-07-26] MEDS: INSULIN ASPART SUPPLEMENTAL SCALE SQ SCH ×4 (08:00→21:48)
[2017-07-26] MEDS: BUDESONIDE-FORMOTEROL 160/4.5 MCG INHALER INH SCH ×2 (08:17→21:48)
[2017-07-26] MEDS: APIXABAN 2.5 MG TABLET PO SCH ×2 (09:04→21:50)
[2017-07-26] MEDS: SODIUM BICARBONATE 8.4% INJ 75 MEQ in SODIUM CHLOR 0.45% 1000 ML INJ 1,000 ML IV SCH ×2 (09:58→23:32)
--- NOTE | 2017-07-26 09:59 | HHI.PR ---
Subjective Remarks f/u;right humerus / femoral neck fracture/ stroke alert. reportedly had expressive aphasia last night for which ' stroke alert' was called and the patient was transferred to ICU. now awake and alert with no distress. pain is fairly controlled. d/w the RN and no acute issues over night. Objective Vitals Vital Signs Date Time Temp Pulse Resp B/P (MAP) Pulse Ox O2 Delivery O2 Flow Rate FiO2 07/26/17 08:00 97.8 91 14 120/55 (76) 97 07/26/17 07:50 20 07/26/17 07:00 89 07/26/17 04:00 98.0 94 23 113/77 (89) 100 07/26/17 03:23 97.9 91 22 118/54 97 07/26/17 00:00 97.9 16 16 103/51 (68) 95 07/25/17 23:00 82 07/25/17 20:00 97.9 94 18 111/50 (70) 86 07/25/17 17:36 92 Nasal Cannula 2.00 07/25/17 14:45 97.9 84 18 109/54 92 07/25/17 14:15 88 18 112/58 07/25/17 14:15 98.4 I/O 07/25/17 07/25/17 07/25/17 07/26/17 07/26/17 07/26/17 07:00 15:00 23:00 07:00 15:00 23:00 Intake Total 360 ml 5 ml 780 ml 670 ml Output Total 325 ml 450 ml 300 ml Balance 35 ml 5 ml 330 ml 370 ml Intake Oral 240 ml 50 ml 50 ml IV Total 120 ml 320 ml 120 ml Packed Cells 400 ml 400 ml Blood Product IV Normal Saline Flush 5 ml 10 ml 100 ml Output Urine Total 325 ml 450 ml 300 ml # Bowel Movements 0 Result Diagram: 07/26/17 0030 07/26/17 0030 Imaging Last Impressions Brain MRI 07/25/17 1903 Signed Impressions: Service Date/Time: Tuesday, July 25, 2017 19:25 - CONCLUSION: Negative for an acute process. There is no restricted diffusion. Shemar Weir MD FACR Neck CTA 07/25/17 0000 Signed Impressions: Service Date/Time: Tuesday, July 25, 2017 18:54 - CONCLUSION: Known occlusion left internal carotid. Minimal calcific plaque right carotid bifurcation. Shemar Weir MD FACR Head CTA 07/25/17 Signed Impressions: Service Date/Time: Tuesday, July 25, 2017 18:54 - CONCLUSION: Negative for major branch vessel occlusion.. Shemar Weir MD FACR Head CT 07/25/17 Signed Impressions: Service Date/Time: Tuesday, July 25, 2017 18:34 - CONCLUSION: Negative for acute process Shemar Weir MD FACR Shoulder X-Ray 07/24/17 Signed Impressions: Service Date/Time: July 10:23 - CONCLUSION: Intraoperative images. Noel Schwartz MD Hip X-Ray 07/24/17 Signed Impressions: Service Date/Time: July 08:59 - CONCLUSION: Internal fixation of the right femoral neck fracture as above. Dwayne Solomon MD Upper Extremity CT 07/23/17 Signed Impressions: Service Date/Time: Sunday, July 23, 2017 13:28 - CONCLUSION: Three-part proximal humeral fracture with significant displacement and rotation of the humeral head and location of the 3 components as above. Noel Schwartz MD Pelvis X-Ray 07/23/17 Signed Impressions: Service Date/Time: Sunday, July 23, 2017 10:59 - CONCLUSION: The bony pelvic ring is grossly intact. Noel Schwartz MD ADDENDUM: Further view of the radiographs demonstrate a nondisplaced intertrochanteric fracture on the right Duncan Ruiz MD Femur X-Ray 07/23/17 Signed Impressions: Service Date/Time: Sunday, July 23, 2017 11:00 - CONCLUSION: Findings suggestive nondisplaced fracture at the base of the femoral neck and greater trochanter. Noel Schwartz MD Chest X-Ray 07/23/17 Signed Impressions: Service Date/Time: Sunday, July 23, 2017 12:25 - CONCLUSION: 1. No active disease. There is a comminuted fracture of the proximal right humerus. Brock Myrick MD Objective Remarks GENERAL: This is a well-nourished, well-developed patient, in no apparent distress. CARDIOVASCULAR: Regular rate and regular rhythm without murmurs, gallops, or rubs. RESPIRATORY: Clear to auscultation. Breath sounds equal bilaterally. No wheezes , rales, or rhonchi. GASTROINTESTINAL: Abdomen soft, non-tender, nondistended. Normal, active bowel sounds MUSCULOSKELETAL: Extremities without clubbing, cyanosis, or edema. NEURO: mildly lethargic but easily arousable. Procedures Right hip reduction and intramedullary nail fixation, right shoulder marily- arthroplasty. Medications and IVs Inpatient Medications Acetaminophen/ Hydrocodone Bitart ([place] 5-325 Mg) 2 tab Q4H PRN PO PAIN 6-10 Last administered on 07/24/17 03:42; Start 07/23/17 at 13:30; Stop 07/24/17 at 11: 46; Status DC Acetaminophen/ Hydrocodone Bitart ([place] 10-325 Mg) 1 tab Q3H PRN PO pain 2<10 Last administered on 07/26/17 06:42; Start 07/24/17 at 10:45 Albuterol Sulfate (Albuterol Neb) 2.5 mg Q4HR NEB PRN NEB SOB/WHEEZING; Start 07/23/17 at 13:30 Apixaban (Eliquis) 2.5 mg BID PO Last administered on 07/26/17 09:04; Start 07/25/17 at 21:00 Atorvastatin Calcium (Lipitor) 80 mg HS PO Last administered on 07/25/17 21:00 ; Start 07/23/17 at 21:00 Budesonide/ Formoterol Fumarate (Symbicort 160-4.5 Mcg Inh) 2 puff Q12HR INH Last administered on 07/26/17 08:17; Start 07/23/17 at 21:00 Bumetanide (Bumetanide) 2 mg DAILY PO Last administered on 07/25/17 09:56; Start 07/24/17 at 09:00; Status Future Hold Calcium Gluconate (Calcium Gluconate Inj) 1 gm ONCE ONCE SLOW IVP Last administered on 07/25/17 21:30; Start 07/25/17 at 21:30; Stop 07/25/17 at 21:31; Status DC Calcium/Vitamin D (Oscal-D 250-125) 250 mg TID PO Last administered on 07:57; Start 07/24/17 at 13:00 Cefazolin Sodium 2000 mg/Sodium Chloride 120 ml @ 240 mls/hr Q8H IV Last administered on 07/26/17at 09:04; Start 07/24/17 at 17:00; Stop 07/26/17 at 09:29; Status DC Chlorhexidine Gluconate (Chlorhexidine 2% Cloth) 3 pack LEGAL TECHNICIAN PRN TOPICAL SEE LABEL COMMENTS; Start 07/24/17 at 01:30; Stop 07/24/17 at 13:10; Status DC Cholecalciferol (Vitamin D3) 1,000 units DAILY PO Last administered on at 07:57; Start 07/25/17 at 09:00 Dextrose (D50w (Vial) Inj) 50 ml ONCE ONCE IV PUSH ; Start 07/25/17 at 21:30; Stop 07/25/17 at 21:31; Status DC Diphenhydramine HCl (Benadryl) 25 mg Q6H PRN PO ITCHING; Start 07/24/17 at 10:45 Ergocalciferol (Drisdol) 50,000 units Q7D PO Last administered on 07/24/17at 17: 21; Start 07/24/17 at 12:00 Furosemide (Lasix Inj) 20 mg ONCE ONCE IV PUSH Last administered on 07/25/17at 17:16; Start 07/25/17 at 14:00; Stop 07/25/17 at 14:01; Status DC Glucagon (Glucagon Inj) 1 mg UNSCH PRN OTHER HYPOGLYCEMIA-SEE COMMENTS; Start 07/23/17 at 13:30 Insulin Aspart (NovoLOG SUPPLEMENTAL SCALE) 1 ACHS SLIDING SCALE SQ Last administered on 07/26/17at 08:00; Start 07/23/17 at 17:00 Insulin Human Regular (NovoLIN R INJ) 8 units ONCE ONCE IV PUSH ; Start at 21:30; Stop 07/25/17 at 21:31; Status DC Lactated Ringer's 1,000 ml @ 30 mls/hr Q24H PRN IV SEE LABEL COMMENTS Last administered on 07/24/17at 06:36; Start 07/24/17 at 01:30; Stop 07/24/17 at 13:10; Status DC Losartan Potassium (Cozaar) 25 mg DAILY PO ; Start 07/24/17 at 09:00; Status Future Hold Metoprolol Tartrate (Lopressor) 100 mg BID PO Last administered on 07/24/17at 21: 07; Start 07/23/17 at 21:00; Status Future Hold Miscellaneous Information ALL NURSING DEPARTME... UNSCH PRN .XX SEE LABEL COMMENTS; Start 07/24/17 at 11:00; Stop 07/25/17 at 10:59; Status DC Morphine Sulfate (Morphine Inj) 4 mg Q3H PRN IV PUSH break thru pain Last administered on 07/26/17at 04:58; Start 07/24/17 at 10:45 Ondansetron HCl (Zofran Inj) 4 mg Q4H PRN IVP NAUSEA OR VOMITING; Start at 10:45 Oxycodone/ Acetaminophen (Percocet 5-325 Mg) 2 tab ONCE ONCE PO Last administered on 07/23/17at 13:13; Start 07/23/17 at 13:00; Stop 07/23/17 at 13:01; Status DC Povidone Iodine (Betadine 5% Antisepsis Kit) 1 applic LEGAL TECHNICIAN PRN EACH NARE SEE LABEL COMMENTS; Start 07/24/17 at 01:30; Stop 07/24/17 at 13:10; Status DC Senna/Docusate Sodium (Donna-Colace) 1 tab BID PO Last administered on 07/26/17at 07:57; Start 07/24/17 at 21:00 Sodium Bicarbonate 75 meq/Sodium Chloride 1,075 ml @ 83 mls/hr [id number] IV ; Start 07/25/17 at 21:00 Sodium Polystyrene Sulfonate (Kayexalate Liq) 15 gm ONCE ONCE PO Last administered on 07/25/17at 22:00; Start 07/25/17 at 21:30; Stop 07/25/17 at 21:31; Status DC Sodium Bicarbonate (Sodium Bicarbonate 8.4% Inj) 50 meq ONCE ONCE SLOW IVP Last administered on 07/25/17at 22:03; Start 07/25/17 at 21:30; Stop 07/25/17 at 21: 31; Status DC Sodium Chloride 200 ml @ 999 mls/hr BOLUS ONCE IV Last administered on at 19:00; Start 07/25/17 at 19:00; Stop 07/25/17 at 19:12; Status DC A/P Problem List: (1) Right humeral fracture ICD Code: S42.301A - Unspecified fracture of shaft of humerus, right arm, initial encounter for closed fracture (2) Fracture of femoral neck, right ICD Code: S72.001A - Fracture of unspecified part of neck of right femur, initial encounter for closed fracture Assessment and Plan A/P - right humerus and femoral neck fracture after a fall continue with pain control- consulted ortho. s/p Right hip reduction and intramedullary nail fixation, right shoulder marily- arthroplasty. -episode of expressive aphasia last night CT and MRI brain with no acute infarct. 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 will check echo. neurology consulted. continue with neuro-checks/ consult ST. -anemia- acute on chronic due to blood [id number]; transfused with PRBC - H/ H today pending. -acute kidney injury superimposed on chronic renal insufficiency; continue IV fluid- monitor renal function- nephrology consult appreciated. -atrial fibrillation; HR controlled- decrease metoprolol- resume eliquis . -diabetes mellitus; started on accu-check with SSI -asthma; resumed symbicort- neb treatment as needed -CLL- f/u as outpatient -DVT prophylaxis; resumed Eliquis . transfer to telemetry - awaiting neurology f/u. Problem Qualifiers (1) Right humeral fracture: Qualified Codes: S42.231A - 3-part fracture of surgical neck of right humerus, initial encounter for closed fracture (2) Fracture of femoral neck, right: Qualified Codes: S72.001A - Fracture of unspecified part of neck of right femur , initial encounter for closed fracture Sharon Martinez MD Jul 26, 2017 09:59
--- NOTE | 2017-07-26 10:42 | PD.ORT.PN ---
Subjective Subjective Remarks Patient resting in bed with at bedside. Patient being worked up for possible stroke. Patient was moved from 6th floor to ICU. Patient states she is having only mild pain to the right shoulder and right hip. Objective Vitals Vital Signs Date Time Temp Pulse Resp B/P (MAP) Pulse Ox O2 Delivery O2 Flow Rate FiO2 07/26/17 10:00 88 07/26/17 08:00 97.8 91 14 120/55 (76) 97 07/26/17 07:50 20 07/26/17 07:00 89 07/26/17 04:00 98.0 94 23 113/77 (89) 100 07/26/17 03:23 97.9 91 22 118/54 97 07/26/17 00:00 97.9 16 16 103/51 (68) 95 07/25/17 23:00 82 07/25/17 20:00 97.9 94 18 111/50 (70) 86 07/25/17 17:36 92 Nasal Cannula 2.00 07/25/17 14:45 97.9 84 18 109/54 92 07/25/17 14:15 88 18 112/58 07/25/17 14:15 98.4 I/O 07/25/17 07/25/17 07/25/17 07/26/17 07/26/17 07/26/17 07:00 15:00 23:00 07:00 15:00 23:00 Intake Total 360 ml 5 ml 780 ml 670 ml 120 ml Output Total 325 ml 450 ml 300 ml Balance 35 ml 5 ml 330 ml 370 ml 120 ml Intake Oral 240 ml 50 ml 50 ml IV Total 120 ml 320 ml 120 ml 120 ml Packed Cells 400 ml 400 ml Blood Product IV Normal Saline Flush 5 ml 10 ml 100 ml Output Urine Total 325 ml 450 ml 300 ml # Bowel Movements 0 Result Diagram: 07/26/17 0030 07/26/17 0030 Other Results Laboratory Tests Test 07/25/17 18:20 Prothromb Time International Ratio 1.0 RATIO Prothrombin Time 10.5 SEC (9.8-11.6) Imaging Last 24 hours Impressions Brain MRI 07/25/17 2763 Signed Impressions: Service Date/Time: Tuesday, July 25, 2017 19:25 - CONCLUSION: Negative for an acute process. There is no restricted diffusion. Shemar Weir MD FACR Objective Remarks Right lower extremity: Clean dry dressings intact with mild swelling. Distally intact sensation with good capillary refills. Active dorsiflexion plantar flexion of foot Right upper extremity: A dry dressings intact. Sling with abduction pillow in place. Distally intact sensation over radial ulnar and median nerve distributions with good capillary refills. She is able fully extend her fingers and make a fist Patient A&O. Answering questions appropriately. Assessment & Plan Assessment and Plan Right shoulder hemiarthroplasty POD 2 Nonweightbearing right upper extremity Remain in sling and swath at all times Daily dressing changes beginning POD 2 Right intertrochanteric femur fracture POD 2 IM nail Weightbearing as tolerated right lower extremity Daily dressing changes beginning POD 2 Patient moved to ICU following stroke alert. Current tests negative for stroke. Lovenox Incentive spirometry Case management for discharge planning to rehabilitation plan for discharge to rehabilitation once cleared by medical. Follow-up Dr. Daniels or PA in 2 weeks. At that time we will progress range of motion exercises of her shoulder Anemia being managed by medical. Patient transfused and awaiting new labs. Buck Esparza Jul 26, 2017 10:42
--- NOTE | 2017-07-26 13:35 | HHI.PR ---
Subjective Remarks afib Objective Vital Signs Date Time Temp Pulse Resp B/P (MAP) Pulse Ox O2 Delivery O2 Flow Rate FiO2 07/26/17 12:00 97.7 96 13 121/56 (77) 97 07/26/17 12:00 96 07/26/17 11:00 99 Nasal Cannula 2.00 07/26/17 10:00 88 07/26/17 08:00 97.8 91 14 120/55 (76) 97 07/26/17 07:50 20 07/26/17 07:00 98 Nasal Cannula 3.00 07/26/17 07:00 89 07/26/17 04:00 98.0 94 23 113/77 (89) 100 07/26/17 03:23 97.9 91 22 118/54 97 07/26/17 00:00 97.9 16 16 103/51 (68) 95 07/25/17 23:00 82 07/25/17 20:00 97.9 94 18 111/50 (70) 86 07/25/17 17:36 92 Nasal Cannula 2.00 07/25/17 14:45 97.9 84 18 109/54 92 07/25/17 14:15 88 18 112/58 07/25/17 14:15 98.4 I/O 07/25/17 07/25/17 07/25/17 07/26/17 07/26/17 07/26/17 07:00 15:00 23:00 07:00 15:00 23:00 Intake Total 360 ml 5 ml 780 ml 670 ml 120 ml Output Total 325 ml 450 ml 300 ml Balance 35 ml 5 ml 330 ml 370 ml 120 ml Intake Oral 240 ml 50 ml 50 ml IV Total 120 ml 320 ml 120 ml 120 ml Packed Cells 400 ml 400 ml Blood Product IV Normal Saline Flush 5 ml 10 ml 100 ml Output Urine Total 325 ml 450 ml 300 ml # Bowel Movements 0 Result Diagram: 07/26/17 0030 07/26/17 0030 Objective Remarks vff now moving all well within the post of limitations all 4 ext face sym Assessment and Plan Assessment and Plan imp mri nl nl cva cta neg x2 x old left ica occlusion on eliquis back to renal watching creat and k+ was off yest better now possible tia will sign off Duncan Person MD Jul 26, 2017 13:35
[2017-07-26 14:47] LABS: HEMATOCRIT 27.4 % (35.0-46.0); HEMOGLOBIN 8.4 GM/DL (11.6-15.3)
[2017-07-26 14:53] LABS: BICARBONATE 21.4 MEQ/L (21.0-32.0); CALCIUM 8.6 MG/DL (8.5-10.1); CREATININE 3.28 MG/DL (0.50-1.00); MAGNESIUM 1.9 MG/DL (1.5-2.5); PHOSPHORUS 4.9 MG/DL (2.5-4.9)
--- NOTE | 2017-07-26 16:14 | HHI.NPPN ---
Subjective History of Present Illness History of right shoulder and right hip surgery acute renal failure patient is in pain Objective Data Data 07/26/17 07/27/17 19:00 07:00 Intake Total 120 ml Balance 120 ml IV Total 120 ml Vital Signs Date Time Temp Pulse Resp B/P (MAP) Pulse Ox O2 Delivery O2 Flow Rate FiO2 07/26/17 16:00 97.9 97 21 118/59 (78) 97 07/26/17 12:00 97.7 96 13 121/56 (77) 97 07/26/17 12:00 96 07/26/17 11:00 99 Nasal Cannula 2.00 07/26/17 10:00 88 07/26/17 08:00 97.8 91 14 120/55 (76) 97 07/26/17 07:50 20 07/26/17 07:00 98 Nasal Cannula 3.00 07/26/17 07:00 89 07/26/17 04:00 98.0 94 23 113/77 (89) 100 07/26/17 03:23 97.9 91 22 118/54 97 07/26/17 00:00 97.9 16 16 103/51 (68) 95 07/25/17 23:00 82 07/25/17 20:00 97.9 94 18 111/50 (70) 86 07/25/17 17:36 92 Nasal Cannula 2.00 -: 07/26/17 1423 07/26/17 1423 Physical Exam General Appearance: Well Developed, Well Nourished Eyes Eye Exam: Pupils Equal Neck Neck Exam: Neck Supple Pulmonary Resp Exam: Clear Bilaterally, Breath Sounds Equal Cardiology CV Exam: Tachycardia Gastrointestinal/Abdomen GI Exam: Soft, Non-Tender, Bowel Sounds Present Extremeties Extremities Exam: Trace Edema Neurologic Neuro Exam: Alert Assessment/Plan Problem List: (1) Acute kidney injury ICD Codes: N17.9 - Acute kidney failure, unspecified Status: Acute Plan: Creatinine 3.2 On IVF 1/2 NS with bicarbonate at 83 cc /hr follow BMP Continue to monitor Avoid nephrotoxins (2) Hyperkalemia ICD Codes: E87.5 - Hyperkalemia Plan: Calcium gluconate, D50, insulin, sodium bicarbonate and Kayexalate ordered (3) Chronic lymphocytic leukemia ICD Codes: C91.10 - Chronic lymphocytic leukemia of B-cell type not having achieved remission Status: Acute Plan: High WBC count (4) TIA (transient ischemic attack) ICD Codes: G45.9 - Transient cerebral ischemic attack, unspecified Status: Acute Plan: Neurology following (5) HTN (hypertension) ICD Codes: I10 - Essential (primary) hypertension Status: Chronic Plan: Monitor blood pressure (6) Fracture of femoral neck, right ICD Codes: S72.001A - Fracture of unspecified part of neck of right femur, initial encounter for closed fracture Plan: Followed by orthopedic (7) Right humeral fracture ICD Codes: S42.301A - Unspecified fracture of shaft of humerus, right arm, initial encounter for closed fracture Plan: Orthopedic surgery following Problem Qualifiers (1) Fracture of femoral neck, right: Qualified Codes: S72.001A - Fracture of unspecified part of neck of right femur , initial encounter for closed fracture (2) Right humeral fracture: Qualified Codes: S42.231A - 3-part fracture of surgical neck of right humerus, initial encounter for closed fracture Pillo Medina MD Jul 26, 2017 16:14
--- NOTE | 2017-07-26 17:16 | EKG ---
Date Performed: 07/25/2017 Time Performed: 18:24:39 PTAGE: 87 years EKG: ATRIAL FIBRILLATION BORDERLINE LEFT AXIS DEVIATION MODERATE INTRAVENTRICULAR CONDUCTION DEL AY ST DEVIATION AND MODERATE T-WAVE ABNORMALITY, CONSIDER LATERAL ISCHEMIA Compared to previous trevor ng, T wave changes anterolaterally are slightly more prominent, otherwise no significant change ABNOR MAL ECG PREVIOUS TRACING : 07/23/2017 13.02 DOCTOR: Celso Ramesh Interpretating Date/Time 07/26/2017 17:15:45
[2017-07-26] MEDS: diphenhydrAMINE HCL 25 MG CAP PO PRN (17:35)
[2017-07-26] MEDS: ATORVASTATIN 80 MG TAB PO SCH (21:50)
--- NOTE | 2017-07-26 23:05 | MG ---
cc: Duncan Person MD, David J MD EEG NUMBER [id number] INDICATIONS: Status post stroke alert, change in mental status. INTERPRETATION: A diffuse 6 Hz slowing is noted. Some sharply contoured bifrontal temporal waves are noted at the beginning of the recording in epoch 11, also seen over the central head region. Some triphasic appearing waves are noted at epoch 24 bilaterally. Photic stimulation was performed without significant posterior driving. IMPRESSION: What appears to be a metabolic encephalopathy with some triphasic appearing waves seen. Clinical correlation is needed. MD TIMOTHY Raygoza//shanika , 10:42 PM , 10:54 PM
[2017-07-27] VITALS (8 sets, daily range): BP systolic 131–150; BP diastolic 61–64; PULSE 95–124; RESP 18–22; TEMP 97.7–98.7; O2SAT 92–98
[2017-07-27] MEDS: ACETAMINOPHEN/HYDROcodone 325 MG/10 MG TAB PO PRN ×2 (04:04→21:21)
[2017-07-27] MEDS ORDERED: METOPROLOL TARTRATE 25 MG TAB PO SCH (09:00)
[2017-07-27] MEDS: INSULIN ASPART SUPPLEMENTAL SCALE SQ SCH ×4 (09:32→21:21)
[2017-07-27] MEDS: CALCIUM/VITAMIN D 250 MG/125 U TAB PO SCH ×3 (09:33→18:07)
[2017-07-27] MEDS: APIXABAN 2.5 MG TABLET PO SCH ×2 (09:33→21:21)
[2017-07-27] MEDS: CHOLECALCIFEROL (VIT D3) 1000 UNIT TAB PO SCH (09:33)
[2017-07-27] MEDS: BUDESONIDE-FORMOTEROL 160/4.5 MCG INHALER INH SCH ×2 (09:34→21:21)
[2017-07-27] MEDS: DOCUSATE SODIUM 50 MG/SENNA 8.6 MG TAB PO SCH ×2 (09:34→21:21)
--- NOTE | 2017-07-27 10:00 | HHI.PR ---
Subjective Remarks in no acute distress. looks fairly comfortable. at the bedside. d/w the RN and no acute issues over night. Objective Vitals Vital Signs Date Time Temp Pulse Resp B/P (MAP) Pulse Ox O2 Delivery O2 Flow Rate FiO2 07/27/17 04:00 98.0 124 22 143/63 (89) 93 07/27/17 00:47 104 07/27/17 00:00 98.7 102 22 135/61 (85) 98 07/26/17 21:48 Nasal Cannula 3.00 07/26/17 20:00 97.7 90 20 114/55 (74) 97 07/26/17 17:30 Nasal Cannula 2.00 07/26/17 17:00 98.6 114 20 129/59 (82) 94 07/26/17 16:00 97.9 97 21 118/59 (78) 97 07/26/17 12:00 97.7 96 13 121/56 (77) 97 07/26/17 12:00 96 07/26/17 11:00 99 Nasal Cannula 2.00 07/26/17 10:00 88 I/O 07/26/17 07/26/17 07/26/17 07/27/17 07/27/17 07/27/17 07:00 15:00 23:00 07:00 15:00 23:00 Intake Total 670 ml 120 ml 554 ml Output Total 300 ml 400 ml Balance 370 ml 120 ml 154 ml Intake Oral 50 ml 100 ml IV Total 120 ml 120 ml 454 ml Packed Cells 400 ml Blood Product IV Normal Saline Flush 100 ml Output Urine Total 300 ml 400 ml Result Diagram: 07/26/17 1423 07/26/17 1423 Imaging Last Impressions Brain MRI 07/25/17 1903 Signed Impressions: Service Date/Time: Tuesday, July 25, 2017 19:25 - CONCLUSION: Negative for an acute process. There is no restricted diffusion. Shemar Weir MD FACR Neck CTA 07/25/17 0000 Signed Impressions: Service Date/Time: Tuesday, July 25, 2017 18:54 - CONCLUSION: Known occlusion left internal carotid. Minimal calcific plaque right carotid bifurcation. Shemar Weir MD FACR Head CTA 07/25/17 0000 Signed Impressions: Service Date/Time: Tuesday, July 25, 2017 18:54 - CONCLUSION: Negative for major branch vessel occlusion.. Shemar Weir MD FACR Head CT 07/25/17 Signed Impressions: Service Date/Time: Tuesday, July 25, 2017 18:34 - CONCLUSION: Negative for acute process Shemar Weir MD FACR Shoulder X-Ray 07/24/17 Signed Impressions: Service Date/Time: July 10:23 - CONCLUSION: Intraoperative images. Noel Schwartz MD Hip X-Ray 07/24/17 Signed Impressions: Service Date/Time: July 08:59 - CONCLUSION: Internal fixation of the right femoral neck fracture as above. Dwayne Solomon MD Upper Extremity CT 07/23/17 Signed Impressions: Service Date/Time: Sunday, July 23, 2017 13:28 - CONCLUSION: Three-part proximal humeral fracture with significant displacement and rotation of the humeral head and location of the 3 components as above. Noel Schwartz MD Pelvis X-Ray 07/23/17 Signed Impressions: Service Date/Time: Sunday, July 23, 2017 10:59 - CONCLUSION: The bony pelvic ring is grossly intact. Noel Schwartz MD ADDENDUM: Further view of the radiographs demonstrate a nondisplaced intertrochanteric fracture on the right Duncan Ruiz MD Femur X-Ray 07/23/17 Signed Impressions: Service Date/Time: Sunday, July 23, 2017 11:00 - CONCLUSION: Findings suggestive nondisplaced fracture at the base of the femoral neck and greater trochanter. Noel Schwartz MD Chest X-Ray 07/23/17 Signed Impressions: Service Date/Time: Sunday, July 23, 2017 12:25 - CONCLUSION: 1. No active disease. There is a comminuted fracture of the proximal right humerus. Brock Myrick MD Objective Remarks GENERAL: This is a well-nourished, well-developed patient, in no apparent distress. CARDIOVASCULAR: Regular rate and regular rhythm without murmurs, gallops, or rubs. RESPIRATORY: Clear to auscultation. Breath sounds equal bilaterally. No wheezes , rales, or rhonchi. GASTROINTESTINAL: Abdomen soft, non-tender, nondistended. Normal, active bowel sounds MUSCULOSKELETAL: Extremities without clubbing, cyanosis, or edema. NEURO: mildly lethargic but easily arousable. Procedures Right hip reduction and intramedullary nail fixation, right shoulder marily- arthroplasty. Medications and IVs Inpatient Medications Acetaminophen/ Hydrocodone Bitart ([place] 5-325 Mg) 2 tab Q4H PRN PO PAIN 6-10 Last administered on 07/24/17 03:42; Start 07/23/17 at 13:30; Stop 07/24/17 at 11: 46; Status DC Acetaminophen/ Hydrocodone Bitart ([place] 10-325 Mg) 1 tab Q3H PRN PO pain 2<10 Last administered on 07/27/17 04:04; Start 07/24/17 at 10:45 Albuterol Sulfate (Albuterol Neb) 2.5 mg Q4HR NEB PRN NEB SOB/WHEEZING; Start 07/23/17 at 13:30 Apixaban (Eliquis) 2.5 mg BID PO Last administered on 07/27/17 09:33; Start 07/25/17 at 21:00 Atorvastatin Calcium (Lipitor) 80 mg HS PO Last administered on 07/26/17 21:50 ; Start 07/23/17 at 21:00 Budesonide/ Formoterol Fumarate (Symbicort 160-4.5 Mcg Inh) 2 puff Q12HR INH Last administered on 07/27/17 09:34; Start 07/23/17 at 21:00 Bumetanide (Bumetanide) 2 mg DAILY PO Last administered on 07/25/17 09:56; Start 07/24/17 at 09:00; Status Future Hold Calcium Gluconate (Calcium Gluconate Inj) 1 gm ONCE ONCE SLOW IVP Last administered on 07/25/17 21:30; Start 07/25/17 at 21:30; Stop 07/25/17 at 21:31; Status DC Calcium/Vitamin D (Oscal-D 250-125) 250 mg TID PO Last administered on 09:33; Start 07/24/17 at 13:00 Cefazolin Sodium 2000 mg/Sodium Chloride 120 ml @ 240 mls/hr Q8H IV Last administered on 07/26/17 09:04; Start 07/24/17 at 17:00; Stop 07/26/17 at 09:29; Status DC Chlorhexidine Gluconate (Chlorhexidine 2% Cloth) 3 pack LINE LEADER PRN TOPICAL SEE LABEL COMMENTS; Start 07/24/17 at 01:30; Stop 07/24/17 at 13:10; Status DC Cholecalciferol (Vitamin D3) 1,000 units DAILY PO Last administered on at 09:33; Start 07/25/17 at 09:00 Dextrose (D50w (Vial) Inj) 50 ml ONCE ONCE IV PUSH ; Start 07/25/17 at 21:30; Stop 07/25/17 at 21:31; Status DC Diphenhydramine HCl (Benadryl) 25 mg Q6H PRN PO ITCHING Last administered on 07/26/17at 17:35; Start 07/24/17 at 10:45 Ergocalciferol (Drisdol) 50,000 units Q7D PO Last administered on 07/24/17at 17: 21; Start 07/24/17 at 12:00 Furosemide (Lasix Inj) 20 mg ONCE ONCE IV PUSH Last administered on 07/25/17at 17:16; Start 07/25/17 at 14:00; Stop 07/25/17 at 14:01; Status DC Glucagon (Glucagon Inj) 1 mg UNSCH PRN OTHER HYPOGLYCEMIA-SEE COMMENTS; Start 07/23/17 at 13:30 Insulin Aspart (NovoLOG SUPPLEMENTAL SCALE) 1 ACHS SLIDING SCALE SQ Last administered on 07/27/17at 09:32; Start 07/23/17 at 17:00 Insulin Human Regular (NovoLIN R INJ) 8 units ONCE ONCE IV PUSH ; Start at 21:30; Stop 07/25/17 at 21:31; Status DC Lactated Ringer's 1,000 ml @ 30 mls/hr Q24H PRN IV SEE LABEL COMMENTS Last administered on 07/24/17at 06:36; Start 07/24/17 at 01:30; Stop 07/24/17 at 13:10; Status DC Losartan Potassium (Cozaar) 25 mg DAILY PO ; Start 07/24/17 at 09:00; Status Future Hold Metoprolol Tartrate (Lopressor) 25 mg DAILY PO Last administered on 07/27/17at 09 :34; Start 07/27/17 at 09:00 Miscellaneous Information ALL NURSING DEPARTME... UNSCH PRN .XX SEE LABEL COMMENTS; Start 07/24/17 at 11:00; Stop 07/25/17 at 10:59; Status DC Morphine Sulfate (Morphine Inj) 4 mg Q3H PRN IV PUSH break thru pain Last administered on 07/26/17at 04:58; Start 07/24/17 at 10:45 Ondansetron HCl (Zofran Inj) 4 mg Q4H PRN IVP NAUSEA OR VOMITING; Start at 10:45 Oxycodone/ Acetaminophen (Percocet 5-325 Mg) 2 tab ONCE ONCE PO Last administered on 07/23/17at 13:13; Start 07/23/17 at 13:00; Stop 07/23/17 at 13:01; Status DC Povidone Iodine (Betadine 5% Antisepsis Kit) 1 applic LINE LEADER PRN EACH NARE SEE LABEL COMMENTS; Start 07/24/17 at 01:30; Stop 07/24/17 at 13:10; Status DC Senna/Docusate Sodium (Donna-Colace) 1 tab BID PO Last administered on 07/27/17at 09:34; Start 07/24/17 at 21:00 Sodium Bicarbonate 75 meq/Sodium Chloride 1,075 ml @ 83 mls/hr [id number] IV Last administered on 07/26/17at 23:32; Start 07/25/17 at 21:00 Sodium Polystyrene Sulfonate (Kayexalate Liq) 15 gm ONCE ONCE PO Last administered on 07/25/17at 22:00; Start 07/25/17 at 21:30; Stop 07/25/17 at 21:31; Status DC Sodium Bicarbonate (Sodium Bicarbonate 8.4% Inj) 50 meq ONCE ONCE SLOW IVP Last administered on 07/25/17at 22:03; Start 07/25/17 at 21:30; Stop 07/25/17 at 21: 31; Status DC Sodium Chloride 200 ml @ 999 mls/hr BOLUS ONCE IV Last administered on at 19:00; Start 07/25/17 at 19:00; Stop 07/25/17 at 19:12; Status DC A/P Problem List: (1) Right humeral fracture ICD Code: S42.301A - Unspecified fracture of shaft of humerus, right arm, initial encounter for closed fracture (2) Fracture of femoral neck, right ICD Code: S72.001A - Fracture of unspecified part of neck of right femur, initial encounter for closed fracture Assessment and Plan A/P - right humerus and femoral neck fracture after a fall s/p Right hip reduction and intramedullary nail fixation, right shoulder marily-arthroplasty. continue with pain control- ortho following. -episode of expressive aphasia CT and MRI brain with no acute infarct. 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 echo pending. neurology f/u appreciated and signed off. consulted ST. -anemia- acute on chronic due to blood [id number]; transfused with PRBC - H/ H today pending. -acute kidney injury superimposed on chronic renal insufficiency; continue IV fluid- monitor renal function- nephrology following. -atrial fibrillation; mildly tachycardic- resumed metoprolol- resumed eliquis . -diabetes mellitus; started on accu-check with SSI -asthma; resumed symbicort- neb treatment as needed -CLL- f/u as outpatient -DVT prophylaxis; resumed Eliquis . Discharge Planning dc to SNF within the next one-two days if stable with improved renal function. Problem Qualifiers (1) Right humeral fracture: Qualified Codes: S42.231A - 3-part fracture of surgical neck of right humerus, initial encounter for closed fracture (2) Fracture of femoral neck, right: Qualified Codes: S72.001A - Fracture of unspecified part of neck of right femur , initial encounter for closed fracture Sharon Martinez MD Jul 27, 2017 10:00
--- NOTE | 2017-07-27 10:05 | PD.ORT.PN ---
Subjective Subjective Remarks Patient resting in bed with at bedside. Patient's workup for stroke was negative. Patient was moved back to 6th floor from ICU. Patient states she is having no pain to the right shoulder or right hip. Objective Vitals Vital Signs Date Time Temp Pulse Resp B/P (MAP) Pulse Ox O2 Delivery O2 Flow Rate FiO2 07/27/17 04:00 98.0 124 22 143/63 (89) 93 07/27/17 00:47 104 07/27/17 00:00 98.7 102 22 135/61 (85) 98 07/26/17 21:48 Nasal Cannula 3.00 07/26/17 20:00 97.7 90 20 114/55 (74) 97 07/26/17 17:30 Nasal Cannula 2.00 07/26/17 17:00 98.6 114 20 129/59 (82) 94 07/26/17 16:00 97.9 97 21 118/59 (78) 97 07/26/17 12:00 97.7 96 13 121/56 (77) 97 07/26/17 12:00 96 07/26/17 11:00 99 Nasal Cannula 2.00 07/26/17 10:00 88 I/O 07/26/17 07/26/17 07/26/17 07/27/17 07/27/17 07/27/17 07:00 15:00 23:00 07:00 15:00 23:00 Intake Total 670 ml 120 ml 554 ml Output Total 300 ml 400 ml Balance 370 ml 120 ml 154 ml Intake Oral 50 ml 100 ml IV Total 120 ml 120 ml 454 ml Packed Cells 400 ml Blood Product IV Normal Saline Flush 100 ml Output Urine Total 300 ml 400 ml Result Diagram: 07/26/17 1423 07/26/17 1423 Imaging Last 24 hours Impressions Brain MRI 07/25/17 1903 Signed Impressions: Service Date/Time: Tuesday, July 25, 2017 19:25 - CONCLUSION: Negative for an acute process. There is no restricted diffusion. Shemar Weir MD FACR Objective Remarks Right lower extremity: Clean dry dressings intact with mild swelling. Distally intact sensation with good capillary refills. Active dorsiflexion plantar flexion of foot Right upper extremity: A dry dressings changed and new dressings are clean, dry , and intact. Sling with abduction pillow in place. Distally intact sensation over radial ulnar and median nerve distributions with good capillary refills. She is able fully extend her fingers and make a fist Patient A&O. Answering questions appropriately. Vitals rechecked and HR down to 102 from previous 124. Assessment & Plan Assessment and Plan Right shoulder hemiarthroplasty POD 3 Nonweightbearing right upper extremity Remain in sling and swath at all times Daily dressing changes beginning POD 2 Right intertrochanteric femur fracture POD 3 IM nail Weightbearing as tolerated right lower extremity Daily dressing changes beginning POD 2 Patient moved back to ortho floor secondary to being negative for stroke work-up Lovenox Incentive spirometry Case management for discharge planning to rehabilitation plan for discharge to rehabilitation once cleared by medical. Follow-up Dr. Daniels or PA in 2 weeks. At that time we will progress range of motion exercises of her shoulder Anemia is improved after transfusion and is being managed by medical. Buck Esparza Jul 27, 2017 10:05
[2017-07-27 10:52] LABS: HEMATOCRIT 27.3 % (35.0-46.0); HEMOGLOBIN 8.4 GM/DL (11.6-15.3); MEAN CELL VOLUME 94.9 FL (80.0-100.0); MEAN CORPUSCULAR HEMOGLOBIN 29.1 PG (27.0-34.0); MEAN CORPUSCULAR HGB CONC 30.7 % (32.0-36.0); MEAN PLATELET VOLUME 8.6 FL (7.0-11.0); PLATELET COUNT 164 TH/MM3 (150-450); RED BLOOD COUNT 2.87 MIL/MM3 (4.00-5.30); RED CELL DISTRIBUTION WIDTH 16.7 % (11.6-17.2); WHITE BLOOD COUNT 110.9 TH/MM3 (4.0-11.0)
[2017-07-27 11:07] LABS: BICARBONATE 22.9 MEQ/L (21.0-32.0); CALCIUM 8.7 MG/DL (8.5-10.1); CREATININE 3.91 MG/DL (0.50-1.00)
[2017-07-27 11:41] LABS: LYMPHOCYTES 86 % (9-44); MONOCYTES 6 % (0-8); NEUTROPHIL # MANUAL DIFF 8.9 TH/MM3 (1.8-7.7); POLYS (SEG NEUTROPHILS) 8 % (16-70)
[2017-07-27 11:42] LABS: ACANTHOCYTES 1+ (NORMAL); OVALOCYTES 1+ (NORMAL); SMUDGE CELLS PRESENT PRESENT
[2017-07-27] MEDS: SODIUM BICARBONATE 8.4% INJ 75 MEQ in SODIUM CHLOR 0.45% 1000 ML INJ 1,000 ML IV SCH (15:53)
--- NOTE | 2017-07-27 17:32 | HHI.NPPN ---
Subjective History of Present Illness History of right shoulder and right hip surgery acute renal failure patient is in pain Objective Data Data Vital Signs Date Time Temp Pulse Resp B/P (MAP) Pulse Ox O2 Delivery O2 Flow Rate FiO2 07/27/17 12:00 98.0 95 18 131/63 (85) 93 07/27/17 11:37 94 Nasal Cannula 2.00 07/27/17 04:00 98.0 124 22 143/63 (89) 93 07/27/17 00:47 104 07/27/17 00:00 98.7 102 22 135/61 (85) 98 07/26/17 21:48 Nasal Cannula 3.00 07/26/17 20:00 97.7 90 20 114/55 (74) 97 -: 07/27/17 1039 07/27/17 1039 Physical Exam General Appearance: Well Developed, Well Nourished Eyes Eye Exam: Pupils Equal Neck Neck Exam: Neck Supple Pulmonary Resp Exam: Clear Bilaterally, Breath Sounds Equal Cardiology CV Exam: Tachycardia Gastrointestinal/Abdomen GI Exam: Soft, Non-Tender, Bowel Sounds Present Extremeties Extremities Exam: Trace Edema Neurologic Neuro Exam: Alert Assessment/Plan Problem List: (1) Acute kidney injury ICD Codes: N17.9 - Acute kidney failure, unspecified Status: Acute Plan: Creatinine 3.9 higher contrast related ATN ARF On IVF 1/2 NS with bicarbonate at 83cc /hr follow BMP Continue to monitor Avoid nephrotoxins (2) Hyperkalemia ICD Codes: E87.5 - Hyperkalemia Plan: Calcium gluconate, D50, insulin, sodium bicarbonate and Kayexalate given resolved (3) Chronic lymphocytic leukemia ICD Codes: C91.10 - Chronic lymphocytic leukemia of B-cell type not having achieved remission Status: Acute Plan: High WBC count (4) TIA (transient ischemic attack) ICD Codes: G45.9 - Transient cerebral ischemic attack, unspecified Status: Acute Plan: Neurology following (5) HTN (hypertension) ICD Codes: I10 - Essential (primary) hypertension Status: Chronic Plan: Monitor blood pressure (6) Fracture of femoral neck, right ICD Codes: S72.001A - Fracture of unspecified part of neck of right femur, initial encounter for closed fracture Plan: Followed by orthopedic (7) Right humeral fracture ICD Codes: S42.301A - Unspecified fracture of shaft of humerus, right arm, initial encounter for closed fracture Plan: Orthopedic surgery following Problem Qualifiers (1) Fracture of femoral neck, right: Qualified Codes: S72.001A - Fracture of unspecified part of neck of right femur , initial encounter for closed fracture (2) Right humeral fracture: Qualified Codes: S42.231A - 3-part fracture of surgical neck of right humerus, initial encounter for closed fracture Pillo Medina MD Jul 27, 2017 17:32
[2017-07-27] MEDS ORDERED: FUROSEMIDE 40 MG/4 ML VIAL IV PUSH ONE (18:00)
[2017-07-27] MEDS: ATORVASTATIN 80 MG TAB PO SCH (21:20)
[2017-07-27] MEDS: METOPROLOL TARTRATE 25 MG TAB PO SCH (21:21)
[2017-07-28] VITALS (9 sets, daily range): BP systolic 100–132; BP diastolic 53–63; PULSE 79–99; RESP 18–24; TEMP 97.3–98.3; O2SAT 91–98
[2017-07-28] MEDS: SODIUM BICARBONATE 8.4% INJ 75 MEQ in SODIUM CHLOR 0.45% 1000 ML INJ 1,000 ML IV SCH ×2 (01:05→13:50)
[2017-07-28] MEDS: MAGNESIUM HYDROXIDE SUSP 30 ML CUP PO PRN (04:31)
[2017-07-28] MEDS: ACETAMINOPHEN/HYDROcodone 325 MG/10 MG TAB PO PRN ×3 (05:43→17:20)
--- NOTE | 2017-07-28 06:34 | PD.ORT.PN ---
Subjective Subjective Remarks POD 4 s/p right shoulder hemiarthroplasty and right hip IMN doing well. resting comfortably Objective Vitals Vital Signs Date Time Temp Pulse Resp B/P (MAP) Pulse Ox O2 Delivery O2 Flow Rate FiO2 07/28/17 03:41 98.3 93 24 117/57 (77) 96 07/27/17 23:53 97 07/27/17 20:00 Nasal Cannula 2.00 07/27/17 20:00 112 07/27/17 19:48 Nasal Cannula 2.00 07/27/17 16:00 98.0 101 18 132/62 (85) 94 07/27/17 12:00 98.0 95 18 131/63 (85) 93 07/27/17 11:37 94 Nasal Cannula 2.00 I/O 07/27/17 07/27/17 07/27/17 07/28/17 07/28/17 07/28/17 07:00 15:00 23:00 07:00 15:00 23:00 Intake Total 554 ml 600 ml 1716 ml Output Total 400 ml 400 ml Balance 154 ml 200 ml 1716 ml Intake Oral 100 ml 600 ml IV Total 454 ml 1716 ml Output Urine Total 400 ml 400 ml Result Diagram: 07/27/17 1039 07/27/17 1039 Imaging Last 24 hours Impressions Brain MRI 07/25/17 1903 Signed Impressions: Service Date/Time: Tuesday, July 25, 2017 19:25 - CONCLUSION: Negative for an acute process. There is no restricted diffusion. Shemar Weir MD FACR Objective Remarks Right lower extremity: Clean dry dressings intact with mild swelling. Distally intact sensation with good capillary refills. Active dorsiflexion plantar flexion of foot Right upper extremity: A dry dressings changed and new dressings are clean, dry , and intact. Sling with abduction pillow in place. Distally intact sensation over radial ulnar and median nerve distributions with good capillary refills. She is able fully extend her fingers and make a fist Patient A&O. Answering questions appropriately. Assessment & Plan Assessment and Plan 1) Right shoulder hemiarthroplasty POD 4 Nonweightbearing right upper extremity Remain in sling and swath at all times Daily dressing changes beginning POD 2 2) Right intertrochanteric femur fracture POD 4 IM nail Weightbearing as tolerated right lower extremity Daily dressing changes beginning POD 2 Patient moved back to ortho floor secondary to being negative for stroke work-up Lovenox Incentive spirometry Case management for discharge planning to rehabilitation plan for discharge to rehabilitation once cleared by medical. Follow-up Dr. Daniels or PA in 2 weeks. At that time we will progress range of motion exercises of her shoulder Alexandru Melendez PA/Derrick Operator PA Jul 28, 2017 06:34
[2017-07-28 08:28] LABS: BICARBONATE 22.1 MEQ/L (21.0-32.0); CALCIUM 8.3 MG/DL (8.5-10.1); CREATININE 4.19 MG/DL (0.50-1.00)
[2017-07-28] MEDS: INSULIN ASPART SUPPLEMENTAL SCALE SQ SCH ×4 (08:40→20:53)
[2017-07-28] MEDS: BUDESONIDE-FORMOTEROL 160/4.5 MCG INHALER INH SCH ×2 (08:41→20:54)
[2017-07-28] MEDS: APIXABAN 2.5 MG TABLET PO SCH ×2 (08:42→20:45)
[2017-07-28] MEDS: DOCUSATE SODIUM 50 MG/SENNA 8.6 MG TAB PO SCH ×2 (08:42→20:45)
[2017-07-28] MEDS: CHOLECALCIFEROL (VIT D3) 1000 UNIT TAB PO SCH (08:43)
[2017-07-28] MEDS: CALCIUM/VITAMIN D 250 MG/125 U TAB PO SCH ×3 (08:43→17:19)
[2017-07-28] MEDS: METOPROLOL TARTRATE 25 MG TAB PO SCH ×2 (08:43→20:45)
--- NOTE | 2017-07-28 10:20 | HHI.PR ---
Subjective Remarks in no acute distress. pain seems to be fairly controlled. urine output is on low side. at the bedside. Objective Vitals Vital Signs Date Time Temp Pulse Resp B/P (MAP) Pulse Ox O2 Delivery O2 Flow Rate FiO2 07/28/17 07:30 97.6 99 18 131/62 (85) 91 07/28/17 03:41 98.3 93 24 117/57 (77) 96 07/28/17 00:00 98.1 99 19 122/56 (78) 93 07/27/17 23:53 97 07/27/17 20:00 Nasal Cannula 2.00 07/27/17 20:00 97.7 101 18 150/64 (92) 92 07/27/17 20:00 112 07/27/17 19:48 Nasal Cannula 2.00 07/27/17 16:00 98.0 101 18 132/62 (85) 94 07/27/17 12:00 98.0 95 18 131/63 (85) 93 07/27/17 11:37 94 Nasal Cannula 2.00 I/O 07/27/17 07/27/17 07/27/17 07/28/17 07/28/17 07/28/17 07:00 15:00 23:00 07:00 15:00 23:00 Intake Total 554 ml 600 ml 1816 ml Output Total 400 ml 400 ml 400 ml Balance 154 ml 200 ml 1416 ml Intake Oral 100 ml 600 ml 100 ml IV Total 454 ml 1716 ml Output Urine Total 400 ml 400 ml 400 ml Result Diagram: 07/27/17 1039 07/28/17 0713 Imaging Last Impressions Brain MRI 07/25/17 1903 Signed Impressions: Service Date/Time: Tuesday, July 25, 2017 19:25 - CONCLUSION: Negative for an acute process. There is no restricted diffusion. Shemar Weir MD FACR Neck CTA 07/25/17 0000 Signed Impressions: Service Date/Time: Tuesday, July 25, 2017 18:54 - CONCLUSION: Known occlusion left internal carotid. Minimal calcific plaque right carotid bifurcation. Shemar Weir MD FACR Head CTA 07/25/17 0000 Signed Impressions: Service Date/Time: Tuesday, July 25, 2017 18:54 - CONCLUSION: Negative for major branch vessel occlusion.. Shemar Weir MD FACR Head CT 07/25/17 Signed Impressions: Service Date/Time: Tuesday, July 25, 2017 18:34 - CONCLUSION: Negative for acute process Shemar Weir MD FACR Shoulder X-Ray 07/24/17 Signed Impressions: Service Date/Time: July 10:23 - CONCLUSION: Intraoperative images. Noel Schwartz MD Hip X-Ray 07/24/17 Signed Impressions: Service Date/Time: July 08:59 - CONCLUSION: Internal fixation of the right femoral neck fracture as above. Dwayne Solomon MD Upper Extremity CT 07/23/17 Signed Impressions: Service Date/Time: Sunday, July 23, 2017 13:28 - CONCLUSION: Three-part proximal humeral fracture with significant displacement and rotation of the humeral head and location of the 3 components as above. Noel Schwartz MD Pelvis X-Ray 07/23/17 Signed Impressions: Service Date/Time: Sunday, July 23, 2017 10:59 - CONCLUSION: The bony pelvic ring is grossly intact. Noel Schwartz MD ADDENDUM: Further view of the radiographs demonstrate a nondisplaced intertrochanteric fracture on the right Duncan Ruiz MD Femur X-Ray 07/23/17 Signed Impressions: Service Date/Time: Sunday, July 23, 2017 11:00 - CONCLUSION: Findings suggestive nondisplaced fracture at the base of the femoral neck and greater trochanter. Noel Schwartz MD Chest X-Ray 07/23/17 Signed Impressions: Service Date/Time: Sunday, July 23, 2017 12:25 - CONCLUSION: 1. No active disease. There is a comminuted fracture of the proximal right humerus. Brock Myrick MD Objective Remarks GENERAL: This is a well-nourished, well-developed patient, in no apparent distress. CARDIOVASCULAR: Regular rate and regular rhythm without murmurs, gallops, or rubs. RESPIRATORY: Clear to auscultation. Breath sounds equal bilaterally. No wheezes , rales, or rhonchi. GASTROINTESTINAL: Abdomen soft, non-tender, nondistended. Normal, active bowel sounds MUSCULOSKELETAL: lower extremities with pedal edema and some swelling on the right hip. NEURO: awake and alert. Procedures Right hip reduction and intramedullary nail fixation, right shoulder marily- arthroplasty. Medications and IVs Inpatient Medications Acetaminophen/ Hydrocodone Bitart ([place] 5-325 Mg) 2 tab Q4H PRN PO PAIN 6-10 Last administered on 07/24/17 03:42; Start 07/23/17 at 13:30; Stop 07/24/17 at 11: 46; Status DC Acetaminophen/ Hydrocodone Bitart ([place] 10-325 Mg) 1 tab Q3H PRN PO pain 2<10 Last administered on 07/28/17 05:43; Start 07/24/17 at 10:45 Albuterol Sulfate (Albuterol Neb) 2.5 mg Q4HR NEB PRN NEB SOB/WHEEZING; Start 07/23/17 at 13:30 Apixaban (Eliquis) 2.5 mg BID PO Last administered on 07/28/17 08:42; Start 07/25/17 at 21:00 Atorvastatin Calcium (Lipitor) 80 mg HS PO Last administered on 07/27/17 21:20 ; Start 07/23/17 at 21:00 Budesonide/ Formoterol Fumarate (Symbicort 160-4.5 Mcg Inh) 2 puff Q12HR INH Last administered on 07/28/17 08:41; Start 07/23/17 at 21:00 Bumetanide (Bumetanide) 2 mg DAILY PO Last administered on 07/25/17 09:56; Start 07/24/17 at 09:00; Status Future hold Calcium Gluconate (Calcium Gluconate Inj) 1 gm ONCE ONCE SLOW IVP Last administered on 07/25/17 21:30; Start 07/25/17 at 21:30; Stop 07/25/17 at 21:31; Status DC Calcium/Vitamin D (Oscal-D 250-125) 250 mg TID PO Last administered on 08:43; Start 07/24/17 at 13:00 Cefazolin Sodium 2000 mg/Sodium Chloride 120 ml @ 240 mls/hr Q8H IV Last administered on 07/26/17 09:04; Start 07/24/17 at 17:00; Stop 07/26/17 at 09:29; Status DC Chlorhexidine Gluconate (Chlorhexidine 2% Cloth) 3 pack PRODUCTION GENERALIST PRN TOPICAL SEE LABEL COMMENTS; Start 07/24/17 at 01:30; Stop 07/24/17 at 13:10; Status DC Cholecalciferol (Vitamin D3) 1,000 units DAILY PO Last administered on at 08:43; Start 07/25/17 at 09:00 Dextrose (D50w (Vial) Inj) 50 ml ONCE ONCE IV PUSH ; Start 07/25/17 at 21:30; Stop 07/25/17 at 21:31; Status DC Diphenhydramine HCl (Benadryl) 25 mg Q6H PRN PO ITCHING Last administered on 07/26/17at 17:35; Start 07/24/17 at 10:45 Ergocalciferol (Drisdol) 50,000 units Q7D PO Last administered on 07/24/17at 17: 21; Start 07/24/17 at 12:00 Furosemide (Lasix Inj) 80 mg ONCE ONCE IV PUSH Last administered on 07/27/17at 18:07; Start 07/27/17 at 18:00; Stop 07/27/17 at 18:01; Status DC Glucagon (Glucagon Inj) 1 mg UNSCH PRN OTHER HYPOGLYCEMIA-SEE COMMENTS; Start 07/23/17 at 13:30 Insulin Aspart (NovoLOG SUPPLEMENTAL SCALE) 1 ACHS SLIDING SCALE SQ Last administered on 07/28/17at 08:40; Start 07/23/17 at 17:00 Insulin Human Regular (NovoLIN R INJ) 8 units ONCE ONCE IV PUSH ; Start at 21:30; Stop 07/25/17 at 21:31; Status DC Lactated Ringer's 1,000 ml @ 30 mls/hr Q24H PRN IV SEE LABEL COMMENTS Last administered on 07/24/17at 06:36; Start 07/24/17 at 01:30; Stop 07/24/17 at 13:10; Status DC Losartan Potassium (Cozaar) 25 mg DAILY PO ; Start 07/24/17 at 09:00; Status Future Hold Magnesium Hydroxide (Milk Of Magnesia Liq) 30 ml DAILY PRN PO CONSTIPATION Last administered on 07/28/17at 04:31; Start 07/28/17 at 03:45 Metoprolol Tartrate (Lopressor) 25 mg BID PO Last administered on 07/28/17at 08: 43; Start 07/27/17 at 21:00 Miscellaneous Information ALL NURSING DEPARTME... UNSCH PRN .XX SEE LABEL COMMENTS; Start 07/24/17 at 11:00; Stop 07/25/17 at 10:59; Status DC Morphine Sulfate (Morphine Inj) 4 mg Q3H PRN IV PUSH break thru pain Last administered on 07/26/17at 04:58; Start 07/24/17 at 10:45 Ondansetron HCl (Zofran Inj) 4 mg Q4H PRN IVP NAUSEA OR VOMITING; Start at 10:45 Oxycodone/ Acetaminophen (Percocet 5-325 Mg) 2 tab ONCE ONCE PO Last administered on 07/23/17 13:13; Start 07/23/17 at 13:00; Stop 07/23/17 at 13:01; Status DC Povidone Iodine (Betadine 5% Antisepsis Kit) 1 applic PRODUCTION GENERALIST PRN EACH NARE SEE LABEL COMMENTS; Start 07/24/17 at 01:30; Stop 07/24/17 at 13:10; Status DC Senna/Docusate Sodium (Donna-Colace) 1 tab BID PO Last administered on 07/28/17at 08:42; Start 07/24/17 at 21:00 Sodium Bicarbonate 75 meq/Sodium Chloride 1,075 ml @ 83 mls/hr [id number] IV Last administered on 07/28/17 01:05; Start 07/25/17 at 21:00 Sodium Polystyrene Sulfonate (Kayexalate Liq) 15 gm ONCE ONCE PO Last administered on 07/25/17at 22:00; Start 07/25/17 at 21:30; Stop 07/25/17 at 21:31; Status DC Sodium Bicarbonate (Sodium Bicarbonate 8.4% Inj) 50 meq ONCE ONCE SLOW IVP Last administered on 07/25/17at 22:03; Start 07/25/17 at 21:30; Stop 07/25/17 at 21: 31; Status DC Sodium Chloride 200 ml @ 999 mls/hr BOLUS ONCE IV Last administered on at 19:00; Start 07/25/17 at 19:00; Stop 07/25/17 at 19:12; Status DC A/P Problem List: (1) Right humeral fracture ICD Code: S42.301A - Unspecified fracture of shaft of humerus, right arm, initial encounter for closed fracture (2) Fracture of femoral neck, right ICD Code: S72.001A - Fracture of unspecified part of neck of right femur, initial encounter for closed fracture Assessment and Plan A/P - right humerus and femoral neck fracture after a fall s/p Right hip reduction and intramedullary nail fixation, right shoulder marily-arthroplasty. continue with pain control- ortho following. -episode of expressive aphasia ( stroke alert) - now has resolved- possible TIA. CT and MRI brain with no acute infarct. 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 echo pending. neurology f/u appreciated and signed off. consulted ST. -anemia- acute on chronic due to blood [id number]; transfused with PRBC - H/ H today improved and stable. -acute kidney injury superimposed on chronic renal insufficiency; possibly contrast-induced; creatinine is trending up- received a dose of Lasix yesterday- continue IV fluid- monitor renal function-check renal US- nephrology following. -atrial fibrillation; mildly tachycardic- resumed metoprolol- resumed eliquis . -diabetes mellitus;start on levemir- continue accu-check with SSI- will monitor and adjust the regimen as needed. -asthma; resumed symbicort- neb treatment as needed -CLL- f/u as outpatient -DVT prophylaxis; resumed Eliquis . Discharge Planning renal function is getting worse- not ready for discharge yet. Problem Qualifiers (1) Right humeral fracture: Qualified Codes: S42.231A - 3-part fracture of surgical neck of right humerus, initial encounter for closed fracture (2) Fracture of femoral neck, right: Qualified Codes: S72.001A - Fracture of unspecified part of neck of right femur , initial encounter for closed fracture Sharon Martinez MD Jul 28, 2017 10:20
[2017-07-28] MEDS: BUMETANIDE 1 MG TAB PO SCH (10:26)
--- NOTE | 2017-07-28 14:03 | PD.WCN.NOT ---
Wound Consult Description: Received consult from MARYANN Bradford for wound management of R hip wound Communicated with: RN Fabio, MADIHA Fajardo, Doctor Radha Recommendation: 1.Please cleanse unroofed bullae with normal saline and pat dry Apply Xeroform in a single layer just over open wounds. If draining may cover with dry 4x4 gauze and secure with minimal paper tape. Change daily. Please apply Cavilon skin barrier film (skin prep) to intact skin before applying paper tape to skin. 2. Please leave roofed intact bullae open to air and spray with Cavilon skin barrier film BID 2. Apply Cavilon skin barrier film (skin prep) to Deep tissue injuries to gluteal cleft and coccyx areas BID and leave open to air. 3. Use ultra sorb pads only for moisture and incontinence management. 4. Please turn patient every 2 hours and PRN for comfort and offloading of pressure from baldo prominences. Additional Information: Patient seen on [address] for evaluation of R hip wound management around 1330. Patient is positioned to L side for wound assessment. R lateral thigh area is noted with diffuse roofed and unroofed bullae, possibly caused by adhesive sensitivity of adhesive trauma. Bordered gauze ordered by Doctor Hernandez can't be applied. Applied Xeroform just over open unroofed bullae in a single layer. RN informed selling underwriter that patient has wounds to buttock area. Patient was positioned further to L side for buttock assessment. Patient is noted with Coccyx deep tissue injury opening to partial thickness skin loss measuring ~ 1.5cm x ~1cm x ~<0.1cm. A second deep tissue injury is noted distal to coccyx in gluteal cleft measuring ~1cm x ~0.5cm. A Third deep tissue injury is noted distal to the first and and second DTIs mentioned above. Deep tissue injury measures ~1cm x ~4cm. Second and third DTIs are still intact. First DTI opening to partial thickness skin loss is dry without active drainage. Cavilon skin barrier film spray was applied to all DTIs noted and left open to air. Patient was positioned to L side with pillow in place for support. [place] airapy bed ordered. Nori Lewis [facility] Jul 28, 2017 14:03
[2017-07-28 14:39] LABS: AMORPHOUS SEDIMENT, URINE RARE; BACTERIA, URINE FEW /hpf; BILIRUBIN, URINE NEG (NEG); BLOOD, URINE MOD (NEG); GLUCOSE,URINE NEG (NEG); KETONE, URINE NEG (NEG); MUCUS URINE FEW /lpf (OCC); NITRITE,URINE NEG (NEG); SQUAMOUS EPITHELIAL CELL URINE 2 /hpf (0-5); URINE COLOR YELLOW (YELLW/STRAW); URINE LEUKOCYTE ESTERASE TRACE (NEG)
--- NOTE | 2017-07-28 15:44 | RADRPT ---
EXAM DATE/TIME: 07/28/2017 14:44 [place] COMPARISON: US KIDNEY/RENAL/BLADDER, February 02, 2015, 8:37. INDICATIONS : Increased Bun and Creatine. MEDICAL HISTORY : Cardiovascular disease. CLL. Known caroid occlusion left. SURGICAL HISTORY : Breast biopsy. Ceserean section. ENCOUNTER: Initial ACUITY: 1 day PAIN SCORE: Nonresponsive. LOCATION: Bilateral flank MEASUREMENTS: RIGHT KIDNEY: 11.5 x 5.2 x 5.6 cm LEFT KIDNEY: 5.0 x 3.4 x 3.3 cm FINDINGS: Limited examination due to patient's inability to cooperate with exam. RIGHT KIDNEY: Renal cortex is normal in thickness and echotexture. No hydronephrosis, stone, or mass. LEFT KIDNEY: Very limited trans images demonstrate no gross hydronephrosis. Poorly visualized. BLADDER: Not visualized and likely decompressed. CONCLUSION: 1. Limited examination due to patient's inability to cooperate with exam. 2. Left kidney is largely not visualized. Very limited images demonstrate no gross hydronephrosis. 3. Unremarkable right kidney. 4. Bladder not visualized and may be decompressed. Desmond Perdue MD on July 28, 2017 at 15:39 Board Certified Radiologist. This report was verified electronically.
--- NOTE | 2017-07-28 18:24 | HHI.NPPN ---
Subjective History of Present Illness History of right shoulder and right hip surgery acute renal failure patient is in pain Objective Data Data 07/28/17 07/29/17 19:00 07:00 Intake Total 480 ml Output Total 300 ml Balance 180 ml Intake Oral 480 ml Output Urine Total 300 ml # Bowel Movements 1 Vital Signs Date Time Temp Pulse Resp B/P (MAP) Pulse Ox O2 Delivery O2 Flow Rate FiO2 07/28/17 16:00 97.5 96 18 132/63 (86) 96 07/28/17 12:31 2.00 07/28/17 11:48 98.1 79 18 113/53 (73) 96 07/28/17 08:05 91 Nasal Cannula 2.00 07/28/17 08:05 88 07/28/17 07:30 97.6 99 18 131/62 (85) 91 07/28/17 03:41 98.3 93 24 117/57 (77) 96 07/28/17 00:00 98.1 99 19 122/56 (78) 93 07/27/17 23:53 97 07/27/17 20:00 Nasal Cannula 2.00 07/27/17 20:00 97.7 101 18 150/64 (92) 92 07/27/17 20:00 112 07/27/17 19:48 Nasal Cannula 2.00 -: 07/27/17 1039 07/28/17 0713 Microbiology 07/28/17 Urine Culture, Received Pending Physical Exam General Appearance: Well Developed, Well Nourished Eyes Eye Exam: Pupils Equal Neck Neck Exam: Neck Supple Pulmonary Resp Exam: Clear Bilaterally, Breath Sounds Equal Cardiology CV Exam: Tachycardia Gastrointestinal/Abdomen GI Exam: Soft, Non-Tender, Bowel Sounds Present Extremeties Extremities Exam: Trace Edema Neurologic Neuro Exam: Alert Assessment/Plan Problem List: (1) Acute kidney injury ICD Codes: N17.9 - Acute kidney failure, unspecified Status: Acute Plan: Creatinine 4.19 higher contrast related ATN ARF On IVF 1/2 NS with bicarbonate at 83cc /hr CUT BACK TO 42 CC dialysis discussed with patient and may need it by am Vascath needed consult Radiology follow BMP Continue to monitor Avoid nephrotoxins (2) Hyperkalemia ICD Codes: E87.5 - Hyperkalemia Plan: resolved (3) Chronic lymphocytic leukemia ICD Codes: C91.10 - Chronic lymphocytic leukemia of B-cell type not having achieved remission Status: Acute Plan: High WBC count (4) TIA (transient ischemic attack) ICD Codes: G45.9 - Transient cerebral ischemic attack, unspecified Status: Acute Plan: Neurology following (5) HTN (hypertension) ICD Codes: I10 - Essential (primary) hypertension Status: Chronic Plan: Monitor blood pressure (6) Fracture of femoral neck, right ICD Codes: S72.001A - Fracture of unspecified part of neck of right femur, initial encounter for closed fracture Plan: Followed by orthopedic (7) Right humeral fracture ICD Codes: S42.301A - Unspecified fracture of shaft of humerus, right arm, initial encounter for closed fracture Plan: Orthopedic surgery following Problem Qualifiers (1) Fracture of femoral neck, right: Qualified Codes: S72.001A - Fracture of unspecified part of neck of right femur , initial encounter for closed fracture (2) Right humeral fracture: Qualified Codes: S42.231A - 3-part fracture of surgical neck of right humerus, initial encounter for closed fracture Pillo Medina MD Jul 28, 2017 18:24
[2017-07-28] MEDS ORDERED: FUROSEMIDE 40 MG/4 ML VIAL IV PUSH ONE (20:00)
[2017-07-28] MEDS: ATORVASTATIN 80 MG TAB PO SCH (20:45)
[2017-07-28] MEDS: INSULIN DETEMIR 100 UNITS/ML VIAL SQ SCH (20:54)
[2017-07-29 04:00] VITALS: PULSE 91
[2017-07-29 04:30] VITALS: BP 131/58; PULSE 99; RESP 19; TEMP 98.8; O2SAT 98
[2017-07-29] MEDS: ACETAMINOPHEN/HYDROcodone 325 MG/10 MG TAB PO PRN ×4 (04:46→21:22)
--- NOTE | 2017-07-29 06:30 | PD.ORT.PN ---
Subjective Subjective Remarks Resting comfortably. Some confusion. Objective Vitals Vital Signs Date Time Temp Pulse Resp B/P (MAP) Pulse Ox O2 Delivery O2 Flow Rate FiO2 07/29/17 03:47 Nasal Cannula 3.00 07/28/17 23:45 97.9 80 20 100/58 (72) 97 07/28/17 23:45 96 07/28/17 20:25 97.3 88 19 121/58 (79) 98 07/28/17 20:00 98 Nasal Cannula 2.00 07/28/17 20:00 85 07/28/17 16:00 97.5 96 18 132/63 (86) 96 07/28/17 12:31 2.00 07/28/17 11:48 98.1 79 18 113/53 (73) 96 07/28/17 08:05 91 Nasal Cannula 2.00 07/28/17 08:05 88 07/28/17 07:30 97.6 99 18 131/62 (85) 91 I/O 07/28/17 07/28/17 07/28/17 07/29/17 07/29/17 07/29/17 07:00 15:00 23:00 07:00 15:00 23:00 Intake Total 1816 ml 480 ml 538 ml Output Total 400 ml 300 ml Balance 1416 ml 180 ml 538 ml Intake Oral 100 ml 480 ml IV Total 1716 ml 538 ml Output Urine Total 400 ml 300 ml # Bowel Movements 1 Result Diagram: 07/27/17 1039 07/28/17 0713 Imaging Last 24 hours Impressions Brain MRI 07/25/17 1903 Signed Impressions: Service Date/Time: Tuesday, July 25, 2017 19:25 - CONCLUSION: Negative for an acute process. There is no restricted diffusion. Shemar Weir MD FACR Objective Remarks Right lower extremity: Clean dry dressings intact with mild swelling. Distally intact sensation with good capillary refills. Active dorsiflexion plantar flexion of foot Right upper extremity: A dry dressings changed and new dressings are clean, dry , and intact. Sling with abduction pillow in place. Distally intact sensation over radial ulnar and median nerve distributions with good capillary refills. She is able fully extend her fingers and make a fist Assessment & Plan Assessment and Plan 1) Right shoulder hemiarthroplasty POD 5 Nonweightbearing right upper extremity Remain in sling and swath at all times Daily dressing changes 2) Right intertrochanteric femur fracture POD 5 IM nail Weightbearing as tolerated right lower extremity Daily dressing changes Eliquis Incentive spirometry Case management for discharge planning to rehabilitation plan for discharge to rehabilitation once cleared by medical. Follow-up Dr. Daniels or PA in 2 weeks. At that time we will progress range of motion exercises of her shoulder John Paul Fernandez Jr. Jul 29, 2017 06:30
[2017-07-29 06:55] LABS: CREATININE 4.09 MG/DL (0.50-1.00)
[2017-07-29 07:47] VITALS: BP 131/59; PULSE 100; RESP 18; TEMP 97.3; O2SAT 97
[2017-07-29] MEDS: INSULIN ASPART SUPPLEMENTAL SCALE SQ SCH ×4 (08:00→21:21)
[2017-07-29] MEDS: BUDESONIDE-FORMOTEROL 160/4.5 MCG INHALER INH SCH ×2 (09:00→21:22)
[2017-07-29] MEDS: APIXABAN 2.5 MG TABLET PO SCH ×2 (09:00→21:20)
--- NOTE | 2017-07-29 09:14 | HHI.PR ---
Subjective Remarks Patient is in a lot of pain, for Vas-Cath placement today. No overnight events per nursing. Creatinine worsening. Discussed with patient's Objective Vitals Vital Signs Date Time Temp Pulse Resp B/P (MAP) Pulse Ox O2 Delivery O2 Flow Rate FiO2 07/29/17 07:47 97.3 100 18 131/59 (83) 97 07/29/17 04:30 98.8 99 19 131/58 (82) 98 07/29/17 04:00 91 07/29/17 03:47 Nasal Cannula 3.00 07/28/17 23:45 97.9 80 20 100/58 (72) 97 07/28/17 23:45 96 07/28/17 20:25 97.3 88 19 121/58 (79) 98 07/28/17 20:00 98 Nasal Cannula 2.00 07/28/17 20:00 85 07/28/17 16:00 97.5 96 18 132/63 (86) 96 07/28/17 12:31 2.00 07/28/17 11:48 98.1 79 18 113/53 (73) 96 I/O 07/28/17 07/28/17 07/28/17 07/29/17 07/29/17 07/29/17 07:00 15:00 23:00 07:00 15:00 23:00 Intake Total 1816 ml 480 ml 538 ml 360 ml Output Total 400 ml 300 ml 925 ml Balance 1416 ml 180 ml 538 ml -565 ml Intake Oral 100 ml 480 ml 360 ml IV Total 1716 ml 538 ml Output Urine Total 400 ml 300 ml 925 ml # Bowel Movements 1 0 Result Diagram: 07/27/17 1039 07/29/17 0500 Objective Remarks GENERAL: Not in distress. CARDIOVASCULAR: Regular rate and regular rhythm without murmurs, gallops, or rubs. RESPIRATORY: Clear to auscultation. Poor effort. GASTROINTESTINAL: Abdomen soft, non-tender, nondistended. Normal, active bowel sounds MUSCULOSKELETAL: lower extremities with pedal edema and some swelling on the right hip. NEURO: awake and alert. Procedures Right hip reduction and intramedullary nail fixation, right shoulder marily- arthroplasty. A/P Problem List: (1) Right humeral fracture ICD Code: S42.301A - Unspecified fracture of shaft of humerus, right arm, initial encounter for closed fracture (2) Fracture of femoral neck, right ICD Code: S72.001A - Fracture of unspecified part of neck of right femur, initial encounter for closed fracture Assessment and Plan This is an 87-year-old female who had a right humerus and femoral neck fracture after a fall right humerus and femoral neck fracture after a fall s/p Right hip reduction and intramedullary nail fixation, right shoulder marily-arthroplasty. continue with pain control, will need rehab, nonweightbearing right upper extremity, weightbearing as tolerated right lower extremity episode of expressive aphasia ( stroke alert) - now has resolved- possible TIA. CT and MRI brain with no acute infarct. 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 echo pending. neurology f/u appreciated and signed off. consulted ST. anemia- acute on chronic due to blood [id number]; transfused with PRBC, hemoglobin is stable acute kidney injury superimposed on chronic renal insufficiency; possibly contrast-induced; creatinine is trending up, received Lasix 07/28/2017, still worsening creatinine, renal ultrasound normal right kidney, and visualized left kidney. Nephrology following, on one half normal saline with bicarb, for possible hemodialysis, for Vas-Cath placement today. atrial fibrillation; mildly tachycardic- resumed metoprolol- resumed eliquis . diabetes mellitus;start on levemir- continue accu-check with SSI- will monitor and adjust the regimen as needed. asthma; resumed symbicort- neb treatment as needed CLL- f/u as outpatient DVT prophylaxis; resumed Eliquis . Discussed with . Discharge Planning Pending improvement of renal function, will need rehab, max assist.? Need for outpatient dialysis Problem Qualifiers (1) Right humeral fracture: Qualified Codes: S42.231A - 3-part fracture of surgical neck of right humerus, initial encounter for closed fracture (2) Fracture of femoral neck, right: Qualified Codes: S72.001A - Fracture of unspecified part of neck of right femur , initial encounter for closed fracture Sofi Garcia MD Jul 29, 2017 09:14
[2017-07-29] MEDS ORDERED: SODIUM CHLOR 0.9% 1000 ML INJ 1,000 ML OTHER PRN ×2 (11:35)
[2017-07-29] MEDS ORDERED: SODIUM CHLOR 0.9% 1000 ML INJ 1,000 ML IV PRN (11:35)
[2017-07-29] MEDS: METOPROLOL TARTRATE 25 MG TAB PO SCH ×2 (11:36→21:20)
[2017-07-29] MEDS: BUMETANIDE 1 MG TAB PO SCH (11:36)
[2017-07-29] MEDS: CALCIUM/VITAMIN D 250 MG/125 U TAB PO SCH ×3 (11:36→17:21)
[2017-07-29] MEDS: CHOLECALCIFEROL (VIT D3) 1000 UNIT TAB PO SCH (11:36)
[2017-07-29] MEDS: DOCUSATE SODIUM 50 MG/SENNA 8.6 MG TAB PO SCH ×2 (11:36→21:20)
[2017-07-29] MEDS ORDERED: cloNIDine HCL 0.1 MG TAB PO PRN (11:45)
[2017-07-29] MEDS ORDERED: ACETAMINOPHEN 325 MG TAB PO PRN (11:45)
[2017-07-29] MEDS ORDERED: HEPARIN SODIUM - IV 10,000 UNITS/10 ML VIAL IV FLUSH PRN (11:45)
[2017-07-29] MEDS ORDERED: ALBUMIN 25% INJ 100 ML IV PRN (11:45)
[2017-07-29] MEDS ORDERED: HEPARIN SODIUM - IV 10,000 UNITS/10 ML VIAL PRN (11:45)
[2017-07-29] MEDS ORDERED: ONDANSETRON HCL 4 MG/2 ML VIAL IV PUSH PRN (11:45)
[2017-07-29] MEDS ORDERED: MANNITOL 12.5 GM/50 ML VIAL IV PRN (11:45)
[2017-07-29] MEDS ORDERED: GELATIN 12 MM/7 MM FOAM TOP PRN (11:45)
[2017-07-29] MEDS ORDERED: diphenhydrAMINE HCL 25 MG CAP PO PRN (11:45)
[2017-07-29] MEDS ORDERED: EPOETIN ALFA 10,000 UNITS/ML VIAL IV PUSH PRN (11:45)
[2017-07-29] MEDS ORDERED: SODIUM CHLORIDE 0.9% FLUSH 10 ML FLUSH IV FLUSH PRN ×2 (11:45→14:00)
[2017-07-29] MEDS ORDERED: NITROGLYCERIN 0.4 MG SL 25 TABS/BTL SL PRN (11:45)
[2017-07-29] MEDS: SODIUM BICARBONATE 8.4% INJ 75 MEQ in SODIUM CHLOR 0.45% 1000 ML INJ 1,000 ML IV SCH ×2 (11:46→15:46)
--- NOTE | 2017-07-29 13:54 | PD.RAD ---
Post Procedure Progress Note Pre Procedure Diagnosis: (1) Chronic kidney disease Post Procedure Diagnosis: (1) Chronic kidney disease Procedure Date: Jul 29, 2017 Supervising Radiologist: Duncan Ruiz Proceduralist/Assist: Odalis Holland, RT(R)(CV), RT Elena(R) Anesthesia: Local Plan of Activity Patient to Unit: Nursing Unit Patient Condition: Fair See PACS Report for procedural detail/treatment Central Venous Access Device Procedure 1 Right Internal Jugular Hemodialysis Catheter Non-Tunneled Placement dual lumen Duncan Ruiz MD Jul 29, 2017 13:54
[2017-07-29] MEDS ORDERED: HEPARIN SODIUM - IV 2,000 UNITS/2 ML VIAL IV FLUSH PRN (14:00)
--- NOTE | 2017-07-29 14:41 | HHI.NPPN ---
Subjective History of Present Illness History of right shoulder and right hip surgery acute renal failure patient is in pain Objective Data Data Vital Signs Date Time Temp Pulse Resp B/P (MAP) Pulse Ox O2 Delivery O2 Flow Rate FiO2 07/29/17 07:47 97.3 100 18 131/59 (83) 97 07/29/17 04:30 98.8 99 19 131/58 (82) 98 07/29/17 04:00 91 07/29/17 03:47 Nasal Cannula 3.00 07/28/17 23:45 97.9 80 20 100/58 (72) 97 07/28/17 23:45 96 07/28/17 20:25 97.3 88 19 121/58 (79) 98 07/28/17 20:00 98 Nasal Cannula 2.00 07/28/17 20:00 85 07/28/17 16:00 97.5 96 18 132/63 (86) 96 -: 07/27/17 1039 07/29/17 0500 Physical Exam General Appearance: Well Developed, Well Nourished Eyes Eye Exam: Pupils Equal Neck Neck Exam: Neck Supple Pulmonary Resp Exam: Clear Bilaterally, Breath Sounds Equal Cardiology CV Exam: Tachycardia Gastrointestinal/Abdomen GI Exam: Soft, Non-Tender, Bowel Sounds Present Extremeties Extremities Exam: Trace Edema Neurologic Neuro Exam: Alert Assessment/Plan Problem List: (1) Acute kidney injury ICD Codes: N17.9 - Acute kidney failure, unspecified Status: Acute Plan: Creatinine 4 due to ATN on recent contrast Seen during hemodialysis after Vas-Cath 2 L of UF Continue to monitor Avoid nephrotoxins (2) Hyperkalemia ICD Codes: E87.5 - Hyperkalemia Plan: Calcium gluconate, D50, insulin, sodium bicarbonate and Kayexalate given resolved (3) Chronic lymphocytic leukemia ICD Codes: C91.10 - Chronic lymphocytic leukemia of B-cell type not having achieved remission Status: Acute Plan: High WBC count (4) TIA (transient ischemic attack) ICD Codes: G45.9 - Transient cerebral ischemic attack, unspecified Status: Acute Plan: Neurology following (5) HTN (hypertension) ICD Codes: I10 - Essential (primary) hypertension Status: Chronic Plan: Monitor blood pressure (6) Fracture of femoral neck, right ICD Codes: S72.001A - Fracture of unspecified part of neck of right femur, initial encounter for closed fracture Plan: Followed by orthopedic (7) Right humeral fracture ICD Codes: S42.301A - Unspecified fracture of shaft of humerus, right arm, initial encounter for closed fracture Plan: Orthopedic surgery following Problem Qualifiers (1) Fracture of femoral neck, right: Qualified Codes: S72.001A - Fracture of unspecified part of neck of right femur , initial encounter for closed fracture (2) Right humeral fracture: Qualified Codes: S42.231A - 3-part fracture of surgical neck of right humerus, initial encounter for closed fracture Pillo Medina MD Jul 29, 2017 14:41
--- NOTE | 2017-07-29 15:23 | RADRPT ---
EXAM DATE/TIME: 07/29/2017 13:52 [place] COMPARISON: No previous studies available for comparison. INDICATIONS : Patient preesents with acute renal failure in need of vas cath. MEDICAL HISTORY : Atrial fibrillation Diabetes CLL Asthma CRI SURGICAL HISTORY : Tonsillectomy ENCOUNTER: Initial ACUITY: 4-6 days PAIN SCORE: 6/10 LOCATION: right humerus and hip FLUORO TIME: .35 minutes IMAGE SERIES: 1 ACCESS: Right internal jugular vein DEVICE(S): 1.) 14 Chinese dual lumen 15 cm Schon catheter PROCEDURE : 1. Ultrasound guided venipuncture. 2. Fluoroscopic guidance. 3. Central line placement. The risks, benefits and alternatives to the procedure were explained and verbal and written consent w as obtained. The site was prepped in sterile fashion. Full sterile technique was used, including ca p, mask, sterile gloves and gown and a large sterile sheet. Hand hygiene and 2% chlorhexidine prep w as utilized per protocol for cutaneous antisepsis with appropriate dry time for site. Sterile gel an d sterile probe cover were utilized for ultrasound guidance. The skin and subcutaneous tissues were infiltrated with local anesthetic solution. A suitable site a vinicio the vein was selected with ultrasound and fluoroscopic guidance. A small incision was made. Th e vein was accessed under direct ultrasound visualization using the micropuncture technique. The huang ropuncture set was exchanged for a 0.035 wire. The tract was dilated. The catheter was advanced int o position under direct fluoroscopic visualization. The catheter was fixed in place with suture and a sterile dressing was applied. The patient tolerated the procedure well and there were no complications. CONCLUSION: Uncomplicated line placement as above. Duncan Ruiz MD on July 29, 2017 at 15:20 Board Certified Radiologist. This report was verified electronically.
[2017-07-29] MEDS: GENTAMICIN SULFATE 20 MG/2 ML VIAL OTHER PRN ×2 (15:34→16:24)
[2017-07-29 19:00] VITALS: BP 111/52; PULSE 98; RESP 16; TEMP 98.4; O2SAT 97
[2017-07-29 20:05] VITALS: PULSE 84
[2017-07-29] MEDS: ATORVASTATIN 80 MG TAB PO SCH (21:20)
[2017-07-29] MEDS: INSULIN DETEMIR 100 UNITS/ML VIAL SQ SCH (21:21)
[2017-07-30] VITALS (9 sets, daily range): BP systolic 109–143; BP diastolic 49–62; PULSE 77–100; RESP 17–20; TEMP 97.3–98.3; O2SAT 95–98
--- NOTE | 2017-07-30 09:03 | PD.ORT.PN ---
Subjective Subjective Remarks Resting comfortably. Confusion. Objective Vitals Vital Signs Date Time Temp Pulse Resp B/P (MAP) Pulse Ox O2 Delivery O2 Flow Rate FiO2 07/30/17 07:48 97.3 100 18 143/62 (89) 98 07/30/17 04:00 84 07/30/17 00:30 77 07/29/17 20:05 84 07/29/17 20:00 97 Nasal Cannula 2.00 07/29/17 19:00 98.4 98 16 111/52 (71) 97 I/O 07/29/17 07/29/17 07/29/17 07/30/17 07/30/17 07/30/17 07:00 15:00 23:00 07:00 15:00 23:00 Intake Total 360 ml 720 ml 382 ml Output Total 925 ml 800 ml 675 ml Balance -565 ml -80 ml -293 ml Intake Oral 360 ml 720 ml 240 ml IV Total 142 ml Output Urine Total 925 ml 800 ml 675 ml # Bowel Movements 0 1 0 Result Diagram: 07/27/17 1039 07/29/17 0500 Imaging Last 24 hours Impressions Brain MRI 07/25/17 1903 Signed Impressions: Service Date/Time: Tuesday, July 25, 2017 19:25 - CONCLUSION: Negative for an acute process. There is no restricted diffusion. Shemar Weir MD FACR Objective Remarks Right lower extremity: Clean dry dressings intact with paper tape. Blistered areas from tape irritation is improving. Distally intact sensation with good capillary refills. Active dorsiflexion plantar flexion of foot Right upper extremity: A dry dressings changed and new dressings are clean, dry , and intact. Sling with abduction pillow in place. Distally intact sensation over radial ulnar and median nerve distributions with good capillary refills. She is able fully extend her fingers and make a fist Assessment & Plan Assessment and Plan 1) Right shoulder hemiarthroplasty POD 6 Nonweightbearing right upper extremity Remain in sling and swath at all times Daily dressing changes 2) Right intertrochanteric femur fracture POD 6 IM nail Weightbearing as tolerated right lower extremity Daily dressing changes xeroform, 4x4 and paper tape Eliquis Incentive spirometry Case management for discharge planning to rehabilitation plan for discharge to rehabilitation once cleared by medical. Follow-up Dr. Daniels or [place] in 2 weeks. At that time we will progress range of motion exercises of her shoulder John Paul Fernandez Jr. Jul 30, 2017 09:03
[2017-07-30] MEDS: CALCIUM/VITAMIN D 250 MG/125 U TAB PO SCH ×3 (09:17→18:00)
[2017-07-30] MEDS: DOCUSATE SODIUM 50 MG/SENNA 8.6 MG TAB PO SCH ×2 (09:18→22:45)
[2017-07-30] MEDS: BUMETANIDE 1 MG TAB PO SCH (09:18)
[2017-07-30] MEDS: CHOLECALCIFEROL (VIT D3) 1000 UNIT TAB PO SCH (09:18)
[2017-07-30] MEDS: APIXABAN 2.5 MG TABLET PO SCH ×2 (09:18→22:45)
[2017-07-30] MEDS: METOPROLOL TARTRATE 25 MG TAB PO SCH ×2 (09:18→22:45)
[2017-07-30] MEDS: SODIUM BICARBONATE 8.4% INJ 75 MEQ in SODIUM CHLOR 0.45% 1000 ML INJ 1,000 ML IV SCH ×2 (09:19→10:56)
[2017-07-30] MEDS: BUDESONIDE-FORMOTEROL 160/4.5 MCG INHALER INH SCH ×2 (09:20→22:46)
[2017-07-30] MEDS: ACETAMINOPHEN/HYDROcodone 325 MG/10 MG TAB PO PRN (09:31)
[2017-07-30] MEDS: INSULIN ASPART SUPPLEMENTAL SCALE SQ SCH ×4 (09:32→22:48)
[2017-07-30 10:04] LABS: ALBUMIN 2.6 GM/DL (3.4-5.0); ALKALINE PHOSPHATASE 82 U/L (45-117); ALT (GPT) 6 U/L (10-53); AST (GOT) 18 U/L (15-37); BICARBONATE 27.4 MEQ/L (21.0-32.0); BLOOD UREA NITROGEN 84 MG/DL (7-18); CALCIUM 9.2 MG/DL (8.5-10.1); CHLORIDE 105 MEQ/L (98-107); CREATININE 3.19 MG/DL (0.50-1.00); GLOMERULAR FILTRATION RATE 14 ML/MIN (>89); GLUCOSE,RANDOM 220 MG/DL (74-106); PHOSPHORUS 4.6 MG/DL (2.5-4.9); SODIUM (NA) 142 MEQ/L (136-145); TOTAL BILIRUBIN ADULT 0.9 MG/DL (0.2-1.0); TOTAL PROTEIN 5.7 GM/DL (6.4-8.2)
[2017-07-30 10:15] LABS: AUTOMATED NEUTROPHIL # 7.4 TH/MM3 (1.8-7.7); BASOPHIL # 0.1 TH/MM3 (0-0.2); BASOPHIL % 0.2 % (0.0-2.0); EOSINOPHIL # 0.1 TH/MM3 (0-0.4); EOSINOPHIL % 0.2 % (0.0-4.0); HEMATOCRIT 25.7 % (35.0-46.0); HEMOGLOBIN 8.1 GM/DL (11.6-15.3); LYMPH % 87.4 % (9.0-44.0); LYMPHOCYTE # 61.4 TH/MM3 (1.0-4.8); MEAN CELL VOLUME 95.5 FL (80.0-100.0); MEAN CORPUSCULAR HGB CONC 31.4 % (32.0-36.0); MONO % 1.7 % (0.0-8.0); MONOCYTE # 1.2 TH/MM3 (0-0.9); NEUT % 10.5 % (16.0-70.0); PLATELET COUNT 155 TH/MM3 (150-450); RED BLOOD COUNT 2.69 MIL/MM3 (4.00-5.30); RED CELL DISTRIBUTION WIDTH 16.7 % (11.6-17.2); WHITE BLOOD COUNT 70.3 TH/MM3 (4.0-11.0)
--- NOTE | 2017-07-30 12:12 | HHI.PR ---
Subjective Remarks Patient in nad. No n/v/d/c. Denies cp or sob. pain is fairly controlled by meds. Noted sleepy Objective Vitals Vital Signs Date Time Temp Pulse Resp B/P (MAP) Pulse Ox O2 Delivery O2 Flow Rate FiO2 07/30/17 09:35 95 Nasal Cannula 3.00 07/30/17 09:30 95 Nasal Cannula 3.00 07/30/17 07:48 97.3 100 18 143/62 (89) 98 07/30/17 04:00 84 07/30/17 00:30 77 07/29/17 20:05 84 07/29/17 20:00 97 Nasal Cannula 2.00 07/29/17 19:00 98.4 98 16 111/52 (71) 97 I/O 07/29/17 07/29/17 07/29/17 07/30/17 07/30/17 07/30/17 07:00 15:00 23:00 07:00 15:00 23:00 Intake Total 360 ml 720 ml 382 ml Output Total 925 ml 800 ml 675 ml Balance -565 ml -80 ml -293 ml Intake Oral 360 ml 720 ml 240 ml IV Total 142 ml Output Urine Total 925 ml 800 ml 675 ml # Bowel Movements 0 1 0 Result Diagram: 07/30/17 0915 07/30/17 0915 Imaging Last Impressions Catheter Placement X-Ray 07/29/17 0600 Signed Impressions: Service Date/Time: Saturday, July 29, 2017 13:52 - CONCLUSION: Uncomplicated line placement as above. Duncan Ruiz MD Renal Ultrasound 07/28/17 0000 Signed Impressions: Service Date/Time: Friday, July 28, 2017 14:44 - CONCLUSION: 1. Limited examination due to patient's inability to cooperate with exam. 2. Left kidney is largely not visualized. Very limited images demonstrate no gross hydronephrosis. 3. Unremarkable right kidney. 4. Bladder not visualized and may be decompressed. Desmond Perdue MD Brain MRI 07/25/17 190 Signed Impressions: Service Date/Time: Tuesday, July 25, 2017 19:25 - CONCLUSION: Negative for an acute process. There is no restricted diffusion. Shemar Weir MD FACR Neck CTA 07/25/17 0000 Signed Impressions: Service Date/Time: Tuesday, July 25, 2017 18:54 - CONCLUSION: Known occlusion left internal carotid. Minimal calcific plaque right carotid bifurcation. Shemar Weir MD FACR Head CTA 07/25/17 Signed Impressions: Service Date/Time: Tuesday, July 25, 2017 18:54 - CONCLUSION: Negative for major branch vessel occlusion.. Shemar Weir MD FACR Head CT 07/25/17 Signed Impressions: Service Date/Time: Tuesday, July 25, 2017 18:34 - CONCLUSION: Negative for acute process Shemar Weir MD FACR Shoulder X-Ray 07/24/17 Signed Impressions: Service Date/Time: July 10:23 - CONCLUSION: Intraoperative images. Noel Schwartz MD Hip X-Ray 07/24/17 Signed Impressions: Service Date/Time: July 08:59 - CONCLUSION: Internal fixation of the right femoral neck fracture as above. Dwayne Solomon MD Upper Extremity CT 07/23/17 Signed Impressions: Service Date/Time: Sunday, July 23, 2017 13:28 - CONCLUSION: Three-part proximal humeral fracture with significant displacement and rotation of the humeral head and location of the 3 components as above. Noel Schwartz MD Pelvis X-Ray 07/23/17 Signed Impressions: Service Date/Time: Sunday, July 23, 2017 10:59 - CONCLUSION: The bony pelvic ring is grossly intact. Noel Schwartz MD ADDENDUM: Further view of the radiographs demonstrate a nondisplaced intertrochanteric fracture on the right Duncan Ruiz MD Femur X-Ray 07/23/17 Signed Impressions: Service Date/Time: Sunday, July 23, 2017 11:00 - CONCLUSION: Findings suggestive nondisplaced fracture at the base of the femoral neck and greater trochanter. Noel Schwartz MD Chest X-Ray 07/23/17 0000 Signed Impressions: Service Date/Time: Sunday, July 23, 2017 12:25 - CONCLUSION: 1. No active disease. There is a comminuted fracture of the proximal right humerus. Brock Myrick MD Objective Remarks GENERAL: Not in distress. CARDIOVASCULAR: Regular rate and regular rhythm without murmurs, gallops, or rubs. RESPIRATORY: Clear to auscultation. Poor effort. GASTROINTESTINAL: Abdomen soft, non-tender, nondistended. Normal, active bowel sounds MUSCULOSKELETAL: lower extremities with pedal edema and some swelling on the right hip. NEURO: awake and alert. Procedures Right hip reduction and intramedullary nail fixation, right shoulder marily- arthroplasty. A/P Problem List: (1) Right humeral fracture ICD Code: S42.301A - Unspecified fracture of shaft of humerus, right arm, initial encounter for closed fracture (2) Fracture of femoral neck, right ICD Code: S72.001A - Fracture of unspecified part of neck of right femur, initial encounter for closed fracture Assessment and Plan This is an 87-year-old female who had a right humerus and femoral neck fracture after a fall Right humerus and femoral neck fracture after a fall s/p Right hip reduction and intramedullary nail fixation, right shoulder marily-arthroplasty. continue with pain control, will need rehab, nonweightbearing right upper extremity, weightbearing as tolerated right lower extremity Episode of expressive aphasia ( stroke alert) - now has resolved- possible TIA. CT and MRI brain with no acute infarct. 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 echo pending. neurology f/u appreciated and signed off. consulted ST. Anemia- acute on chronic due to blood [id number]; transfused with PRBC, hemoglobin is stable Acute kidney injury superimposed on chronic renal insufficiency; possibly contrast-induced; creatinine is trending up, received Lasix 07/28/2017, still worsening creatinine, renal ultrasound normal right kidney, and visualized left kidney. Nephrology following, on one half normal saline with bicarb, for possible hemodialysis, for Vas-Cath placement today. Atrial fibrillation; mildly tachycardic- resumed metoprolol- resumed eliquis . Diabetes mellitus 2: start on levemir- continue accu-check with SSI- will monitor and adjust the regimen as needed. Asthma; resumed symbicort- neb treatment as needed CLL- f/u as outpatient DVT prophylaxis; resumed Eliquis . Discussed with . Discharge Planning Pending improvement of renal function, will need rehab, max assist.? Need for outpatient dialysis Discussed with the patient, nurse, family at bedside Problem Qualifiers (1) Right humeral fracture: Qualified Codes: S42.231A - 3-part fracture of surgical neck of right humerus, initial encounter for closed fracture (2) Fracture of femoral neck, right: Qualified Codes: S72.001A - Fracture of unspecified part of neck of right femur , initial encounter for closed fracture Mariaelena Begum MD Jul 30, 2017 12:12
[2017-07-30 12:24] LABS: MONOCYTES 2 % (0-8); NEUTROPHIL # MANUAL DIFF 5.6 TH/MM3 (1.8-7.7); POLYS (SEG NEUTROPHILS) 8 % (16-70); SMUDGE CELLS PRESENT PRESENT
[2017-07-30 12:26] LABS: OVALOCYTES 1+ (NORMAL)
[2017-07-30 12:27] LABS: LYMPHOCYTES 90 % (9-44)
--- NOTE | 2017-07-30 18:48 | ECHRPT ---
Indication: CONCLUSIONS The left ventricular systolic function is normal with an estimated ejection fraction in the range of 55-60%. Mild concentric left ventricular hypertrophy. Normal left ventricular size. The right ventricle is mildly dilated. The left atrial size is mildly dilated. The right atrial size is ypev-[id number] dilated. Mitral annular calcification is present. Pygbc-sp-zjyh mitral valve regurgitation. There is moderate tricuspid regurgitation. The estimated pulmonary arterial pressure is 67.2 mmHg. Mild pulmonary valve regurgitation. BP: 117 / 57 HR: 93 Rhythm: MEASUREMENTS (Male / Female) Normal Values Technical Quality:Fair 2D ECHO LV Diastolic Diameter PLAX 4.6 cm 4.2 - 5.9 / 3.9 - 5.3 cm LV Systolic Diameter PLAX 3.5 cm IVS Diastolic Thickness 1.1 cm 0.6 - 1.0 / 0.6 - 0.9 cm LVPW Diastolic Thickness 1.1 cm 0.6 - 1.0 / 0.6 - 0.9 cm LV Relative Wall Thickness 0.5 RV Internal Dim ED PLAX 3.6 cm LVOT Diameter 2.0 cm LA Systolic Diameter LX 4.8 cm 3.0 - 4.0 / 2.7 - 3.8 cm M-MODE Aortic Root Diameter MM 2.7 cm LA Systolic Diameter MM 4.7 cm LA Ao Ratio MM 1.7 AV Cusp Separation MM 1.7 cm DOPPLER AV Peak Velocity 169.0 cm/s AV Peak Gradient 11.4 mmHg LVOT Peak Velocity 133.0 cm/s LVOT Peak Gradient 7.1 mmHg AV Area Cont Eq pk 2.5 cm MV Area PHT 3.2 cm Mitral E Point Velocity 141.0 cm/s Mitral A Point Velocity 74.0 cm/s Mitral E to A Ratio 1.9 LV E' Lateral Velocity 10.0 cm/s Mitral E to LV E' Lateral Ratio 14.1 LV E' Septal Velocity 6.7 cm/s Mitral E to LV E' Septal Ratio 21.0 TR Peak Velocity 378.0 cm/s TR Peak Gradient 57.2 mmHg Right Atrial Pressure 10.0 mmHg Pulmonary Artery Systolic Pressu 67.2 mmHg Right Ventricular Systolic Press 67.2 mmHg FINDINGS LEFT VENTRICLE The left ventricular systolic function is normal with an estimated ejection fraction in the range of 55-60%. Mild concentric left ventricular hypertrophy. Normal left ventricular size. RIGHT VENTRICLE The right ventricle is mildly dilated. LEFT ATRIUM The left atrial size is mildly dilated. RIGHT ATRIUM The right atrial size is qllm-da-tcobkkoafx dilated. ATRIAL SEPTUM Normal atrial septal thickness without atrial level shunting by limited color doppler interrogation. AORTA The aortic root and proximal ascending aorta are normal in size on limited imaging. MITRAL VALVE Mitral annular calcification is present. Kmpnn-um-snqs mitral valve regurgitation. AORTIC VALVE Trileaflet aortic valve. No aortic valve stenosis or regurgitation. TRICUSPID VALVE Structurally normal tricuspid valve. There is moderate tricuspid regurgitation. The estimated pulmonary arterial pressure is 67.2 mmHg. PULMONARY VALVE Mild pulmonary valve regurgitation. VESSELS The inferior vena cava is normal in size. PERICARDIUM No pericardial effusion. Clark Mcmahon MD, FACC, FSCAI (Electronically Signed) Final Date:30 July 2017 18:48
--- NOTE | 2017-07-30 19:20 | HHI.NPPN ---
Subjective History of Present Illness History of right shoulder and right hip surgery acute renal failure patient is in pain Objective Data Data 07/30/17 07/31/17 19:00 07:00 Intake Total 780 ml Output Total 700 ml 1500 ml Balance 80 ml -1500 ml Intake Oral 480 ml IV Total 300 ml Output Urine Total 700 ml Hemodialysis 1500 ml # Bowel Movements 0 Vital Signs Date Time Temp Pulse Resp B/P (MAP) Pulse Ox O2 Delivery O2 Flow Rate FiO2 07/30/17 16:01 87 07/30/17 16:00 97.3 88 17 109/49 (69) 95 07/30/17 12:00 98.3 95 17 116/52 (73) 96 07/30/17 09:35 95 Nasal Cannula 3.00 07/30/17 09:30 95 Nasal Cannula 3.00 07/30/17 07:48 97.3 100 18 143/62 (89) 98 07/30/17 04:00 84 07/30/17 00:30 77 07/29/17 20:05 84 07/29/17 20:00 97 Nasal Cannula 2.00 -: 07/30/17 0915 07/30/17 0915 Physical Exam General Appearance: Well Developed, Well Nourished Eyes Eye Exam: Pupils Equal Neck Neck Exam: Neck Supple Pulmonary Resp Exam: Clear Bilaterally, Breath Sounds Equal Cardiology CV Exam: Tachycardia Gastrointestinal/Abdomen GI Exam: Soft, Non-Tender, Bowel Sounds Present Extremeties Extremities Exam: Trace Edema Neurologic Neuro Exam: Alert Assessment/Plan Problem List: (1) Acute kidney injury ICD Codes: N17.9 - Acute kidney failure, unspecified Status: Acute Plan: Creatinine 4 due to ATN on recent contrast Seen during hemodialysis after Vas-Cath 1.5 L of UF Continue to monitor Avoid nephrotoxins (2) Hyperkalemia ICD Codes: E87.5 - Hyperkalemia Plan: Calcium gluconate, D50, insulin, sodium bicarbonate and Kayexalate given resolved (3) Chronic lymphocytic leukemia ICD Codes: C91.10 - Chronic lymphocytic leukemia of B-cell type not having achieved remission Status: Acute Plan: High WBC count (4) TIA (transient ischemic attack) ICD Codes: G45.9 - Transient cerebral ischemic attack, unspecified Status: Acute Plan: Neurology following (5) HTN (hypertension) ICD Codes: I10 - Essential (primary) hypertension Status: Chronic Plan: Monitor blood pressure (6) Fracture of femoral neck, right ICD Codes: S72.001A - Fracture of unspecified part of neck of right femur, initial encounter for closed fracture Plan: Followed by orthopedic (7) Right humeral fracture ICD Codes: S42.301A - Unspecified fracture of shaft of humerus, right arm, initial encounter for closed fracture Plan: Orthopedic surgery following Problem Qualifiers (1) Fracture of femoral neck, right: Qualified Codes: S72.001A - Fracture of unspecified part of neck of right femur , initial encounter for closed fracture (2) Right humeral fracture: Qualified Codes: S42.231A - 3-part fracture of surgical neck of right humerus, initial encounter for closed fracture Pillo Medina MD Jul 30, 2017 19:20
[2017-07-30] MEDS: ATORVASTATIN 80 MG TAB PO SCH (22:45)
[2017-07-30] MEDS: INSULIN DETEMIR 100 UNITS/ML VIAL SQ SCH (22:47)
[2017-07-31] VITALS (8 sets, daily range): BP systolic 101–132; BP diastolic 51–60; PULSE 74–97; RESP 17–20; TEMP 97.1–98.6; O2SAT 93–98
[2017-07-31] MEDS: ACETAMINOPHEN/HYDROcodone 325 MG/10 MG TAB PO PRN ×2 (01:31→13:35)
[2017-07-31] MEDS: MORPHINE SULFATE 4 MG/ML INJ IV PUSH PRN (04:30)
[2017-07-31] MEDS: INSULIN ASPART SUPPLEMENTAL SCALE SQ SCH ×4 (08:00→20:32)
[2017-07-31] MEDS: BUDESONIDE-FORMOTEROL 160/4.5 MCG INHALER INH SCH ×2 (09:00→20:23)
--- NOTE | 2017-07-31 10:05 | HHI.PR ---
Subjective Remarks Patient states that yesterday she said it decided to bed. Today she has not worked with physical therapy yet We will need SNF at discharge A.m. labs Discussed with case management and RN and patient and family Objective Vitals Vital Signs Date Time Temp Pulse Resp B/P (MAP) Pulse Ox O2 Delivery O2 Flow Rate FiO2 07/31/17 08:00 97.2 82 17 120/55 (76) 97 07/31/17 04:00 97.5 84 18 113/51 (71) 96 07/31/17 00:00 98.6 97 20 128/58 (81) 95 07/30/17 21:01 96 Nasal Cannula 2.00 07/30/17 19:10 97.3 89 20 126/56 (79) 95 07/30/17 16:01 87 07/30/17 16:00 97.3 88 17 109/49 (69) 95 07/30/17 12:00 98.3 95 17 116/52 (73) 96 I/O 07/30/17 07/30/17 07/30/17 07/31/17 07/31/17 07/31/17 07:00 15:00 23:00 07:00 15:00 23:00 Intake Total 382 ml 780 ml Output Total 675 ml 2200 ml 450 ml Balance -293 ml -1420 ml -450 ml Intake Oral 240 ml 480 ml IV Total 142 ml 300 ml Output Urine Total 675 ml 700 ml 450 ml Hemodialysis 1500 ml # Bowel Movements 0 0 Result Diagram: 07/30/17 0915 07/30/17 0915 Other Results Laboratory Tests Test 07/28/17 13:30 07/28/17 14:02 07/29/17 05:00 07/29/17 15:10 Urine Color YELLOW Urine Turbidity CLOUDY Urine pH 5.0 Urine Specific [place] 1.021 Urine Protein 30 mg/dL Urine Glucose (UA) NEG mg/dL Urine Ketones NEG mg/dL Urine Occult Blood MOD Urine Nitrite NEG Urine Bilirubin NEG Urine Urobilinogen LESS THAN 2.0 MG/DL Urine Leukocyte Esterase TRACE Urine RBC 16 /hpf Urine WBC 27 /hpf Urine Squamous Epithelial Cells 2 /hpf Urine Amorphous Sediment RARE Urine Bacteria FEW /hpf Urine Mucus FEW /lpf Microscopic Urinalysis Comment CATH-CULTURE IND Blood Gas Puncture Site LT RADIAL Blood Gas Patient Temperature 98.6 Blood Gas HCO3 23 mmol/L Blood Gas Base Excess -2.0 mmol/L Blood Gas Oxygen Saturation 92 % Arterial Blood pH 7.32 Arterial Blood Partial Pressure CO2 46 mmHg Arterial Blood Partial Pressure O2 76 mmHg Arterial Blood Oxygen Content 11.6 Vol % Arterial Blood Carboxyhemoglobin 1.9 % Arterial Blood Methemoglobin 0.7 % Blood Gas Hemoglobin 8.9 G/DL Oxygen Delivery Device NASAL CANNULA Blood Gas Liter Flow 3 L/M Blood Urea Nitrogen 98 MG/DL Creatinine 4.09 MG/DL Random Glucose 196 MG/DL Calcium Level 9.0 MG/DL Sodium Level 141 MEQ/L Potassium Level 4.8 MEQ/L Chloride Level 106 MEQ/L Carbon Dioxide Level 25.0 MEQ/L Anion Gap 10 MEQ/L Estimat Glomerular Filtration Rate 10 ML/MIN Hepatitis A IgM Antibody NONREACTIVE Hepatitis B Surface Antigen NONREACTIVE Hepatitis B Core IgM Antibody NONREACTIVE Hepatitis C IgG Antibody NONREACTIVE Test 07/30/17 09:15 White Blood Count 70.3 TH/MM3 Red Blood Count 2.69 MIL/MM3 Hemoglobin 8.1 GM/DL Hematocrit 25.7 % Mean Corpuscular Volume 95.5 FL Mean Corpuscular Hemoglobin 30.0 PG Mean Corpuscular Hemoglobin Concent 31.4 % Red Cell Distribution Width 16.7 % Platelet Count 155 TH/MM3 Mean Platelet Volume 9.0 FL Neutrophils (%) (Auto) 10.5 % Lymphocytes (%) (Auto) 87.4 % Monocytes (%) (Auto) 1.7 % Eosinophils (%) (Auto) 0.2 % Basophils (%) (Auto) 0.2 % Neutrophils # (Auto) 7.4 TH/MM3 Lymphocytes # (Auto) 61.4 TH/MM3 Monocytes # (Auto) 1.2 TH/MM3 Eosinophils # (Auto) 0.1 TH/MM3 Basophils # (Auto) 0.1 TH/MM3 CBC Comment AUTO DIFF Differential Total Cells Counted 100 Neutrophils % (Manual) 8 % Lymphocytes % 90 % Monocytes % 2 % Neutrophils # (Manual) 5.6 TH/MM3 Differential Comment FINAL DIFF MANUAL Smudge Cells PRESENT Platelet Estimate NORMAL Platelet Morphology Comment NORMAL Ovalocytes 1+ Blood Urea Nitrogen 84 MG/DL Creatinine 3.19 MG/DL Random Glucose 220 MG/DL Total Protein 5.7 GM/DL Albumin 2.6 GM/DL Calcium Level 9.2 MG/DL Phosphorus Level 4.6 MG/DL Alkaline Phosphatase 82 U/L Aspartate Amino Transf (AST/SGOT) 18 U/L Alanine Aminotransferase (ALT/SGPT) 6 U/L Total Bilirubin 0.9 MG/DL Sodium Level 142 MEQ/L Potassium Level 4.8 MEQ/L Chloride Level 105 MEQ/L Carbon Dioxide Level 27.4 MEQ/L Anion Gap 10 MEQ/L Estimat Glomerular Filtration Rate 14 ML/MIN Total Creatine Kinase 83 U/L Imaging Last Impressions Catheter Placement X-Ray 07/29/17 0600 Signed Impressions: Service Date/Time: Saturday, July 29, 2017 13:52 - CONCLUSION: Uncomplicated line placement as above. Duncan Ruiz MD Renal Ultrasound 07/28/17 0000 Signed Impressions: Service Date/Time: Friday, July 28, 2017 14:44 - CONCLUSION: 1. Limited examination due to patient's inability to cooperate with exam. 2. Left kidney is largely not visualized. Very limited images demonstrate no gross hydronephrosis. 3. Unremarkable right kidney. 4. Bladder not visualized and may be decompressed. Desmond Perdue MD Brain MRI 07/25/17 190 Signed Impressions: Service Date/Time: Tuesday, July 25, 2017 19:25 - CONCLUSION: Negative for an acute process. There is no restricted diffusion. Shemar Weir MD FACR Neck CTA 07/25/17 0000 Signed Impressions: Service Date/Time: Tuesday, July 25, 2017 18:54 - CONCLUSION: Known occlusion left internal carotid. Minimal calcific plaque right carotid bifurcation. Shemar Weir MD FACR Head CTA 07/25/17 0000 Signed Impressions: Service Date/Time: Tuesday, July 25, 2017 18:54 - CONCLUSION: Negative for major branch vessel occlusion.. Shemar Weir MD FACR Head CT 07/25/17 0000 Signed Impressions: Service Date/Time: Tuesday, July 25, 2017 18:34 - CONCLUSION: Negative for acute process Shemar Weir MD FACR Shoulder X-Ray 07/24/17 0000 Signed Impressions: Service Date/Time: July 10:23 - CONCLUSION: Intraoperative images. Noel Schwartz MD Hip X-Ray 07/24/17 0000 Signed Impressions: Service Date/Time: July 08:59 - CONCLUSION: Internal fixation of the right femoral neck fracture as above. Dwayne Solomon MD Upper Extremity CT 07/23/17 0000 Signed Impressions: Service Date/Time: Sunday, July 23, 2017 13:28 - CONCLUSION: Three-part proximal humeral fracture with significant displacement and rotation of the humeral head and location of the 3 components as above. Noel Schwartz MD Pelvis X-Ray 07/23/17 0000 Signed Impressions: Service Date/Time: Sunday, July 23, 2017 10:59 - CONCLUSION: The bony pelvic ring is grossly intact. Noel Schwartz MD ADDENDUM: Further view of the radiographs demonstrate a nondisplaced intertrochanteric fracture on the right Duncan Ruiz MD Femur X-Ray 07/23/17 0000 Signed Impressions: Service Date/Time: Sunday, July 23, 2017 11:00 - CONCLUSION: Findings suggestive nondisplaced fracture at the base of the femoral neck and greater trochanter. Noel Schwartz MD Chest X-Ray 07/23/17 0000 Signed Impressions: Service Date/Time: Sunday, July 23, 2017 12:25 - CONCLUSION: 1. No active disease. There is a comminuted fracture of the proximal right humerus. Brock Myrick MD Objective Remarks GENERAL: Awake alert and oriented 3 talkative and cooperative SKIN: Warm and dry. HEAD: Atraumatic. Normocephalic. EYES: Pupils equal and round. No scleral icterus. No injection or drainage. Extraocular muscles intact ENT: No nasal bleeding or discharge. Mucous membranes pink and moist. Tongue is midline NECK: Trachea midline. No JVD. Supple CARDIOVASCULAR: IRRegular rate and rhythm. S1-S2 no S3 or S4 no heave or thrill or rub or gallop, irregularly irregular RESPIRATORY: No accessory muscle use. Clear to auscultation. Breath sounds equal bilaterally. GASTROINTESTINAL: Abdomen soft, non-tender, nondistended. Hepatic and splenic margins not palpable. MUSCULOSKELETAL: Extremities without clubbing, cyanosis, or edema. No obvious deformities. NEUROLOGICAL: Awake and alert. No obvious cranial nerve deficits. Motor grossly within normal limits. 4 out of 5 muscle strength in the arms and legs. Normal speech. PSYCHIATRIC: Appropriate mood and affect; insight and judgment normal. Procedures Right hip reduction and intramedullary nail fixation, right shoulder marily- arthroplasty. Medications and IVs Current Medications Oxycodone/ Acetaminophen (Percocet 5-325 Mg) 2 tab ONCE ONCE PO Last administered on 07/23/17at 13:13; Start 07/23/17 at 13:00; Stop 07/23/17 at 13:01; Status DC Morphine Sulfate (Morphine Inj) 2 mg Q4H PRN IV PUSH BREAKTHROUGH PAIN Last administered on 07/24/17at 00:36; Start 07/23/17 at 13:30; Stop 07/24/17 at 11:47; Status DC Acetaminophen/ Hydrocodone Bitart ([place] 5-325 Mg) 1 tab Q4H PRN PO PAIN 1-5; Start 07/23/17 at 13:30; Stop 07/24/17 at 11:46; Status DC Acetaminophen/ Hydrocodone Bitart ([place] 5-325 Mg) 2 tab Q4H PRN PO PAIN 6-10 Last administered on 07/24/17at 03:42; Start 07/23/17 at 13:30; Stop 07/24/17 at 11: 46; Status DC Dextrose (D50w (Vial) Inj) 50 ml UNSCH PRN IV PUSH HYPOGLYCEMIA-SEE COMMENTS; Start 07/23/17 at 13:30 Glucagon (Glucagon Inj) 1 mg UNSCH PRN OTHER HYPOGLYCEMIA-SEE COMMENTS; Start 07/23/17 at 13:30 Insulin Aspart (NovoLOG SUPPLEMENTAL SCALE) 1 ACHS SLIDING SCALE SQ Last administered on 07/30/17at 22:48; Start 07/23/17 at 17:00 Albuterol Sulfate (Albuterol Neb) 2.5 mg Q4HR NEB PRN NEB SOB/WHEEZING; Start 07/23/17 at 13:30 Atorvastatin Calcium (Lipitor) 80 mg HS PO Last administered on 07/30/17at 22:45 ; Start 07/23/17 at 21:00 Bumetanide (Bumetanide) 2 mg DAILY PO Last administered on 07/30/17at 09:18; Start 07/24/17 at 09:00; Status Future hold Losartan Potassium (Cozaar) 25 mg DAILY PO ; Start 07/24/17 at 09:00; Status Future Hold Metoprolol Tartrate (Lopressor) 100 mg BID PO Last administered on 07/24/17at 21: 07; Start 07/23/17 at 21:00; Status Future Hold Budesonide/ Formoterol Fumarate (Symbicort 160-4.5 Mcg Inh) 2 puff Q12HR INH Last administered on 07/30/17at 22:46; Start 07/23/17 at 21:00 Lactated Ringer's 1,000 ml @ 30 mls/hr Q24H PRN IV SEE LABEL COMMENTS Last administered on 07/24/17at 06:36; Start 07/24/17 at 01:30; Stop 07/24/17 at 13:10; Status DC Sodium Chloride 500 ml @ 30 mls/hr [id number] PRN IV SEE LABEL COMMENTS; Start 07/24/17 at 01:30; Stop 07/24/17 at 13:10; Status DC Povidone Iodine (Betadine 5% Antisepsis Kit) 1 applic SEPTIC TECHNICIAN PRN EACH NARE SEE LABEL COMMENTS; Start 07/24/17 at 01:30; Stop 07/24/17 at 13:10; Status DC Chlorhexidine Gluconate (Chlorhexidine 2% Cloth) 3 pack SEPTIC TECHNICIAN PRN TOPICAL SEE LABEL COMMENTS; Start 07/24/17 at 01:30; Stop 07/24/17 at 13:10; Status DC Acetaminophen 100 ml @ As Directed STK-MED ONCE IV ; Start 07/24/17 at 06:38; Stop 07/24/17 at 06:39; Status DC Bupivacaine HCl/ Epinephrine Bitart (Sensorcaine-Epinephrine 0.25% Inj) 50 ml STK-MED ONCE .ROUTE Last administered on 07/24/17 08:44; Start 07/24/17 at 07:23 ; Stop 07/24/17 at 07:24; Status DC Gentamicin Sulfate (Gentamicin Inj) 240 mg STK-MED ONCE .ROUTE Last administered on 07/24/17 08:44; Start 07/24/17 at 07:23; Stop 07/24/17 at 07:24; Status DC Vancomycin HCl (Vancomycin Inj) 1,000 mg STK-MED ONCE .ROUTE Last administered on 07/24/17 08:17; Start 07/24/17 at 07:24; Stop 07/24/17 at 07:25; Status DC Sodium Chloride 250 ml @ As Directed STK-MED ONCE .ROUTE Last administered on 4/5/18at 08:17; Start 07/24/17 at 07:24; Stop 07/24/17 at 07:25; Status DC Cefazolin Sodium (Ancef Inj) 2,000 mg STK-MED ONCE .ROUTE Last administered on 07/24/17 08:47; Start 07/24/17 at 08:44; Stop 07/24/17 at 08:45; Status DC Vancomycin HCl (Vancomycin Inj) 2,000 mg STK-MED ONCE .ROUTE Last administered on 07/24/17at 10:10; Start 07/24/17 at 09:27; Stop 07/24/17 at 09:28; Status DC Senna/Docusate Sodium (Donna-Colace) 1 tab BID PO Last administered on 22:45; Start 07/24/17 at 21:00 Cefazolin Sodium/ Dextrose 50 ml @ 100 mls/hr Q8H IV ; Start 07/24/17 at 10:45; Stop 07/26/17 at 03:14; Status UNV Acetaminophen/ Hydrocodone Bitart ([place] 10-325 Mg) 1 tab Q3H PRN PO pain 2<10 Last administered on 07/31/17 01:31; Start 07/24/17 at 10:45 Ondansetron HCl (Zofran Inj) 4 mg Q4H PRN IVP NAUSEA OR VOMITING; Start at 10:45 Calcium/Vitamin D (Oscal-D 250-125) 250 mg TID PO Last administered on 12:34; Start 07/24/17 at 13:00 Diphenhydramine HCl (Benadryl) 25 mg Q6H PRN PO ITCHING Last administered on 17:35; Start 07/24/17 at 10:45 Morphine Sulfate (Morphine Inj) 4 mg Q3H PRN IV PUSH break thru pain Last administered on 07/31/17 04:30; Start 07/24/17 at 10:45 Ergocalciferol (Drisdol) 50,000 units Q7D PO Last administered on 07/24/17 17: 21; Start 07/24/17 at 12:00 Cholecalciferol (Vitamin D3) 1,000 units DAILY PO Last administered on 09:18; Start 07/25/17 at 09:00 Fentanyl Citrate (fentaNYL INJ) 200 mcg STK-MED ONCE .ROUTE ; Start 07/24/17 at 11:05; Stop 07/24/17 at 11:06; Status DC Cefazolin Sodium 2000 mg/Sodium Chloride 120 ml @ 240 mls/hr Q8H IV Last administered on 07/26/17at 09:04; Start 07/24/17 at 17:00; Stop 07/26/17 at 09:29; Status DC Miscellaneous Information ALL NURSING DEPARTME... UNSCH PRN .XX SEE LABEL COMMENTS; Start 07/24/17 at 11:00; Stop 07/25/17 at 10:59; Status DC Sodium Chloride 250 ml @ 15 mls/hr ONCE ONCE IV Last administered on at 14:30; Start 07/25/17 at 08:00; Stop 07/26/17 at 00:39; Status DC Furosemide (Lasix Inj) 20 mg ONCE ONCE IV PUSH Last administered on 07/25/17at 17:16; Start 07/25/17 at 14:00; Stop 07/25/17 at 14:01; Status DC Apixaban (Eliquis) 2.5 mg BID PO Last administered on 07/30/17at 22:45; Start at 21:00 Sodium Chloride 200 ml @ 999 mls/hr BOLUS ONCE IV Last administered on at 19:00; Start 07/25/17 at 19:00; Stop 07/25/17 at 19:12; Status DC Iodixanol (VISIPAQUE 320 INJ (Rad CT)) 100 ml STK-MED ONCE IVCONTRAST Last administered on 07/25/17at 18:57; Start 07/25/17 at 18:57; Stop 07/25/17 at 18:58; Status DC Insulin Human Regular (NovoLIN R INJ) 10 units ONCE ONCE IV PUSH Last administered on 07/25/17at 22:00; Start 07/25/17 at 21:00; Stop 07/25/17 at 21:13; Status DC Dextrose (D50w (Vial) Inj) 50 ml ONCE ONCE IV PUSH Last administered on at 22:00; Start 07/25/17 at 21:00; Stop 07/25/17 at 21:13; Status DC Calcium Gluconate (Calcium Gluconate Inj) 1 gm ONCE ONCE IV PUSH ; Start at 21:00; Stop 07/25/17 at 21:13; Status DC Sodium Bicarbonate 75 meq/Sodium Chloride 1,075 ml @ 30 mls/hr Q24H IV Last administered on 07/30/17at 10:56; Start 07/25/17 at 21:00 Calcium Gluconate (Calcium Gluconate Inj) 1 gm ONCE ONCE SLOW IVP Last administered on 07/25/17at 21:30; Start 07/25/17 at 21:30; Stop 07/25/17 at 21:31; Status DC Insulin Human Regular (NovoLIN R INJ) 8 units ONCE ONCE IV PUSH ; Start at 21:30; Stop 07/25/17 at 21:31; Status DC Dextrose (D50w (Vial) Inj) 50 ml ONCE ONCE IV PUSH ; Start 07/25/17 at 21:30; Stop 07/25/17 at 21:31; Status DC Sodium Bicarbonate (Sodium Bicarbonate 8.4% Inj) 50 meq ONCE ONCE SLOW IVP Last administered on 07/25/17at 22:03; Start 07/25/17 at 21:30; Stop 07/25/17 at 21: 31; Status DC Sodium Polystyrene Sulfonate (Kayexalate Liq) 15 gm ONCE ONCE PO Last administered on 07/25/17at 22:00; Start 07/25/17 at 21:30; Stop 07/25/17 at 21:31; Status DC Metoprolol Tartrate (Lopressor) 25 mg DAILY PO Last administered on 07/27/17at 09 :34; Start 07/27/17 at 09:00; Stop 07/27/17 at 10:01; Status DC Metoprolol Tartrate (Lopressor) 25 mg BID PO Last administered on 07/30/17at 22: 45; Start 07/27/17 at 21:00 Furosemide (Lasix Inj) 80 mg ONCE ONCE IV PUSH Last administered on 07/27/17at 18:07; Start 07/27/17 at 18:00; Stop 07/27/17 at 18:01; Status DC Magnesium Hydroxide (Milk Of Magnesia Liq) 30 ml DAILY PRN PO CONSTIPATION Last administered on 07/28/17at 04:31; Start 07/28/17 at 03:45 Lidocaine HCl (Xylocaine-Mpf 1% Inj) 5 ml STK-MED ONCE OTHER ; Start 07/24/17 at 12:00; Stop 07/28/17 at 09:16; Status DC Rocuronium [place] (Zemuron Inj) 50 mg STK-MED ONCE IV PUSH ; Start 07/24/17 at 12:00; Stop 07/28/17 at 09:16; Status DC Neostigmine Methylsulfate (Prostigmine Inj) 5 mg STK-MED ONCE IV PUSH ; Start at 12:00; Stop 07/28/17 at 09:16; Status DC Glycopyrrolate (Robinul Inj) 1 mg STK-MED ONCE IV PUSH ; Start 07/24/17 at 12:00 ; Stop 07/28/17 at 09:16; Status DC Phenylephrine HCl (Neosynephrine/ NS 1000 Mcg/10ml Syr) 1,000 mcg STK-MED ONCE IV ; Start 07/24/17 at 12:00; Stop 07/28/17 at 09:16; Status DC Phenylephrine HCl (Neosynephrine Inj) 10 mg STK-MED ONCE IV ; Start 07/24/17 at 12:00; Stop 07/28/17 at 09:16; Status DC Dexamethasone Sodium Phosphate (Decadron Inj) 4 mg STK-MED ONCE IV ; Start at 12:00; Stop 07/28/17 at 09:16; Status DC Ondansetron HCl (Zofran Inj) 4 mg STK-MED ONCE IV ; Start 07/24/17 at 12:00; Stop 07/28/17 at 09:16; Status DC Propofol (Diprivan 200 Mg/20 ml Inj) 200 mg STK-MED ONCE IV ; Start 07/24/17 at 12:00; Stop 07/28/17 at 09:16; Status DC Insulin Detemir (Levemir Inj) 10 units HS SQ Last administered on 07/30/17at 22: 47; Start 07/28/17 at 21:00 Furosemide (Lasix Inj) 80 mg ONCE ONCE IV PUSH Last administered on 07/28/17at 20:45; Start 07/28/17 at 20:00; Stop 07/28/17 at 20:01; Status DC Sodium Chloride 1,000 ml @ 0 mls/hr Q0M PRN OTHER For Prime & Rinse Back; Start 07/29/17 at 11:35 Heparin Sodium (Porcine) (Heparin Inj) 8,000 units UNSCH PRN IV FLUSH WITH DIALYSIS; Start 07/29/17 at 11:45 Sodium Chloride 1,000 ml @ 200 mls/hr Q5H PRN IV WITH DIALYSIS; Start 07/29/17 at 11:35 Sodium Chloride 1,000 ml @ 0 mls/hr Q0M PRN OTHER WITH DIALYSIS; Start at 11:35 Mannitol (Mannitol Inj) 12.5 gm UNSCH PRN IV WITH DIALYSIS; Start 07/29/17 at 11:45 Albumin Human 100 ml @ 60 mls/hr UNSCH PRN IV WITH DIALYSIS; Start 07/29/17 at 11:45 Sodium Chloride (NS Flush) 5 ml UNSCH PRN IV FLUSH WITH DIALYSIS; Start at 11:45 Heparin Sodium (Porcine) (Heparin Inj) UNSCH PRN .XX WITH DIALYSIS Last administered on 07/30/17at 18:12; Start 07/29/17 at 11:45 Gentamicin Sulfate (Gentamicin Inj) 20 mg UNSCH PRN OTHER WITH DIALYSIS Last administered on 07/29/17at 16:24; Start 07/29/17 at 11:45 Ondansetron HCl (Zofran Inj) 4 mg UNSCH PRN IV PUSH WITH DIALYSIS; Start at 11:45 Acetaminophen (Tylenol) 650 mg UNSCH PRN PO for headach, pain, temp > 101F; Start 07/29/17 at 11:45 Diphenhydramine HCl (Benadryl) 25 mg UNSCH PRN PO for hives/itching/anaphylaxis ; Start 07/29/17 at 11:45 Nitroglycerin (Nitrostat Sl) 0.4 mg UNSCH PRN SL CHEST PAIN; Start 07/29/17 at 11:45 Clonidine (Catapres) 0.1 mg UNSCH PRN PO for BP > 180/100 X 2 readings; Start 07/29/17 at 11:45 Epoetin Eliazar (Epogen Inj) 4,000 units UNSCH PRN IV PUSH WITH DIALYSIS Last administered on 07/29/17at 15:33; Start 4/10/18 at 11:45 Gelatin (Gelfoam 12 Mm/7 Mm Top) 1 foam UNSCH PRN TOP SEE LABEL COMMENTS; Start 07/29/17 at 11:45 Heparin Sodium (Porcine) (*HEPARIN INJ Periprocedural ONLY) 10,000 units STK- MED ONCE .ROUTE ; Start 07/29/17 at 13:31; Stop 07/29/17 at 13:32; Status DC Sodium Chloride (NS Flush) UNSCH PRN IV FLUSH SEE PROTOCOL; Start 07/29/17 at 14:00 Heparin Sodium (Porcine) (Heparin Inj) UNSCH PRN IV FLUSH SEE PROTOCOL Last administered on 07/29/17at 16:23; Start 07/29/17 at 14:00 A/P Problem List: (1) Right humeral fracture ICD Code: S42.301A - Unspecified fracture of shaft of humerus, right arm, initial encounter for closed fracture (2) Fracture of femoral neck, right ICD Code: S72.001A - Fracture of unspecified part of neck of right femur, initial encounter for closed fracture Assessment and Plan This is an 87-year-old female who had a right humerus and femoral neck fracture after a fall Right humerus and femoral neck fracture after a fall s/p Right hip reduction and intramedullary nail fixation, right shoulder marily-arthroplasty. continue with pain control, will need rehab, nonweightbearing right upper extremity, weightbearing as tolerated right lower extremity Episode of expressive aphasia ( stroke alert) - now has resolved- possible TIA. CT and MRI brain with no acute infarct. 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 echo pending. neurology f/u appreciated and signed off. consulted ST. Anemia- acute on chronic due to blood [id number]; transfused with PRBC, hemoglobin is stable Acute kidney injury superimposed on chronic renal insufficiency; possibly contrast-induced; creatinine is trending up, received Lasix 07/28/2017, still worsening creatinine, renal ultrasound normal right kidney, and visualized left kidney. Nephrology following, on one half normal saline with bicarb, for possible hemodialysis, for Vas-Cath placement 4-10 by interventional radiology Atrial fibrillation; mildly tachycardic- resumed metoprolol- resumed eliquis . Diabetes mellitus 2: start on levemir- continue accu-check with SSI- will monitor and adjust the regimen as needed. Asthma; resumed symbicort- neb treatment as needed CLL- f/u as outpatient DVT prophylaxis; resumed Eliquis . Discussed with . Discharge Planning PENDING ORTHO IMPROVEMENT And renal improvement WILL NEED SNF Problem Qualifiers (1) Right humeral fracture: Qualified Codes: S42.231A - 3-part fracture of surgical neck of right humerus, initial encounter for closed fracture (2) Fracture of femoral neck, right: Qualified Codes: S72.001A - Fracture of unspecified part of neck of right femur , initial encounter for closed fracture Shemar Davila DO Jul 31, 2017 10:05
[2017-07-31] MEDS: SODIUM BICARBONATE 8.4% INJ 75 MEQ in SODIUM CHLOR 0.45% 1000 ML INJ 1,000 ML IV SCH (10:56)
[2017-07-31] MEDS: CHOLECALCIFEROL (VIT D3) 1000 UNIT TAB PO SCH (11:02)
[2017-07-31] MEDS: DOCUSATE SODIUM 50 MG/SENNA 8.6 MG TAB PO SCH ×2 (11:02→20:19)
[2017-07-31] MEDS: BUMETANIDE 1 MG TAB PO SCH (11:02)
[2017-07-31] MEDS: CALCIUM/VITAMIN D 250 MG/125 U TAB PO SCH ×3 (11:02→18:00)
[2017-07-31] MEDS: APIXABAN 2.5 MG TABLET PO SCH ×2 (11:03→20:19)
[2017-07-31] MEDS: METOPROLOL TARTRATE 25 MG TAB PO SCH ×2 (11:03→20:19)
[2017-07-31] MEDS: ERGOCALCIFEROL (VIT D2) 50,000 UNIT CAP PO SCH (12:46)
--- NOTE | 2017-07-31 17:38 | HHI.NPPN ---
Subjective History of Present Illness History of right shoulder and right hip surgery acute renal failure patient is in pain Objective Data Data Vital Signs Date Time Temp Pulse Resp B/P (MAP) Pulse Ox O2 Delivery O2 Flow Rate FiO2 07/31/17 16:00 98.0 86 17 101/52 (68) 98 07/31/17 12:00 98.1 81 17 112/55 (74) 95 07/31/17 10:44 93 Nasal Cannula 2.00 07/31/17 08:00 97.2 82 17 120/55 (76) 97 07/31/17 04:00 97.5 84 18 113/51 (71) 96 07/31/17 00:00 98.6 97 20 128/58 (81) 95 07/30/17 21:01 96 Nasal Cannula 2.00 07/30/17 19:10 97.3 89 20 126/56 (79) 95 -: 07/30/17 0915 07/30/17 0915 Physical Exam General Appearance: Well Developed, Well Nourished Eyes Eye Exam: Pupils Equal Neck Neck Exam: Neck Supple Pulmonary Resp Exam: Clear Bilaterally, Breath Sounds Equal Cardiology CV Exam: Tachycardia Gastrointestinal/Abdomen GI Exam: Soft, Non-Tender, Bowel Sounds Present Extremeties Extremities Exam: Trace Edema Neurologic Neuro Exam: Alert Assessment/Plan Problem List: (1) Acute kidney injury ICD Codes: N17.9 - Acute kidney failure, unspecified Status: Acute Plan: Creatinine 4 due to ATN on recent contrast next HD in am follow CMP Continue to monitor Avoid nephrotoxins (2) Hyperkalemia ICD Codes: E87.5 - Hyperkalemia Plan: Calcium gluconate, D50, insulin, sodium bicarbonate and Kayexalate given resolved (3) Chronic lymphocytic leukemia ICD Codes: C91.10 - Chronic lymphocytic leukemia of B-cell type not having achieved remission Status: Acute Plan: High WBC count (4) TIA (transient ischemic attack) ICD Codes: G45.9 - Transient cerebral ischemic attack, unspecified Status: Acute Plan: Neurology following (5) HTN (hypertension) ICD Codes: I10 - Essential (primary) hypertension Status: Chronic Plan: Monitor blood pressure (6) Fracture of femoral neck, right ICD Codes: S72.001A - Fracture of unspecified part of neck of right femur, initial encounter for closed fracture Plan: Followed by orthopedic (7) Right humeral fracture ICD Codes: S42.301A - Unspecified fracture of shaft of humerus, right arm, initial encounter for closed fracture Plan: Orthopedic surgery following Problem Qualifiers (1) Fracture of femoral neck, right: Qualified Codes: S72.001A - Fracture of unspecified part of neck of right femur , initial encounter for closed fracture (2) Right humeral fracture: Qualified Codes: S42.231A - 3-part fracture of surgical neck of right humerus, initial encounter for closed fracture Pillo Medina MD Jul 31, 2017 17:38
[2017-07-31] MEDS: diphenhydrAMINE HCL 25 MG CAP PO PRN (20:18)
[2017-07-31] MEDS: ATORVASTATIN 80 MG TAB PO SCH (20:19)
[2017-07-31] MEDS: INSULIN DETEMIR 100 UNITS/ML VIAL SQ SCH (20:24)
[2017-08-01 05:25] VITALS: BP 134/63; PULSE 89; RESP 18; TEMP 97.6; O2SAT 93
[2017-08-01] MEDS: ACETAMINOPHEN/HYDROcodone 325 MG/10 MG TAB PO PRN ×2 (06:31→18:39)
--- NOTE | 2017-08-01 06:48 | PD.ORT.PN ---
Subjective Subjective Remarks Resting comfortably. Confusion. Objective Vitals Vital Signs Date Time Temp Pulse Resp B/P (MAP) Pulse Ox O2 Delivery O2 Flow Rate FiO2 08/01/17 05:25 97.6 89 18 134/63 (86) 93 07/31/17 23:41 97.1 74 17 132/60 (84) 94 07/31/17 20:15 Nasal Cannula 2.00 07/31/17 20:12 98.3 90 18 115/57 (76) 98 07/31/17 16:00 98.0 86 17 101/52 (68) 98 07/31/17 14:35 18 07/31/17 12:00 98.1 81 17 112/55 (74) 95 07/31/17 10:44 93 Nasal Cannula 2.00 07/31/17 08:00 97.2 82 17 120/55 (76) 97 I/O 07/31/17 07/31/17 07/31/17 08/01/17 08/01/17 08/01/17 07:00 15:00 23:00 07:00 15:00 23:00 Intake Total 450 ml 480 ml Output Total 450 ml 300 ml 450 ml Balance -450 ml 150 ml 30 ml Intake Oral 450 ml 480 ml Output Urine Total 450 ml 300 ml 450 ml # Bowel Movements 0 0 Result Diagram: 07/30/1715 07/30/17 09 Imaging Last 24 hours Impressions Brain MRI 07/25/17 1903 Signed Impressions: Service Date/Time: Tuesday, July 25, 2017 19:25 - CONCLUSION: Negative for an acute process. There is no restricted diffusion. Shemar Weir MD FACR Objective Remarks Right lower extremity: Clean dry dressings intact with paper tape. Blistered areas from tape irritation is improving. Distally intact sensation with good capillary refills. Active dorsiflexion plantar flexion of foot Right upper extremity: A dry dressings changed and new dressings are clean, dry , and intact. Sling with abduction pillow in place. Distally intact sensation over radial ulnar and median nerve distributions with good capillary refills. She is able fully extend her fingers and make a fist Assessment & Plan Assessment and Plan 1) Right shoulder hemiarthroplasty POD 8 Nonweightbearing right upper extremity Remain in sling and swath at all times Daily dressing changes 2) Right intertrochanteric femur fracture POD 8 IM nail Weightbearing as tolerated right lower extremity Daily dressing changes xeroform, 4x4 and paper tape Eliquis Incentive spirometry Case management for discharge planning to rehabilitation plan for discharge to rehabilitation once cleared by medical. Follow-up Dr. Daniels or PA in 2 weeks. At that time we will progress range of motion exercises of her shoulder John Paul Fernandez Jr. Aug 01, 2017 06:47
[2017-08-01 07:33] LABS: AUTOMATED NEUTROPHIL # 6.5 TH/MM3 (1.8-7.7); BASOPHIL # 0.1 TH/MM3 (0-0.2); BASOPHIL % 0.1 % (0.0-2.0); EOSINOPHIL # 0.2 TH/MM3 (0-0.4); EOSINOPHIL % 0.2 % (0.0-4.0); HEMATOCRIT 23.8 % (35.0-46.0); HEMOGLOBIN 7.4 GM/DL (11.6-15.3); LYMPH % 88.8 % (9.0-44.0); LYMPHOCYTE # 65.7 TH/MM3 (1.0-4.8); MEAN CELL VOLUME 94.8 FL (80.0-100.0); MEAN CORPUSCULAR HEMOGLOBIN 29.5 PG (27.0-34.0); MEAN CORPUSCULAR HGB CONC 31.1 % (32.0-36.0); MEAN PLATELET VOLUME 8.3 FL (7.0-11.0); MONO % 2.2 % (0.0-8.0); MONOCYTE # 1.6 TH/MM3 (0-0.9); NEUT % 8.7 % (16.0-70.0); PLATELET COUNT 183 TH/MM3 (150-450); RED BLOOD COUNT 2.51 MIL/MM3 (4.00-5.30); RED CELL DISTRIBUTION WIDTH 16.4 % (11.6-17.2); WHITE BLOOD COUNT 74.1 TH/MM3 (4.0-11.0)
[2017-08-01 07:56] LABS: ALBUMIN 2.3 GM/DL (3.4-5.0); ALKALINE PHOSPHATASE 74 U/L (45-117); ALT (GPT) 8 U/L (10-53); AST (GOT) 16 U/L (15-37); BICARBONATE 33.6 MEQ/L (21.0-32.0); BLOOD UREA NITROGEN 58 MG/DL (7-18); CALCIUM 8.9 MG/DL (8.5-10.1); CHLORIDE 102 MEQ/L (98-107); CREATININE 2.35 MG/DL (0.50-1.00); FREE T4 0.91 NG/DL (0.76-1.46); GLOMERULAR FILTRATION RATE 20 ML/MIN (>89); GLUCOSE,RANDOM 177 MG/DL (74-106); MAGNESIUM 2.1 MG/DL (1.5-2.5); SODIUM (NA) 141 MEQ/L (136-145)
[2017-08-01 08:00] VITALS: BP 122/58; PULSE 80; RESP 16; TEMP 97.9; O2SAT 98
[2017-08-01] MEDS: BUMETANIDE 1 MG TAB PO SCH (09:00)
[2017-08-01] MEDS: DOCUSATE SODIUM 50 MG/SENNA 8.6 MG TAB PO SCH ×2 (09:16→20:49)
[2017-08-01] MEDS: CHOLECALCIFEROL (VIT D3) 1000 UNIT TAB PO SCH (09:16)
[2017-08-01] MEDS: CALCIUM/VITAMIN D 250 MG/125 U TAB PO SCH ×3 (09:16→18:38)
[2017-08-01] MEDS: APIXABAN 2.5 MG TABLET PO SCH ×2 (09:17→20:49)
[2017-08-01] MEDS: INSULIN ASPART SUPPLEMENTAL SCALE SQ SCH ×4 (09:18→20:50)
[2017-08-01] MEDS: METOPROLOL TARTRATE 25 MG TAB PO SCH ×2 (09:19→20:49)
[2017-08-01] MEDS: BUDESONIDE-FORMOTEROL 160/4.5 MCG INHALER INH SCH ×2 (09:22→20:50)
[2017-08-01 09:34] LABS: NEUTROPHIL # MANUAL DIFF 3.7 TH/MM3 (1.8-7.7); POLYS (SEG NEUTROPHILS) 5 % (16-70)
[2017-08-01 09:35] LABS: LYMPHOCYTES 95 % (9-44)
[2017-08-01 09:36] LABS: SMUDGE CELLS PRESENT PRESENT
[2017-08-01 09:37] LABS: ACANTHOCYTES OCC (NORMAL); OVALOCYTES 1+ (NORMAL)
[2017-08-01 09:42] VITALS: O2SAT 100
[2017-08-01] MEDS: SODIUM BICARBONATE 8.4% INJ 75 MEQ in SODIUM CHLOR 0.45% 1000 ML INJ 1,000 ML IV SCH (10:56)
--- NOTE | 2017-08-01 11:54 | HHI.NPPN ---
Subjective General Problems: Anemia Renal Failure: Chronic, Stage IV History of Present Illness History of right shoulder and right hip surgery acute renal failure patient is in pain Additional Remarks Patient is resting comfortably. at bedside. Denies any SOB. (Hilda Traylor) Review of Systems Respiratory Respiratory Remarks Denies any SOB (Hilda Traylor) Cardiovascular Cardiac Remarks Denies CP (Hilda Traylor) Gastrointestinal GI Remarks Denies abdominal pain (Hilda Traylor) Objective Data Data Vital Signs Date Time Temp Pulse Resp B/P (MAP) Pulse Ox O2 Delivery O2 Flow Rate FiO2 08/01/17 09:42 100 Nasal Cannula 3.50 08/01/17 08:00 97.9 80 16 122/58 (79) 98 08/01/17 05:25 97.6 89 18 134/63 (86) 93 07/31/17 23:41 97.1 74 17 132/60 (84) 94 07/31/17 20:15 Nasal Cannula 2.00 07/31/17 20:12 98.3 90 18 115/57 (76) 98 07/31/17 16:00 98.0 86 17 101/52 (68) 98 07/31/17 14:35 18 07/31/17 12:00 98.1 81 17 112/55 (74) 95 (Hilda Traylor) -: 08/01/17 0620 08/01/17 0620 Imaging Last Impressions Catheter Placement X-Ray 07/29/17 0600 Signed Impressions: Service Date/Time: Saturday, July 29, 2017 13:52 - CONCLUSION: Uncomplicated line placement as above. Duncan Ruiz MD Renal Ultrasound 07/28/17 0000 Signed Impressions: Service Date/Time: Friday, July 28, 2017 14:44 - CONCLUSION: 1. Limited examination due to patient's inability to cooperate with exam. 2. Left kidney is largely not visualized. Very limited images demonstrate no gross hydronephrosis. 3. Unremarkable right kidney. 4. Bladder not visualized and may be decompressed. Desmond Perdue MD Brain MRI 07/25/17 1903 Signed Impressions: Service Date/Time: Tuesday, July 25, 2017 19:25 - CONCLUSION: Negative for an acute process. There is no restricted diffusion. Shemar Weir MD FACR Neck CTA 07/25/17 0000 Signed Impressions: Service Date/Time: Tuesday, July 25, 2017 18:54 - CONCLUSION: Known occlusion left internal carotid. Minimal calcific plaque right carotid bifurcation. Shemar Weir MD FACR Head CTA 07/25/17 0000 Signed Impressions: Service Date/Time: Tuesday, July 25, 2017 18:54 - CONCLUSION: Negative for major branch vessel occlusion.. Shemar Weir MD FACR Head CT 07/25/17 0000 Signed Impressions: Service Date/Time: Tuesday, July 25, 2017 18:34 - CONCLUSION: Negative for acute process Shemar Weir MD FACR Shoulder X-Ray 07/24/17 0000 Signed Impressions: Service Date/Time: July 10:23 - CONCLUSION: Intraoperative images. Noel Schwartz MD Hip X-Ray 07/24/17 0000 Signed Impressions: Service Date/Time: July 08:59 - CONCLUSION: Internal fixation of the right femoral neck fracture as above. Dwayne Solomon MD Upper Extremity CT 07/23/17 0000 Signed Impressions: Service Date/Time: Sunday, July 23, 2017 13:28 - CONCLUSION: Three-part proximal humeral fracture with significant displacement and rotation of the humeral head and location of the 3 components as above. Noel Schwartz MD Pelvis X-Ray 07/23/17 0000 Signed Impressions: Service Date/Time: Sunday, July 23, 2017 10:59 - CONCLUSION: The bony pelvic ring is grossly intact. Noel Schwartz MD ADDENDUM: Further view of the radiographs demonstrate a nondisplaced intertrochanteric fracture on the right Duncan Ruiz MD Femur X-Ray 07/23/17 0000 Signed Impressions: Service Date/Time: Sunday, July 23, 2017 11:00 - CONCLUSION: Findings suggestive nondisplaced fracture at the base of the femoral neck and greater trochanter. Noel Schwartz MD Chest X-Ray 07/23/17 0000 Signed Impressions: Service Date/Time: Sunday, July 23, 2017 12:25 - CONCLUSION: 1. No active disease. There is a comminuted fracture of the proximal right humerus. Brock Myrick MD Tubes & Lines: Bryant (GellermannHilda M. NUT CULLER) Physical Exam General Appearance: Well Developed, Well Nourished (Gellermann,Hilda M. NUT CULLER) Eyes Eye Exam: Pupils Equal (Gellermann,Hilda M. NUT CULLER) Neck Neck Exam: Neck Supple (Gellermann,Hilda M. NUT CULLER) Pulmonary Resp Exam: Clear Bilaterally, Breath Sounds Equal (Gellermann,Hilda M. NUT CULLER) Cardiology CV Exam: Normal Sinus Rhythm, Irregular (Gellermann,Hilda M. NUT CULLER) Gastrointestinal/Abdomen GI Exam: Soft, Non-Tender, Bowel Sounds Present (Gellermann,Hilda M. NUT CULLER) Extremeties Extremities Exam: Trace Edema (Gellermann,Hilda M. NUT CULLER) Neurologic Neuro Exam: Alert ([facility]) Assessment/Plan Problem List: (1) Acute kidney injury ICD Codes: N17.9 - Acute kidney failure, unspecified Status: Acute Plan: Acute kidney injury from ATN with recent contrast. Patient chronic kidney disease stage 4 with baseline creatinine of 1.60 to 1.80 Hemodialysis via Vas cath last time on the . Vas cath was pulled out accidently by patient Plan Continue to monitor Continue bumex daily Avoid nephrotoxins Vas cath was pulled out and creatinine has improved at 2.35 today with UOP 750 over past 24 hours. Will monitor labs and urinary output daily and assess daily for continued need for dialysis ok to leave vas cath out currently. (2) Hyperkalemia ICD Codes: E87.5 - Hyperkalemia Plan: Calcium gluconate, D50, insulin, sodium bicarbonate and Kayexalate given resolved (3) Chronic lymphocytic leukemia ICD Codes: C91.10 - Chronic lymphocytic leukemia of B-cell type not having achieved remission Status: Acute Plan: High WBC count (4) TIA (transient ischemic attack) ICD Codes: G45.9 - Transient cerebral ischemic attack, unspecified Status: Acute Plan: Neurology following (5) HTN (hypertension) ICD Codes: I10 - Essential (primary) hypertension Status: Chronic Plan: Monitor blood pressure (6) Fracture of femoral neck, right ICD Codes: S72.001A - Fracture of unspecified part of neck of right femur, initial encounter for closed fracture Plan: Followed by orthopedic (7) Right humeral fracture ICD Codes: S42.301A - Unspecified fracture of shaft of humerus, right arm, initial encounter for closed fracture Plan: Orthopedic surgery following (Hilda Traylor) Problem List: (1) Acute kidney injury ICD Codes: N17.9 - Acute kidney failure, unspecified Status: Acute Plan: Acute kidney injury from ATN with recent contrast. Patient chronic kidney disease stage 4 with baseline creatinine of 1.60 to 1.80 Hemodialysis via Vas cath last time on the . Vas cath was pulled out accidently by patient Plan Continue to monitor Continue bumex daily Avoid nephrotoxins Vas cath was pulled out and creatinine has improved at 2.35 today with UOP 750 over past 24 hours. Will monitor labs and urinary output daily and assess daily for continued need for dialysis ok to leave vas cath out currently. Patient seen and examined, agree with above. Has DEJAH and started on HD. Now Creatinine is improving, no need for HD. Follow the urine out put and BMP. (2) Hyperkalemia ICD Codes: E87.5 - Hyperkalemia Plan: Calcium gluconate, D50, insulin, sodium bicarbonate and Kayexalate given resolved (3) Chronic lymphocytic leukemia ICD Codes: C91.10 - Chronic lymphocytic leukemia of B-cell type not having achieved remission Status: Acute Plan: High WBC count (4) TIA (transient ischemic attack) ICD Codes: G45.9 - Transient cerebral ischemic attack, unspecified Status: Acute Plan: Neurology following (5) HTN (hypertension) ICD Codes: I10 - Essential (primary) hypertension Status: Chronic Plan: Monitor blood pressure (6) Fracture of femoral neck, right ICD Codes: S72.001A - Fracture of unspecified part of neck of right femur, initial encounter for closed fracture Plan: Followed by orthopedic (7) Right humeral fracture ICD Codes: S42.301A - Unspecified fracture of shaft of humerus, right arm, initial encounter for closed fracture Plan: Orthopedic surgery following (Jagdeep Killian MD) Problem Qualifiers (1) Fracture of femoral neck, right: Qualified Codes: S72.001A - Fracture of unspecified part of neck of right femur , initial encounter for closed fracture (2) Right humeral fracture: Qualified Codes: S42.231A - 3-part fracture of surgical neck of right humerus, initial encounter for closed fracture Hilda Traylor Aug 01, 2017 11:54 Jagdeep Killian MD Aug 04, 2017 18:23
[2017-08-01 12:00] VITALS: BP 110/55; PULSE 74; RESP 15; TEMP 97.5; O2SAT 96
[2017-08-01 16:00] VITALS: BP 124/56; PULSE 89; RESP 16; TEMP 97.1; O2SAT 95
--- NOTE | 2017-08-01 18:17 | HHI.PR ---
Subjective Remarks Patient seen earlier this afternoon. Did not have any complaints at this time. Denies any pain, chest pain, shortness of breath, nausea or vomiting. Discussed with RN, patient lost her Vas-Cath access. Objective Vitals Vital Signs Date Time Temp Pulse Resp B/P (MAP) Pulse Ox O2 Delivery O2 Flow Rate FiO2 08/01/17 12:00 97.5 74 15 110/55 (73) 96 08/01/17 09:42 100 Nasal Cannula 3.50 08/01/17 08:00 97.9 80 16 122/58 (79) 98 08/01/17 05:25 97.6 89 18 134/63 (86) 93 07/31/17 23:41 97.1 74 17 132/60 (84) 94 07/31/17 20:15 Nasal Cannula 2.00 07/31/17 20:12 98.3 90 18 115/57 (76) 98 I/O 07/31/17 07/31/17 07/31/17 08/01/17 08/01/17 08/01/17 07:00 15:00 23:00 07:00 15:00 23:00 Intake Total 450 ml 480 ml 480 ml Output Total 450 ml 300 ml 450 ml 300 ml Balance -450 ml 150 ml 30 ml 180 ml Intake Oral 450 ml 480 ml 480 ml Output Urine Total 450 ml 300 ml 450 ml 300 ml # Bowel Movements 0 0 0 Result Diagram: 08/01/17 0620 08/01/17 0620 Imaging Last Impressions Catheter Placement X-Ray 07/29/17 0600 Signed Impressions: Service Date/Time: Saturday, July 29, 2017 13:52 - CONCLUSION: Uncomplicated line placement as above. Duncan Ruiz MD Renal Ultrasound 07/28/17 0000 Signed Impressions: Service Date/Time: Friday, July 28, 2017 14:44 - CONCLUSION: 1. Limited examination due to patient's inability to cooperate with exam. 2. Left kidney is largely not visualized. Very limited images demonstrate no gross hydronephrosis. 3. Unremarkable right kidney. 4. Bladder not visualized and may be decompressed. Desmond Perdue MD Brain MRI 07/25/17 1903 Signed Impressions: Service Date/Time: Tuesday, July 25, 2017 19:25 - CONCLUSION: Negative for an acute process. There is no restricted diffusion. Shemar Weir MD FACR Neck CTA 07/25/17 0000 Signed Impressions: Service Date/Time: Tuesday, July 25, 2017 18:54 - CONCLUSION: Known occlusion left internal carotid. Minimal calcific plaque right carotid bifurcation. Shemar Weir MD FACR Head CTA 07/25/17 0000 Signed Impressions: Service Date/Time: Tuesday, July 25, 2017 18:54 - CONCLUSION: Negative for major branch vessel occlusion.. Shemar Weir MD FACR Head CT 07/25/17 0000 Signed Impressions: Service Date/Time: Tuesday, July 25, 2017 18:34 - CONCLUSION: Negative for acute process Shemar Weir MD FACR Shoulder X-Ray 07/24/17 Signed Impressions: Service Date/Time: July 10:23 - CONCLUSION: Intraoperative images. Noel Schwartz MD Hip X-Ray 07/24/17 Signed Impressions: Service Date/Time: July 08:59 - CONCLUSION: Internal fixation of the right femoral neck fracture as above. Dwayne Solomon MD Upper Extremity CT 07/23/17 Signed Impressions: Service Date/Time: Sunday, July 23, 2017 13:28 - CONCLUSION: Three-part proximal humeral fracture with significant displacement and rotation of the humeral head and location of the 3 components as above. Noel Schwartz MD Pelvis X-Ray 07/23/17 0000 Signed Impressions: Service Date/Time: Sunday, July 23, 2017 10:59 - CONCLUSION: The bony pelvic ring is grossly intact. Noel Schwartz MD ADDENDUM: Further view of the radiographs demonstrate a nondisplaced intertrochanteric fracture on the right Duncan Ruiz MD Femur X-Ray 07/23/17 0000 Signed Impressions: Service Date/Time: Sunday, July 23, 2017 11:00 - CONCLUSION: Findings suggestive nondisplaced fracture at the base of the femoral neck and greater trochanter. Noel Schwartz MD Chest X-Ray 07/23/17 0000 Signed Impressions: Service Date/Time: Sunday, July 23, 2017 12:25 - CONCLUSION: 1. No active disease. There is a comminuted fracture of the proximal right humerus. Brock Myrick MD Objective Remarks GENERAL: Awake alert and oriented 3 talkative and cooperative CARDIOVASCULAR: appears regular during auscultation RESPIRATORY: No accessory muscle use. decreased breath sounds, poor air entry but no crackles appreciated or wheezing GASTROINTESTINAL: Abdomen soft, non-tender, nondistended. MUSCULOSKELETAL: Extremities without edema. No obvious deformities. NEUROLOGICAL: Awake and alert. Normal speech. Procedures Right hip reduction and intramedullary nail fixation, right shoulder marily- arthroplasty. A/P Problem List: (1) Right humeral fracture ICD Code: S42.301A - Unspecified fracture of shaft of humerus, right arm, initial encounter for closed fracture (2) Fracture of femoral neck, right ICD Code: S72.001A - Fracture of unspecified part of neck of right femur, initial encounter for closed fracture Assessment and Plan This is an 87-year-old female who had a right humerus and femoral neck fracture after a fall 1) Right shoulder hemiarthroplasty POD 8, Nonweightbearing right upper extremity , Remain in sling and swath at all times, Daily dressing changes 2) Right intertrochanteric femur fracture POD 8 IM nail, Weightbearing as tolerated right lower extremity, Daily dressing changes xeroform, 4x4 and paper tape 3) Episode of expressive aphasia ( stroke alert) - now has resolved- possible TIA. CT and MRI brain with no acute infarct. 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 echo EF 55-60% pulm art pressure 67.2mmHg. neurology f/u appreciated and signed off. ST recommends mechanical soft/thin liquids. Anemia- acute on chronic due to blood [id number]; s/p 2 units PRBC, hemoglobin is stable Acute kidney injury superimposed on chronic renal insufficiency; possibly contrast-induced; creatinine is trending up, received Lasix 07/28/2017, still worsening creatinine, renal ultrasound normal right kidney, and visualized left kidney. Nephrology following, on one half normal saline with bicarb, for possible hemodialysis, s/p Vas-Cath placement however pt lost access and nephrology is ok w leaving it for now as pt's creatinine is improving. Atrial fibrillation; controlled- on metoprolol- on eliquis . Diabetes mellitus 2: on levemir- continue accu-check with SSI- will monitor and adjust the regimen as needed. adjust levemir dose as needed Asthma; resumed symbicort- neb treatment as needed CLL- f/u as outpatient DVT prophylaxis; on Eliquis . Discharge Planning anticipate d/c rehab once cleared by nephrology. Still getting dialysis prn. Problem Qualifiers (1) Right humeral fracture: Qualified Codes: S42.231A - 3-part fracture of surgical neck of right humerus, initial encounter for closed fracture (2) Fracture of femoral neck, right: Qualified Codes: S72.001A - Fracture of unspecified part of neck of right femur , initial encounter for closed fracture Annalise Dixon MD Aug 01, 2017 18:17
[2017-08-01 20:00] VITALS: BP 117/54; PULSE 79; PULSE 86; RESP 18; TEMP 98.2; O2SAT 97
[2017-08-01] MEDS: ATORVASTATIN 80 MG TAB PO SCH (20:49)
[2017-08-01] MEDS: INSULIN DETEMIR 100 UNITS/ML VIAL SQ SCH (20:50)
[2017-08-02] VITALS (8 sets, daily range): BP systolic 94–128; BP diastolic 52–60; PULSE 75–96; RESP 17–22; TEMP 98–99; O2SAT 92–98
[2017-08-02] MEDS: ACETAMINOPHEN/HYDROcodone 325 MG/10 MG TAB PO PRN ×4 (00:45→21:42)
[2017-08-02 07:59] LABS: AUTOMATED NEUTROPHIL # 8.5 TH/MM3 (1.8-7.7); BASOPHIL # 0.1 TH/MM3 (0-0.2); BASOPHIL % 0.1 % (0.0-2.0); EOSINOPHIL # 0.2 TH/MM3 (0-0.4); EOSINOPHIL % 0.2 % (0.0-4.0); HEMATOCRIT 25.5 % (35.0-46.0); HEMOGLOBIN 7.9 GM/DL (11.6-15.3); LYMPH % 89.3 % (9.0-44.0); LYMPHOCYTE # 82.7 TH/MM3 (1.0-4.8); MEAN CELL VOLUME 94.9 FL (80.0-100.0); MEAN CORPUSCULAR HEMOGLOBIN 29.3 PG (27.0-34.0); MEAN CORPUSCULAR HGB CONC 30.8 % (32.0-36.0); MEAN PLATELET VOLUME 8.3 FL (7.0-11.0); MONO % 1.2 % (0.0-8.0); MONOCYTE # 1.1 TH/MM3 (0-0.9); NEUT % 9.2 % (16.0-70.0); PLATELET COUNT 238 TH/MM3 (150-450); RED BLOOD COUNT 2.68 MIL/MM3 (4.00-5.30); RED CELL DISTRIBUTION WIDTH 16.2 % (11.6-17.2); WHITE BLOOD COUNT 92.7 TH/MM3 (4.0-11.0)
[2017-08-02 08:43] LABS: BICARBONATE 27.8 MEQ/L (21.0-32.0); CALCIUM 8.5 MG/DL (8.5-10.1); CREATININE 2.06 MG/DL (0.50-1.00)
[2017-08-02] MEDS: BUDESONIDE-FORMOTEROL 160/4.5 MCG INHALER INH SCH ×2 (09:00→21:44)
[2017-08-02 09:30] LABS: LYMPHOCYTES 94 % (9-44); MONOCYTES 1 % (0-8); NEUTROPHIL # MANUAL DIFF 4.6 TH/MM3 (1.8-7.7); POLYS (SEG NEUTROPHILS) 5 % (16-70); SMUDGE CELLS PRESENT PRESENT
[2017-08-02 09:31] LABS: OVALOCYTES 1+ (NORMAL)
[2017-08-02] MEDS: DOCUSATE SODIUM 50 MG/SENNA 8.6 MG TAB PO SCH ×2 (10:18→21:42)
[2017-08-02] MEDS: MAGNESIUM HYDROXIDE SUSP 30 ML CUP PO PRN (10:18)
[2017-08-02] MEDS: CALCIUM/VITAMIN D 250 MG/125 U TAB PO SCH ×3 (10:18→17:56)
[2017-08-02] MEDS: APIXABAN 2.5 MG TABLET PO SCH ×2 (10:19→21:42)
[2017-08-02] MEDS: CHOLECALCIFEROL (VIT D3) 1000 UNIT TAB PO SCH (10:19)
[2017-08-02] MEDS: METOPROLOL TARTRATE 25 MG TAB PO SCH ×2 (10:19→21:43)
[2017-08-02] MEDS: BUMETANIDE 1 MG TAB PO SCH (10:19)
--- NOTE | 2017-08-02 10:48 | HHI.NPPN ---
Subjective General Problems: Anemia Renal Failure: Chronic, Stage IV History of Present Illness History of right shoulder and right hip surgery acute renal failure patient is in pain Additional Remarks Renal function has improved. Non oliguric. Review of Systems Respiratory Respiratory Remarks Denies any SOB Cardiovascular Cardiac Remarks Denies CP Gastrointestinal GI Remarks Denies abdominal pain Objective Data Data Vital Signs Date Time Temp Pulse Resp B/P (MAP) Pulse Ox O2 Delivery O2 Flow Rate FiO2 08/02/17 08:00 98.0 85 22 116/56 (76) 98 08/02/17 04:00 98.2 80 20 128/60 (82) 98 08/02/17 00:00 98.0 84 19 116/55 (75) 97 08/02/17 00:00 75 08/01/17 20:50 Nasal Cannula 2.00 08/01/17 20:00 79 08/01/17 20:00 98.2 86 18 117/54 (75) 97 08/01/17 16:00 97.1 89 16 124/56 (78) 95 08/01/17 12:00 97.5 74 15 110/55 (73) 96 -: 08/02/17 0710 08/02/17 0710 Tubes & Lines: Bryant Physical Exam General Appearance: Well Developed, Well Nourished Eyes Eye Exam: Pupils Equal Neck Neck Exam: Neck Supple Pulmonary Resp Exam: Clear Bilaterally, Breath Sounds Equal Cardiology CV Exam: Normal Sinus Rhythm, Irregular Gastrointestinal/Abdomen GI Exam: Soft, Non-Tender, Bowel Sounds Present Extremeties Extremities Exam: Trace Edema Neurologic Neuro Exam: Alert Assessment/Plan Problem List: (1) Acute kidney injury ICD Codes: N17.9 - Acute kidney failure, unspecified Status: Acute Plan: Acute kidney injury from ATN with recent contrast. Patient chronic kidney disease stage 4 with baseline creatinine of 1.60 to 1.80 Hemodialysis via Vas cath last time on the . Vas cath was pulled out accidently by patient Plan Continue to monitor No current need for dialysis. Avoid nephrotoxic agents. (2) Hyperkalemia ICD Codes: E87.5 - Hyperkalemia Plan: Calcium gluconate, D50, insulin, sodium bicarbonate and Kayexalate given resolved (3) Chronic lymphocytic leukemia ICD Codes: C91.10 - Chronic lymphocytic leukemia of B-cell type not having achieved remission Status: Acute Plan: High WBC count (4) TIA (transient ischemic attack) ICD Codes: G45.9 - Transient cerebral ischemic attack, unspecified Status: Acute Plan: Neurology following (5) HTN (hypertension) ICD Codes: I10 - Essential (primary) hypertension Status: Chronic Plan: Monitor blood pressure (6) Fracture of femoral neck, right ICD Codes: S72.001A - Fracture of unspecified part of neck of right femur, initial encounter for closed fracture Plan: Followed by orthopedic (7) Right humeral fracture ICD Codes: S42.301A - Unspecified fracture of shaft of humerus, right arm, initial encounter for closed fracture Plan: Orthopedic surgery following Problem Qualifiers (1) Fracture of femoral neck, right: Qualified Codes: S72.001A - Fracture of unspecified part of neck of right femur , initial encounter for closed fracture (2) Right humeral fracture: Qualified Codes: S42.231A - 3-part fracture of surgical neck of right humerus, initial encounter for closed fracture Seun Jones MD Aug 02, 2017 10:48
[2017-08-02] MEDS: INSULIN ASPART SUPPLEMENTAL SCALE SQ SCH ×4 (10:56→21:59)
[2017-08-02] MEDS ORDERED: SIMETHICONE 80 MG CHEWABLE TAB CHEW ONE (13:45)
--- NOTE | 2017-08-02 20:58 | HHI.PR ---
Subjective Remarks Patient reports feeling weak overall. Pain is controlled. She is sitting up in the chair today. Objective Vitals Vital Signs Date Time Temp Pulse Resp B/P (MAP) Pulse Ox O2 Delivery O2 Flow Rate FiO2 08/02/17 20:00 98.2 85 17 107/53 (71) 92 08/02/17 16:00 98.1 79 18 123/56 (78) 95 08/02/17 15:04 18 08/02/17 12:00 98.1 85 20 122/58 (79) 92 08/02/17 08:00 98.0 85 22 116/56 (76) 98 08/02/17 08:00 84 08/02/17 07:30 98 Nasal Cannula 2.00 08/02/17 04:00 98.2 80 20 128/60 (82) 98 08/02/17 00:00 98.0 84 19 116/55 (75) 97 08/02/17 00:00 75 I/O 08/01/17 08/01/17 08/01/17 08/02/17 08/02/17 08/02/17 07:00 15:00 23:00 07:00 15:00 23:00 Intake Total 480 ml 480 ml 1000 ml 600 ml Output Total 450 ml 300 ml 900 ml 650 ml Balance 30 ml 180 ml 100 ml -50 ml Intake Oral 480 ml 480 ml 1000 ml 600 ml Output Urine Total 450 ml 300 ml 900 ml 650 ml # Bowel Movements 0 0 1 Result Diagram: 08/02/17 0710 08/02/17 0710 Objective Remarks GENERAL: Obese female in no acute distress. CARDIOVASCULAR: Normal rate and regular rhythm. RESPIRATORY: No accessory muscle use. decreased breath sounds, poor air entry but no crackles appreciated or wheezing GASTROINTESTINAL: Abdomen soft, non-tender, nondistended. MUSCULOSKELETAL: Right shoulder in a sling. Extremities without edema. No obvious deformities. NEUROLOGICAL: Awake and alert. Normal speech. Procedures Right hip reduction and intramedullary nail fixation, right shoulder marily- arthroplasty. A/P Problem List: (1) Right humeral fracture ICD Code: S42.301A - Unspecified fracture of shaft of humerus, right arm, initial encounter for closed fracture (2) Fracture of femoral neck, right ICD Code: S72.001A - Fracture of unspecified part of neck of right femur, initial encounter for closed fracture Assessment and Plan 87-year-old female who had a right humerus and femoral neck fracture after a fall 1) Right shoulder hemiarthroplasty POD 8, Nonweightbearing right upper extremity , Remain in sling and swath at all times, Daily dressing changes 2) Right intertrochanteric femur fracture POD 8 IM nail, Weightbearing as tolerated right lower extremity, Daily dressing changes xeroform, 4x4 and paper tape 3) Episode of expressive aphasia ( stroke alert) - now has resolved- possible TIA. CT and MRI brain with no acute infarct. 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 echo EF 55-60% pulm art pressure 67.2mmHg. neurology f/u appreciated and signed off. ST recommends mechanical soft/thin liquids. Anemia- acute on chronic due to blood [id number]; s/p 2 units PRBC, hemoglobin is stable Acute kidney injury superimposed on chronic renal insufficiency; possibly contrast-induced; renal ultrasound normal right kidney, and visualized left kidney. Nephrology following, renal functions improving. Continue to monitor. Avoid nephrotoxins.. Atrial fibrillation; controlled- on metoprolol- on eliquis . Diabetes mellitus 2: on levemir- continue accu-check with SSI- will monitor and adjust the regimen as needed. adjust levemir dose as needed Asthma; resumed symbicort- neb treatment as needed CLL- f/u as outpatient DVT prophylaxis; on Eliquis . Discharge Planning Will need rehab once cleared by nephrology. Problem Qualifiers (1) Right humeral fracture: Qualified Codes: S42.231A - 3-part fracture of surgical neck of right humerus, initial encounter for closed fracture (2) Fracture of femoral neck, right: Qualified Codes: S72.001A - Fracture of unspecified part of neck of right femur , initial encounter for closed fracture Gelacio Nguyen MD Aug 02, 2017 20:58
[2017-08-02] MEDS: ATORVASTATIN 80 MG TAB PO SCH (21:43)
[2017-08-02] MEDS: diphenhydrAMINE HCL 25 MG CAP PO PRN (21:43)
[2017-08-02] MEDS: INSULIN DETEMIR 100 UNITS/ML VIAL SQ SCH (21:59)
[2017-08-03] VITALS (7 sets, daily range): BP systolic 103–140; BP diastolic 50–64; PULSE 76–96; RESP 18–19; TEMP 97.1–98.6; O2SAT 94–100
[2017-08-03 05:43] LABS: HEMATOCRIT 23.5 % (35.0-46.0); HEMOGLOBIN 7.3 GM/DL (11.6-15.3); MEAN CELL VOLUME 94.5 FL (80.0-100.0); MEAN CORPUSCULAR HEMOGLOBIN 29.2 PG (27.0-34.0); MEAN CORPUSCULAR HGB CONC 30.9 % (32.0-36.0); MEAN PLATELET VOLUME 8.3 FL (7.0-11.0); PLATELET COUNT 235 TH/MM3 (150-450); RED BLOOD COUNT 2.49 MIL/MM3 (4.00-5.30); RED CELL DISTRIBUTION WIDTH 16.5 % (11.6-17.2)
[2017-08-03 05:57] LABS: BICARBONATE 32.7 MEQ/L (21.0-32.0); CALCIUM 9.5 MG/DL (8.5-10.1); CREATININE 2.13 MG/DL (0.50-1.00)
[2017-08-03] MEDS: INSULIN ASPART SUPPLEMENTAL SCALE SQ SCH ×4 (08:00→21:24)
[2017-08-03] MEDS: CALCIUM/VITAMIN D 250 MG/125 U TAB PO SCH ×3 (09:00→16:21)
[2017-08-03] MEDS: CHOLECALCIFEROL (VIT D3) 1000 UNIT TAB PO SCH (09:00)
[2017-08-03] MEDS: BUMETANIDE 1 MG TAB PO SCH (09:00)
[2017-08-03] MEDS: DOCUSATE SODIUM 50 MG/SENNA 8.6 MG TAB PO SCH ×2 (09:00→21:25)
[2017-08-03] MEDS: BUDESONIDE-FORMOTEROL 160/4.5 MCG INHALER INH SCH ×2 (09:00→21:25)
[2017-08-03] MEDS: APIXABAN 2.5 MG TABLET PO SCH ×2 (09:00→21:24)
[2017-08-03] MEDS: METOPROLOL TARTRATE 25 MG TAB PO SCH ×2 (09:00→21:25)
--- NOTE | 2017-08-03 10:53 | HHI.PR ---
Subjective Remarks Patient's right-sided dialysis catheter has come out already Hopefully does not need anymore dialysis Seen sitting in the chair She is max assist Does not want to move much We will need to go to SNF at discharge Discussed with patient RN, physical therapy, and caser in Objective Vitals Vital Signs Date Time Temp Pulse Resp B/P (MAP) Pulse Ox O2 Delivery O2 Flow Rate FiO2 08/03/17 10:27 96 Nasal Cannula 2.00 08/03/17 08:00 98.6 96 18 119/54 (75) 96 08/03/17 04:55 98.0 91 18 103/50 (67) 94 08/02/17 23:24 99.0 96 18 94/52 (66) 96 08/02/17 21:29 95 Nasal Cannula 2.00 08/02/17 20:00 98.2 85 17 107/53 (71) 92 08/02/17 16:00 98.1 79 18 123/56 (78) 95 08/02/17 15:04 18 08/02/17 12:00 98.1 85 20 122/58 (79) 92 I/O 08/02/17 08/02/17 08/02/17 08/03/17 08/03/17 08/03/17 07:00 15:00 23:00 07:00 15:00 23:00 Intake Total 1000 ml 840 ml 360 ml Output Total 900 ml 1150 ml 250 ml Balance 100 ml -310 ml 110 ml Intake Oral 1000 ml 840 ml 360 ml Output Urine Total 900 ml 1150 ml 250 ml # Bowel Movements 1 0 Result Diagram: 08/03/17 0436 08/03/17 0436 Other Results Laboratory Tests Test 08/01/17 06:20 08/02/17 07:10 08/03/17 04:36 White Blood Count 74.1 TH/MM3 92.7 TH/MM3 88.0 TH/MM3 Red Blood Count 2.51 MIL/MM3 2.68 MIL/MM3 2.49 MIL/MM3 Hemoglobin 7.4 GM/DL 7.9 GM/DL 7.3 GM/DL Hematocrit 23.8 % 25.5 % 23.5 % Mean Corpuscular Volume 94.8 FL 94.9 FL 94.5 FL Mean Corpuscular Hemoglobin 29.5 PG 29.3 PG 29.2 PG Mean Corpuscular Hemoglobin Concent 31.1 % 30.8 % 30.9 % Red Cell Distribution Width 16.4 % 16.2 % 16.5 % Platelet Count 183 TH/MM3 238 TH/MM3 235 TH/MM3 Mean Platelet Volume 8.3 FL 8.3 FL 8.3 FL Neutrophils (%) (Auto) 8.7 % 9.2 % Lymphocytes (%) (Auto) 88.8 % 89.3 % Monocytes (%) (Auto) 2.2 % 1.2 % Eosinophils (%) (Auto) 0.2 % 0.2 % Basophils (%) (Auto) 0.1 % 0.1 % Neutrophils # (Auto) 6.5 TH/MM3 8.5 TH/MM3 Lymphocytes # (Auto) 65.7 TH/MM3 82.7 TH/MM3 Monocytes # (Auto) 1.6 TH/MM3 1.1 TH/MM3 Eosinophils # (Auto) 0.2 TH/MM3 0.2 TH/MM3 Basophils # (Auto) 0.1 TH/MM3 0.1 TH/MM3 CBC Comment AUTO DIFF AUTO DIFF Differential Total Cells Counted 100 100 Neutrophils % (Manual) 5 % 5 % Lymphocytes % 95 % 94 % Neutrophils # (Manual) 3.7 TH/MM3 4.6 TH/MM3 Differential Comment FINAL DIFF MANUAL FINAL DIFF MANUAL Smudge Cells PRESENT PRESENT Platelet Estimate NORMAL NORMAL Platelet Morphology Comment NORMAL NORMAL Ovalocytes 1+ 1+ Acanthocytes OCC Blood Urea Nitrogen 58 MG/DL 53 MG/DL 62 MG/DL Creatinine 2.35 MG/DL 2.06 MG/DL 2.13 MG/DL Random Glucose 177 MG/DL 142 MG/DL 187 MG/DL Total Protein 5.0 GM/DL Albumin 2.3 GM/DL Calcium Level 8.9 MG/DL 8.5 MG/DL 9.5 MG/DL Phosphorus Level 3.0 MG/DL Magnesium Level 2.1 MG/DL Alkaline Phosphatase 74 U/L Aspartate Amino Transf (AST/SGOT) 16 U/L Alanine Aminotransferase (ALT/SGPT) 8 U/L Total Bilirubin 1.0 MG/DL Sodium Level 141 MEQ/L 134 MEQ/L 135 MEQ/L Potassium Level 4.1 MEQ/L 4.5 MEQ/L 4.2 MEQ/L Chloride Level 102 MEQ/L 97 MEQ/L 96 MEQ/L Carbon Dioxide Level 33.6 MEQ/L 27.8 MEQ/L 32.7 MEQ/L Anion Gap 5 MEQ/L 9 MEQ/L 6 MEQ/L Estimat Glomerular Filtration Rate 20 ML/MIN 23 ML/MIN 22 ML/MIN Hemoglobin A1c 8.0 % Free Thyroxine 0.91 NG/DL Thyroid Stimulating Hormone 3rd Gen 1.100 uIU/ML Monocytes % 1 % Imaging Last Impressions Catheter Placement X-Ray 07/29/17 0600 Signed Impressions: Service Date/Time: Saturday, July 29, 2017 13:52 - CONCLUSION: Uncomplicated line placement as above. Duncan Ruiz MD Renal Ultrasound 07/28/17 0000 Signed Impressions: Service Date/Time: Friday, July 28, 2017 14:44 - CONCLUSION: 1. Limited examination due to patient's inability to cooperate with exam. 2. Left kidney is largely not visualized. Very limited images demonstrate no gross hydronephrosis. 3. Unremarkable right kidney. 4. Bladder not visualized and may be decompressed. Desmond Perdue MD Brain MRI 07/25/17 1903 Signed Impressions: Service Date/Time: Tuesday, July 25, 2017 19:25 - CONCLUSION: Negative for an acute process. There is no restricted diffusion. Shemar Weir MD FACR Neck CTA 07/25/17 0000 Signed Impressions: Service Date/Time: Tuesday, July 25, 2017 18:54 - CONCLUSION: Known occlusion left internal carotid. Minimal calcific plaque right carotid bifurcation. Shemar Weir MD FACR Head CTA 07/25/17 0000 Signed Impressions: Service Date/Time: Tuesday, July 25, 2017 18:54 - CONCLUSION: Negative for major branch vessel occlusion.. Shemar Weir MD FACR Head CT 07/25/17 0000 Signed Impressions: Service Date/Time: Tuesday, July 25, 2017 18:34 - CONCLUSION: Negative for acute process Shemar Weir MD FACR Shoulder X-Ray 07/24/17 0000 Signed Impressions: Service Date/Time: July 10:23 - CONCLUSION: Intraoperative images. Noel Schwartz MD Hip X-Ray 07/24/17 0000 Signed Impressions: Service Date/Time: July 08:59 - CONCLUSION: Internal fixation of the right femoral neck fracture as above. Dwayne Solomon MD Upper Extremity CT 07/23/17 0000 Signed Impressions: Service Date/Time: Sunday, July 23, 2017 13:28 - CONCLUSION: Three-part proximal humeral fracture with significant displacement and rotation of the humeral head and location of the 3 components as above. Noel Schwartz MD Pelvis X-Ray 07/23/17 0000 Signed Impressions: Service Date/Time: Sunday, July 23, 2017 10:59 - CONCLUSION: The bony pelvic ring is grossly intact. Noel Schwartz MD ADDENDUM: Further view of the radiographs demonstrate a nondisplaced intertrochanteric fracture on the right Duncan Ruiz MD Femur X-Ray 07/23/17 0000 Signed Impressions: Service Date/Time: Sunday, July 23, 2017 11:00 - CONCLUSION: Findings suggestive nondisplaced fracture at the base of the femoral neck and greater trochanter. Noel Schwartz MD Chest X-Ray 07/23/17 0000 Signed Impressions: Service Date/Time: Sunday, July 23, 2017 12:25 - CONCLUSION: 1. No active disease. There is a comminuted fracture of the proximal right humerus. Brock Myrick MD Objective Remarks GENERAL: Awake alert and oriented 3 talkative and cooperative SKIN: Warm and dry. HEAD: Atraumatic. Normocephalic. EYES: Pupils equal and round. No scleral icterus. No injection or drainage. Extraocular muscles intact ENT: No nasal bleeding or discharge. Mucous membranes pink and moist. Tongue is midline NECK: Trachea midline. No JVD. Supple CARDIOVASCULAR: IRRegular rate and rhythm. S1-S2 no S3 or S4 no heave or thrill or rub or gallop, irregularly irregular RESPIRATORY: No accessory muscle use. Clear to auscultation. Breath sounds equal bilaterally. GASTROINTESTINAL: Abdomen soft, non-tender, nondistended. Hepatic and splenic margins not palpable. Morbidly obese MUSCULOSKELETAL: Extremities without clubbing, cyanosis, or edema. No obvious deformities. NEUROLOGICAL: Awake and alert. No obvious cranial nerve deficits. Motor grossly within normal limits. 3 out of 5 muscle strength in the arms and legs. abNormal speech. PSYCHIATRIC: INAppropriate mood and affect; insight and judgment ABnormal. Patient is very lethargic Procedures Right hip reduction and intramedullary nail fixation, right shoulder marily- arthroplasty. Right sided hemodialysis catheter temporary Medications and IVs Current Medications Oxycodone/ Acetaminophen (Percocet 5-325 Mg) 2 tab ONCE ONCE PO Last administered on 07/23/17at 13:13; Start 07/23/17 at 13:00; Stop 07/23/17 at 13:01; Status DC Morphine Sulfate (Morphine Inj) 2 mg Q4H PRN IV PUSH BREAKTHROUGH PAIN Last administered on 07/24/17at 00:36; Start 07/23/17 at 13:30; Stop 07/24/17 at 11:47; Status DC Acetaminophen/ Hydrocodone Bitart (Unity 5-325 Mg) 1 tab Q4H PRN PO PAIN 1-5; Start 07/23/17 at 13:30; Stop 07/24/17 at 11:46; Status DC Acetaminophen/ Hydrocodone Bitart (Unity 5-325 Mg) 2 tab Q4H PRN PO PAIN 6-10 Last administered on 07/24/17at 03:42; Start 07/23/17 at 13:30; Stop 07/24/17 at 11: 46; Status DC Dextrose (D50w (Vial) Inj) 50 ml UNSCH PRN IV PUSH HYPOGLYCEMIA-SEE COMMENTS; Start 07/23/17 at 13:30 Glucagon (Glucagon Inj) 1 mg UNSCH PRN OTHER HYPOGLYCEMIA-SEE COMMENTS; Start 07/23/17 at 13:30 Insulin Aspart (NovoLOG SUPPLEMENTAL SCALE) 1 ACHS SLIDING SCALE SQ Last administered on 08/02/17at 21:59; Start 07/23/17 at 17:00 Albuterol Sulfate (Albuterol Neb) 2.5 mg Q4HR NEB PRN NEB SOB/WHEEZING; Start 07/23/17 at 13:30 Atorvastatin Calcium (Lipitor) 80 mg HS PO Last administered on 08/02/17at 21:43 ; Start 07/23/17 at 21:00 Bumetanide (Bumetanide) 2 mg DAILY PO Last administered on 08/02/17at 10:19; Start 07/24/17 at 09:00; Status Future hold Losartan Potassium (Cozaar) 25 mg DAILY PO ; Start 07/24/17 at 09:00; Status Future Hold Metoprolol Tartrate (Lopressor) 100 mg BID PO Last administered on 07/24/17at 21: 07; Start 07/23/17 at 21:00; Status Future Hold Budesonide/ Formoterol Fumarate (Symbicort 160-4.5 Mcg Inh) 2 puff Q12HR INH Last administered on 08/02/17at 21:44; Start 07/23/17 at 21:00 Lactated Ringer's 1,000 ml @ 30 mls/hr Q24H PRN IV SEE LABEL COMMENTS Last administered on 07/24/17at 06:36; Start 07/24/17 at 01:30; Stop 07/24/17 at 13:10; Status DC Sodium Chloride 500 ml @ 30 mls/hr [id number] PRN IV SEE LABEL COMMENTS; Start 07/24/17 at 01:30; Stop 07/24/17 at 13:10; Status DC Povidone Iodine (Betadine 5% Antisepsis Kit) 1 applic HOSPICE ADMITTING CLERK PRN EACH NARE SEE LABEL COMMENTS; Start 07/24/17 at 01:30; Stop 07/24/17 at 13:10; Status DC Chlorhexidine Gluconate (Chlorhexidine 2% Cloth) 3 pack HOSPICE ADMITTING CLERK PRN TOPICAL SEE LABEL COMMENTS; Start 07/24/17 at 01:30; Stop 07/24/17 at 13:10; Status DC Acetaminophen 100 ml @ As Directed STK-MED ONCE IV ; Start 07/24/17 at 06:38; Stop 07/24/17 at 06:39; Status DC Bupivacaine HCl/ Epinephrine Bitart (Sensorcaine-Epinephrine 0.25% Inj) 50 ml STK-MED ONCE .ROUTE Last administered on 07/24/17 08:44; Start 07/24/17 at 07:23 ; Stop 07/24/17 at 07:24; Status DC Gentamicin Sulfate (Gentamicin Inj) 240 mg STK-MED ONCE .ROUTE Last administered on 07/24/17 08:44; Start 07/24/17 at 07:23; Stop 07/24/17 at 07:24; Status DC Vancomycin HCl (Vancomycin Inj) 1,000 mg STK-MED ONCE .ROUTE Last administered on 07/24/17 08:17; Start 07/24/17 at 07:24; Stop 07/24/17 at 07:25; Status DC Sodium Chloride 250 ml @ As Directed STK-MED ONCE .ROUTE Last administered on 07/24/17 08:17; Start 07/24/17 at 07:24; Stop 07/24/17 at 07:25; Status DC Cefazolin Sodium (Ancef Inj) 2,000 mg STK-MED ONCE .ROUTE Last administered on 07/24/17 08:47; Start 07/24/17 at 08:44; Stop 07/24/17 at 08:45; Status DC Vancomycin HCl (Vancomycin Inj) 2,000 mg STK-MED ONCE .ROUTE Last administered on 07/24/17 10:10; Start 07/24/17 at 09:27; Stop 07/24/17 at 09:28; Status DC Senna/Docusate Sodium (Donna-Colace) 1 tab BID PO Last administered on 21:42; Start 07/24/17 at 21:00 Cefazolin Sodium/ Dextrose 50 ml @ 100 mls/hr Q8H IV ; Start 07/24/17 at 10:45; Stop 07/26/17 at 03:14; Status UNV Acetaminophen/ Hydrocodone Bitart (Unity 10-325 Mg) 1 tab Q3H PRN PO pain 2<10 Last administered on 08/02/17 21:42; Start 07/24/17 at 10:45 Ondansetron HCl (Zofran Inj) 4 mg Q4H PRN IVP NAUSEA OR VOMITING; Start at 10:45 Calcium/Vitamin D (Oscal-D 250-125) 250 mg TID PO Last administered on 17:56; Start 07/24/17 at 13:00 Diphenhydramine HCl (Benadryl) 25 mg Q6H PRN PO ITCHING Last administered on 21:43; Start 07/24/17 at 10:45 Morphine Sulfate (Morphine Inj) 4 mg Q3H PRN IV PUSH break thru pain Last administered on 07/31/17 04:30; Start 07/24/17 at 10:45 Ergocalciferol (Drisdol) 50,000 units Q7D PO Last administered on 07/31/17 12: 46; Start 07/24/17 at 12:00 Cholecalciferol (Vitamin D3) 1,000 units DAILY PO Last administered on 10:19; Start 07/25/17 at 09:00 Fentanyl Citrate (fentaNYL INJ) 200 mcg STK-MED ONCE .ROUTE ; Start 07/24/17 at 11:05; Stop 07/24/17 at 11:06; Status DC Cefazolin Sodium 2000 mg/Sodium Chloride 120 ml @ 240 mls/hr Q8H IV Last administered on 07/26/17at 09:04; Start 07/24/17 at 17:00; Stop 07/26/17 at 09:29; Status DC Miscellaneous Information ALL NURSING DEPARTME... UNSCH PRN .XX SEE LABEL COMMENTS; Start 07/24/17 at 11:00; Stop 07/25/17 at 10:59; Status DC Sodium Chloride 250 ml @ 15 mls/hr ONCE ONCE IV Last administered on at 14:30; Start 07/25/17 at 08:00; Stop 07/26/17 at 00:39; Status DC Furosemide (Lasix Inj) 20 mg ONCE ONCE IV PUSH Last administered on 07/25/17at 17:16; Start 07/25/17 at 14:00; Stop 07/25/17 at 14:01; Status DC Apixaban (Eliquis) 2.5 mg BID PO Last administered on 08/02/17at 21:42; Start at 21:00 Sodium Chloride 200 ml @ 999 mls/hr BOLUS ONCE IV Last administered on at 19:00; Start 07/25/17 at 19:00; Stop 07/25/17 at 19:12; Status DC Iodixanol (VISIPAQUE 320 INJ (Rad CT)) 100 ml STK-MED ONCE IVCONTRAST Last administered on 07/25/17at 18:57; Start 07/25/17 at 18:57; Stop 07/25/17 at 18:58; Status DC Insulin Human Regular (NovoLIN R INJ) 10 units ONCE ONCE IV PUSH Last administered on 07/25/17at 22:00; Start 07/25/17 at 21:00; Stop 07/25/17 at 21:13; Status DC Dextrose (D50w (Vial) Inj) 50 ml ONCE ONCE IV PUSH Last administered on at 22:00; Start 07/25/17 at 21:00; Stop 07/25/17 at 21:13; Status DC Calcium Gluconate (Calcium Gluconate Inj) 1 gm ONCE ONCE IV PUSH ; Start at 21:00; Stop 07/25/17 at 21:13; Status DC Sodium Bicarbonate 75 meq/Sodium Chloride 1,075 ml @ 30 mls/hr Q24H IV Last administered on 07/30/17at 10:56; Start 07/25/17 at 21:00; Stop 08/02/17 at 13:29 ; Status DC Calcium Gluconate (Calcium Gluconate Inj) 1 gm ONCE ONCE SLOW IVP Last administered on 07/25/17at 21:30; Start 07/25/17 at 21:30; Stop 07/25/17 at 21:31; Status DC Insulin Human Regular (NovoLIN R INJ) 8 units ONCE ONCE IV PUSH ; Start at 21:30; Stop 07/25/17 at 21:31; Status DC Dextrose (D50w (Vial) Inj) 50 ml ONCE ONCE IV PUSH ; Start 07/25/17 at 21:30; Stop 07/25/17 at 21:31; Status DC Sodium Bicarbonate (Sodium Bicarbonate 8.4% Inj) 50 meq ONCE ONCE SLOW IVP Last administered on 07/25/17at 22:03; Start 07/25/17 at 21:30; Stop 07/25/17 at 21: 31; Status DC Sodium Polystyrene Sulfonate (Kayexalate Liq) 15 gm ONCE ONCE PO Last administered on 07/25/17at 22:00; Start 07/25/17 at 21:30; Stop 07/25/17 at 21:31; Status DC Metoprolol Tartrate (Lopressor) 25 mg DAILY PO Last administered on 07/27/17at 09 :34; Start 07/27/17 at 09:00; Stop 07/27/17 at 10:01; Status DC Metoprolol Tartrate (Lopressor) 25 mg BID PO Last administered on 08/02/17at 21: 43; Start 07/27/17 at 21:00 Furosemide (Lasix Inj) 80 mg ONCE ONCE IV PUSH Last administered on 07/27/17at 18:07; Start 07/27/17 at 18:00; Stop 07/27/17 at 18:01; Status DC Magnesium Hydroxide (Milk Of Magnesia Liq) 30 ml DAILY PRN PO CONSTIPATION Last administered on 08/02/17at 10:18; Start 07/28/17 at 03:45 Lidocaine HCl (Xylocaine-Mpf 1% Inj) 5 ml STK-MED ONCE OTHER ; Start 07/24/17 at 12:00; Stop 07/28/17 at 09:16; Status DC Rocuronium [place] (Zemuron Inj) 50 mg STK-MED ONCE IV PUSH ; Start 07/24/17 at 12:00; Stop 07/28/17 at 09:16; Status DC Neostigmine Methylsulfate (Prostigmine Inj) 5 mg STK-MED ONCE IV PUSH ; Start at 12:00; Stop 07/28/17 at 09:16; Status DC Glycopyrrolate (Robinul Inj) 1 mg STK-MED ONCE IV PUSH ; Start 07/24/17 at 12:00 ; Stop 07/28/17 at 09:16; Status DC Phenylephrine HCl (Neosynephrine/ NS 1000 Mcg/10ml Syr) 1,000 mcg STK-MED ONCE IV ; Start 07/24/17 at 12:00; Stop 07/28/17 at 09:16; Status DC Phenylephrine HCl (Neosynephrine Inj) 10 mg STK-MED ONCE IV ; Start 07/24/17 at 12:00; Stop 07/28/17 at 09:16; Status DC Dexamethasone Sodium Phosphate (Decadron Inj) 4 mg STK-MED ONCE IV ; Start at 12:00; Stop 07/28/17 at 09:16; Status DC Ondansetron HCl (Zofran Inj) 4 mg STK-MED ONCE IV ; Start 07/24/17 at 12:00; Stop 07/28/17 at 09:16; Status DC Propofol (Diprivan 200 Mg/20 ml Inj) 200 mg STK-MED ONCE IV ; Start 07/24/17 at 12:00; Stop 07/28/17 at 09:16; Status DC Insulin Detemir (Levemir Inj) 10 units HS SQ Last administered on 08/02/17at 21: 59; Start 07/28/17 at 21:00 Furosemide (Lasix Inj) 80 mg ONCE ONCE IV PUSH Last administered on 07/28/17at 20:45; Start 07/28/17 at 20:00; Stop 07/28/17 at 20:01; Status DC Sodium Chloride 1,000 ml @ 0 mls/hr Q0M PRN OTHER For Prime & Rinse Back; Start 07/29/17 at 11:35 Heparin Sodium (Porcine) (Heparin Inj) 8,000 units UNSCH PRN IV FLUSH WITH DIALYSIS; Start 07/29/17 at 11:45 Sodium Chloride 1,000 ml @ 200 mls/hr Q5H PRN IV WITH DIALYSIS; Start 07/29/17 at 11:35 Sodium Chloride 1,000 ml @ 0 mls/hr Q0M PRN OTHER WITH DIALYSIS; Start at 11:35 Mannitol (Mannitol Inj) 12.5 gm UNSCH PRN IV WITH DIALYSIS; Start 07/29/17 at 11:45 Albumin Human 100 ml @ 60 mls/hr UNSCH PRN IV WITH DIALYSIS; Start 07/29/17 at 11:45 Sodium Chloride (NS Flush) 5 ml UNSCH PRN IV FLUSH WITH DIALYSIS; Start at 11:45 Heparin Sodium (Porcine) (Heparin Inj) UNSCH PRN .XX WITH DIALYSIS Last administered on 07/30/17at 18:12; Start 07/29/17 at 11:45 Gentamicin Sulfate (Gentamicin Inj) 20 mg UNSCH PRN OTHER WITH DIALYSIS Last administered on 07/29/17at 16:24; Start 07/29/17 at 11:45 Ondansetron HCl (Zofran Inj) 4 mg UNSCH PRN IV PUSH WITH DIALYSIS; Start at 11:45 Acetaminophen (Tylenol) 650 mg UNSCH PRN PO for headach, pain, temp > 101F; Start 07/29/17 at 11:45 Diphenhydramine HCl (Benadryl) 25 mg UNSCH PRN PO for hives/itching/anaphylaxis ; Start 07/29/17 at 11:45 Nitroglycerin (Nitrostat Sl) 0.4 mg UNSCH PRN SL CHEST PAIN; Start 07/29/17 at 11:45 Clonidine (Catapres) 0.1 mg UNSCH PRN PO for BP > 180/100 X 2 readings; Start 07/29/17 at 11:45 Epoetin Eliazar (Epogen Inj) 4,000 units UNSCH PRN IV PUSH WITH DIALYSIS Last administered on 07/29/17at 15:33; Start 07/29/17 at 11:45 Gelatin (Gelfoam 12 Mm/7 Mm Top) 1 foam UNSCH PRN TOP SEE LABEL COMMENTS; Start 07/29/17 at 11:45 Heparin Sodium (Porcine) (*HEPARIN INJ Periprocedural ONLY) 10,000 units STK- MED ONCE .ROUTE ; Start 07/29/17 at 13:31; Stop 07/29/17 at 13:32; Status DC Sodium Chloride (NS Flush) UNSCH PRN IV FLUSH SEE PROTOCOL; Start 07/29/17 at 14:00 Heparin Sodium (Porcine) (Heparin Inj) UNSCH PRN IV FLUSH SEE PROTOCOL Last administered on 07/29/17at 16:23; Start 07/29/17 at 14:00 Simethicone (Mylicon Chew) 80 mg ONCE ONCE CHEW Last administered on at 17:55; Start 08/02/17 at 13:45; Stop 08/02/17 at 13:46; Status DC A/P Problem List: (1) Right humeral fracture ICD Code: S42.301A - Unspecified fracture of shaft of humerus, right arm, initial encounter for closed fracture (2) Fracture of femoral neck, right ICD Code: S72.001A - Fracture of unspecified part of neck of right femur, initial encounter for closed fracture Assessment and Plan This is an 87-year-old female who had a right humerus and femoral neck fracture after a fall Right humerus and femoral neck fracture after a fall s/p Right hip reduction and intramedullary nail fixation, right shoulder marily-arthroplasty. continue with pain control, will need rehab, nonweightbearing right upper extremity, weightbearing as tolerated right lower extremity Episode of expressive aphasia ( stroke alert) - now has resolved- possible TIA. CT and MRI brain with no acute infarct. 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 echo pending. neurology f/u appreciated and signed off. consulted ST. Anemia- acute on chronic due to blood [id number]; transfused with PRBC, hemoglobin is stable Acute kidney injury superimposed on chronic renal insufficiency; possibly contrast-induced; creatinine is trending up, received Lasix 07/28/2017, still worsening creatinine, renal ultrasound normal right kidney, and visualized left kidney. Nephrology following, on one half normal saline with bicarb, for possible hemodialysis, for Vas-Cath placement 4-10 by interventional radiology Patient pulled her own vas catheter Atrial fibrillation; mildly tachycardic- resumed metoprolol- resumed eliquis . Diabetes mellitus 2: start on levemir- continue accu-check with SSI- will monitor and adjust the regimen as needed. Asthma; resumed symbicort- neb treatment as needed CLL- f/u as outpatient DVT prophylaxis; resumed Eliquis . Discussed with . We will need SNF at discharge Is not mobile enough to go home Discharge Planning PENDING ORTHO IMPROVEMENT And renal improvement WILL NEED SNF Problem Qualifiers (1) Right humeral fracture: Qualified Codes: S42.231A - 3-part fracture of surgical neck of right humerus, initial encounter for closed fracture (2) Fracture of femoral neck, right: Qualified Codes: S72.001A - Fracture of unspecified part of neck of right femur , initial encounter for closed fracture Sheamr Davila DO Aug 03, 2017 10:53
[2017-08-03] MEDS: ACETAMINOPHEN/HYDROcodone 325 MG/10 MG TAB PO PRN ×3 (12:30→21:27)
--- NOTE | 2017-08-03 13:00 | HHI.NPPN ---
Subjective General Problems: Anemia Renal Failure: Chronic, Stage IV History of Present Illness History of right shoulder and right hip surgery acute renal failure patient is in pain Additional Remarks Renal function is stable. Non oliguric. Review of Systems Respiratory Respiratory Remarks Denies any SOB Cardiovascular Cardiac Remarks Denies CP Gastrointestinal GI Remarks Denies abdominal pain Objective Data Data Vital Signs Date Time Temp Pulse Resp B/P (MAP) Pulse Ox O2 Delivery O2 Flow Rate FiO2 08/03/17 10:27 96 Nasal Cannula 2.00 08/03/17 08:00 98.6 96 18 119/54 (75) 96 08/03/17 04:55 98.0 91 18 103/50 (67) 94 08/02/17 23:24 99.0 96 18 94/52 (66) 96 08/02/17 21:29 95 Nasal Cannula 2.00 08/02/17 20:00 98.2 85 17 107/53 (71) 92 08/02/17 16:00 98.1 79 18 123/56 (78) 95 08/02/17 15:04 18 -: 08/03/17 0436 08/03/17 0436 Tubes & Lines: [place] Physical Exam General Appearance: Well Developed, Well Nourished Eyes Eye Exam: Pupils Equal Neck Neck Exam: Neck Supple Pulmonary Resp Exam: Clear Bilaterally, Breath Sounds Equal Cardiology CV Exam: Normal Sinus Rhythm, Irregular Gastrointestinal/Abdomen GI Exam: Soft, Non-Tender, Bowel Sounds Present Extremeties Extremities Exam: Trace Edema Neurologic Neuro Exam: Alert Assessment/Plan Problem List: (1) Acute kidney injury ICD Codes: N17.9 - Acute kidney failure, unspecified Status: Acute Plan: Acute kidney injury from ATN with recent contrast. Patient chronic kidney disease stage 4 with baseline creatinine of 1.60 to 1.80 Hemodialysis via Vas cath last time on the . Vas cath was pulled out accidently by patient Plan Continue to monitor No current need for dialysis. Avoid nephrotoxic agents. (2) Hyperkalemia ICD Codes: E87.5 - Hyperkalemia Plan: Calcium gluconate, D50, insulin, sodium bicarbonate and Kayexalate given resolved (3) Chronic lymphocytic leukemia ICD Codes: C91.10 - Chronic lymphocytic leukemia of B-cell type not having achieved remission Status: Acute Plan: High WBC count (4) TIA (transient ischemic attack) ICD Codes: G45.9 - Transient cerebral ischemic attack, unspecified Status: Acute Plan: Neurology following (5) HTN (hypertension) ICD Codes: I10 - Essential (primary) hypertension Status: Chronic Plan: Monitor blood pressure (6) Fracture of femoral neck, right ICD Codes: S72.001A - Fracture of unspecified part of neck of right femur, initial encounter for closed fracture Plan: Followed by orthopedic (7) Right humeral fracture ICD Codes: S42.301A - Unspecified fracture of shaft of humerus, right arm, initial encounter for closed fracture Plan: Orthopedic surgery following Problem Qualifiers (1) Fracture of femoral neck, right: Qualified Codes: S72.001A - Fracture of unspecified part of neck of right femur , initial encounter for closed fracture (2) Right humeral fracture: Qualified Codes: S42.231A - 3-part fracture of surgical neck of right humerus, initial encounter for closed fracture Seun Jones MD Aug 03, 2017 13:00
[2017-08-03] MEDS: INSULIN DETEMIR 100 UNITS/ML VIAL SQ SCH (21:24)
[2017-08-03] MEDS: ATORVASTATIN 80 MG TAB PO SCH (21:25)
[2017-08-04 04:05] VITALS: BP 128/56; PULSE 88; RESP 18; TEMP 97.7; O2SAT 98
[2017-08-04 07:31] LABS: AUTOMATED NEUTROPHIL # 8.2 TH/MM3 (1.8-7.7); BASOPHIL # 0.1 TH/MM3 (0-0.2); BASOPHIL % 0.2 % (0.0-2.0); EOSINOPHIL # 0.3 TH/MM3 (0-0.4); EOSINOPHIL % 0.4 % (0.0-4.0); HEMATOCRIT 24.6 % (35.0-46.0); HEMOGLOBIN 7.5 GM/DL (11.6-15.3); LYMPH % 88.9 % (9.0-44.0); LYMPHOCYTE # 76.1 TH/MM3 (1.0-4.8); MEAN CELL VOLUME 95.2 FL (80.0-100.0); MEAN CORPUSCULAR HEMOGLOBIN 29.2 PG (27.0-34.0); MEAN CORPUSCULAR HGB CONC 30.6 % (32.0-36.0); MEAN PLATELET VOLUME 8.3 FL (7.0-11.0); MONO % 0.9 % (0.0-8.0); MONOCYTE # 0.8 TH/MM3 (0-0.9); NEUT % 9.6 % (16.0-70.0); PLATELET COUNT 249 TH/MM3 (150-450); RED BLOOD COUNT 2.58 MIL/MM3 (4.00-5.30); RED CELL DISTRIBUTION WIDTH 16.9 % (11.6-17.2); WHITE BLOOD COUNT 85.5 TH/MM3 (4.0-11.0)
[2017-08-04 07:57] LABS: ALBUMIN 2.6 GM/DL (3.4-5.0); AST (GOT) 25 U/L (15-37); BICARBONATE 31.7 MEQ/L (21.0-32.0); CALCIUM 9.9 MG/DL (8.5-10.1); CHLORIDE 97 MEQ/L (98-107); CREATININE 2.22 MG/DL (0.50-1.00); GLOMERULAR FILTRATION RATE 21 ML/MIN (>89); GLUCOSE,RANDOM 169 MG/DL (74-106); MAGNESIUM 2.2 MG/DL (1.5-2.5); SODIUM (NA) 135 MEQ/L (136-145)
[2017-08-04 08:00] VITALS: BP 116/54; PULSE 76; RESP 19; TEMP 97.4; O2SAT 98
[2017-08-04 08:04] VITALS: PULSE 85
[2017-08-04 08:05] LABS: ALKALINE PHOSPHATASE 84 U/L (45-117); ALT (GPT) 8 U/L (10-53); BLOOD UREA NITROGEN 59 MG/DL (7-18); PHOSPHORUS 3.5 MG/DL (2.5-4.9); TOTAL BILIRUBIN ADULT 1.1 MG/DL (0.2-1.0); TOTAL PROTEIN 5.3 GM/DL (6.4-8.2)
[2017-08-04 08:26] LABS: MONOCYTES 1 % (0-8); NEUTROPHIL # MANUAL DIFF 4.3 TH/MM3 (1.8-7.7); POLYS (SEG NEUTROPHILS) 5 % (16-70)
[2017-08-04 08:27] LABS: LYMPHOCYTES 93 % (9-44); SMUDGE CELLS PRESENT PRESENT
[2017-08-04 08:28] LABS: OVALOCYTES 1+ (NORMAL)
[2017-08-04 08:29] LABS: ACANTHOCYTES OCC (NORMAL)
[2017-08-04] MEDS: DOCUSATE SODIUM 50 MG/SENNA 8.6 MG TAB PO SCH (09:13)
[2017-08-04] MEDS: METOPROLOL TARTRATE 25 MG TAB PO SCH (09:14)
[2017-08-04] MEDS: CALCIUM/VITAMIN D 250 MG/125 U TAB PO SCH ×2 (09:14→12:36)
[2017-08-04] MEDS: BUMETANIDE 1 MG TAB PO SCH (09:14)
[2017-08-04] MEDS: CHOLECALCIFEROL (VIT D3) 1000 UNIT TAB PO SCH (09:14)
[2017-08-04] MEDS: INSULIN ASPART SUPPLEMENTAL SCALE SQ SCH ×2 (09:14→12:36)
[2017-08-04] MEDS: APIXABAN 2.5 MG TABLET PO SCH (09:14)
[2017-08-04] MEDS: BUDESONIDE-FORMOTEROL 160/4.5 MCG INHALER INH SCH (09:20)
--- NOTE | 2017-08-04 10:36 | HHI.NPPN ---
Subjective General Problems: Anemia Renal Failure: Chronic, Stage IV History of Present Illness History of right shoulder and right hip surgery acute renal failure patient is in pain Additional Remarks Renal function remains stable. Non oliguric. No SOB. (Hilda Traylor) Review of Systems Respiratory Respiratory Remarks Denies any SOB (Hilda Traylor) Cardiovascular Cardiac Remarks Denies CP (Hilda Traylor) Gastrointestinal GI Remarks Denies abdominal pain (Hilda Traylor) Objective Data Data Vital Signs Date Time Temp Pulse Resp B/P (MAP) Pulse Ox O2 Delivery O2 Flow Rate FiO2 08/04/17 08:00 97.4 76 19 116/54 (74) 98 08/04/17 07:30 Nasal Cannula 3.00 08/04/17 04:05 97.7 88 18 128/56 (80) 98 08/03/17 23:00 97.9 76 18 113/52 (72) 100 08/03/17 20:50 98.2 89 18 140/64 (89) 96 08/03/17 20:00 Nasal Cannula 2.00 08/03/17 16:00 97.5 84 19 128/59 (82) 98 08/03/17 12:00 97.1 86 18 117/56 (76) 99 (Hilda Traylor) -: 08/04/17 0652 08/04/17 0652 Imaging Last Impressions Catheter Placement X-Ray 07/29/17 0600 Signed Impressions: Service Date/Time: Saturday, July 29, 2017 13:52 - CONCLUSION: Uncomplicated line placement as above. Duncan Ruiz MD Renal Ultrasound 07/28/17 0000 Signed Impressions: Service Date/Time: Friday, July 28, 2017 14:44 - CONCLUSION: 1. Limited examination due to patient's inability to cooperate with exam. 2. Left kidney is largely not visualized. Very limited images demonstrate no gross hydronephrosis. 3. Unremarkable right kidney. 4. Bladder not visualized and may be decompressed. Desomnd Perdue MD Brain MRI 07/25/17 1903 Signed Impressions: Service Date/Time: Tuesday, July 25, 2017 19:25 - CONCLUSION: Negative for an acute process. There is no restricted diffusion. Shemar Weir MD FACR Neck CTA 07/25/17 0000 Signed Impressions: Service Date/Time: Tuesday, July 25, 2017 18:54 - CONCLUSION: Known occlusion left internal carotid. Minimal calcific plaque right carotid bifurcation. Shemar Weir MD FACR Head CTA 07/25/17 0000 Signed Impressions: Service Date/Time: Tuesday, July 25, 2017 18:54 - CONCLUSION: Negative for major branch vessel occlusion.. Shemar Weir MD FACR Head CT 07/25/17 0000 Signed Impressions: Service Date/Time: Tuesday, July 25, 2017 18:34 - CONCLUSION: Negative for acute process Shemar Weir MD FACR Shoulder X-Ray 07/24/17 Signed Impressions: Service Date/Time: July 10:23 - CONCLUSION: Intraoperative images. Noel Schwartz MD Hip X-Ray 07/24/17 Signed Impressions: Service Date/Time: July 08:59 - CONCLUSION: Internal fixation of the right femoral neck fracture as above. Dwayne Solomon MD Upper Extremity CT 07/23/17 0000 Signed Impressions: Service Date/Time: Sunday, July 23, 2017 13:28 - CONCLUSION: Three-part proximal humeral fracture with significant displacement and rotation of the humeral head and location of the 3 components as above. Noel Schwartz MD Pelvis X-Ray 07/23/17 0000 Signed Impressions: Service Date/Time: Sunday, July 23, 2017 10:59 - CONCLUSION: The bony pelvic ring is grossly intact. Noel Schwartz MD ADDENDUM: Further view of the radiographs demonstrate a nondisplaced intertrochanteric fracture on the right Duncan Ruiz MD Femur X-Ray 07/23/17 0000 Signed Impressions: Service Date/Time: Sunday, July 23, 2017 11:00 - CONCLUSION: Findings suggestive nondisplaced fracture at the base of the femoral neck and greater trochanter. Noel Schwartz MD Chest X-Ray 07/23/17 0000 Signed Impressions: Service Date/Time: Sunday, July 23, 2017 12:25 - CONCLUSION: 1. No active disease. There is a comminuted fracture of the proximal right humerus. Brock Myrick MD Tubes & Lines: Bryant (GellerHilda davey M. SALT WASHER) Physical Exam General Appearance: Well Developed, Well Nourished, No Acute Distress (GellermannTiffanieHilda M. SALT WASHER) Eyes Eye Exam: Pupils Equal (GellermannTiffanieHilda M. SALT WASHER) Neck Neck Exam: Neck Supple (GellermannTiffanieHilda M. S[employer] WASHER) Pulmonary Resp Exam: Clear Bilaterally, Breath Sounds Equal (GellermannTiffanieHilda M. SALT WASHER) Cardiology CV Exam: Normal Sinus Rhythm, Irregular (AbbelermannTiffanieHilda M. SALT WASHER) Gastrointestinal/Abdomen GI Exam: Soft, Non-Tender, Bowel Sounds Present (AbbelermannHilda M. SALT WASHER) Extremeties Extremities Exam: Trace Edema (GellermannTiffanieHilda M. SALT WASHER) Neurologic Neuro Exam: Alert (AbbelerTiffanie daveyne M. SALT WASHER) Assessment/Plan Problem List: (1) Acute kidney injury ICD Codes: N17.9 - Acute kidney failure, unspecified Status: Acute Plan: Acute kidney injury from ATN with recent contrast. Patient chronic kidney disease stage 4 with baseline creatinine of 1.60 to 1.80 Hemodialysis via Vas cath last time on the . Vas cath was pulled out accidently by patient Creatinine at 2.2 Plan Continue to monitor BMP and urinary output No current need for dialysis. Avoid nephrotoxic agents. (2) Hyperkalemia ICD Codes: E87.5 - Hyperkalemia Plan: Calcium gluconate, D50, insulin, sodium bicarbonate and Kayexalate given resolved (3) Chronic lymphocytic leukemia ICD Codes: C91.10 - Chronic lymphocytic leukemia of B-cell type not having achieved remission Status: Acute Plan: High WBC count (4) TIA (transient ischemic attack) ICD Codes: G45.9 - Transient cerebral ischemic attack, unspecified Status: Acute Plan: Neurology following (5) HTN (hypertension) ICD Codes: I10 - Essential (primary) hypertension Status: Chronic Plan: Monitor blood pressure (6) Fracture of femoral neck, right ICD Codes: S72.001A - Fracture of unspecified part of neck of right femur, initial encounter for closed fracture Plan: Followed by orthopedic (7) Right humeral fracture ICD Codes: S42.301A - Unspecified fracture of shaft of humerus, right arm, initial encounter for closed fracture Plan: Orthopedic surgery following (Hilda Traylor) Problem List: (1) Acute kidney injury ICD Codes: N17.9 - Acute kidney failure, unspecified Status: Acute Plan: Acute kidney injury from ATN with recent contrast. Patient chronic kidney disease stage 4 with baseline creatinine of 1.60 to 1.80 Hemodialysis via Vas cath last time on the . Vas cath was pulled out accidently by patient Creatinine at 2.2 Plan Continue to monitor BMP and urinary output No current need for dialysis. Avoid nephrotoxic agents. Patient seen and examined, agree with above. Creatinine is stable, still not at baseline. For discharge, will follow as out patient. (2) Hyperkalemia ICD Codes: E87.5 - Hyperkalemia Plan: Calcium gluconate, D50, insulin, sodium bicarbonate and Kayexalate given resolved (3) Chronic lymphocytic leukemia ICD Codes: C91.10 - Chronic lymphocytic leukemia of B-cell type not having achieved remission Status: Acute Plan: High WBC count (4) TIA (transient ischemic attack) ICD Codes: G45.9 - Transient cerebral ischemic attack, unspecified Status: Acute Plan: Neurology following (5) HTN (hypertension) ICD Codes: I10 - Essential (primary) hypertension Status: Chronic Plan: Monitor blood pressure (6) Fracture of femoral neck, right ICD Codes: S72.001A - Fracture of unspecified part of neck of right femur, initial encounter for closed fracture Plan: Followed by orthopedic (7) Right humeral fracture ICD Codes: S42.301A - Unspecified fracture of shaft of humerus, right arm, initial encounter for closed fracture Plan: Orthopedic surgery following (Jagdeep Killian MD) Problem Qualifiers (1) Fracture of femoral neck, right: Qualified Codes: S72.001A - Fracture of unspecified part of neck of right femur , initial encounter for closed fracture (2) Right humeral fracture: Qualified Codes: S42.231A - 3-part fracture of surgical neck of right humerus, initial encounter for closed fracture Hilda Traylor Aug 04, 2017 10:36 Jagdeep Killian MD Aug 04, 2017 18:34
--- NOTE | 2017-08-04 11:11 | HHI.PR ---
Subjective Remarks Patient's right-sided dialysis catheter has come out already Hopefully does not need anymore dialysis Seen sitting in the chair She is max assist Does not want to move much We will need to go to SNF at discharge Discussed with patient RN, physical therapy, and counseling case manager 08-04 patient has been accepted at [facility]. [id number] has been signed. Patient can be discharged to the SNF today Discussed with patient and RN and case management and nephrology and has been accepted at [facility] Objective Vitals Vital Signs Date Time Temp Pulse Resp B/P (MAP) Pulse Ox O2 Delivery O2 Flow Rate FiO2 08/04/17 08:00 97.4 76 19 116/54 (74) 98 08/04/17 07:30 Nasal Cannula 3.00 08/04/17 04:05 97.7 88 18 128/56 (80) 98 08/03/17 23:00 97.9 76 18 113/52 (72) 100 08/03/17 20:50 98.2 89 18 140/64 (89) 96 08/03/17 20:00 Nasal Cannula 2.00 08/03/17 16:00 97.5 84 19 128/59 (82) 98 08/03/17 12:00 97.1 86 18 117/56 (76) 99 I/O 08/03/17 08/03/17 08/03/17 08/04/17 08/04/17 08/04/17 07:00 15:00 23:00 07:00 15:00 23:00 Intake Total 360 ml 360 ml Output Total 250 ml 375 ml 600 ml Balance 110 ml -375 ml -240 ml Intake Oral 360 ml 360 ml Output Urine Total 250 ml 375 ml 600 ml # Bowel Movements 0 0 Result Diagram: 08/04/17 0652 08/04/17 06 Other Results Laboratory Tests Test 08/02/17 07:10 08/03/17 04:36 08/04/17 06:52 White Blood Count 92.7 TH/MM3 88.0 TH/MM3 85.5 TH/MM3 Red Blood Count 2.68 MIL/MM3 2.49 MIL/MM3 2.58 MIL/MM3 Hemoglobin 7.9 GM/DL 7.3 GM/DL 7.5 GM/DL Hematocrit 25.5 % 23.5 % 24.6 % Mean Corpuscular Volume 94.9 FL 94.5 FL 95.2 FL Mean Corpuscular Hemoglobin 29.3 PG 29.2 PG 29.2 PG Mean Corpuscular Hemoglobin Concent 30.8 % 30.9 % 30.6 % Red Cell Distribution Width 16.2 % 16.5 % 16.9 % Platelet Count 238 TH/MM3 235 TH/MM3 249 TH/MM3 Mean Platelet Volume 8.3 FL 8.3 FL 8.3 FL Neutrophils (%) (Auto) 9.2 % 9.6 % Lymphocytes (%) (Auto) 89.3 % 88.9 % Monocytes (%) (Auto) 1.2 % 0.9 % Eosinophils (%) (Auto) 0.2 % 0.4 % Basophils (%) (Auto) 0.1 % 0.2 % Neutrophils # (Auto) 8.5 TH/MM3 8.2 TH/MM3 Lymphocytes # (Auto) 82.7 TH/MM3 76.1 TH/MM3 Monocytes # (Auto) 1.1 TH/MM3 0.8 TH/MM3 Eosinophils # (Auto) 0.2 TH/MM3 0.3 TH/MM3 Basophils # (Auto) 0.1 TH/MM3 0.1 TH/MM3 CBC Comment AUTO DIFF AUTO DIFF Differential Total Cells Counted 100 100 Neutrophils % (Manual) 5 % 5 % Lymphocytes % 94 % 93 % Monocytes % 1 % 1 % Neutrophils # (Manual) 4.6 TH/MM3 4.3 TH/MM3 Differential Comment FINAL DIFF MANUAL FINAL DIFF MANUAL Smudge Cells PRESENT PRESENT Platelet Estimate NORMAL NORMAL Platelet Morphology Comment NORMAL NORMAL Ovalocytes 1+ 1+ Blood Urea Nitrogen 53 MG/DL 62 MG/DL 59 MG/DL Creatinine 2.06 MG/DL 2.13 MG/DL 2.22 MG/DL Random Glucose 142 MG/DL 187 MG/DL 169 MG/DL Calcium Level 8.5 MG/DL 9.5 MG/DL 9.9 MG/DL Sodium Level 134 MEQ/L 135 MEQ/L 135 MEQ/L Potassium Level 4.5 MEQ/L 4.2 MEQ/L 4.3 MEQ/L Chloride Level 97 MEQ/L 96 MEQ/L 97 MEQ/L Carbon Dioxide Level 27.8 MEQ/L 32.7 MEQ/L 31.7 MEQ/L Anion Gap 9 MEQ/L 6 MEQ/L 6 MEQ/L Estimat Glomerular Filtration Rate 23 ML/MIN 22 ML/MIN 21 ML/MIN Eosinophils % 1 % Acanthocytes OCC Total Protein 5.3 GM/DL Albumin 2.6 GM/DL Phosphorus Level 3.5 MG/DL Magnesium Level 2.2 MG/DL Alkaline Phosphatase 84 U/L Aspartate Amino Transf (AST/SGOT) 25 U/L Alanine Aminotransferase (ALT/SGPT) 8 U/L Total Bilirubin 1.1 MG/DL Imaging Last Impressions Catheter Placement X-Ray 07/29/17 0600 Signed Impressions: Service Date/Time: Saturday, July 29, 2017 13:52 - CONCLUSION: Uncomplicated line placement as above. Duncan Ruiz MD Renal Ultrasound 07/28/17 0000 Signed Impressions: Service Date/Time: Friday, July 28, 2017 14:44 - CONCLUSION: 1. Limited examination due to patient's inability to cooperate with exam. 2. Left kidney is largely not visualized. Very limited images demonstrate no gross hydronephrosis. 3. Unremarkable right kidney. 4. Bladder not visualized and may be decompressed. Desmond Perdue MD Brain MRI 07/25/17 1903 Signed Impressions: Service Date/Time: Tuesday, July 25, 2017 19:25 - CONCLUSION: Negative for an acute process. There is no restricted diffusion. Shemar Weir MD FACR Neck CTA 07/25/17 0000 Signed Impressions: Service Date/Time: Tuesday, July 25, 2017 18:54 - CONCLUSION: Known occlusion left internal carotid. Minimal calcific plaque right carotid bifurcation. Shemar Weir MD FACR Head CTA 07/25/17 0000 Signed Impressions: Service Date/Time: Tuesday, July 25, 2017 18:54 - CONCLUSION: Negative for major branch vessel occlusion.. Shemar Weir MD FACR Head CT 07/25/17 0000 Signed Impressions: Service Date/Time: Tuesday, July 25, 2017 18:34 - CONCLUSION: Negative for acute process Shemar Weir MD FACR Shoulder X-Ray 07/24/17 0000 Signed Impressions: Service Date/Time: July 10:23 - CONCLUSION: Intraoperative images. Noel Schwartz MD Hip X-Ray 07/24/17 0000 Signed Impressions: Service Date/Time: July 08:59 - CONCLUSION: Internal fixation of the right femoral neck fracture as above. Dwayne Solomon MD Upper Extremity CT 07/23/17 0000 Signed Impressions: Service Date/Time: Sunday, July 23, 2017 13:28 - CONCLUSION: Three-part proximal humeral fracture with significant displacement and rotation of the humeral head and location of the 3 components as above. Noel Schwartz MD Pelvis X-Ray 07/23/17 0000 Signed Impressions: Service Date/Time: Sunday, July 23, 2017 10:59 - CONCLUSION: The bony pelvic ring is grossly intact. Noel Schwartz MD ADDENDUM: Further view of the radiographs demonstrate a nondisplaced intertrochanteric fracture on the right Duncan Ruiz MD Femur X-Ray 07/23/17 0000 Signed Impressions: Service Date/Time: Sunday, July 23, 2017 11:00 - CONCLUSION: Findings suggestive nondisplaced fracture at the base of the femoral neck and greater trochanter. Noel Schwartz MD Chest X-Ray 07/23/17 0000 Signed Impressions: Service Date/Time: Sunday, July 23, 2017 12:25 - CONCLUSION: 1. No active disease. There is a comminuted fracture of the proximal right humerus. Brock Myrick MD Objective Remarks GENERAL: Awake alert and oriented 3 talkative and cooperative SKIN: Warm and dry. HEAD: Atraumatic. Normocephalic. EYES: Pupils equal and round. No scleral icterus. No injection or drainage. Extraocular muscles intact ENT: No nasal bleeding or discharge. Mucous membranes pink and moist. Tongue is midline NECK: Trachea midline. No JVD. Supple CARDIOVASCULAR: IRRegular rate and rhythm. S1-S2 no S3 or S4 no heave or thrill or rub or gallop, irregularly irregular RESPIRATORY: No accessory muscle use. Clear to auscultation. Breath sounds equal bilaterally. GASTROINTESTINAL: Abdomen soft, non-tender, nondistended. Hepatic and splenic margins not palpable. Morbidly obese MUSCULOSKELETAL: Extremities without clubbing, cyanosis, or edema. No obvious deformities. NEUROLOGICAL: Awake and alert. No obvious cranial nerve deficits. Motor grossly within normal limits. 3 out of 5 muscle strength in the arms and legs. abNormal speech. PSYCHIATRIC: INAppropriate mood and affect; insight and judgment ABnormal. Patient is very lethargic Procedures Right hip reduction and intramedullary nail fixation, right shoulder marily- arthroplasty. Right sided hemodialysis catheter temporary Medications and IVs Current Medications Oxycodone/ Acetaminophen (Percocet 5-325 Mg) 2 tab ONCE ONCE PO Last administered on 07/23/17at 13:13; Start 07/23/17 at 13:00; Stop 07/23/17 at 13:01; Status DC Morphine Sulfate (Morphine Inj) 2 mg Q4H PRN IV PUSH BREAKTHROUGH PAIN Last administered on 07/24/17at 00:36; Start 07/23/17 at 13:30; Stop 07/24/17 at 11:47; Status DC Acetaminophen/ Hydrocodone Bitart ([place] 5-325 Mg) 1 tab Q4H PRN PO PAIN 1-5; Start 07/23/17 at 13:30; Stop 07/24/17 at 11:46; Status DC Acetaminophen/ Hydrocodone Bitart ([place] 5-325 Mg) 2 tab Q4H PRN PO PAIN 6-10 Last administered on 07/24/17 03:42; Start 07/23/17 at 13:30; Stop 07/24/17 at 11: 46; Status DC Dextrose (D50w (Vial) Inj) 50 ml UNSCH PRN IV PUSH HYPOGLYCEMIA-SEE COMMENTS; Start 07/23/17 at 13:30 Glucagon (Glucagon Inj) 1 mg UNSCH PRN OTHER HYPOGLYCEMIA-SEE COMMENTS; Start 07/23/17 at 13:30 Insulin Aspart (NovoLOG SUPPLEMENTAL SCALE) 1 ACHS SLIDING SCALE SQ Last administered on 08/04/17at 09:14; Start 07/23/17 at 17:00 Albuterol Sulfate (Albuterol Neb) 2.5 mg Q4HR NEB PRN NEB SOB/WHEEZING; Start 07/23/17 at 13:30 Atorvastatin Calcium (Lipitor) 80 mg HS PO Last administered on 08/03/17 21:25 ; Start 07/23/17 at 21:00 Bumetanide (Bumetanide) 2 mg DAILY PO Last administered on 08/04/17at 09:14; Start 07/24/17 at 09:00; Status Future hold Losartan Potassium (Cozaar) 25 mg DAILY PO ; Start 07/24/17 at 09:00; Status Future Hold Metoprolol Tartrate (Lopressor) 100 mg BID PO Last administered on 4/5/18at 21: 07; Start 07/23/17 at 21:00; Status Future Hold Budesonide/ Formoterol Fumarate (Symbicort 160-4.5 Mcg Inh) 2 puff Q12HR INH Last administered on 08/04/17at 09:20; Start 07/23/17 at 21:00 Lactated Ringer's 1,000 ml @ 30 mls/hr Q24H PRN IV SEE LABEL COMMENTS Last administered on 07/24/17at 06:36; Start 07/24/17 at 01:30; Stop 07/24/17 at 13:10; Status DC Sodium Chloride 500 ml @ 30 mls/hr [id number] PRN IV SEE LABEL COMMENTS; Start 07/24/17 at 01:30; Stop 07/24/17 at 13:10; Status DC Povidone Iodine (Betadine 5% Antisepsis Kit) 1 applic MILK AND CREAM GRADER PRN EACH NARE SEE LABEL COMMENTS; Start 07/24/17 at 01:30; Stop 07/24/17 at 13:10; Status DC Chlorhexidine Gluconate (Chlorhexidine 2% Cloth) 3 pack MILK AND CREAM GRADER PRN TOPICAL SEE LABEL COMMENTS; Start 07/24/17 at 01:30; Stop 07/24/17 at 13:10; Status DC Acetaminophen 100 ml @ As Directed STK-MED ONCE IV ; Start 07/24/17 at 06:38; Stop 07/24/17 at 06:39; Status DC Bupivacaine HCl/ Epinephrine Bitart (Sensorcaine-Epinephrine 0.25% Inj) 50 ml STK-MED ONCE .ROUTE Last administered on 07/24/17 08:44; Start 07/24/17 at 07:23 ; Stop 07/24/17 at 07:24; Status DC Gentamicin Sulfate (Gentamicin Inj) 240 mg STK-MED ONCE .ROUTE Last administered on 07/24/17 08:44; Start 07/24/17 at 07:23; Stop 07/24/17 at 07:24; Status DC Vancomycin HCl (Vancomycin Inj) 1,000 mg STK-MED ONCE .ROUTE Last administered on 07/24/17 08:17; Start 07/24/17 at 07:24; Stop 07/24/17 at 07:25; Status DC Sodium Chloride 250 ml @ As Directed STK-MED ONCE .ROUTE Last administered on 07/24/17 08:17; Start 07/24/17 at 07:24; Stop 07/24/17 at 07:25; Status DC Cefazolin Sodium (Ancef Inj) 2,000 mg STK-MED ONCE .ROUTE Last administered on 07/24/17 08:47; Start 07/24/17 at 08:44; Stop 07/24/17 at 08:45; Status DC Vancomycin HCl (Vancomycin Inj) 2,000 mg STK-MED ONCE .ROUTE Last administered on 07/24/17 10:10; Start 07/24/17 at 09:27; Stop 07/24/17 at 09:28; Status DC Senna/Docusate Sodium (Donna-Colace) 1 tab BID PO Last administered on 09:13; Start 07/24/17 at 21:00 Cefazolin Sodium/ Dextrose 50 ml @ 100 mls/hr Q8H IV ; Start 07/24/17 at 10:45; Stop 07/26/17 at 03:14; Status UNV Acetaminophen/ Hydrocodone Bitart ([place] 10-325 Mg) 1 tab Q3H PRN PO pain 2<10 Last administered on 08/03/17 21:27; Start 07/24/17 at 10:45 Ondansetron HCl (Zofran Inj) 4 mg Q4H PRN IVP NAUSEA OR VOMITING; Start at 10:45 Calcium/Vitamin D (Oscal-D 250-125) 250 mg TID PO Last administered on 09:14; Start 07/24/17 at 13:00 Diphenhydramine HCl (Benadryl) 25 mg Q6H PRN PO ITCHING Last administered on 21:43; Start 07/24/17 at 10:45 Morphine Sulfate (Morphine Inj) 4 mg Q3H PRN IV PUSH break thru pain Last administered on 07/31/17 04:30; Start 07/24/17 at 10:45 Ergocalciferol (Drisdol) 50,000 units Q7D PO Last administered on 07/31/17 12: 46; Start 07/24/17 at 12:00 Cholecalciferol (Vitamin D3) 1,000 units DAILY PO Last administered on 4/16/ 18at 09:14; Start 07/25/17 at 09:00 Fentanyl Citrate (fentaNYL INJ) 200 mcg STK-MED ONCE .ROUTE ; Start 07/24/17 at 11:05; Stop 07/24/17 at 11:06; Status DC Cefazolin Sodium 2000 mg/Sodium Chloride 120 ml @ 240 mls/hr Q8H IV Last administered on 07/26/17at 09:04; Start 07/24/17 at 17:00; Stop 07/26/17 at 09:29; Status DC Miscellaneous Information ALL NURSING DEPARTME... UNSCH PRN .XX SEE LABEL COMMENTS; Start 07/24/17 at 11:00; Stop 07/25/17 at 10:59; Status DC Sodium Chloride 250 ml @ 15 mls/hr ONCE ONCE IV Last administered on 14:30; Start 07/25/17 at 08:00; Stop 07/26/17 at 00:39; Status DC Furosemide (Lasix Inj) 20 mg ONCE ONCE IV PUSH Last administered on 07/25/17at 17:16; Start 07/25/17 at 14:00; Stop 07/25/17 at 14:01; Status DC Apixaban (Eliquis) 2.5 mg BID PO Last administered on 08/04/17at 09:14; Start at 21:00 Sodium Chloride 200 ml @ 999 mls/hr BOLUS ONCE IV Last administered on 19:00; Start 07/25/17 at 19:00; Stop 07/25/17 at 19:12; Status DC Iodixanol (VISIPAQUE 320 INJ (Rad CT)) 100 ml STK-MED ONCE IVCONTRAST Last administered on 07/25/17at 18:57; Start 07/25/17 at 18:57; Stop 07/25/17 at 18:58; Status DC Insulin Human Regular (NovoLIN R INJ) 10 units ONCE ONCE IV PUSH Last administered on 07/25/17 22:00; Start 07/25/17 at 21:00; Stop 07/25/17 at 21:13; Status DC Dextrose (D50w (Vial) Inj) 50 ml ONCE ONCE IV PUSH Last administered on 22:00; Start 07/25/17 at 21:00; Stop 07/25/17 at 21:13; Status DC Calcium Gluconate (Calcium Gluconate Inj) 1 gm ONCE ONCE IV PUSH ; Start at 21:00; Stop 07/25/17 at 21:13; Status DC Sodium Bicarbonate 75 meq/Sodium Chloride 1,075 ml @ 30 mls/hr Q24H IV Last administered on 07/30/17at 10:56; Start 07/25/17 at 21:00; Stop 08/02/17 at 13:29 ; Status DC Calcium Gluconate (Calcium Gluconate Inj) 1 gm ONCE ONCE SLOW IVP Last administered on 07/25/17at 21:30; Start 07/25/17 at 21:30; Stop 07/25/17 at 21:31; Status DC Insulin Human Regular (NovoLIN R INJ) 8 units ONCE ONCE IV PUSH ; Start at 21:30; Stop 07/25/17 at 21:31; Status DC Dextrose (D50w (Vial) Inj) 50 ml ONCE ONCE IV PUSH ; Start 07/25/17 at 21:30; Stop 07/25/17 at 21:31; Status DC Sodium Bicarbonate (Sodium Bicarbonate 8.4% Inj) 50 meq ONCE ONCE SLOW IVP Last administered on 07/25/17at 22:03; Start 07/25/17 at 21:30; Stop 07/25/17 at 21: 31; Status DC Sodium Polystyrene Sulfonate (Kayexalate Liq) 15 gm ONCE ONCE PO Last administered on 07/25/17at 22:00; Start 07/25/17 at 21:30; Stop 07/25/17 at 21:31; Status DC Metoprolol Tartrate (Lopressor) 25 mg DAILY PO Last administered on 07/27/17at 09 :34; Start 07/27/17 at 09:00; Stop 07/27/17 at 10:01; Status DC Metoprolol Tartrate (Lopressor) 25 mg BID PO Last administered on 08/04/17at 09: 14; Start 07/27/17 at 21:00 Furosemide (Lasix Inj) 80 mg ONCE ONCE IV PUSH Last administered on 07/27/17at 18:07; Start 07/27/17 at 18:00; Stop 07/27/17 at 18:01; Status DC Magnesium Hydroxide (Milk Of Magnesia Liq) 30 ml DAILY PRN PO CONSTIPATION Last administered on 08/02/17at 10:18; Start 07/28/17 at 03:45 Lidocaine HCl (Xylocaine-Mpf 1% Inj) 5 ml STK-MED ONCE OTHER ; Start 07/24/17 at 12:00; Stop 07/28/17 at 09:16; Status DC Rocuronium [place] (Zemuron Inj) 50 mg STK-MED ONCE IV PUSH ; Start 07/24/17 at 12:00; Stop 07/28/17 at 09:16; Status DC Neostigmine Methylsulfate (Prostigmine Inj) 5 mg STK-MED ONCE IV PUSH ; Start at 12:00; Stop 07/28/17 at 09:16; Status DC Glycopyrrolate (Robinul Inj) 1 mg STK-MED ONCE IV PUSH ; Start 07/24/17 at 12:00 ; Stop 07/28/17 at 09:16; Status DC Phenylephrine HCl (Neosynephrine/ NS 1000 Mcg/10ml Syr) 1,000 mcg STK-MED ONCE IV ; Start 07/24/17 at 12:00; Stop 07/28/17 at 09:16; Status DC Phenylephrine HCl (Neosynephrine Inj) 10 mg STK-MED ONCE IV ; Start 07/24/17 at 12:00; Stop 07/28/17 at 09:16; Status DC Dexamethasone Sodium Phosphate (Decadron Inj) 4 mg STK-MED ONCE IV ; Start at 12:00; Stop 07/28/17 at 09:16; Status DC Ondansetron HCl (Zofran Inj) 4 mg STK-MED ONCE IV ; Start 07/24/17 at 12:00; Stop 07/28/17 at 09:16; Status DC Propofol (Diprivan 200 Mg/20 ml Inj) 200 mg STK-MED ONCE IV ; Start 07/24/17 at 12:00; Stop 07/28/17 at 09:16; Status DC Insulin Detemir (Levemir Inj) 10 units HS SQ Last administered on 08/03/17at 21: 24; Start 07/28/17 at 21:00 Furosemide (Lasix Inj) 80 mg ONCE ONCE IV PUSH Last administered on 07/28/17at 20:45; Start 07/28/17 at 20:00; Stop 07/28/17 at 20:01; Status DC Sodium Chloride 1,000 ml @ 0 mls/hr Q0M PRN OTHER For Prime & Rinse Back; Start 07/29/17 at 11:35 Heparin Sodium (Porcine) (Heparin Inj) 8,000 units UNSCH PRN IV FLUSH WITH DIALYSIS; Start 07/29/17 at 11:45 Sodium Chloride 1,000 ml @ 200 mls/hr Q5H PRN IV WITH DIALYSIS; Start 07/29/17 at 11:35 Sodium Chloride 1,000 ml @ 0 mls/hr Q0M PRN OTHER WITH DIALYSIS; Start at 11:35 Mannitol (Mannitol Inj) 12.5 gm UNSCH PRN IV WITH DIALYSIS; Start 07/29/17 at 11:45 Albumin Human 100 ml @ 60 mls/hr UNSCH PRN IV WITH DIALYSIS; Start 07/29/17 at 11:45 Sodium Chloride (NS Flush) 5 ml UNSCH PRN IV FLUSH WITH DIALYSIS; Start at 11:45 Heparin Sodium (Porcine) (Heparin Inj) UNSCH PRN .XX WITH DIALYSIS Last administered on 07/30/17at 18:12; Start 07/29/17 at 11:45 Gentamicin Sulfate (Gentamicin Inj) 20 mg UNSCH PRN OTHER WITH DIALYSIS Last administered on 07/29/17at 16:24; Start 07/29/17 at 11:45 Ondansetron HCl (Zofran Inj) 4 mg UNSCH PRN IV PUSH WITH DIALYSIS; Start at 11:45 Acetaminophen (Tylenol) 650 mg UNSCH PRN PO for headach, pain, temp > 101F; Start 07/29/17 at 11:45 Diphenhydramine HCl (Benadryl) 25 mg UNSCH PRN PO for hives/itching/anaphylaxis ; Start 07/29/17 at 11:45 Nitroglycerin (Nitrostat Sl) 0.4 mg UNSCH PRN SL CHEST PAIN; Start 07/29/17 at 11:45 Clonidine (Catapres) 0.1 mg UNSCH PRN PO for BP > 180/100 X 2 readings; Start 07/29/17 at 11:45 Epoetin Eliazar (Epogen Inj) 4,000 units UNSCH PRN IV PUSH WITH DIALYSIS Last administered on 07/29/17at 15:33; Start 07/29/17 at 11:45 Gelatin (Gelfoam 12 Mm/7 Mm Top) 1 foam UNSCH PRN TOP SEE LABEL COMMENTS; Start 07/29/17 at 11:45 Heparin Sodium (Porcine) (*HEPARIN INJ Periprocedural ONLY) 10,000 units STK- MED ONCE .ROUTE ; Start 07/29/17 at 13:31; Stop 07/29/17 at 13:32; Status DC Sodium Chloride (NS Flush) UNSCH PRN IV FLUSH SEE PROTOCOL; Start 07/29/17 at 14:00 Heparin Sodium (Porcine) (Heparin Inj) UNSCH PRN IV FLUSH SEE PROTOCOL Last administered on 07/29/17at 16:23; Start 07/29/17 at 14:00 Simethicone (Mylicon Chew) 80 mg ONCE ONCE CHEW Last administered on at 17:55; Start 08/02/17 at 13:45; Stop 08/02/17 at 13:46; Status DC A/P Problem List: (1) Right humeral fracture ICD Code: S42.301A - Unspecified fracture of shaft of humerus, right arm, initial encounter for closed fracture (2) Fracture of femoral neck, right ICD Code: S72.001A - Fracture of unspecified part of neck of right femur, initial encounter for closed fracture Assessment and Plan This is an 87-year-old female who had a right humerus and femoral neck fracture after a fall Right humerus and femoral neck fracture after a fall s/p Right hip reduction and intramedullary nail fixation, right shoulder marily-arthroplasty. continue with pain control, will need rehab, nonweightbearing right upper extremity, weightbearing as tolerated right lower extremity Episode of expressive aphasia ( stroke alert) - now has resolved- possible TIA. CT and MRI brain with no acute infarct. 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 echo pending. neurology f/u appreciated and signed off. consulted ST. Anemia- acute on chronic due to blood [id number]; transfused with PRBC, hemoglobin is stable Acute kidney injury superimposed on chronic renal insufficiency; possibly contrast-induced; creatinine is trending up, received Lasix 07/28/2017, still worsening creatinine, renal ultrasound normal right kidney, and visualized left kidney. Nephrology following, on one half normal saline with bicarb, for possible hemodialysis, for Vas-Cath placement 4-10 by interventional radiology Patient pulled her own vas catheter Atrial fibrillation; mildly tachycardic- resumed metoprolol- resumed eliquis . Diabetes mellitus 2: start on levemir- continue accu-check with SSI- will monitor and adjust the regimen as needed. Asthma; resumed symbicort- neb treatment as needed CLL- f/u as outpatient DVT prophylaxis; resumed Eliquis . Discussed with . We will need SNF at discharge Is not mobile enough to go home Has been accepted to SNF today will go to [place] rehab Discharge Planning PENDING ORTHO IMPROVEMENT And renal improvement WILL NEED SNF Problem Qualifiers (1) Right humeral fracture: Qualified Codes: S42.231A - 3-part fracture of surgical neck of right humerus, initial encounter for closed fracture (2) Fracture of femoral neck, right: Qualified Codes: S72.001A - Fracture of unspecified part of neck of right femur , initial encounter for closed fracture Shemar Davila DO Aug 04, 2017 11:11
[2017-08-04] MEDS ORDERED: BENA25CA4 PO (11:18)
[2017-08-04] MEDS ORDERED: PERI PO (11:18)
[2017-08-04] MEDS ORDERED: LEVEMIR SQ (11:18)
[2017-08-04] MEDS ORDERED: BUME2TAB PO (11:18)
[2017-08-04] MEDS ORDERED: ACET325T15 PO (11:18)
[2017-08-04] MEDS ORDERED: APIX2.5T PO (11:18)
[2017-08-04] MEDS ORDERED: CLON.1 PO (11:18)
--- NOTE | 2017-08-04 11:24 | HHI.DS ---
Discharge Summary Admission Date Jul 23, 2017 at 13:42 Discharge Date: Aug 04, 2017 Admitting Diagnosis right humerus/ femoral neck fractures (1) Right humeral fracture ICD Code: S42.301A - Unspecified fracture of shaft of humerus, right arm, initial encounter for closed fracture Diagnosis: Principal (2) Fracture of femoral neck, right ICD Code: S72.001A - Fracture of unspecified part of neck of right femur, initial encounter for closed fracture Diagnosis: Principal (3) Chronic kidney disease ICD Code: N18.9 - Chronic kidney disease, unspecified Diagnosis: Principal Status: Acute (4) Acute kidney injury ICD Code: N17.9 - Acute kidney failure, unspecified Diagnosis: Principal Status: Acute (5) HTN (hypertension) ICD Code: I10 - Essential (primary) hypertension Diagnosis: Secondary Status: Chronic (6) Chronic lymphocytic leukemia ICD Code: C91.10 - Chronic lymphocytic leukemia of B-cell type not having achieved remission Diagnosis: Secondary Status: Acute (7) TIA (transient ischemic attack) ICD Code: G45.9 - Transient cerebral ischemic attack, unspecified Diagnosis: Principal Status: Acute (8) DM (diabetes mellitus) ICD Code: E11.9 - Type 2 diabetes mellitus without complications Diagnosis: Secondary Status: Chronic (9) CLL (chronic lymphocytic leukemia) ICD Code: C91.10 - Chronic lymphocytic leukemia of B-cell type not having achieved remission Diagnosis: Secondary Status: Chronic (10) Anemia ICD Code: D64.9 - Anemia, unspecified Diagnosis: Secondary Status: Acute (11) Weakness ICD Code: R53.1 - Weakness Diagnosis: Secondary Status: Acute Procedures Right hip reduction and intramedullary nail fixation, right shoulder marily- arthroplasty. Right sided hemodialysis catheter temporary Brief History - From Admission patient is a 87 y/o female with history of CLL,atrial fibrillation, asthma, diabetes mellitus, chronic renal insufficiency,who presented to ER after she fell earlier today. she says that she was walking outside the house when she fell on her right side after which she started to have some pain to the right shoulder and hip. she denies any prodromal symptoms including chest pain, sob or dizziness. there's no report of syncopal episode or head trauma. pain was moderate at the time of my evaluation.she denies any abdominal pain, nausea or vomiting. CBC/BMP: 08/04/17 0652 08/04/17 0652 Significant Findings Laboratory Tests Test 08/02/17 07:10 08/03/17 04:36 08/04/17 06:52 White Blood Count 92.7 TH/MM3 (4.0-11.0) 88.0 TH/MM3 (4.0-11.0) 85.5 TH/MM3 (4.0-11.0) Red Blood Count 2.68 MIL/MM3 (4.00-5.30) 2.49 MIL/MM3 (4.00-5.30) 2.58 MIL/MM3 (4.00-5.30) Hemoglobin 7.9 GM/DL (11.6-15.3) 7.3 GM/DL (11.6-15.3) 7.5 GM/DL (11.6-15.3) Hematocrit 25.5 % (35.0-46.0) 23.5 % (35.0-46.0) 24.6 % (35.0-46.0) Mean Corpuscular Hemoglobin Concent 30.8 % (32.0-36.0) 30.9 % (32.0-36.0) 30.6 % (32.0-36.0) Neutrophils (%) (Auto) 9.2 % (16.0-70.0) 9.6 % (16.0-70.0) Lymphocytes (%) (Auto) 89.3 % (9.0-44.0) 88.9 % (9.0-44.0) Neutrophils # (Auto) 8.5 TH/MM3 (1.8-7.7) 8.2 TH/MM3 (1.8-7.7) Lymphocytes # (Auto) 82.7 TH/MM3 (1.0-4.8) 76.1 TH/MM3 (1.0-4.8) Monocytes # (Auto) 1.1 TH/MM3 (0-0.9) Neutrophils % (Manual) 5 % (16-70) 5 % (16-70) Lymphocytes % 94 % (9-44) 93 % (9-44) Ovalocytes 1+ (NORMAL) 1+ (NORMAL) Blood Urea Nitrogen 53 MG/DL (7-18) 62 MG/DL (7-18) 59 MG/DL (7-18) Creatinine 2.06 MG/DL (0.50-1.00) 2.13 MG/DL (0.50-1.00) 2.22 MG/DL (0.50-1.00) Random Glucose 142 MG/DL (74-106) 187 MG/DL (74-106) 169 MG/DL (74-106) Sodium Level 134 MEQ/L (136-145) 135 MEQ/L (136-145) 135 MEQ/L (136-145) Chloride Level 97 MEQ/L (98-107) 96 MEQ/L (98-107) 97 MEQ/L (98-107) Estimat Glomerular Filtration Rate 23 ML/MIN (>89) 22 ML/MIN (>89) 21 ML/MIN (>89) Carbon Dioxide Level 32.7 MEQ/L (21.0-32.0) Acanthocytes OCC (NORMAL) Total Protein 5.3 GM/DL (6.4-8.2) Albumin 2.6 GM/DL (3.4-5.0) Alanine Aminotransferase (ALT/SGPT) 8 U/L (10-53) Total Bilirubin 1.1 MG/DL (0.2-1.0) Imaging Last Impressions Catheter Placement X-Ray 07/29/17 0600 Signed Impressions: Service Date/Time: Saturday, July 29, 2017 13:52 - CONCLUSION: Uncomplicated line placement as above. Duncan Ruiz MD Renal Ultrasound 07/28/17 0000 Signed Impressions: Service Date/Time: Friday, July 28, 2017 14:44 - CONCLUSION: 1. Limited examination due to patient's inability to cooperate with exam. 2. Left kidney is largely not visualized. Very limited images demonstrate no gross hydronephrosis. 3. Unremarkable right kidney. 4. Bladder not visualized and may be decompressed. Desmond Perdue MD Brain MRI 07/25/17 1903 Signed Impressions: Service Date/Time: Tuesday, July 25, 2017 19:25 - CONCLUSION: Negative for an acute process. There is no restricted diffusion. Shemar Weir MD FACR Neck CTA 07/25/17 0000 Signed Impressions: Service Date/Time: Tuesday, July 25, 2017 18:54 - CONCLUSION: Known occlusion left internal carotid. Minimal calcific plaque right carotid bifurcation. Shemar Weir MD FACR Head CTA 07/25/17 0000 Signed Impressions: Service Date/Time: Tuesday, July 25, 2017 18:54 - CONCLUSION: Negative for major branch vessel occlusion.. Shemar Weir MD FACR Head CT 07/25/17 0000 Signed Impressions: Service Date/Time: Tuesday, July 25, 2017 18:34 - CONCLUSION: Negative for acute process Shemar Weir MD FACR Shoulder X-Ray 07/24/17 Signed Impressions: Service Date/Time: July 10:23 - CONCLUSION: Intraoperative images. Noel Schwartz MD Hip X-Ray 07/24/17 0000 Signed Impressions: Service Date/Time: July 08:59 - CONCLUSION: Internal fixation of the right femoral neck fracture as above. Dwayne Solomon MD Upper Extremity CT 07/23/17 0000 Signed Impressions: Service Date/Time: Sunday, July 23, 2017 13:28 - CONCLUSION: Three-part proximal humeral fracture with significant displacement and rotation of the humeral head and location of the 3 components as above. Noel Schwartz MD Pelvis X-Ray 07/23/17 0000 Signed Impressions: Service Date/Time: Sunday, July 23, 2017 10:59 - CONCLUSION: The bony pelvic ring is grossly intact. Noel Schwartz MD ADDENDUM: Further view of the radiographs demonstrate a nondisplaced intertrochanteric fracture on the right Duncan Ruiz MD Femur X-Ray 07/23/17 0000 Signed Impressions: Service Date/Time: Sunday, July 23, 2017 11:00 - CONCLUSION: Findings suggestive nondisplaced fracture at the base of the femoral neck and greater trochanter. Noel Schwartz MD Chest X-Ray 07/23/17 0000 Signed Impressions: Service Date/Time: Sunday, July 23, 2017 12:25 - CONCLUSION: 1. No active disease. There is a comminuted fracture of the proximal right humerus. Brock Myrick MD PE at Discharge GENERAL: Awake alert and oriented 3 talkative and cooperative SKIN: Warm and dry. HEAD: Atraumatic. Normocephalic. EYES: Pupils equal and round. No scleral icterus. No injection or drainage. Extraocular muscles intact ENT: No nasal bleeding or discharge. Mucous membranes pink and moist. Tongue is midline NECK: Trachea midline. No JVD. Supple CARDIOVASCULAR: IRRegular rate and rhythm. S1-S2 no S3 or S4 no heave or thrill or rub or gallop, irregularly irregular RESPIRATORY: No accessory muscle use. Clear to auscultation. Breath sounds equal bilaterally. GASTROINTESTINAL: Abdomen soft, non-tender, nondistended. Hepatic and splenic margins not palpable. Morbidly obese MUSCULOSKELETAL: Extremities without clubbing, cyanosis, or edema. No obvious deformities. NEUROLOGICAL: Awake and alert. No obvious cranial nerve deficits. Motor grossly within normal limits. 3 out of 5 muscle strength in the arms and legs. abNormal speech. PSYCHIATRIC: INAppropriate mood and affect; insight and judgment ABnormal. Patient is very lethargic Hospital Course patient is a 87 y/o female with history of CLL,atrial fibrillation, asthma, diabetes mellitus, chronic renal insufficiency,who presented to ER after she fell earlier today. she says that she was walking outside the house when she fell on her right side after which she started to have some pain to the right shoulder and hip. she denies any prodromal symptoms including chest pain, sob or dizziness. there's no report of syncopal episode or head trauma. pain was moderate at the time of my evaluation.she denies any abdominal pain, nausea or vomiting. Patient's right-sided dialysis catheter has come out already Hopefully does not need anymore dialysis Seen sitting in the chair She is max assist Does not want to move much We will need to go to SNF at discharge Discussed with patient RN, physical therapy, and [employer]er [employer] 4-16 patient has been accepted at [facility]. [id number] has been signed. Patient can be discharged to the SNF today Discussed with patient and RN and case management and nephrology and has been accepted at [facility] HAS BEEN CLEARED BY ORTHO AND NEPHROLOGY HAD SURGERIES HD CATHETER IS OUT NO MORE NEED FOR HD AT THIS TIME CAN BE DCED TO SNF TODAY DW AND RN AND CM AND PT AND NURSING AND NEPHROLOGY Pt Condition on Discharge: Good Discharge Disposition: Discharge to SNF Discharge Time: > 30 minutes Discharge Instructions DIET: Follow Instructions for: Heart Healthy Diet, Diabetic Diet Speech Therapy-Diet Recommends: Regular Activities you can perform: Partial Weight Bearing Follow up Referrals: Nephrology - 2 Weeks with Pillo Medina MD Orthopedics - 2 Weeks [facility] with George Hernandez MD PCP Follow-up - 1 Week with Michael Henderson MD New Medications: Calcium Carbonate-Vitamin D (Calcium 600+D 200) 600-200 Mg-Unit Tab 1 TAB PO BID for Nutritional Supplement, #60 TAB 0 Refills Cholecalciferol (Vitamin D3) 2,000 Unit Cap 2000 UNITS PO DAILY for Nutritional Supplement, #56 CAP 0 Refills Ergocalciferol (Ergocalciferol) 50,000 Unit Cap 22762 UNITS PO Q7D for Nutritional Supplement, #8 CAP Hydrocodone-Acetaminophen (Hydrocodone-Acetaminophen) 7.5 Mg-325 Mg Tab 1 TAB PO Q4H PRN for PAIN, #60 TAB 0 Refills Wheelchair (Wheelchair) 1 Mis Mis EA .XX DIRECTED, #1 0 Refills Acetaminophen (Eq Acetaminophen) 325 Mg Tab 650 MG PO UNSCH PRN for for headach, pain, temp > 101F, #120 TAB Clonidine (Catapres) 0.1 Mg Tab 0.1 MG PO UNSCH PRN for for BP > 180/100 X 2 readings, #60 TAB Diphenhydramine HCl (Benadryl Allergy) 25 Mg Cap 25 MG PO Q6H PRN for ITCHING, #60 CAP Insulin Detemir Inj (Levemir Inj) 1,000 unit/ 10 ML Vial 10 UNITS SQ HS for Blood Sugar Management, #5 VIAL Do not mix with any other Insulin. Sennosides-Docusate Sodium (Gnp Senna Plus 8.6-50 mg) 8.6 Mg-50 Mg Tab 2 TAB PO BID for Constipation, #120 TAB Continued Medications: Albuterol 18 GM Inh (Ventolin Hfa 18 GM Inh) 90 Mcg/Act Aer 2 PUFF INH Q4-6H PRN for SHORTNESS OF BREATH, #1 INHALER 0 Refills Albuterol Neb (Albuterol Neb) 2.5 Mg/3 Ml Neb 2.5 MG NEB Q4HR PRN for SOB/WHEEZING, #1 NEBULE 0 Refills Apixaban (Eliquis) 2.5 Mg Tab 2.5 MG PO BID for Blood Clot Prevention, #62 TAB 0 Refills (This prescription has been renewed) Aspirin (Aspirin) 81 Mg Chew 81 MG CHEW DAILY, TAB 0 Refills Atorvastatin (Lipitor) 80 Mg Tab 80 MG PO HS for Cholesterol Management, #30 TAB 0 Refills Bumetanide (Bumetanide) 2 Mg Tab 2 MG PO DAILY for Blood Pressure Management, #30 TAB 0 Refills (This prescription has been renewed) Cod Liver Oil (Cod Liver Oil) 1 Each Capsule 1 TAB PO DAILY Coenzyme Q10 (Ubidecarenone) (Co Q 10) 100 Mg Cap 200 MG PO DAILY Ipratropium HFA 12.9 GM Inh (Atrovent HFA 12.9 GM Inh) 17 Mcg/Actuation Aer 2 PUFF INH Q6HR PRN for SHORTNESS OF BREATH, #1 INHALER 0 Refills Metoprolol Tartrate (Metoprolol Tartrate) 100 Mg Tab 100 MG PO BID, #60 TAB 0 Refills Multiple Vitamins W/ Minerals (Centrum) 1 Chew 1 TAB CHEW DAILY for Nutritional Supplement, TAB 0 Refills [Budeson-Formot 160-4.5 Mg Inh] () 60 PUFF AERO 2 PUFF INH Q12HR for Breathing Treatment, #1 Discontinued Medications: Insulin Detemir Inj (Levemir Inj) 1,000 unit/ 10 ML Vial 50 UNITS SQ HS for Blood Sugar Management, VIAL 0 Refills Do not mix with any other Insulin. Losartan (Losartan) 25 Mg Tab 25 MG PO DAILY for Blood Pressure Management, #30 TAB 0 Refills Shemar Davila DO Aug 04, 2017 11:24
[2017-08-04 12:00] VITALS: BP 126/58; PULSE 72; RESP 19; TEMP 97.7; O2SAT 97
--- NOTE | 2017-08-04 15:58 | PD.WCN.NOT ---
Wound Consult Description: Patient seen at the request of MIKE Cobb and patient's spouse for follow up of DTIs to coccyx Communicated with: MIKE Cobb Schwdebbi Recommendation: 1.Please cleanse unroofed bullae with normal saline and pat dry Apply Xeroform in a single layer just over open wounds. If draining may cover with dry 4x4 gauze and secure with minimal paper tape. Change daily. Please apply Cavilon skin barrier film (skin prep) to intact skin before applying paper tape to skin. 2. Please leave roofed intact bullae open to air and spray with Cavilon skin barrier film BID 3. Cleanse stage 3 pressure injuries to L buttock and gluteal cleft with normal saline or wound cleanser. Apply skin barrier film to periwound and cover wound with Adhesive foam dressing. Change dressing every 3 days or PRN if saturated or dislodged. 4. Use ultra sorb pads only for moisture and incontinence management. 5. Please turn patient every 2 hours and PRN for comfort and offloading of pressure from baldo prominences. Additional Information: Patient seen on for follow up of DTIs to coccyx and bilateral buttocks. Patient was positioned to L side for wound assessment. Patinet is noted with shallow full thickness wounds to gluteal cleft, coccyx, L inner buttock and R inner buttock. Wound bed present with ~70% adipose tissue and ~30% pink tissue. All open wounds were cleansed with normal saline and patted dry. Wound to coccyx / gluteal cleft/ inner L buttock measures ~3.3cm x ~1.5cm x ~0.1cm. R inner buttock wound measures ~1.3cm x ~1cm x ~0.1cm. Cavilon skin prep was sprayed to periwound before covering wound with adhesive foam dressing. Neg Pressure Wound Therapy Wound Location Wound Location: Received consult from MARYANN Bradford for wound management of R hip wound Nori Lewis Aug 04, 2017 15:58
== END 2017-08-04 14:25 | DRG 480 ==
LOC: NEPC 10:18 → NEDA 13:42 → N06B 16:21 → N03A 07-25 19:52 → N06B 07-26 13:51 → N03A 07-26 14:08 → N06B 07-26 16:48
PROVIDERS: ADMIT Hospitalist; ATTEND Hospitalist
PROC: 0QS636Z Reposition Right Upper Femur with Intramedullary Internal Fixation Device, Percutaneous Approach (ICD-10-PCS; principal; 2017-07-24 08:15)
PROC: 0RRJ0J6 Replacement of Right Shoulder Joint with Synthetic Substitute, Humeral Surface, Open Approach (ICD-10-PCS; 2017-07-24 08:15)
PROC: 30233N1 Transfusion of Nonautologous Red Blood Cells into Peripheral Vein, Percutaneous Approach (ICD-10-PCS; 2017-07-25)
PROC: 05HM33Z Insertion of Infusion Device into Right Internal Jugular Vein, Percutaneous Approach (ICD-10-PCS; 2017-07-29)
PROC: 5A1D70Z Performance of Urinary Filtration, Intermittent, Less than 6 Hours Per Day (ICD-10-PCS; 2017-07-29)
DX: S72.111A Displaced fracture of greater trochanter of right femur, initial encounter for closed fracture (principal); S42.241A 4-part fracture of surgical neck of right humerus, initial encounter for closed fracture; N17.0 Acute kidney failure with tubular necrosis; N17.8 Other acute kidney failure; N18.4 Chronic kidney disease, stage 4 (severe); C91.10 Chronic lymphocytic leukemia of B-cell type not having achieved remission; D62 Acute posthemorrhagic anemia; G45.9 Transient cerebral ischemic attack, unspecified; E11.22 Type 2 diabetes mellitus with diabetic chronic kidney disease; I48.91 Unspecified atrial fibrillation; I12.9 Hypertensive chronic kidney disease with stage 1 through stage 4 chronic kidney disease, or unspecified chronic kidney disease; Z79.01 Long term (current) use of anticoagulants; E78.00 Pure hypercholesterolemia, unspecified; G47.30 Sleep apnea, unspecified; Z79.82 Long term (current) use of aspirin; Z87.891 Personal history of nicotine dependence; W01.0XXA Fall on same level from slipping, tripping and stumbling without subsequent striking against object, initial encounter; Y93.01 Activity, walking, marching and hiking; J45.909 Unspecified asthma, uncomplicated; Y92.007 Garden or yard of unspecified non-institutional (private) residence as the place of occurrence of the external cause; K64.9 Unspecified hemorrhoids; M19.90 Unspecified osteoarthritis, unspecified site; S30.1XXA Contusion of abdominal wall, initial encounter; E87.5 Hyperkalemia; D50.0 Iron deficiency anemia secondary to blood loss (chronic); R23.8 Other skin changes; S31.829A Unspecified open wound of left buttock, initial encounter; S31.819A Unspecified open wound of right buttock, initial encounter; S31.000A Unspecified open wound of lower back and pelvis without penetration into retroperitoneum, initial encounter; X58.XXXA Exposure to other specified factors, initial encounter; Y93.89 Activity, other specified; Y92.239 Unspecified place in hospital as the place of occurrence of the external cause
CPT/HCPCS: 36430; 36556; 36600; 70450; 70496; 70498; 70551; 71045; 72170; 73030; 73200; 73502; 73552; 76000; 76775; 76937; 77001; 80048; 80053; 80074; 81001; 82550; 82552; 82805; 82948; 83036; 83735; 84100; 84439; 84443; 84484; 85007; 85014; 85018; 85027; 85384; 85610; 85730; 86850; 86900; 86901; 86920; 87086; 90935; 93005; 93306; 95819; 96374; 96375; C1713; C1752; C1776; J0131; J0610; J0690; J1100; J1580; J1644; J1815; J1940; J2270; J2370; J2405; J2710; J3010; J3370; J7050; J7120; P9016; Q4081; Q9967

== ENCOUNTER 2017-11-22 07:09 | Inpatient (IN) ==
[2017-11-22 07:50] LABS: ABG PCO2 48 mmHg (38-42); ABG PO2 93 mmHg (61-120)
--- NOTE | 2017-11-22 08:14 | ED ---
HPI General Chief complaint: Respiratory Symptoms Stated complaint: SOB Time Seen by Provider: 11/22/17 07:26 History of Present Illness HPI narrative: 87-year-old female history of A. fib, diabetes, CLL, COPD and hypertension here for evaluation of shortness of breath. Patient stays shortness of breath started 3 days ago, bilateral leg swelling, seen her primary doctor and that she increased her Lasix from for 40mg once a day to 40 mg 2 times a day but patient continues to have shortness of breath so she came to the ER. She has no chest pain or fever, no cough or chills or night sweats. She has history of COPD and steroid inhalers but she has not tried that recently. She can only walk half a block without getting short of breath and states that her legs feel heavy. Related Data Home Medications Medication Instructions Recorded Confirmed apixaban [Eliquis] 2.5 mg PO BID 11/22/17 11/22/17 aspirin 81 mg PO DAILY 11/22/17 11/22/17 atorvastatin 80 mg PO DAILY 11/22/17 11/22/17 cod liver oil 1 cap PO DAILY 11/22/17 11/22/17 coenzyme Q10 [CoQ-10] 100 mg PO DAILY 11/22/17 11/22/17 furosemide 40 mg PO BID 11/22/17 11/22/17 insulin detemir U-100 [Levemir 50 unit SUB-Q QPM 11/22/17 11/22/17 U-100 Insulin] ipratropium-albuterol 3 ml INHALATION Q6-8H PRN 11/22/17 11/22/17 losartan 25 mg PO DAILY 11/22/17 11/22/17 metoprolol tartrate 100 mg PO BID 11/22/17 11/22/17 fmihgurqzowg-dijy-phupm acid 1 tab PO DAILY 11/22/17 11/22/17 [Centrum Women] Previous Rx's Medication Instructions Recorded cephalexin [Keflex] 500 mg PO TID #15 cap 11/26/17 Allergies Allergy/AdvReac Type Severity Reaction Status Date / Time adhesive tape Allergy Severe PATIENT Verified 11/26/17 00:49 GETS BLISTERS pregabalin Allergy Severe Anaphylaxis Verified 11/26/17 00:49 Review of Systems Except as stated in HPI: all other systems reviewed are negative [facility] Family History Family History Other Family history non-contributory Social History Social History Substance History: No History of Abuse Second Hand Smoke Exposure: No Smoking Status: Former smoker Tobacco Type: Cigarettes How Often Do You Have a Drink Containing Alcohol: Never Recent Travel in [facility] within the Last 8 Weeks: No Recent Out of Country Travel within the Last 8 Weeks: No Immunization History Tetanus Immunization: Unsure Hx Influenza Vaccine This Season: Yes Exam Narrative Exam Narrative: GENERAL: Alert oriented 3 no acute distress. SKIN: Focused skin assessment warm/dry. HEAD: Atraumatic. Normocephalic. EYES: Pupils equal and round. No scleral icterus. No injection or drainage. ENT: No nasal bleeding or discharge. Mucous membranes pink and moist. NECK: Trachea midline. No JVD. CARDIOVASCULAR: Regular rate and rhythm. No murmur appreciated. RESPIRATORY: Decreased breath sound right lower lung mcmullen, no wheezing, no accessory muscle use. GASTROINTESTINAL: Abdomen soft, non-tender, nondistended. Hepatic and splenic margins not palpable. MUSCULOSKELETAL: Bilateral 3+ pitting edema extending above the hips, chronic skin changes lower legs with blistering. NEUROLOGICAL: Awake and alert. No obvious cranial nerve deficits. Motor grossly within normal limits. Normal speech. PSYCHIATRIC: Appropriate mood and affect; insight and judgment normal. Course Initial Documented Vital Signs Temperature 97.7 F 11/22/17 07:25 Pulse Rate 79 11/22/17 07:25 Respiratory Rate 18 11/22/17 07:25 Blood Pressure 132/51 L 11/22/17 07:25 Pulse Oximetry 84 L 11/22/17 07:25 Last Documented Vital Signs Temperature 97.8 F 11/26/17 16:00 Pulse Rate 88 11/26/17 08:00 Respiratory Rate 32 H 11/26/17 00:00 Blood Pressure 93/75 L 11/26/17 04:00 Pulse Oximetry 94 L 11/26/17 14:37 Medical Decision Making [facility] Narrative Medical decision making narrative: 87-year-old female here for evaluation of acute onset of shortness of breath. SHE HAS HISTORY OF CLL HINCE THE LEUKOCYTOSIS AND THE PLEURAL EFFUSION. Labs are concerning for leukocytosis, physical exam shows +3 pitting edema bilaterally above the hips. Patient was given Lasix 80 mg with minimal improvement, CAT scan shows right pleural effusion with some atelectasis and ascites. Patient will be admitted to ICU for further evaluation. Clinically she is not in acute respiratory distress and does not need emergent chest tube.. Lab Data Result diagrams: 11/26/17 04:27 11/26/17 04:27 Lab Results 11/22/17 11/22/17 11/22/17 Range/Units 07:44 07:50 07:50 CBC w Diff Slide review pending WBC 43.8 H (4.0-11.0) th/mm3 RBC 3.28 L (4.00-5.30) mil/mm3 Hgb 10.5 L (11.6-15.3) gm/dL Hct 30.7 L (35.0-46.0) % MCV 93.8 (80.0-100.0) fL MCH 32.2 (27.0-34.0) pg MCHC 34.3 (32.0-36.0) % RDW 17.3 H (11.6-17.2) % Plt Count 118 L (150-450) th/mm3 MPV 9.2 (7.0-11.0) fL WBC Differential Manual diff final Seg Neuts % (Manual) 33 (16-70) % Lymphocytes % (Manual) 65 H (9-44) % Monocytes % (Manual) 1 (0-8) % Eosinophils % (Manual) 1 (0-4) % Abs Neuts (Manual) 14.5 H (1.8-7.7) th/mm3 Differential Comment . Smudge Cells Present H (None) Platelet Estimate Low L (Normal) Platelet Morphology Normal (Normal) Ovalocytes 1+ H (None) PT 11.6 (9.8-11.6) sec INR 1.1 Ratio APTT 22.9 L (24.3-30.1) sec D-Dimer Quant (PE/DVT) 2.82 H (0.00-0.50) mg/L FEU Puncture Site Left radial Patient Temperature 98.6 O2 Saturation 95 (90-100) % ABG pH 7.32 L (7.380-7.420) ABG pCO2 48 H (38-42) mmHg ABG pO2 93 (61-120) mmHg ABG HCO3 24 (22-26) mmol/L ABG O2 Content 13.8 (12.0-20.0) Vol % ABG Base Excess -1.0 (-2-2) mmol/L ABG Methemoglobin 1.3 (0-2) % Tim Test Present Hemoglobin 10.2 L (12.0-16.0) G/DL Carboxyhemoglobin 2.2 (0-4) % O2 Delivery Device Nasal cannula Liter Flow 2.00 L/M Inspired O2 21 % Critical Value No Sodium (136-145) meq/L Potassium (3.5-5.1) meq/L Chloride (98-107) meq/L Carbon Dioxide (21.0-32.0) meq/L Anion Gap (5-15) meq/L BUN (7-18) mg/dL Creatinine (0.50-1.00) mg/dL Estimated GFR (>89) mL/min POC Glucose (68-110) mg/dl Random Glucose (74-106) mg/dL Calcium (8.5-10.1) mg/dL Total Bilirubin (0.2-1.0) mg/dL AST (15-37) U/L ALT (10-53) U/L Alkaline Phosphatase (45-117) U/L Lactate Dehydrogenase (84-246) U/L Total Creatine Kinase (26-192) U/L Troponin I (0.02-0.05) ng/mL B-Natriuretic Peptide (0-100) pg/mL Total Protein (6.4-8.2) g/dL Albumin (3.4-5.0) g/dL Ur Collection Type Urine Color (Yellw/Straw) Urine Clarity (Clear) Urine pH (5.0-8.5) Ur Specific [place] (1.002-1.035) Urine Protein (Neg-Trace) mg/dL Urine Glucose (UA) (Negative) mg/dL Urine Ketones (Negative) mg/dL Urine Occult Blood (Negative) Urine Nitrate (Negative) Urine Bilirubin (Negative) Urine Urobilinogen (Less than 2) mg/dL Ur Leukocyte Esterase (Negative) Ur Squamous Epith Cells (0-5) /hpf Hyaline Casts (0-3) /lpf Micro UA Comment Urine Culture Comments Pleural pH Pleural RBC (0-0) /mm3 Pleural Nuc Cells (0-10) /mm3 Pleural Neutrophils % Pleural Lymphocytes % Pleural Monocytes % Pleural Histocytes % Pleural Total Protein gm/dL Pleural LDH U/L Pleural Glucose mg/dL Nasal Screen MRSA (PCR) (Negative) Staph aureus (PCR) (Negative) 0811/22/17 11/22/17 Range/Units 07:50 07:50 09:54 CBC w Diff WBC (4.0-11.0) th/mm3 RBC (4.00-5.30) mil/mm3 Hgb (11.6-15.3) gm/dL Hct (35.0-46.0) % MCV (80.0-100.0) fL MCH (27.0-34.0) pg MCHC (32.0-36.0) % RDW (11.6-17.2) % Plt Count (150-450) th/mm3 MPV (7.0-11.0) fL WBC Differential Seg Neuts % (Manual) (16-70) % Lymphocytes % (Manual) (9-44) % Monocytes % (Manual) (0-8) % Eosinophils % (Manual) (0-4) % Abs Neuts (Manual) (1.8-7.7) th/mm3 Differential Comment Smudge Cells (None) Platelet Estimate (Normal) Platelet Morphology (Normal) Ovalocytes (None) PT (9.8-11.6) sec INR Ratio APTT (24.3-30.1) sec D-Dimer Quant (PE/DVT) (0.00-0.50) mg/L FEU Puncture Site Patient Temperature O2 Saturation (90-100) % ABG pH (7.380-7.420) ABG pCO2 (38-42) mmHg ABG pO2 (61-120) mmHg ABG HCO3 (22-26) mmol/L ABG O2 Content (12.0-20.0) Vol % ABG Base Excess (-2-2) mmol/L ABG Methemoglobin (0-2) % Tim Test Hemoglobin (12.0-16.0) G/DL Carboxyhemoglobin (0-4) % O2 Delivery Device Liter Flow L/M Inspired O2 % Critical Value Sodium 145 (136-145) meq/L Potassium 4.2 (3.5-5.1) meq/L Chloride 110 H (98-107) meq/L Carbon Dioxide 27.2 (21.0-32.0) meq/L Anion Gap 8 (5-15) meq/L BUN 66 H (7-18) mg/dL Creatinine 2.70 H (0.50-1.00) mg/dL Estimated GFR 17 L (>89) mL/min POC Glucose (68-110) mg/dl Random Glucose 163 H (74-106) mg/dL Calcium 8.9 (8.5-10.1) mg/dL Total Bilirubin 1.0 (0.2-1.0) mg/dL AST 18 (15-37) U/L ALT 19 (10-53) U/L Alkaline Phosphatase 128 H (45-117) U/L Lactate Dehydrogenase (84-246) U/L Total Creatine Kinase 54 (26-192) U/L Troponin I 0.02 (0.02-0.05) ng/mL B-Natriuretic Peptide 185 H (0-100) pg/mL Total Protein 6.2 L (6.4-8.2) g/dL Albumin 3.6 (3.4-5.0) g/dL Ur Collection Type Cath Urine Color Straw (Yellw/Straw) Urine Clarity Clear (Clear) Urine pH 5.5 (5.0-8.5) Ur Specific [place] 1.020 (1.002-1.035) Urine Protein Negative (Neg-Trace) mg/dL Urine Glucose (UA) Negative (Negative) mg/dL Urine Ketones Negative (Negative) mg/dL Urine Occult Blood Negative (Negative) Urine Nitrate Negative (Negative) Urine Bilirubin Negative (Negative) Urine Urobilinogen 0.2 (Less than 2) mg/dL Ur Leukocyte Esterase Negative (Negative) Ur Squamous Epith Cells 0-5 (0-5) /hpf Hyaline Casts 0-3 (0-3) /lpf Micro UA Comment Culture not ind Urine Culture Comments Culture not ind Pleural pH Pleural RBC (0-0) /mm3 Pleural Nuc Cells (0-10) /mm3 Pleural Neutrophils % Pleural Lymphocytes % Pleural Monocytes % Pleural Histocytes % Pleural Total Protein gm/dL Pleural LDH U/L Pleural Glucose mg/dL Nasal Screen MRSA (PCR) (Negative) Staph aureus (PCR) (Negative) 11/22/17 11/22/17 11/22/17 Range/Units 12:37 13:54 17:05 CBC w Diff WBC (4.0-11.0) th/mm3 RBC (4.00-5.30) mil/mm3 Hgb (11.6-15.3) gm/dL Hct (35.0-46.0) % MCV (80.0-100.0) fL MCH (27.0-34.0) pg MCHC (32.0-36.0) % RDW (11.6-17.2) % Plt Count (150-450) th/mm3 MPV (7.0-11.0) fL WBC Differential Seg Neuts % (Manual) (16-70) % Lymphocytes % (Manual) (9-44) % Monocytes % (Manual) (0-8) % Eosinophils % (Manual) (0-4) % Abs Neuts (Manual) (1.8-7.7) th/mm3 Differential Comment Smudge Cells (None) Platelet Estimate (Normal) Platelet Morphology (Normal) Ovalocytes (None) PT (9.8-11.6) sec INR Ratio APTT (24.3-30.1) sec D-Dimer Quant (PE/DVT) (0.00-0.50) mg/L FEU Puncture Site Patient Temperature O2 Saturation (90-100) % ABG pH (7.380-7.420) ABG pCO2 (38-42) mmHg ABG pO2 (61-120) mmHg ABG HCO3 (22-26) mmol/L ABG O2 Content (12.0-20.0) Vol % ABG Base Excess (-2-2) mmol/L ABG Methemoglobin (0-2) % Tim Test Hemoglobin (12.0-16.0) G/DL Carboxyhemoglobin (0-4) % O2 Delivery Device Liter Flow L/M Inspired O2 % Critical Value Sodium (136-145) meq/L Potassium (3.5-5.1) meq/L Chloride (98-107) meq/L Carbon Dioxide (21.0-32.0) meq/L Anion Gap (5-15) meq/L BUN (7-18) mg/dL Creatinine (0.50-1.00) mg/dL Estimated GFR (>89) mL/min POC Glucose 143 H 157 H (68-110) mg/dl Random Glucose (74-106) mg/dL Calcium (8.5-10.1) mg/dL Total Bilirubin (0.2-1.0) mg/dL AST (15-37) U/L ALT (10-53) U/L Alkaline Phosphatase (45-117) U/L Lactate Dehydrogenase (84-246) U/L Total Creatine Kinase (26-192) U/L Troponin I (0.02-0.05) ng/mL B-Natriuretic Peptide (0-100) pg/mL Total Protein (6.4-8.2) g/dL Albumin (3.4-5.0) g/dL Ur Collection Type Urine Color (Yellw/Straw) Urine Clarity (Clear) Urine pH (5.0-8.5) Ur Specific [place] (1.002-1.035) Urine Protein (Neg-Trace) mg/dL Urine Glucose (UA) (Negative) mg/dL Urine Ketones (Negative) mg/dL Urine Occult Blood (Negative) Urine Nitrate (Negative) Urine Bilirubin (Negative) Urine Urobilinogen (Less than 2) mg/dL Ur Leukocyte Esterase (Negative) Ur Squamous Epith Cells (0-5) /hpf Hyaline Casts (0-3) /lpf Micro UA Comment Urine Culture Comments Pleural pH Pleural RBC (0-0) /mm3 Pleural Nuc Cells (0-10) /mm3 Pleural Neutrophils % Pleural Lymphocytes % Pleural Monocytes % Pleural Histocytes % Pleural Total Protein gm/dL Pleural LDH U/L Pleural Glucose mg/dL Nasal Screen MRSA (PCR) Negative (Negative) Staph aureus (PCR) Positive (Negative) 11/22/17 11/23/17 11/23/17 Range/Units 20:41 08:28 10:25 CBC w Diff WBC 39.8 H (4.0-11.0) th/mm3 RBC 3.79 L (4.00-5.30) mil/mm3 Hgb 11.5 L (11.6-15.3) gm/dL Hct 36.8 (35.0-46.0) % MCV 97.0 (80.0-100.0) fL MCH 30.3 (27.0-34.0) pg MCHC 31.2 L (32.0-36.0) % RDW 16.5 (11.6-17.2) % Plt Count 112 L (150-450) th/mm3 MPV 9.1 (7.0-11.0) fL WBC Differential Seg Neuts % (Manual) (16-70) % Lymphocytes % (Manual) (9-44) % Monocytes % (Manual) (0-8) % Eosinophils % (Manual) (0-4) % Abs Neuts (Manual) (1.8-7.7) th/mm3 Differential Comment Smudge Cells (None) Platelet Estimate (Normal) Platelet Morphology (Normal) Ovalocytes (None) PT (9.8-11.6) sec INR Ratio APTT (24.3-30.1) sec D-Dimer Quant (PE/DVT) (0.00-0.50) mg/L FEU Puncture Site Patient Temperature O2 Saturation (90-100) % ABG pH (7.380-7.420) ABG pCO2 (38-42) mmHg ABG pO2 (61-120) mmHg ABG HCO3 (22-26) mmol/L ABG O2 Content (12.0-20.0) Vol % ABG Base Excess (-2-2) mmol/L ABG Methemoglobin (0-2) % Tim Test Hemoglobin (12.0-16.0) G/DL Carboxyhemoglobin (0-4) % O2 Delivery Device Liter Flow L/M Inspired O2 % Critical Value Sodium (136-145) meq/L Potassium (3.5-5.1) meq/L Chloride (98-107) meq/L Carbon Dioxide (21.0-32.0) meq/L Anion Gap (5-15) meq/L BUN (7-18) mg/dL Creatinine (0.50-1.00) mg/dL Estimated GFR (>89) mL/min POC Glucose 202 H 119 H (68-110) mg/dl Random Glucose (74-106) mg/dL Calcium (8.5-10.1) mg/dL Total Bilirubin (0.2-1.0) mg/dL AST (15-37) U/L ALT (10-53) U/L Alkaline Phosphatase (45-117) U/L Lactate Dehydrogenase (84-246) U/L Total Creatine Kinase (26-192) U/L Troponin I (0.02-0.05) ng/mL B-Natriuretic Peptide (0-100) pg/mL Total Protein (6.4-8.2) g/dL Albumin (3.4-5.0) g/dL Ur Collection Type Urine Color (Yellw/Straw) Urine Clarity (Clear) Urine pH (5.0-8.5) Ur Specific [place] (1.002-1.035) Urine Protein (Neg-Trace) mg/dL Urine Glucose (UA) (Negative) mg/dL Urine Ketones (Negative) mg/dL Urine Occult Blood (Negative) Urine Nitrate (Negative) Urine Bilirubin (Negative) Urine Urobilinogen (Less than 2) mg/dL Ur Leukocyte Esterase (Negative) Ur Squamous Epith Cells (0-5) /hpf Hyaline Casts (0-3) /lpf Micro UA Comment Urine Culture Comments Pleural pH Pleural RBC (0-0) /mm3 Pleural Nuc Cells (0-10) /mm3 Pleural Neutrophils % Pleural Lymphocytes % Pleural Monocytes % Pleural Histocytes % Pleural Total Protein gm/dL Pleural LDH U/L Pleural Glucose mg/dL Nasal Screen MRSA (PCR) (Negative) Staph aureus (PCR) (Negative) 11/23/17 11/23/17 11/23/17 Range/Units 10:25 12:01 17:01 CBC w Diff WBC (4.0-11.0) th/mm3 RBC (4.00-5.30) mil/mm3 Hgb (11.6-15.3) gm/dL Hct (35.0-46.0) % MCV (80.0-100.0) fL MCH (27.0-34.0) pg MCHC (32.0-36.0) % RDW (11.6-17.2) % Plt Count (150-450) th/mm3 MPV (7.0-11.0) fL WBC Differential Seg Neuts % (Manual) (16-70) % Lymphocytes % (Manual) (9-44) % Monocytes % (Manual) (0-8) % Eosinophils % (Manual) (0-4) % Abs Neuts (Manual) (1.8-7.7) th/mm3 Differential Comment Smudge Cells (None) Platelet Estimate (Normal) Platelet Morphology (Normal) Ovalocytes (None) PT (9.8-11.6) sec INR Ratio APTT (24.3-30.1) sec D-Dimer Quant (PE/DVT) (0.00-0.50) mg/L FEU Puncture Site Patient Temperature O2 Saturation (90-100) % ABG pH (7.380-7.420) ABG pCO2 (38-42) mmHg ABG pO2 (61-120) mmHg ABG HCO3 (22-26) mmol/L ABG O2 Content (12.0-20.0) Vol % ABG Base Excess (-2-2) mmol/L ABG Methemoglobin (0-2) % Tim Test Hemoglobin (12.0-16.0) G/DL Carboxyhemoglobin (0-4) % O2 Delivery Device Liter Flow L/M Inspired O2 % Critical Value Sodium 143 (136-145) meq/L Potassium 4.3 (3.5-5.1) meq/L Chloride 107 (98-107) meq/L Carbon Dioxide 28.6 (21.0-32.0) meq/L Anion Gap 7 (5-15) meq/L BUN 67 H (7-18) mg/dL Creatinine 2.60 H (0.50-1.00) mg/dL Estimated GFR 17 L (>89) mL/min POC Glucose 174 H 206 H (68-110) mg/dl Random Glucose 128 H (74-106) mg/dL Calcium 8.9 (8.5-10.1) mg/dL Total Bilirubin (0.2-1.0) mg/dL AST (15-37) U/L ALT (10-53) U/L Alkaline Phosphatase (45-117) U/L Lactate Dehydrogenase (84-246) U/L Total Creatine Kinase (26-192) U/L Troponin I (0.02-0.05) ng/mL B-Natriuretic Peptide (0-100) pg/mL Total Protein (6.4-8.2) g/dL Albumin (3.4-5.0) g/dL Ur Collection Type Urine Color (Yellw/Straw) Urine Clarity (Clear) Urine pH (5.0-8.5) Ur Specific [place] (1.002-1.035) Urine Protein (Neg-Trace) mg/dL Urine Glucose (UA) (Negative) mg/dL Urine Ketones (Negative) mg/dL Urine Occult Blood (Negative) Urine Nitrate (Negative) Urine Bilirubin (Negative) Urine Urobilinogen (Less than 2) mg/dL Ur Leukocyte Esterase (Negative) Ur Squamous Epith Cells (0-5) /hpf Hyaline Casts (0-3) /lpf Micro UA Comment Urine Culture Comments Pleural pH Pleural RBC (0-0) /mm3 Pleural Nuc Cells (0-10) /mm3 Pleural Neutrophils % Pleural Lymphocytes % Pleural Monocytes % Pleural Histocytes % Pleural Total Protein gm/dL Pleural LDH U/L Pleural Glucose mg/dL Nasal Screen MRSA (PCR) (Negative) Staph aureus (PCR) (Negative) 11/23/17 11/24/17 11/24/17 Range/Units 20:12 04:35 04:35 CBC w Diff WBC 41.2 H (4.0-11.0) th/mm3 RBC 3.68 L (4.00-5.30) mil/mm3 Hgb 11.2 L (11.6-15.3) gm/dL Hct 35.4 (35.0-46.0) % MCV 96.2 (80.0-100.0) fL MCH 30.3 (27.0-34.0) pg MCHC 31.5 L (32.0-36.0) % RDW 16.6 (11.6-17.2) % Plt Count 113 L (150-450) th/mm3 MPV 9.0 (7.0-11.0) fL WBC Differential Seg Neuts % (Manual) (16-70) % Lymphocytes % (Manual) (9-44) % Monocytes % (Manual) (0-8) % Eosinophils % (Manual) (0-4) % Abs Neuts (Manual) (1.8-7.7) th/mm3 Differential Comment Smudge Cells (None) Platelet Estimate (Normal) Platelet Morphology (Normal) Ovalocytes (None) PT 11.2 (9.8-11.6) sec INR 1.1 Ratio APTT (24.3-30.1) sec D-Dimer Quant (PE/DVT) (0.00-0.50) mg/L FEU Puncture Site Patient Temperature O2 Saturation (90-100) % ABG pH (7.380-7.420) ABG pCO2 (38-42) mmHg ABG pO2 (61-120) mmHg ABG HCO3 (22-26) mmol/L ABG O2 Content (12.0-20.0) Vol % ABG Base Excess (-2-2) mmol/L ABG Methemoglobin (0-2) % Tim Test Hemoglobin (12.0-16.0) G/DL Carboxyhemoglobin (0-4) % O2 Delivery Device Liter Flow L/M Inspired O2 % Critical Value Sodium (136-145) meq/L Potassium (3.5-5.1) meq/L Chloride (98-107) meq/L Carbon Dioxide (21.0-32.0) meq/L Anion Gap (5-15) meq/L BUN (7-18) mg/dL Creatinine (0.50-1.00) mg/dL Estimated GFR (>89) mL/min POC Glucose 198 H (68-110) mg/dl Random Glucose (74-106) mg/dL Calcium (8.5-10.1) mg/dL Total Bilirubin (0.2-1.0) mg/dL AST (15-37) U/L ALT (10-53) U/L Alkaline Phosphatase (45-117) U/L Lactate Dehydrogenase (84-246) U/L Total Creatine Kinase (26-192) U/L Troponin I (0.02-0.05) ng/mL B-Natriuretic Peptide (0-100) pg/mL Total Protein (6.4-8.2) g/dL Albumin (3.4-5.0) g/dL Ur Collection Type Urine Color (Yellw/Straw) Urine Clarity (Clear) Urine pH (5.0-8.5) Ur Specific [place] (1.002-1.035) Urine Protein (Neg-Trace) mg/dL Urine Glucose (UA) (Negative) mg/dL Urine Ketones (Negative) mg/dL Urine Occult Blood (Negative) Urine Nitrate (Negative) Urine Bilirubin (Negative) Urine Urobilinogen (Less than 2) mg/dL Ur Leukocyte Esterase (Negative) Ur Squamous Epith Cells (0-5) /hpf Hyaline Casts (0-3) /lpf Micro UA Comment Urine Culture Comments Pleural pH Pleural RBC (0-0) /mm3 Pleural Nuc Cells (0-10) /mm3 Pleural Neutrophils % Pleural Lymphocytes % Pleural Monocytes % Pleural Histocytes % Pleural Total Protein gm/dL Pleural LDH U/L Pleural Glucose mg/dL Nasal Screen MRSA (PCR) (Negative) Staph aureus (PCR) (Negative) 11/24/17 11/24/17 11/24/17 Range/Units 04:35 04:35 07:36 CBC w Diff WBC (4.0-11.0) th/mm3 RBC (4.00-5.30) mil/mm3 Hgb (11.6-15.3) gm/dL Hct (35.0-46.0) % MCV (80.0-100.0) fL MCH (27.0-34.0) pg MCHC (32.0-36.0) % RDW (11.6-17.2) % Plt Count (150-450) th/mm3 MPV (7.0-11.0) fL WBC Differential Seg Neuts % (Manual) (16-70) % Lymphocytes % (Manual) (9-44) % Monocytes % (Manual) (0-8) % Eosinophils % (Manual) (0-4) % Abs Neuts (Manual) (1.8-7.7) th/mm3 Differential Comment Smudge Cells (None) Platelet Estimate (Normal) Platelet Morphology (Normal) Ovalocytes (None) PT (9.8-11.6) sec INR Ratio APTT (24.3-30.1) sec D-Dimer Quant (PE/DVT) (0.00-0.50) mg/L FEU Puncture Site Patient Temperature O2 Saturation (90-100) % ABG pH (7.380-7.420) ABG pCO2 (38-42) mmHg ABG pO2 (61-120) mmHg ABG HCO3 (22-26) mmol/L ABG O2 Content (12.0-20.0) Vol % ABG Base Excess (-2-2) mmol/L ABG Methemoglobin (0-2) % Tim Test Hemoglobin (12.0-16.0) G/DL Carboxyhemoglobin (0-4) % O2 Delivery Device Liter Flow L/M Inspired O2 % Critical Value Sodium 141 (136-145) meq/L Potassium 4.3 (3.5-5.1) meq/L Chloride 106 (98-107) meq/L Carbon Dioxide 30.5 (21.0-32.0) meq/L Anion Gap 5 (5-15) meq/L BUN 66 H (7-18) mg/dL Creatinine 2.50 H (0.50-1.00) mg/dL Estimated GFR 18 L (>89) mL/min POC Glucose 128 H (68-110) mg/dl Random Glucose 136 H (74-106) mg/dL Calcium 9.0 (8.5-10.1) mg/dL Total Bilirubin (0.2-1.0) mg/dL AST (15-37) U/L ALT (10-53) U/L Alkaline Phosphatase (45-117) U/L Lactate Dehydrogenase 234 (84-246) U/L Total Creatine Kinase (26-192) U/L Troponin I (0.02-0.05) ng/mL B-Natriuretic Peptide (0-100) pg/mL Total Protein (6.4-8.2) g/dL Albumin (3.4-5.0) g/dL Ur Collection Type Urine Color (Yellw/Straw) Urine Clarity (Clear) Urine pH (5.0-8.5) Ur Specific [place] (1.002-1.035) Urine Protein (Neg-Trace) mg/dL Urine Glucose (UA) (Negative) mg/dL Urine Ketones (Negative) mg/dL Urine Occult Blood (Negative) Urine Nitrate (Negative) Urine Bilirubin (Negative) Urine Urobilinogen (Less than 2) mg/dL Ur Leukocyte Esterase (Negative) Ur Squamous Epith Cells (0-5) /hpf Hyaline Casts (0-3) /lpf Micro UA Comment Urine Culture Comments Pleural pH Pleural RBC (0-0) /mm3 Pleural Nuc Cells (0-10) /mm3 Pleural Neutrophils % Pleural Lymphocytes % Pleural Monocytes % Pleural Histocytes % Pleural Total Protein gm/dL Pleural LDH U/L Pleural Glucose mg/dL Nasal Screen MRSA (PCR) (Negative) Staph aureus (PCR) (Negative) 11/24/17 11/24/17 11/24/17 Range/Units 08:45 08:45 11:56 CBC w Diff WBC (4.0-11.0) th/mm3 RBC (4.00-5.30) mil/mm3 Hgb (11.6-15.3) gm/dL Hct (35.0-46.0) % MCV (80.0-100.0) fL MCH (27.0-34.0) pg MCHC (32.0-36.0) % RDW (11.6-17.2) % Plt Count (150-450) th/mm3 MPV (7.0-11.0) fL WBC Differential Seg Neuts % (Manual) (16-70) % Lymphocytes % (Manual) (9-44) % Monocytes % (Manual) (0-8) % Eosinophils % (Manual) (0-4) % Abs Neuts (Manual) (1.8-7.7) th/mm3 Differential Comment Smudge Cells (None) Platelet Estimate (Normal) Platelet Morphology (Normal) Ovalocytes (None) PT (9.8-11.6) sec INR Ratio APTT (24.3-30.1) sec D-Dimer Quant (PE/DVT) (0.00-0.50) mg/L FEU Puncture Site Patient Temperature O2 Saturation (90-100) % ABG pH (7.380-7.420) ABG pCO2 (38-42) mmHg ABG pO2 (61-120) mmHg ABG HCO3 (22-26) mmol/L ABG O2 Content (12.0-20.0) Vol % ABG Base Excess (-2-2) mmol/L ABG Methemoglobin (0-2) % Tim Test Hemoglobin (12.0-16.0) G/DL Carboxyhemoglobin (0-4) % O2 Delivery Device Liter Flow L/M Inspired O2 % Critical Value Sodium (136-145) meq/L Potassium (3.5-5.1) meq/L Chloride (98-107) meq/L Carbon Dioxide (21.0-32.0) meq/L Anion Gap (5-15) meq/L BUN (7-18) mg/dL Creatinine (0.50-1.00) mg/dL Estimated GFR (>89) mL/min POC Glucose 98 (68-110) mg/dl Random Glucose (74-106) mg/dL Calcium (8.5-10.1) mg/dL Total Bilirubin (0.2-1.0) mg/dL AST (15-37) U/L ALT (10-53) U/L Alkaline Phosphatase (45-117) U/L Lactate Dehydrogenase (84-246) U/L Total Creatine Kinase (26-192) U/L Troponin I (0.02-0.05) ng/mL B-Natriuretic Peptide (0-100) pg/mL Total Protein (6.4-8.2) g/dL Albumin (3.4-5.0) g/dL Ur Collection Type Urine Color (Yellw/Straw) Urine Clarity (Clear) Urine pH (5.0-8.5) Ur Specific [place] (1.002-1.035) Urine Protein (Neg-Trace) mg/dL Urine Glucose (UA) (Negative) mg/dL Urine Ketones (Negative) mg/dL Urine Occult Blood (Negative) Urine Nitrate (Negative) Urine Bilirubin (Negative) Urine Urobilinogen (Less than 2) mg/dL Ur Leukocyte Esterase (Negative) Ur Squamous Epith Cells (0-5) /hpf Hyaline Casts (0-3) /lpf Micro UA Comment Urine Culture Comments Pleural pH 8.0 Pleural RBC 1940 H (0-0) /mm3 Pleural Nuc Cells 135 H (0-10) /mm3 Pleural Neutrophils 27 % Pleural Lymphocytes 69 % Pleural Monocytes 2 % Pleural Histocytes 2 % Pleural Total Protein 2.0 gm/dL Pleural LDH 75 U/L Pleural Glucose 144 mg/dL Nasal Screen MRSA (PCR) (Negative) Staph aureus (PCR) (Negative) 11/24/17 11/24/17 11/25/17 Range/Units 17:04 21:01 04:47 CBC w Diff WBC 34.5 H (4.0-11.0) th/mm3 RBC 3.65 L (4.00-5.30) mil/mm3 Hgb 11.1 L (11.6-15.3) gm/dL Hct 35.3 (35.0-46.0) % MCV 96.6 (80.0-100.0) fL MCH 30.3 (27.0-34.0) pg MCHC 31.4 L (32.0-36.0) % RDW 16.8 (11.6-17.2) % Plt Count 116 L (150-450) th/mm3 MPV 9.1 (7.0-11.0) fL WBC Differential Seg Neuts % (Manual) (16-70) % Lymphocytes % (Manual) (9-44) % Monocytes % (Manual) (0-8) % Eosinophils % (Manual) (0-4) % Abs Neuts (Manual) (1.8-7.7) th/mm3 Differential Comment Smudge Cells (None) Platelet Estimate (Normal) Platelet Morphology (Normal) Ovalocytes (None) PT (9.8-11.6) sec INR Ratio APTT (24.3-30.1) sec D-Dimer Quant (PE/DVT) (0.00-0.50) mg/L FEU Puncture Site Patient Temperature O2 Saturation (90-100) % ABG pH (7.380-7.420) ABG pCO2 (38-42) mmHg ABG pO2 (61-120) mmHg ABG HCO3 (22-26) mmol/L ABG O2 Content (12.0-20.0) Vol % ABG Base Excess (-2-2) mmol/L ABG Methemoglobin (0-2) % Tim Test Hemoglobin (12.0-16.0) G/DL Carboxyhemoglobin (0-4) % O2 Delivery Device Liter Flow L/M Inspired O2 % Critical Value Sodium (136-145) meq/L Potassium (3.5-5.1) meq/L Chloride (98-107) meq/L Carbon Dioxide (21.0-32.0) meq/L Anion Gap (5-15) meq/L BUN (7-18) mg/dL Creatinine (0.50-1.00) mg/dL Estimated GFR (>89) mL/min POC Glucose 194 H 228 H (68-110) mg/dl Random Glucose (74-106) mg/dL Calcium (8.5-10.1) mg/dL Total Bilirubin (0.2-1.0) mg/dL AST (15-37) U/L ALT (10-53) U/L Alkaline Phosphatase (45-117) U/L Lactate Dehydrogenase (84-246) U/L Total Creatine Kinase (26-192) U/L Troponin I (0.02-0.05) ng/mL B-Natriuretic Peptide (0-100) pg/mL Total Protein (6.4-8.2) g/dL Albumin (3.4-5.0) g/dL Ur Collection Type Urine Color (Yellw/Straw) Urine Clarity (Clear) Urine pH (5.0-8.5) Ur Specific [place] (1.002-1.035) Urine Protein (Neg-Trace) mg/dL Urine Glucose (UA) (Negative) mg/dL Urine Ketones (Negative) mg/dL Urine Occult Blood (Negative) Urine Nitrate (Negative) Urine Bilirubin (Negative) Urine Urobilinogen (Less than 2) mg/dL Ur Leukocyte Esterase (Negative) Ur Squamous Epith Cells (0-5) /hpf Hyaline Casts (0-3) /lpf Micro UA Comment Urine Culture Comments Pleural pH Pleural RBC (0-0) /mm3 Pleural Nuc Cells (0-10) /mm3 Pleural Neutrophils % Pleural Lymphocytes % Pleural Monocytes % Pleural Histocytes % Pleural Total Protein gm/dL Pleural LDH U/L Pleural Glucose mg/dL Nasal Screen MRSA (PCR) (Negative) Staph aureus (PCR) (Negative) 11/25/17 11/25/17 11/25/17 Range/Units 04:47 07:26 12:24 CBC w Diff WBC (4.0-11.0) th/mm3 RBC (4.00-5.30) mil/mm3 Hgb (11.6-15.3) gm/dL Hct (35.0-46.0) % MCV (80.0-100.0) fL MCH (27.0-34.0) pg MCHC (32.0-36.0) % RDW (11.6-17.2) % Plt Count (150-450) th/mm3 MPV (7.0-11.0) fL WBC Differential Seg Neuts % (Manual) (16-70) % Lymphocytes % (Manual) (9-44) % Monocytes % (Manual) (0-8) % Eosinophils % (Manual) (0-4) % Abs Neuts (Manual) (1.8-7.7) th/mm3 Differential Comment Smudge Cells (None) Platelet Estimate (Normal) Platelet Morphology (Normal) Ovalocytes (None) PT (9.8-11.6) sec INR Ratio APTT (24.3-30.1) sec D-Dimer Quant (PE/DVT) (0.00-0.50) mg/L FEU Puncture Site Patient Temperature O2 Saturation (90-100) % ABG pH (7.380-7.420) ABG pCO2 (38-42) mmHg ABG pO2 (61-120) mmHg ABG HCO3 (22-26) mmol/L ABG O2 Content (12.0-20.0) Vol % ABG Base Excess (-2-2) mmol/L ABG Methemoglobin (0-2) % Tim Test Hemoglobin (12.0-16.0) G/DL Carboxyhemoglobin (0-4) % O2 Delivery Device Liter Flow L/M Inspired O2 % Critical Value Sodium 144 (136-145) meq/L Potassium 4.2 (3.5-5.1) meq/L Chloride 107 (98-107) meq/L Carbon Dioxide 30.3 (21.0-32.0) meq/L Anion Gap 7 (5-15) meq/L BUN 63 H (7-18) mg/dL Creatinine 2.40 H (0.50-1.00) mg/dL Estimated GFR 19 L (>89) mL/min POC Glucose 152 H 199 H (68-110) mg/dl Random Glucose 153 H (74-106) mg/dL Calcium 8.9 (8.5-10.1) mg/dL Total Bilirubin (0.2-1.0) mg/dL AST (15-37) U/L ALT (10-53) U/L Alkaline Phosphatase (45-117) U/L Lactate Dehydrogenase (84-246) U/L Total Creatine Kinase (26-192) U/L Troponin I (0.02-0.05) ng/mL B-Natriuretic Peptide (0-100) pg/mL Total Protein (6.4-8.2) g/dL Albumin (3.4-5.0) g/dL Ur Collection Type Urine Color (Yellw/Straw) Urine Clarity (Clear) Urine pH (5.0-8.5) Ur Specific [place] (1.002-1.035) Urine Protein (Neg-Trace) mg/dL Urine Glucose (UA) (Negative) mg/dL Urine Ketones (Negative) mg/dL Urine Occult Blood (Negative) Urine Nitrate (Negative) Urine Bilirubin (Negative) Urine Urobilinogen (Less than 2) mg/dL Ur Leukocyte Esterase (Negative) Ur Squamous Epith Cells (0-5) /hpf Hyaline Casts (0-3) /lpf Micro UA Comment Urine Culture Comments Pleural pH Pleural RBC (0-0) /mm3 Pleural Nuc Cells (0-10) /mm3 Pleural Neutrophils % Pleural Lymphocytes % Pleural Monocytes % Pleural Histocytes % Pleural Total Protein gm/dL Pleural LDH U/L Pleural Glucose mg/dL Nasal Screen MRSA (PCR) (Negative) Staph aureus (PCR) (Negative) 11/25/17 11/25/17 11/26/17 Range/Units 18:10 20:39 04:27 CBC w Diff WBC 39.4 H (4.0-11.0) th/mm3 RBC 3.72 L (4.00-5.30) mil/mm3 Hgb 11.1 L (11.6-15.3) gm/dL Hct 35.6 (35.0-46.0) % MCV 95.7 (80.0-100.0) fL MCH 30.0 (27.0-34.0) pg MCHC 31.3 L (32.0-36.0) % RDW 16.4 (11.6-17.2) % Plt Count 108 L (150-450) th/mm3 MPV 9.1 (7.0-11.0) fL WBC Differential Seg Neuts % (Manual) (16-70) % Lymphocytes % (Manual) (9-44) % Monocytes % (Manual) (0-8) % Eosinophils % (Manual) (0-4) % Abs Neuts (Manual) (1.8-7.7) th/mm3 Differential Comment Smudge Cells (None) Platelet Estimate (Normal) Platelet Morphology (Normal) Ovalocytes (None) PT (9.8-11.6) sec INR Ratio APTT (24.3-30.1) sec D-Dimer Quant (PE/DVT) (0.00-0.50) mg/L FEU Puncture Site Patient Temperature O2 Saturation (90-100) % ABG pH (7.380-7.420) ABG pCO2 (38-42) mmHg ABG pO2 (61-120) mmHg ABG HCO3 (22-26) mmol/L ABG O2 Content (12.0-20.0) Vol % ABG Base Excess (-2-2) mmol/L ABG Methemoglobin (0-2) % Tim Test Hemoglobin (12.0-16.0) G/DL Carboxyhemoglobin (0-4) % O2 Delivery Device Liter Flow L/M Inspired O2 % Critical Value Sodium (136-145) meq/L Potassium (3.5-5.1) meq/L Chloride (98-107) meq/L Carbon Dioxide (21.0-32.0) meq/L Anion Gap (5-15) meq/L BUN (7-18) mg/dL Creatinine (0.50-1.00) mg/dL Estimated GFR (>89) mL/min POC Glucose 197 H 236 H (68-110) mg/dl Random Glucose (74-106) mg/dL Calcium (8.5-10.1) mg/dL Total Bilirubin (0.2-1.0) mg/dL AST (15-37) U/L ALT (10-53) U/L Alkaline Phosphatase (45-117) U/L Lactate Dehydrogenase (84-246) U/L Total Creatine Kinase (26-192) U/L Troponin I (0.02-0.05) ng/mL B-Natriuretic Peptide (0-100) pg/mL Total Protein (6.4-8.2) g/dL Albumin (3.4-5.0) g/dL Ur Collection Type Urine Color (Yellw/Straw) Urine Clarity (Clear) Urine pH (5.0-8.5) Ur Specific [place] (1.002-1.035) Urine Protein (Neg-Trace) mg/dL Urine Glucose (UA) (Negative) mg/dL Urine Ketones (Negative) mg/dL Urine Occult Blood (Negative) Urine Nitrate (Negative) Urine Bilirubin (Negative) Urine Urobilinogen (Less than 2) mg/dL Ur Leukocyte Esterase (Negative) Ur Squamous Epith Cells (0-5) /hpf Hyaline Casts (0-3) /lpf Micro UA Comment Urine Culture Comments Pleural pH Pleural RBC (0-0) /mm3 Pleural Nuc Cells (0-10) /mm3 Pleural Neutrophils % Pleural Lymphocytes % Pleural Monocytes % Pleural Histocytes % Pleural Total Protein gm/dL Pleural LDH U/L Pleural Glucose mg/dL Nasal Screen MRSA (PCR) (Negative) Staph aureus (PCR) (Negative) 11/26/17 11/26/17 11/26/17 Range/Units 04:27 07:18 11:48 CBC w Diff WBC (4.0-11.0) th/mm3 RBC (4.00-5.30) mil/mm3 Hgb (11.6-15.3) gm/dL Hct (35.0-46.0) % MCV (80.0-100.0) fL MCH (27.0-34.0) pg MCHC (32.0-36.0) % RDW (11.6-17.2) % Plt Count (150-450) th/mm3 MPV (7.0-11.0) fL WBC Differential Seg Neuts % (Manual) (16-70) % Lymphocytes % (Manual) (9-44) % Monocytes % (Manual) (0-8) % Eosinophils % (Manual) (0-4) % Abs Neuts (Manual) (1.8-7.7) th/mm3 Differential Comment Smudge Cells (None) Platelet Estimate (Normal) Platelet Morphology (Normal) Ovalocytes (None) PT (9.8-11.6) sec INR Ratio APTT (24.3-30.1) sec D-Dimer Quant (PE/DVT) (0.00-0.50) mg/L FEU Puncture Site Patient Temperature O2 Saturation (90-100) % ABG pH (7.380-7.420) ABG pCO2 (38-42) mmHg ABG pO2 (61-120) mmHg ABG HCO3 (22-26) mmol/L ABG O2 Content (12.0-20.0) Vol % ABG Base Excess (-2-2) mmol/L ABG Methemoglobin (0-2) % Tim Test Hemoglobin (12.0-16.0) G/DL Carboxyhemoglobin (0-4) % O2 Delivery Device Liter Flow L/M Inspired O2 % Critical Value Sodium 142 (136-145) meq/L Potassium 4.3 (3.5-5.1) meq/L Chloride 106 (98-107) meq/L Carbon Dioxide 30.1 (21.0-32.0) meq/L Anion Gap 6 (5-15) meq/L BUN 65 H (7-18) mg/dL Creatinine 2.30 H (0.50-1.00) mg/dL Estimated GFR 20 L (>89) mL/min POC Glucose 173 H 195 H (68-110) mg/dl Random Glucose 151 H (74-106) mg/dL Calcium 9.0 (8.5-10.1) mg/dL Total Bilirubin (0.2-1.0) mg/dL AST (15-37) U/L ALT (10-53) U/L Alkaline Phosphatase (45-117) U/L Lactate Dehydrogenase (84-246) U/L Total Creatine Kinase (26-192) U/L Troponin I (0.02-0.05) ng/mL B-Natriuretic Peptide (0-100) pg/mL Total Protein (6.4-8.2) g/dL Albumin (3.4-5.0) g/dL Ur Collection Type Urine Color (Yellw/Straw) Urine Clarity (Clear) Urine pH (5.0-8.5) Ur Specific [place] (1.002-1.035) Urine Protein (Neg-Trace) mg/dL Urine Glucose (UA) (Negative) mg/dL Urine Ketones (Negative) mg/dL Urine Occult Blood (Negative) Urine Nitrate (Negative) Urine Bilirubin (Negative) Urine Urobilinogen (Less than 2) mg/dL Ur Leukocyte Esterase (Negative) Ur Squamous Epith Cells (0-5) /hpf Hyaline Casts (0-3) /lpf Micro UA Comment Urine Culture Comments Pleural pH Pleural RBC (0-0) /mm3 Pleural Nuc Cells (0-10) /mm3 Pleural Neutrophils % Pleural Lymphocytes % Pleural Monocytes % Pleural Histocytes % Pleural Total Protein gm/dL Pleural LDH U/L Pleural Glucose mg/dL Nasal Screen MRSA (PCR) (Negative) Staph aureus (PCR) (Negative) 11/26/17 Range/Units 16:19 CBC w Diff WBC (4.0-11.0) th/mm3 RBC (4.00-5.30) mil/mm3 Hgb (11.6-15.3) gm/dL Hct (35.0-46.0) % MCV (80.0-100.0) fL MCH (27.0-34.0) pg MCHC (32.0-36.0) % RDW (11.6-17.2) % Plt Count (150-450) th/mm3 MPV (7.0-11.0) fL WBC Differential Seg Neuts % (Manual) (16-70) % Lymphocytes % (Manual) (9-44) % Monocytes % (Manual) (0-8) % Eosinophils % (Manual) (0-4) % Abs Neuts (Manual) (1.8-7.7) th/mm3 Differential Comment Smudge Cells (None) Platelet Estimate (Normal) Platelet Morphology (Normal) Ovalocytes (None) PT (9.8-11.6) sec INR Ratio APTT (24.3-30.1) sec D-Dimer Quant (PE/DVT) (0.00-0.50) mg/L FEU Puncture Site Patient Temperature O2 Saturation (90-100) % ABG pH (7.380-7.420) ABG pCO2 (38-42) mmHg ABG pO2 (61-120) mmHg ABG HCO3 (22-26) mmol/L ABG O2 Content (12.0-20.0) Vol % ABG Base Excess (-2-2) mmol/L ABG Methemoglobin (0-2) % Tim Test Hemoglobin (12.0-16.0) G/DL Carboxyhemoglobin (0-4) % O2 Delivery Device Liter Flow L/M Inspired O2 % Critical Value Sodium (136-145) meq/L Potassium (3.5-5.1) meq/L Chloride (98-107) meq/L Carbon Dioxide (21.0-32.0) meq/L Anion Gap (5-15) meq/L BUN (7-18) mg/dL Creatinine (0.50-1.00) mg/dL Estimated GFR (>89) mL/min POC Glucose 189 H (68-110) mg/dl Random Glucose (74-106) mg/dL Calcium (8.5-10.1) mg/dL Total Bilirubin (0.2-1.0) mg/dL AST (15-37) U/L ALT (10-53) U/L Alkaline Phosphatase (45-117) U/L Lactate Dehydrogenase (84-246) U/L Total Creatine Kinase (26-192) U/L Troponin I (0.02-0.05) ng/mL B-Natriuretic Peptide (0-100) pg/mL Total Protein (6.4-8.2) g/dL Albumin (3.4-5.0) g/dL Ur Collection Type Urine Color (Yellw/Straw) Urine Clarity (Clear) Urine pH (5.0-8.5) Ur Specific [place] (1.002-1.035) Urine Protein (Neg-Trace) mg/dL Urine Glucose (UA) (Negative) mg/dL Urine Ketones (Negative) mg/dL Urine Occult Blood (Negative) Urine Nitrate (Negative) Urine Bilirubin (Negative) Urine Urobilinogen (Less than 2) mg/dL Ur Leukocyte Esterase (Negative) Ur Squamous Epith Cells (0-5) /hpf Hyaline Casts (0-3) /lpf Micro UA Comment Urine Culture Comments Pleural pH Pleural RBC (0-0) /mm3 Pleural Nuc Cells (0-10) /mm3 Pleural Neutrophils % Pleural Lymphocytes % Pleural Monocytes % Pleural Histocytes % Pleural Total Protein gm/dL Pleural LDH U/L Pleural Glucose mg/dL Nasal Screen MRSA (PCR) (Negative) Staph aureus (PCR) (Negative) Imaging Data Radiologist's impression: Chest X-Ray 11/22/17 07:35 CONCLUSION: Stable lung exam with a moderate sized right-sided pleural effusion and radiographic findings consistent with congestive heart failure. Chest CT 11/22/17 09:04 CONCLUSION: 1. Multiple abnormalities noted. There is a moderate right-sided pleural effusion with compressive atelectasis of the right lower lobe and to a lesser extent the right middle lobe. The groundglass opacities identified throughout the lungs and a perivascular distribution are consistent with pulmonary edema. Moderate enlargement of the heart with a small pericardial effusion. 2. Moderate ascites. Chest X-Ray 11/24/17 00:00 CONCLUSION: Right basilar atelectasis and small effusion. No pneumothorax Thoracentesis Ultrasound 11/24/17 06:00 CONCLUSION: 1. Successful ultrasound-guided right thoracentesis as described above. Discharge Plan Discharge Disposition Patient Disposition: 30 Still Patient Discharge Condition Condition: Stable Discharge Order Discharge Orders: Discharge Order (Routine); Ordered 11/26/17 Ordered By: Gelacio Nguyen Physicians Team ED Provider: Cruz Morin Primary Care Provider: Michael Henderson Attending Provider: Gelacio Nguyen Other Providers: Juan Killian Status ED Status: Left Department Discharge Information Discharge Date/Time: 11/22/17 11:59
[2017-11-22 08:15] LABS: Hematocrit 30.7 % (35.0-46.0); Hemoglobin 10.5 gm/dL (11.6-15.3); Mean Corpuscular HGB Conc 34.3 % (32.0-36.0); Mean Corpuscular Hemoglobin 32.2 pg (27.0-34.0); Mean Corpuscular Volume 93.8 fL (80.0-100.0); Mean Platelet Volume 9.2 fL (7.0-11.0); Platelet Count 118 th/mm3 (150-450); Red Blood Count 3.28 mil/mm3 (4.00-5.30); Red Cell Distribution Width 17.3 % (11.6-17.2); White Blood Count 43.8 th/mm3 (4.0-11.0)
[2017-11-22 08:21] LABS: Chloride 110 meq/L (98-107); Potassium 4.2 meq/L (3.5-5.1); Sodium 145 meq/L (136-145)
[2017-11-22 08:27] LABS: Albumin 3.6 g/dL (3.4-5.0); Anion Gap 8 meq/L (5-15); Calcium 8.9 mg/dL (8.5-10.1); Carbon Dioxide 27.2 meq/L (21.0-32.0); Glucose,Random 163 mg/dL (74-106)
[2017-11-22 08:28] LABS: Blood Urea Nitrogen 66 mg/dL (7-18)
[2017-11-22 08:30] LABS: Alanine Aminotransferase 19 U/L (10-53); Aspartate Aminotransferase 18 U/L (15-37)
[2017-11-22 08:31] LABS: Glomerular Filtration Rate 17 mL/min (>89)
[2017-11-22 08:32] LABS: Total Protein 6.2 g/dL (6.4-8.2)
--- NOTE | 2017-11-22 08:32 | XR ---
EXAM DATE: 11/22/2017 8:04 AM EDT AGE/SEX: 87 years / Female INDICATIONS: Short of breath. CLINICAL DATA: This is the patient's initial encounter. Patient reports that signs and symptoms have been present for 1 day and indicates a pain score of 4/10. MEDICAL/SURGICAL HISTORY: Diabetes. None. COMPARISON: PA lateral chest dated November 21, 2017. FINDINGS: Single AP upright portable view of the chest demonstrates persistent pleural effusion within the righ t hemithorax, moderate in size. The left hemithorax is clear. Heart size is enlarged with diffuse cep halization of pulmonary vasculature. Osseous structures demonstrate a right shoulder prosthesis. CONCLUSION: Stable lung exam with a moderate sized right-sided pleural effusion and radiographic findings consist ent with congestive heart failure. Electronically signed by: Leilani Glover MD 11/22/2017 8:30 AM EDT
[2017-11-22 08:33] LABS: Alkaline Phosphatase 128 U/L (45-117)
[2017-11-22 08:35] LABS: Troponin I 0.02 ng/mL (0.02-0.05)
[2017-11-22 08:40] LABS: Creatine Kinase 54 U/L (26-192)
[2017-11-22 08:44] LABS: Activated Partial Thrombo Time 22.9 sec (24.3-30.1); INR 1.1 Ratio; Prothrombin Time 11.6 sec (9.8-11.6)
[2017-11-22 08:47] LABS: D-Dimer 2.82 mg/L FEU (0.00-0.50)
--- NOTE | 2017-11-22 09:58 | CT ---
EXAM DATE: 11/22/2017 9:49 AM EDT AGE/SEX: 87 years / Female INDICATIONS: Shortness of Breath 3 months, Right Hip and Right Shoulder Surgery in July CLINICAL DATA: This is the patient's initial encounter. Patient reports that signs and symptoms have been present for 3 months and indicates a pain score of 5/10. MEDICAL/SURGICAL HISTORY: Diabetes. Atrial Fib section. Right Hip surgery, Right Shoulder surgery RADIATION DOSE: 24.81 CTDI (mGy) COMPARISON: , CHEST 1V SINGLE AP, 11/22/2017. HPO, CHEST 1V SINGLE AP, 11/22/2017. . TECHNIQUE: Multiple contiguous axial images were obtained through the chest without contrast. Image s were obtained in suspended respiration using multiple row detector helical technique. Using automa didier exposure control and adjustment of the mA and/or kV according to patient size, radiation dose was kept as low as reasonably achievable to obtain optimal diagnostic quality images. DICOM format imag e data is available electronically for review and comparison. FINDINGS: Lungs: Lungs are significant for compressive atelectasis within the right lower lobe and airspace co nsolidation adjacent to a moderate sized right lower lobe pleural effusion. There is also pleural flu id tracking into the right minor fissure with compressive atelectasis of the right middle lobe. There is perivascular groundglass opacity identified throughout the right hemithorax and to a lesser exten t within the left hemithorax. Mediastinum: The heart size is moderately enlarged with a small pericardial effusion present. There is extensive atherosclerosis and coronary artery disease. No evidence of aneurysm. No evidence of con cerning adenopathy. Pleurae: Moderate sized right-sided pleural effusion. Axillae: Unremarkable. 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 Miscellaneous: There is a moderate amount of ascites identified with fluid adjacent to the liver and spleen. The imaged portion of the abdomen is otherwise unremarkable. CONCLUSION: 1. Multiple abnormalities noted. There is a moderate right-sided pleural effusion with compressive a telectasis of the right lower lobe and to a lesser extent the right middle lobe. The groundglass opac ities identified throughout the lungs and a perivascular distribution are consistent with pulmonary e jerome. Moderate enlargement of the heart with a small pericardial effusion. 2. Moderate ascites. Electronically signed by: Leilani Glover MD 11/22/2017 9:56 AM EDT
[2017-11-22 09:59] LABS: Eosinophils 1 % (0-4); Lymphocytes 65 % (9-44); Monocytes 1 % (0-8)
[2017-11-22 10:00] LABS: Ovalocytes 1+
[2017-11-22 10:01] LABS: Platelet Morphology Normal (Normal); Smudge Cells Present
[2017-11-22 10:06] LABS: Bilirubin,Urine Negative (Negative); Clarity,Urine Clear (Clear); Glucose,Urine (UA) Negative (Negative); Leukocyte Esterase,Urine Negative (Negative); Nitrite,Urine Negative (Negative); PH,Urine 5.5 (5.0-8.5); Urobilinogen,Urine 0.2 mg/dL (Less than 2)
[2017-11-22 10:12] LABS: Color,Urine Straw (Yellw/Straw)
[2017-11-22] MEDS ORDERED: Bisacodyl 10 MG Supp RECTAL PRN (10:27)
[2017-11-22 10:31] LABS: Squamous Epithelial Cell,Urine 0-5 /hpf (0-5)
[2017-11-22 10:32] LABS: Hyaline Casts,Urine 0-3 /lpf (0-3)
--- NOTE | 2017-11-22 11:51 | P.HPIM ---
[facility]: Michael Henderson MD Chief Complaint: Shortness of breath History of Present Illness: 87-year-old female with a medical history significant for CLL, atrial fibrillation, asthma, chronic renal failure, diabetes who presented to the hospital with complaints of worsening shortness of breath. Patient reports she has been short of breath at baseline for years but over the past couple of weeks , she noted increasing bilateral lower extremity swelling and worsening shortness of breath. She denies chest pain. Patient hypoxemic in the emergency room. Workup in the emergency room revealed obvious pulmonary edema on imaging, a moderate sized pleural effusion on the right. She has been given 80 mg of IV Lasix in the emergency room. So far she is responding. She will be admitted for further treatment. - Diagnosis (1) Hypoxemia (2) Pulmonary edema, acute (3) Pleural effusion (4) Fluid overload (5) Ascites (6) CKD (chronic kidney disease) Inpatient Certification: I certify that the inpatient services were ordered in accordance with Medicare regulations governing the order. This includes certification that hospital inpatient services are reasonable and necessary and in the case of services not specified as inpatient-only under 42 CFR 419.22(n), that they are appropriately provided as inpatient services in accordance to with the 2-midnight benchmark under 43 CFR 412.3(e) Estimated Total Length of Stay (Days): 5 Plans for Post Hospital Care: Not yet determined Review of Systems All other systems reviewed negative except as stated in HPI Constitutional: Reports fatigue, Reports weight gain Cardiovascular: Denies chest pain Respiratory: Reports shortness of breath, Reports shortness of breath with activity Gastrointestinal: Denies abdominal pain Musculoskeletal: Reports body aches Skin/Breast: Reports boil, Reports rash PMFSH - History History Provided By: Patient - Medical History Medical History: Medical History (Last Updated 11/22/17 @ 13:54 by Gelacio Nguyen MD) Atrial fibrillation CKD (chronic kidney disease) CLL (chronic lymphocytic leukemia) Hx of atrial fibrillation, no current medication Hx of diabetes mellitus - Surgical History Surgical History: Surgical History (Last Reviewed 11/22/17 @ 13:54 by Gelacio Nguyen MD) Hx of bilateral hip replacements Hx of section Hx of shoulder surgery - Family History Family History: Family History (Last Updated 11/22/17 @ 13:55 by Gelacio Nguyen MD) Other Family history non-contributory - Tobacco History Second Hand Smoke Exposure: No Tobacco Use In Past 30 Days: No Smoking Status: Former smoker Tobacco Type: Cigarettes - Alcohol History How Often Do You Have a Drink Containing Alcohol: Never - Substance Use History Substance History: No History of Abuse - Travel History Recent Travel in the [place] Within the Last 8 Weeks: No Recent Travel Out of the Country Within the Last 8 Weeks: No - Immunization History Tetanus Immunization: Unsure Hx Influenza Vaccine This Season: Yes Medications and Allergies Active Medications: Active Medications Al Hydroxide/Mg Hydroxide (Milk Of Magnesia Liq) 30 ml PO Q12H PRN PRN Reason: Mild Constipation Albuterol (Duoneb Neb (Prn)) 1 ampul NEB Q15M PRN PRN Reason: WHEEZING Atorvastatin Calcium (Lipitor) 80 mg PO DAILY NICOLE Bisacodyl (Dulcolax Supp) 10 mg RECTAL DAILY PRN PRN Reason: SEVERE CONSITIPATION Lactulose (Lactulose Liq) 30 ml PO DAILY PRN PRN Reason: SEVERE CONSITIPATION Metoprolol Tartrate (Lopressor) 100 mg PO BID NICOLE Sennosides (Senokot) 17.2 mg PO Q12H PRN PRN Reason: Moderate Constipation Temazepam (Restoril) 15 mg PO HS PRN PRN Reason: INSOMNIA Allergies Allergy/AdvReac Type Severity Reaction Status Date / Time adhesive tape Allergy Severe PATIENT Verified 11/22/17 07:29 GETS BLISTERS pregabalin Allergy Severe Anaphylaxis Unverified 11/22/17 07:29 Home Medications Medication Instructions Recorded Confirmed Type apixaban [Eliquis] 2.5 mg PO BID 11/22/17 11/22/17 History aspirin 81 mg PO DAILY 11/22/17 11/22/17 History atorvastatin 80 mg PO DAILY 11/22/17 11/22/17 History cod liver oil 1 cap PO DAILY 11/22/17 11/22/17 History coenzyme Q10 [CoQ-10] 100 mg PO DAILY 11/22/17 11/22/17 History furosemide 40 mg PO BID 11/22/17 11/22/17 History insulin detemir U-100 [Levemir 50 unit SUB-Q QPM 11/22/17 11/22/17 History U-100 Insulin] ipratropium-albuterol 3 ml INHALATION Q6-8H PRN 11/22/17 11/22/17 History losartan 25 mg PO DAILY 11/22/17 11/22/17 History metoprolol tartrate 100 mg PO BID 11/22/17 11/22/17 History dogowmkugyqy-xwzo-vcyhz acid 1 tab PO DAILY 11/22/17 11/22/17 History [Centrum Women] Exam Vital signs: Vital Signs 11/22/17 07:25 11/22/17 07:50 11/22/17 07:51 Temperature 97.7 F Pulse Rate 79 77 Respiratory Rate 18 22 Blood Pressure 132/51 L Pulse Oximetry 84 L 98 Intake & Output 11/21/17 11/22/17 11/22/17 18:59 06:59 18:59 Weight 97.7 kg Narrative: CONSTITUTIONAL/GENERAL: Elderly female in mild respiratory distress with long sentences SKIN: Bilateral lower extremities with evidence of early cellulitis, couple of blisters on some of her toes bilaterally. HEAD: Atraumatic. Normocephalic. EYES: Pupils equal and round and reactive. Extra ocular motions are intact. No scleral icterus. No injection or drainage. ENT: Hearing grossly normal. Nose without drainage. Throat without visible erythema, exudates, masses, or lesions. NECK: Trachea midline. Neck is supple, non-tender. No palpable thyroid enlargement or nodularity. CARDIOVASCULAR: Normal rate and irregular rhythm. RESPIRATORY/CHEST: Markedly diminished breath sounds bilaterally at the bases. Right lower to mid lung mcmullen with scattered crackles. GASTROINTESTINAL: Abdomen soft, non-tender, non-distended. No hepato- splenomegaly, or palpable masses. No guarding. Bowel sounds present. MUSCULOSKELETAL: 2+ bilateral lower extremity edema NEUROLOGICAL: Awake and alert. Motor and sensory grossly within normal limits. Follows commands. Move all extremities spontaneously. No focal deficits. Generalized weakness PSYCHIATRIC: No obvious mood problems. No apparent hallucinations or other psychotic thought process. Results - Labs CBC & Chem 7: 11/22/17 07:50 11/22/17 07:50 Labs: Short CBC 11/22/17 Range/Units 07:50 WBC 43.8 H (4.0-11.0) th/mm3 Hgb 10.5 L (11.6-15.3) gm/dL Hct 30.7 L (35.0-46.0) % Plt Count 118 L (150-450) th/mm3 BMP 11/22/17 07:50 Sodium 145 Potassium 4.2 Chloride 110 H Carbon Dioxide 27.2 BUN 66 H Creatinine 2.70 H Calcium 8.9 Cardiac Enzymes 11/22/17 Range/Units 07:50 Total Creatine Kinase 54 (26-192) U/L Troponin I 0.02 (0.02-0.05) ng/mL Liver Function 11/22/17 Range/Units 07:50 Total Bilirubin 1.0 (0.2-1.0) mg/dL AST 18 (15-37) U/L ALT 19 (10-53) U/L Alkaline Phosphatase 128 H (45-117) U/L Albumin 3.6 (3.4-5.0) g/dL Urine 11/22/17 Range/Units 09:54 Urine Color Straw (Yellw/Straw) Urine Clarity Clear (Clear) Urine pH 5.5 (5.0-8.5) Ur Specific [place] 1.020 (1.002-1.035) Urine Protein Negative (Neg-Trace) mg/dL Urine Glucose (UA) Negative (Negative) mg/dL - Imaging Impressions Chest X-Ray 11/22/17 07:35 CONCLUSION: Stable lung exam with a moderate sized right-sided pleural effusion and radiographic findings consistent with congestive heart failure. Chest CT 11/22/17 09:04 CONCLUSION: 1. Multiple abnormalities noted. There is a moderate right-sided pleural effusion with compressive atelectasis of the right lower lobe and to a lesser extent the right middle lobe. The groundglass opacities identified throughout the lungs and a perivascular distribution are consistent with pulmonary edema. Moderate enlargement of the heart with a small pericardial effusion. 2. Moderate ascites. Caprini VTE Risk Assessment Caprini VTE Risk Assessment: Moderate/High Risk (score >= 2) Caprini Risk Assessment Model: Point Value = 1 Point Value = 2 Point Value = 3 Point Value = 5 Age 41-60 Minor surgery BMI > 25 kg/m2 Swollen legs Varicose veins or History of unexplained or recurrent spontaneous Oral contraceptives or hormone replacement Sepsis (< 1 month) Serious lung disease, including pneumonia (< 1 month) Abnormal pulmonary function Acute myocardial infarction Congestive heart failure (< 1 month) History of inflammatory bowel disease Medical patient at bed rest Age 61-74 Arthroscopic surgery Major open surgery (> 45 min) Laparoscopic surgery (> 45 min) Malignancy Confined to bed (> 72 hours) Immobilizing plaster cast Central venous access Age >= 75 History of VTE Family history of VTE Factor V Leiden Prothrombin [id number] Lupus anticoagulant Anticardiolipin antibodies Elevated serum homocysteine Heparin-induced thrombocytopenia Other congenital or acquired thrombophilia Stroke (< 1 month) Elective arthroplasty Hip, pelvis, or leg fracture Acute spinal cord injury (< 1 month) Prophylaxis Regimen: Total Risk Factor Score Risk Level Prophylaxis Regimen 0-1 Low Early ambulation 2 Moderate Order ONE of the following: *Sequential Compression Device (SCD) *Heparin 5000 units SQ BID 3-4 Higher Order ONE of the following medications: *Heparin 5000 units SQ TID *Enoxaparin/Lovenox 40 mg SQ daily (WT < 150 kg, CrCl > 30 mL/min) *Enoxaparin/Lovenox 30 mg SQ daily (WT < 150 kg, CrCl > 10-29 mL/min) *Enoxaparin/Lovenox 30 mg SQ BID (WT < 150 kg, CrCl > 30 mL/min) AND/OR *Sequential Compression Device (SCD) 5 or more Highest Order ONE of the following medications: *Heparin 5000 units SQ TID (Preferred with Epidurals) *Enoxaparin/Lovenox 40 mg SQ daily (WT < 150 kg, CrCl > 30 mL/min) *Enoxaparin/Lovenox 30 mg SQ daily (WT < 150 kg, CrCl > 10-29 mL/min) *Enoxaparin/Lovenox 30 mg SQ BID (WT < 150 kg, CrCl > 30 mL/min) AND *Sequential Compression Device (SCD) Assessment and Plan - Assessment (1) Hypoxemia Code(s): R09.02 - Hypoxemia Status: Acute (2) Pulmonary edema, acute Code(s): J81.0 - Acute pulmonary edema Status: Acute (3) Pleural effusion Code(s): J90 - Pleural effusion, not elsewhere classified Status: Acute (4) Fluid overload Code(s): E87.70 - Fluid overload, unspecified Status: Acute (5) Ascites Code(s): R18.8 - Other ascites Status: Acute (6) CKD (chronic kidney disease) Code(s): N18.9 - Chronic kidney disease, unspecified Status: Acute - Plan 87-year-old female admitted with acute respiratory failure secondary to pulmonary edema and fluid overload. Comorbid conditions include atrial fibrillation and CKD. Acute respiratory failure/pulmonary edema and pleural effusion: Probably multifactorial. Renal failure, CHF, pleural effusion -Patient received 80 mg of IV Lasix in the emergency room. She is responding to the Lasix. -Lasix at 40 mg IV twice daily to be started in a.m. monitor response. -2D echocardiogram from 07/2017 showed the left ventricular systolic function is normal with an estimated ejection fraction in the range of 55-60%. Acute on chronic renal failure: -Last documented creatinine was around 2.2. Patient has a history of temporary hemodialysis. She follows with Dr. Killian. -Consult nephrology. Avoid nephrotoxins. Follow response from IV Lasix. Pleural effusion: Moderate size. -May benefit from diagnostic/therapeutic thoracentesis. However she has been on Eliquis. Monitor response to IV Lasix. Consider thoracentesis in 48 hours after stopping Eliquis. Early bilateral lower extremity cellulitis: -Treated with Rocephin. Follow progress. Atrial fibrillation: Rate is controlled. Continue Lopressor. Eliquis on hold for possible procedure. Physical deconditioning: Secondary to comorbid issues above. Physical therapy to evaluate. Diabetes: Sliding scale insulin with Accu-Cheks. GI prophylaxis: Stool softener PRN constipation. DVT PPx: SCDs Discussed Condition With: ED physician
--- NOTE | 2017-11-22 13:46 | ECG ---
Date Performed: 11/22/2017 Time Performed: 07:18:04 PTAGE: 87 years EKG: ATRIAL FIBRILLATION MARKED LEFT AXIS DEVIATION POSSIBLE ANTERIOR MYOCARDIAL INFARCTION ABNO RMAL ECG Since the PREVIOUS TRACING , no significant change noted PREVIOUS TRACIN07/25/2017 18.24 DOCTOR: Renate Huertas Interpretating Date/Time 11/22/2017 13:45:08
[2017-11-22] MEDS ORDERED: Dextrose 50% in Water 50 ML Vial IV.PUSH PRN (14:15)
[2017-11-22] MEDS: Insulin NovoLOG Aspart Correctional Sugar Inj SQ SCH ×2 (17:30→21:25)
[2017-11-22] MEDS: Insulin Detemir Inj 1,000 UNIT/10 ML Vial SQ SCH (21:24)
[2017-11-22] MEDS: Metoprolol Tartrate 100 MG Tablet PO SCH (21:25)
[2017-11-22] MEDS: Temazepam 15 MG Capsule PO PRN (22:17)
[2017-11-23] MEDS ORDERED: Chlorhexidine Gluconate 2% 1 Pack (2 Cloths) TOPICAL PRN (04:00)
[2017-11-23] MEDS: Chlorhexidine Gluconate 2% 1 Pack (2 Cloths) TOPICAL SCH (05:54)
--- NOTE | 2017-11-23 07:18 | MB ---
cc: Juan Killian MD DATE: 11/22/2017 REASON FOR CONSULTATION: Chronic kidney disease with elevated BUN and creatinine for evaluation. HISTORY OF PRESENT ILLNESS: The patient is an 87-year-old female known to me from before with past medical history of hypertension, chronic lymphocytic leukemia, atrial fibrillation, bronchial asthma, diabetes mellitus, chronic kidney disease, came to the hospital with complaints of worsening shortness of breath. I was called to see the patient because of chronic kidney disease. The patient has been following with me in the office and the last time seen by me was almost 2 months ago. She had a history of fall and fracture of the hip and shoulder about 6 weeks ago and underwent surgery and then after the surgery she was in the rehab for about 4 weeks and she went home about 10 days ago. The patient noticed increased swelling of her legs and she was taking her diuretics at home regularly. She was initially on Bumex which was changed to Lasix and she noticed that the swelling was not improving and she has also worsening shortness of breath with mild cough which is mainly dry. There is no chest pain or palpitation. No nausea or vomiting. The patient was found to have moderate sized right pleural effusion. She is feeling much better after she was given IV Lasix and started passing more urine. Her baseline creatinine, according to my notes in the office, was around 2.3. This was in September of this year and now she is here with a creatinine of 2.7. PAST MEDICAL HISTORY: Hypertension, diabetes mellitus, atrial fibrillation, chronic lymphocytic leukemia, chronic kidney disease. PAST SURGICAL HISTORY: History of right hip and right shoulder surgery, section, history above. Also left hip surgery. REVIEW OF SYSTEMS: There is no history of fever. No headache, dizziness or blurring of vision. She has gradual worsening of shortness of breath, which was initially on exertion, but at rest also. She denies any nausea, vomiting. She has mild cough which is mainly dry. There is no chest pain. No palpitation. No abdominal pain. No history of diarrhea. She has mild pain yet at the shoulder. She was able to walk with the help of a walker at home. SOCIAL HISTORY: The patient is . She has past history of smoking. There is no history of heavy alcohol. FAMILY HISTORY: Noncontributory. ALLERGIES: SHE IS ALLERGIC TO PREGABALIN. MEDICATIONS: Currently, she is on following medications: 1. DuoNeb nebulizer. 2. Lipitor 80 mg at bedtime. 3. Dulcolax as needed. 4. Ceftriaxone 1 g q.24 hours. 5. Furosemide 40 mg IV b.i.d. 6. Insulin as per sliding scale. 7. Metoprolol 100 mg b.i.d. 8. Senokot 17.2 mg q.12 hours. 9. Restoril 15 mg p.r.n. PHYSICAL EXAMINATION: GENERAL: The patient is awake, alert, not in acute distress. VITAL SIGNS: Blood pressure is 119/47, temperature is 98.7 and oxygen saturation 97 on 2 liters nasal cannula. HEENT: Pupils are mid constricted. Nonicteric sclerae. Conjunctivae are pale. NECK: Supple. JVD is slightly elevated. LUNGS: The patient has bilateral decreased air entry with bilateral rales and scattered wheezing. HEART: S1, S2. Irregular. ABDOMEN: Distended, soft, lax. There is no tenderness. Bowel sounds positive. EXTREMITIES: She has bilateral 2+ edema with some erythema in the low leg. LABORATORY DATA: WBC count 43.8, hemoglobin 10.5, platelet count 118, neutrophils 33%, lymphocytes 65%. INR is 1.1. Sodium 145, potassium 4.2, chloride 110, bicarbonate 27.2, BUN 66, creatinine 2.7, glucose 202. AST, ALT normal, alkaline phosphatase 120. CPK is 54, albumin 3.6 with total protein of 6.2. Blood gas showing pH of 7.32 with pCO2 of 48 and pO2 of 96. Urinalysis showing that there is no proteinuria. IMAGING STUDIES: The patient has chest x-ray done which shows the patient has large right-sided pleural effusion and increased vascular marking. CT scan of the chest was done, which showed multiple abnormalities with moderate sized right pleural effusion, compressive atelectasis, ground glass opacities, moderate ascites. ASSESSMENT AND PLAN: 1. Fluid overload status. 2. Pleural effusion. 3. 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 4. Anemia. 5. Ascites. 6. Diabetes mellitus. 7. Chronic lymphocytic leukemia and anemia. The patient has advanced stage IV chronic kidney disease and baseline creatinine is close to 2.3. There is a possible element of some acute worsening. Her creatinine now is 2.7. The patient is passing urine. Continue the IV Lasix. Try to keep her in negative fluid balance. The patient possibly will need thoracentesis. Follow up urine output and the BUN and creatinine. Avoid nephrotoxins. She has chronic kidney disease, most likely because of hypertensive or diabetic renal disease or renal vascular disease. Thank you for the consultation. I will follow the patient while she is in the hospital. MD RUBENS Marina/richard/sonia , 11:23 PM , 11:37 PM
[2017-11-23] MEDS ORDERED: Non-Formulary Drug (Coenzyme Q10 [Coq-10] 100 MG) PO SCH (09:00)
[2017-11-23 10:35] LABS: Hematocrit 36.8 % (35.0-46.0); Hemoglobin 11.5 gm/dL (11.6-15.3); Mean Corpuscular HGB Conc 31.2 % (32.0-36.0); Mean Corpuscular Hemoglobin 30.3 pg (27.0-34.0); Mean Platelet Volume 9.1 fL (7.0-11.0); Platelet Count 112 th/mm3 (150-450); Red Blood Count 3.79 mil/mm3 (4.00-5.30); Red Cell Distribution Width 16.5 % (11.6-17.2); White Blood Count 39.8 th/mm3 (4.0-11.0)
[2017-11-23 10:53] LABS: Potassium 4.3 meq/L (3.5-5.1)
[2017-11-23 10:55] LABS: Calcium 8.9 mg/dL (8.5-10.1)
[2017-11-23 10:56] LABS: Carbon Dioxide 28.6 meq/L (21.0-32.0)
--- NOTE | 2017-11-23 11:31 | P.PNIM ---
Subjective Interval history: Patient reports she is feeling better today. Still short of breath with minimal activity. Lower extremity edema. Physical Exam Vital signs: Vital Signs 11/22/17 11:57 11/22/17 12:00 11/22/17 12:32 Temperature 97.5 F L Pulse Rate 74 81 83 Respiratory Rate 18 27 H Blood Pressure 115/47 L 128/60 Pulse Oximetry 97 91 L 11/22/17 13:00 11/22/17 14:00 11/22/17 16:00 Temperature 97.8 F Pulse Rate 76 72 79 Respiratory Rate 24 16 26 H Blood Pressure 121/56 L 120/52 L 119/47 L Pulse Oximetry 96 95 96 11/22/17 19:00 11/22/17 19:42 11/22/17 20:00 Temperature 98.7 F Pulse Rate 90 Respiratory Rate Blood Pressure Pulse Oximetry 97 11/22/17 22:30 11/22/17 23:50 11/23/17 03:00 Temperature 97.9 F Pulse Rate 66 Respiratory Rate 26 H Blood Pressure 100/55 L Pulse Oximetry 96 98 11/23/17 04:00 11/23/17 07:00 11/23/17 07:30 Temperature 98.2 F Pulse Rate 70 Respiratory Rate 23 Blood Pressure 107/45 L Pulse Oximetry 97 98 100 11/23/17 08:00 Temperature Pulse Rate 81 Respiratory Rate Blood Pressure Pulse Oximetry Intake & Output 11/22/17 11/23/17 11/23/17 18:59 06:59 18:59 Intake Total 840 / 840 100 / 100 480 / 480 Output Total 1050 / 1050 935 / 935 130 / 130 Balance -210 / -210 -835 / -835 350 / 350 Weight 99.8 kg 98.3 kg Intake: IV 100 / 100 Rocephin Inj 1,000 MG In NS Inj 100 / 100 100 ML @ 200 mls/hr IV.SIG Q24H NICOLE Rx#:[id number] Oral 840 / 840 480 / 480 Output: Urine 935 / 935 50 / 50 Urine Amount (Catheter) 1050 / 1050 80 / 80 Indwelling Urethral Catheter 1050 / 1050 80 / 80 Other: Date of Last Bowel Movement 11/20/17 11/21/17 11/21/17 # Bowel Movements 0 0 Weight On Admission 97.7 kg Narrative: CONSTITUTIONAL/GENERAL: Elderly female in mild respiratory distress with long sentences SKIN: Bilateral lower extremities with evidence of early cellulitis, couple of blisters on some of her toes bilaterally. HEAD: Atraumatic. Normocephalic. CARDIOVASCULAR: Normal rate and irregular rhythm. No significant murmurs. RESPIRATORY/CHEST: Markedly diminished breath sounds bilaterally at the bases. Right lower to mid lung mcmullen markedly diminished breath sounds with scattered crackles. GASTROINTESTINAL: Abdomen soft, non-tender, non-distended. MUSCULOSKELETAL: 2+ bilateral lower extremity edema NEUROLOGICAL: Awake and alert. Motor and sensory grossly within normal limits. Follows commands. Move all extremities spontaneously. No focal deficits. Generalized weakness PSYCHIATRIC: No obvious mood problems. No apparent hallucinations or other psychotic thought process. - Urinary Catheter Management Indwelling Urethral Catheter Cath placed during this visit: yes Reason for continuing: Hourly intake/output Insertion date: 11/22/17 Insertion time: 09:50 Results - Labs CBC & Chem 7: 11/23/17 10:25 11/23/17 10:25 Laboratory Results - last 24 hr 11/22/17 11/22/17 11/22/17 12:37 13:54 17:05 WBC RBC Hgb Hct MCV MCH MCHC RDW Plt Count MPV Sodium Potassium Chloride Carbon Dioxide Anion Gap BUN Creatinine Estimated GFR POC Glucose 143 H 157 H Random Glucose Calcium Nasal Screen MRSA (PCR) Negative Staph aureus (PCR) Positive 11/22/17 11/23/17 11/23/17 20:41 08:28 10:25 WBC 39.8 H RBC 3.79 L Hgb 11.5 L Hct 36.8 MCV 97.0 MCH 30.3 MCHC 31.2 L RDW 16.5 Plt Count 112 L MPV 9.1 Sodium Potassium Chloride Carbon Dioxide Anion Gap BUN Creatinine Estimated GFR POC Glucose 202 H 119 H Random Glucose Calcium Nasal Screen MRSA (PCR) Staph aureus (PCR) 11/23/17 10:25 WBC RBC Hgb Hct MCV MCH MCHC RDW Plt Count MPV Sodium 143 Potassium 4.3 Chloride 107 Carbon Dioxide 28.6 Anion Gap 7 BUN 67 H Creatinine 2.60 H Estimated GFR 17 L POC Glucose Random Glucose 128 H Calcium 8.9 Nasal Screen MRSA (PCR) Staph aureus (PCR) Assessment and Plan - Assessment (1) Hypoxemia Code(s): R09.02 - Hypoxemia Status: Acute (2) Pulmonary edema, acute Code(s): J81.0 - Acute pulmonary edema Status: Acute (3) Pleural effusion Code(s): J90 - Pleural effusion, not elsewhere classified Status: Acute (4) Fluid overload Code(s): E87.70 - Fluid overload, unspecified Status: Acute (5) Ascites Code(s): R18.8 - Other ascites Status: Acute (6) CKD (chronic kidney disease) Code(s): N18.9 - Chronic kidney disease, unspecified Status: Acute - Plan 87-year-old female admitted with acute respiratory failure secondary to pulmonary edema and fluid overload. Comorbid conditions include atrial fibrillation and CKD. Acute respiratory failure/pulmonary edema and pleural effusion: Probably multifactorial. Renal failure, CHF, pleural effusion -Patient received 80 mg of IV Lasix in the emergency room. She is responding to the Lasix. -Continue Lasix at 40 mg IV twice daily. -2D echocardiogram from 07/2017 showed the left ventricular systolic function is normal with an estimated ejection fraction in the range of 55-60%. -Would still benefit from thoracentesis. Will order this for tomorrow. Last dose of Eliquis on 11/21/17 Acute on chronic renal failure: -Last documented creatinine was around 2.2. Patient has a history of temporary hemodialysis. She follows with Dr. Killian. -Appreciate nephrology following. Continue IV Lasix. Monitor response. Pleural effusion: Moderate size. - Renal function with slight improvement. Early bilateral lower extremity cellulitis: -Continue to treat with Rocephin. Follow progress. Atrial fibrillation: Rate is controlled. Continue Lopressor. Eliquis on hold for procedure. Physical deconditioning: Secondary to comorbid issues above. Physical therapy to evaluate. Diabetes: Sliding scale insulin with Accu-Cheks. GI prophylaxis: Stool softener PRN constipation. DVT PPx: Heparin subcu Discharge Planning: OK to downgrade to intermediate care today.
[2017-11-23] MEDS: Insulin NovoLOG Aspart Correctional Sugar Inj SQ SCH ×4 (13:43→21:37)
[2017-11-23] MEDS: Metoprolol Tartrate 100 MG Tablet PO SCH ×2 (13:58→21:37)
[2017-11-23] MEDS: Heparin - SQ 10,000 UNITS/ML Vial SQ SCH ×2 (15:13→20:15)
--- NOTE | 2017-11-23 17:54 | P.PNNP ---
Subjective Interval history: Patient is alert, sitting on the chair, still has SOB and complaining of leg edema. Physical Exam Vital signs: Vital Signs 11/22/17 19:00 11/22/17 19:42 11/22/17 20:00 Temperature 98.7 F Pulse Rate 90 Respiratory Rate Blood Pressure Pulse Oximetry 97 11/22/17 22:30 11/22/17 23:50 11/23/17 03:00 Temperature 97.9 F Pulse Rate 66 Respiratory Rate 26 H Blood Pressure 100/55 L Pulse Oximetry 96 98 11/23/17 04:00 11/23/17 07:00 11/23/17 07:30 Temperature 98.2 F Pulse Rate 70 Respiratory Rate 23 Blood Pressure 107/45 L Pulse Oximetry 97 98 100 11/23/17 08:00 11/23/17 12:00 11/23/17 16:00 Temperature 97.8 F 97.9 F Pulse Rate 81 73 72 Respiratory Rate 19 18 Blood Pressure 114/51 L 114/79 Pulse Oximetry 97 Intake & Output 11/22/17 11/23/17 11/23/17 18:59 06:59 18:59 Intake Total 840 / 840 100 / 100 840 / 840 Output Total 1050 / 1050 935 / 935 680 / 680 Balance -210 / -210 -835 / -835 160 / 160 Weight 99.8 kg 98.3 kg Intake: IV 100 / 100 Rocephin Inj 1,000 MG In NS Inj 100 / 100 100 ML @ 200 mls/hr IV.SIG Q24H [facility] Rx#:[id number] Oral 840 / 840 840 / 840 Output: Urine 935 / 935 100 / 100 Urine Amount (Catheter) 1050 / 1050 580 / 580 Indwelling Urethral Catheter 1050 / 1050 580 / 580 Other: Date of Last Bowel Movement 11/20/17 11/21/17 11/21/17 # Bowel Movements 0 0 Weight On Admission 97.7 kg Narrative: CONSTITUTIONAL/GENERAL: Elderly female in mild respiratory distress with long sentences SKIN: Bilateral lower extremities with evidence of early cellulitis, couple of blisters on some of her toes bilaterally. HEAD: Atraumatic. Normocephalic. CARDIOVASCULAR: Normal rate and irregular rhythm. No significant murmurs. RESPIRATORY/CHEST: Markedly diminished breath sounds bilaterally at the bases. Right lower to mid lung mcmullen markedly diminished breath sounds with scattered crackles. GASTROINTESTINAL: Abdomen soft, non-tender, non-distended. MUSCULOSKELETAL: 2+ bilateral lower extremity edema NEUROLOGICAL: Awake and alert. Motor and sensory grossly within normal limits. Follows commands. Move all extremities spontaneously. No focal deficits. Generalized weakness - Urinary Catheter Management Indwelling Urethral Catheter Cath placed during this visit: yes Reason for continuing: Hourly intake/output Insertion date: 11/22/17 Insertion time: 09:50 Assessment and Plan - Plan 1. Fluid overload status. 2. Pleural effusion. 3. 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 4. Anemia. 5. Ascites. 6. Diabetes mellitus. 7. Chronic lymphocytic leukemia and anemia. The patient has advanced stage IV chronic kidney disease and baseline creatinine is close to 2.3. There is a possible element of some acute worsening. Her creatinine now is 2.7. The patient is passing urine. Continue the IV Lasix. Try to keep her in negative fluid balance. The patient possibly will need thoracentesis. Follow up urine output and the BUN and creatinine. Avoid nephrotoxins. She has chronic kidney disease, most likely because of hypertensive or diabetic renal disease or renal vascular disease. Has some DEJAH, continue Lasix, for Thoracentesis tomorrow.
[2017-11-23] MEDS: Insulin Detemir Inj 1,000 UNIT/10 ML Vial SQ SCH (21:37)
[2017-11-23] MEDS: Temazepam 15 MG Capsule PO PRN (22:42)
[2017-11-24 04:48] LABS: Hematocrit 35.4 % (35.0-46.0); Hemoglobin 11.2 gm/dL (11.6-15.3); Mean Corpuscular HGB Conc 31.5 % (32.0-36.0); Mean Corpuscular Hemoglobin 30.3 pg (27.0-34.0); Mean Corpuscular Volume 96.2 fL (80.0-100.0); Platelet Count 113 th/mm3 (150-450); Red Blood Count 3.68 mil/mm3 (4.00-5.30); Red Cell Distribution Width 16.6 % (11.6-17.2); White Blood Count 41.2 th/mm3 (4.0-11.0)
[2017-11-24 04:53] LABS: Potassium 4.3 meq/L (3.5-5.1)
[2017-11-24 04:56] LABS: Carbon Dioxide 30.5 meq/L (21.0-32.0)
[2017-11-24 04:59] LABS: INR 1.1 Ratio; Prothrombin Time 11.2 sec (9.8-11.6)
[2017-11-24] MEDS: Chlorhexidine Gluconate 2% 1 Pack (2 Cloths) TOPICAL SCH (05:20)
[2017-11-24] MEDS: Insulin NovoLOG Aspart Correctional Sugar Inj SQ SCH ×4 (07:58→21:44)
[2017-11-24] MEDS: Metoprolol Tartrate 100 MG Tablet PO SCH ×2 (08:05→21:43)
[2017-11-24] MEDS ORDERED: Midazolam Inj 5 MG/ML 1 ML Vial ONE (08:54)
--- NOTE | 2017-11-24 09:40 | XR ---
EXAM DATE: 11/24/2017 9:35 AM EDT AGE/SEX: 87 years / Female INDICATIONS: Post Thoracentesis right side CLINICAL DATA: This is the patient's subsequent encounter. Patient reports that signs and symptoms h ave been present for 1 day and indicates a pain score of 0/10. MEDICAL/SURGICAL HISTORY: . Diabetes None. COMPARISON: , CHEST 1V SINGLE AP, 11/22/2017. . FINDINGS: A single frontal expiratory view of the chest was performed. Right basilar density. Heart enlarged. No evidence of pneumothorax. Mediastinal structures are in the midline. CONCLUSION: Right basilar atelectasis and small effusion. No pneumothorax Electronically signed by: Carlos Zhu MD 11/24/2017 9:39 AM EDT
--- NOTE | 2017-11-24 09:51 | US ---
EXAM DATE: 11/24/2017 9:12 AM EDT AGE/SEX: 87 years / Female INDICATIONS: Right pleural effusion. CLINICAL DATA: This is the patient's initial encounter. Patient reports that signs and symptoms have been present for 1 day and indicates a pain score of 5/10. MEDICAL/SURGICAL HISTORY: . Diabetes. Chronic lymphocytic leukemia. Atrial fibrillation. Chroni c kidney disease. . Right hip replacement. Right shoulder surgery. COMPARISON: No prior exams available for comparison. FLUID: Total volume of 1400 cc cc of interiano fluid was removed. Fluid was sent to lab for ordered studies. . . TECHNIQUE: Ultrasound guidance for thoracentesis. Thoracentesis. The risks, benefits, and alternatives to ultrasound guided thoracentesis were explained to the patien t in lay simple terms, including the risk of bleeding and infection. Written and verbal informed con sent was obtained. Appropriate area for right thoracentesis was marked under ultrasound guidance with the patient in the upright position. Overlying skin was prepped and draped in the usual sterile fashion and with local anesthetic, a dermatotomy was made with an 11 blade scalpel. A 6 [place] thoracentesis catheter was placed in the pleural space and fluid was removed. Catheter was then removed and a sterile dressing applied. There were no immediate complications. The patient tolerated the procedure well and the lef t the ultrasound suite in stable condition. Chest radiograph is to be obtained. FINDINGS: After obtaining consent, a right-sided thoracentesis was performed using ultrasound guidance. 1400 cc of clear yellow fluid was aspirated and sent for laboratory evaluation. The patient tolerated the pr ocedure well without concretions. CONCLUSION: 1. Successful ultrasound-guided right thoracentesis as described above. Electronically signed by: Panchito Toledo MD 11/24/2017 9:50 AM EDT
[2017-11-24 10:56] LABS: Lymphocytes,Pleural Fluid 69 %; Monocytes,Pleural Fluid 2 %; Neutrophils,Pleural Fluid 27 %; RBC,Pleural Fluid 1940 /mm3 (0-0)
[2017-11-24] MEDS ORDERED: Lidocaine 1%/Epinephrine 1:200,000 PF Inj 30 ML Vial ONE (11:01)
--- NOTE | 2017-11-24 14:28 | P.PNIM ---
Subjective Interval history: Patient seen postthoracentesis. 1.4 L removed. She reports she is breathing much better and is more comfortable. Physical Exam Vital signs: Vital Signs 11/23/17 16:00 11/23/17 19:00 11/23/17 19:50 Temperature 97.9 F Pulse Rate 72 88 Respiratory Rate 18 27 H Blood Pressure 114/79 146/99 H Pulse Oximetry 97 94 L 95 11/23/17 20:00 11/24/17 00:00 11/24/17 04:00 Temperature 98.1 F 98.1 F 97.4 F L Pulse Rate 90 63 63 Respiratory Rate 38 H 24 19 Blood Pressure 126/59 L 105/52 L 107/56 L Pulse Oximetry 71 L 95 100 Intake & Output 11/23/17 11/24/17 11/24/17 18:59 06:59 18:59 Intake Total 840 / 840 120 / 120 Output Total 745 / 745 850 / 850 Balance 95 / 95 -730 / -730 Weight 99.5 kg Intake: Oral 840 / 840 120 / 120 Output: Urine 100 / 100 850 / 850 Urine Amount (Catheter) 645 / 645 Indwelling Urethral Catheter 645 / 645 Other: Date of Last Bowel Movement 11/21/17 11/23/17 # Bowel Movements 0 1 Narrative: CONSTITUTIONAL/GENERAL: Elderly female in no acute distress. SKIN: Bilateral lower extremities with evidence of early cellulitis, couple of blisters on some of her toes bilaterally. HEAD: Atraumatic. Normocephalic. CARDIOVASCULAR: Normal rate and irregular rhythm. No significant murmurs. RESPIRATORY/CHEST: Diminished breath sounds bilaterally at the bases. Otherwise clear to auscultation. GASTROINTESTINAL: Abdomen soft, non-tender, non-distended. MUSCULOSKELETAL: 2+ bilateral lower extremity edema - Urinary Catheter Management Indwelling Urethral Catheter Cath placed during this visit: yes Reason for continuing: Hourly intake/output Insertion date: 11/22/17 Insertion time: 09:50 Results - Labs CBC & Chem 7: 11/24/17 04:35 11/24/17 04:35 Laboratory Results - last 24 hr 11/23/17 11/23/17 11/24/17 17:01 20:12 04:35 WBC 41.2 H RBC 3.68 L Hgb 11.2 L Hct 35.4 MCV 96.2 MCH 30.3 MCHC 31.5 L RDW 16.6 Plt Count 113 L MPV 9.0 PT INR Sodium Potassium Chloride Carbon Dioxide Anion Gap BUN Creatinine Estimated GFR POC Glucose 206 H 198 H Random Glucose Calcium Pleural RBC Pleural Nuc Cells Pleural Neutrophils Pleural Lymphocytes Pleural Monocytes Pleural Histocytes Pleural Total Protein Pleural LDH Pleural Glucose 11/24/17 11/24/17 11/24/17 04:35 04:35 07:36 WBC RBC Hgb Hct MCV MCH MCHC RDW Plt Count MPV PT 11.2 INR 1.1 Sodium 141 Potassium 4.3 Chloride 106 Carbon Dioxide 30.5 Anion Gap 5 BUN 66 H Creatinine 2.50 H Estimated GFR 18 L POC Glucose 128 H Random Glucose 136 H Calcium 9.0 Pleural RBC Pleural Nuc Cells Pleural Neutrophils Pleural Lymphocytes Pleural Monocytes Pleural Histocytes Pleural Total Protein Pleural LDH Pleural Glucose 11/24/17 11/24/17 11/24/17 08:45 08:45 11:56 WBC RBC Hgb Hct MCV MCH MCHC RDW Plt Count MPV PT INR Sodium Potassium Chloride Carbon Dioxide Anion Gap BUN Creatinine Estimated GFR POC Glucose 98 Random Glucose Calcium Pleural RBC 1940 H Pleural Nuc Cells 135 H Pleural Neutrophils 27 Pleural Lymphocytes 69 Pleural Monocytes 2 Pleural Histocytes 2 Pleural Total Protein 2.0 Pleural LDH 75 Pleural Glucose 144 - Imaging Impressions Chest X-Ray 11/22/17 07:35 CONCLUSION: Stable lung exam with a moderate sized right-sided pleural effusion and radiographic findings consistent with congestive heart failure. Chest CT 11/22/17 09:04 CONCLUSION: 1. Multiple abnormalities noted. There is a moderate right-sided pleural effusion with compressive atelectasis of the right lower lobe and to a lesser extent the right middle lobe. The groundglass opacities identified throughout the lungs and a perivascular distribution are consistent with pulmonary edema. Moderate enlargement of the heart with a small pericardial effusion. 2. Moderate ascites. Chest X-Ray 11/24/17 00:00 CONCLUSION: Right basilar atelectasis and small effusion. No pneumothorax Thoracentesis Ultrasound 11/24/17 06:00 CONCLUSION: 1. Successful ultrasound-guided right thoracentesis as described above. Assessment and Plan - Assessment (1) Hypoxemia Code(s): R09.02 - Hypoxemia Status: Acute (2) Pulmonary edema, acute Code(s): J81.0 - Acute pulmonary edema Status: Acute (3) Pleural effusion Code(s): J90 - Pleural effusion, not elsewhere classified Status: Acute (4) Fluid overload Code(s): E87.70 - Fluid overload, unspecified Status: Acute (5) Ascites Code(s): R18.8 - Other ascites Status: Acute (6) CKD (chronic kidney disease) Code(s): N18.9 - Chronic kidney disease, unspecified Status: Acute - Plan 87-year-old female admitted with acute respiratory failure secondary to pulmonary edema and fluid overload. Comorbid conditions include atrial fibrillation and CKD. Acute respiratory failure/pulmonary edema and pleural effusion: Probably multifactorial. Renal failure, CHF, pleural effusion -Patient received 80 mg of IV Lasix in the emergency room. She is responding to Lasix. -Continue Lasix at 40 mg IV twice daily. -2D echocardiogram from 07/2017 showed the left ventricular systolic function is normal with an estimated ejection fraction in the range of 55-60%. -S/P thoracentesis today 1.5 liters removed. Fluid studies pending Acute on chronic renal failure: -Last documented creatinine was around 2.2. Patient has a history of temporary hemodialysis. She follows with Dr. Killian. -Appreciate nephrology following. Continue IV Lasix. Monitor response. -Renal functions slightly improved Early bilateral lower extremity cellulitis: -Continue to treat with Rocephin. Follow progress. Atrial fibrillation: Rate is controlled. Continue Lopressor. Resume Eliquis. Physical deconditioning: Secondary to comorbid issues above. Physical therapy following. Will likely need SNF Diabetes: Sliding scale insulin with Accu-Cheks. GI prophylaxis: Stool softener PRN constipation. DVT PPx: Eliquis Discharge Planning: OK to downgrade to floor today.
--- NOTE | 2017-11-24 14:41 | P.PNNP ---
Subjective Interval history: Patient seen in AM, after Thoracentesis, breathing is better, not in distress. Physical Exam Vital signs: Vital Signs 11/23/17 16:00 11/23/17 19:00 11/23/17 19:50 Temperature 97.9 F Pulse Rate 72 88 Respiratory Rate 18 27 H Blood Pressure 114/79 146/99 H Pulse Oximetry 97 94 L 95 11/23/17 20:00 11/24/17 00:00 11/24/17 04:00 Temperature 98.1 F 98.1 F 97.4 F L Pulse Rate 90 63 63 Respiratory Rate 38 H 24 19 Blood Pressure 126/59 L 105/52 L 107/56 L Pulse Oximetry 71 L 95 100 Intake & Output 11/23/17 11/24/17 11/24/17 18:59 06:59 18:59 Intake Total 840 / 840 120 / 120 Output Total 745 / 745 850 / 850 Balance 95 / 95 -730 / -730 Weight 99.5 kg Intake: Oral 840 / 840 120 / 120 Output: Urine 100 / 100 850 / 850 Urine Amount (Catheter) 645 / 645 Indwelling Urethral Catheter 645 / 645 Other: Date of Last Bowel Movement 11/21/17 11/23/17 # Bowel Movements 0 1 Narrative: CONSTITUTIONAL/GENERAL: Elderly female in mild respiratory distress with long sentences SKIN: Bilateral lower extremities with evidence of early cellulitis, couple of blisters on some of her toes bilaterally. HEAD: Atraumatic. Normocephalic. CARDIOVASCULAR: Normal rate and irregular rhythm. No significant murmurs. RESPIRATORY/CHEST: Markedly diminished breath sounds bilaterally at the bases. Right lower to mid lung mcmullen markedly diminished breath sounds with scattered crackles. GASTROINTESTINAL: Abdomen soft, non-tender, non-distended. MUSCULOSKELETAL: 2+ bilateral lower extremity edema NEUROLOGICAL: Awake and alert. Motor and sensory grossly within normal limits. Follows commands. Move all extremities spontaneously. No focal deficits. Generalized weakness - Urinary Catheter Management Indwelling Urethral Catheter Cath placed during this visit: yes Reason for continuing: Hourly intake/output Insertion date: 11/22/17 Insertion time: 09:50 Assessment and Plan - Plan 1. Fluid overload status. 2. Pleural effusion. 3. 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 4. Anemia. 5. Ascites. 6. Diabetes mellitus. 7. Chronic lymphocytic leukemia and anemia. The patient has advanced stage IV chronic kidney disease and baseline creatinine is close to 2.3. There is a possible element of some acute worsening. Her creatinine now is 2.5. The patient is passing urine. Continue the IV Lasix. Try to keep her in negative fluid balance. Follow up urine output and the BUN and creatinine. Avoid nephrotoxins. She has chronic kidney disease, most likely because of hypertensive or diabetic renal disease or renal vascular disease. Has some DEJAH, continue Lasix, Post Thoracentesis and 1.4 liters removed.
[2017-11-24] MEDS: Insulin Detemir Inj 1,000 UNIT/10 ML Vial SQ SCH (21:43)
[2017-11-24] MEDS: Temazepam 15 MG Capsule PO PRN (23:53)
[2017-11-25 06:01] LABS: Hematocrit 35.3 % (35.0-46.0); Hemoglobin 11.1 gm/dL (11.6-15.3); Mean Corpuscular HGB Conc 31.4 % (32.0-36.0); Mean Corpuscular Hemoglobin 30.3 pg (27.0-34.0); Mean Corpuscular Volume 96.6 fL (80.0-100.0); Mean Platelet Volume 9.1 fL (7.0-11.0); Platelet Count 116 th/mm3 (150-450); Red Blood Count 3.65 mil/mm3 (4.00-5.30); Red Cell Distribution Width 16.8 % (11.6-17.2); White Blood Count 34.5 th/mm3 (4.0-11.0)
[2017-11-25 06:20] LABS: Potassium 4.2 meq/L (3.5-5.1)
[2017-11-25] MEDS: Chlorhexidine Gluconate 2% 1 Pack (2 Cloths) TOPICAL SCH (06:24)
[2017-11-25 06:25] LABS: Calcium 8.9 mg/dL (8.5-10.1); Carbon Dioxide 30.3 meq/L (21.0-32.0)
--- NOTE | 2017-11-25 07:17 | P.PNWCN ---
Wound Care Nurse Consult Description: Received consult for wound management of Coccyx, RLL and LLL from Doctor Nguyen Communicated with: MIKE Tran 4th floor [facility] ICU and Doctor Nguyen Recommendation: 1.Please cleanse BLE with soap and water and pat dry. Apply lotion and leave open to air if no weeping.If patient has weeping to BLE please cleanse open weeping wounds with normal saline and spray intact skin with skin barrier film spray before covering with optilock dressing secured rolled gauze and tape. Change dressings every 3 to 5 days or as needed if saturated or dislodged. 2.Please elevate BLE when patient is sitting in chair or laying in bed. 3. Please cleanse coccyx, and bilateral inner buttock areas with Remedy barrier wipes and apply Calazime skin protectant paste BID and PRN and leave open to air 4. Please limit time sitting up in chair to 1 hour and please assist with turning and repositioning patient every 2 hours while in bed. Wound/Pressure Injury - Wound Left Anterior Toe - 2nd Digit Wound Assessment: Ongoing Wound Type: Blister Requested from Provider a Wound Care Consult: Yes Length: 1.7 Width: 1 Wound Bed Appearance: Blisters - Intact Surrounding Tissue Appearance: [place] Surrounding Tissue Temperature: Warm Drainage Amount: None Dressing Status: Open to Air Right Anterior Great Toe Wound Assessment: Ongoing Wound Type: Blister Is This a Chronic Wound: No Requested from Provider a Wound Care Consult: Yes Length: 3 Width: 1.5 Wound Bed Appearance: Blisters - Intact Surrounding Tissue Appearance: [place] Drainage Amount: None Dressing Status: Open to Air - Additional Information Patient seen on 4th floor [facility] ICU for wound management of coccyx, RLL and LLL. Patient is sitting in recline upon writer editor's arrival. Patient has legs elevated. Removed telfa and rolled gauze dressing in place to reveal dry erythema with small red lesions that are scattered. Patient is noted with trace edema that appears to have improved given the skin's winkled appearance.Partial thickness wounds are noted to R hazel and L calf that are dry and non draining with today' s assessment. Removed patient's socks to reveal bullae to L second toe and R great toe that are dry and intact. Non skid socks were applied back on patient. Patient then stood for assessment of coccyx are with assist and walker, to reveal denuded, blanchable erythematous skin to coccyx, and bilateral inner buttocks. Cleansed these areas with Remedy barrier wipes and applied Calazime skin protectant paste and left areas noted open to air. Replaced cotton pads on bed and chair with ultra sorb moisture wicking disposable pads. Recommendations are noted above.
[2017-11-25] MEDS: Metoprolol Tartrate 100 MG Tablet PO SCH ×2 (09:46→20:21)
[2017-11-25] MEDS: Insulin NovoLOG Aspart Correctional Sugar Inj SQ SCH ×4 (09:47→21:25)
--- NOTE | 2017-11-25 12:22 | P.PNIM ---
Subjective Interval history: Patient reports she is feeling okay today. Breathing is stable. Still with significant weakness. Physical Exam Vital signs: Vital Signs 11/24/17 13:00 11/24/17 14:00 11/24/17 15:00 Temperature Pulse Rate 68 66 68 Respiratory Rate 27 H 21 19 Blood Pressure Pulse Oximetry 80 L 100 100 11/24/17 15:58 11/24/17 16:00 11/24/17 19:00 Temperature 96.4 F L Pulse Rate 68 Respiratory Rate 27 H Blood Pressure 122/55 L Pulse Oximetry 97 100 96 11/24/17 20:00 11/24/17 20:05 11/24/17 20:36 Temperature Pulse Rate 74 82 Respiratory Rate 44 H Blood Pressure 116/54 L Pulse Oximetry 89 L 96 11/24/17 22:00 11/25/17 00:00 11/25/17 04:00 Temperature 97.5 F L 97.6 F Pulse Rate 86 66 74 Respiratory Rate 38 H 26 H 24 Blood Pressure 108/56 L 110/45 L 106/49 L Pulse Oximetry 91 L 96 96 11/25/17 07:00 Temperature Pulse Rate Respiratory Rate Blood Pressure Pulse Oximetry 98 Intake & Output 11/24/17 11/25/17 11/25/17 18:59 06:59 18:59 Intake Total 460 / 460 Output Total 730 / 730 920 / 920 140 / 140 Balance -270 / -270 -920 / -920 -140 / -140 Weight 96.3 kg Intake: IV 100 / 100 Rocephin Inj 1,000 MG In NS Inj 100 / 100 100 ML @ 200 mls/hr IV.SIG Q24H [facility] Rx#:[id number] Oral 360 / 360 Output: Urine 50 / 50 920 / 920 Urine Amount (Catheter) 680 / 680 140 / 140 Indwelling Urethral Catheter 680 / 680 140 / 140 Other: Date of Last Bowel Movement 11/23/17 11/23/17 11/25/17 # Bowel Movements 0 Narrative: CONSTITUTIONAL/GENERAL: Elderly female in no acute distress. SKIN: Bilateral lower extremities with evidence of cellulitis. HEAD: Atraumatic. Normocephalic. CARDIOVASCULAR: Normal rate and irregular rhythm. No significant murmurs. RESPIRATORY/CHEST: Diminished breath sounds bilaterally at the bases. Otherwise clear to auscultation. GASTROINTESTINAL: Abdomen soft, non-tender, non-distended. MUSCULOSKELETAL: 2+ bilateral lower extremity edema - Urinary Catheter Management Indwelling Urethral Catheter Cath placed during this visit: yes Reason for continuing: Hourly intake/output Insertion date: 11/22/17 Insertion time: 09:50 Results - Labs CBC & Chem 7: 11/25/17 04:47 11/25/17 04:47 Laboratory Results - last 24 hr 11/24/17 11/24/17 11/24/17 04:35 08:45 17:04 WBC RBC Hgb Hct MCV MCH MCHC RDW Plt Count MPV Sodium Potassium Chloride Carbon Dioxide Anion Gap BUN Creatinine Estimated GFR POC Glucose 194 H Random Glucose Calcium Lactate Dehydrogenase 234 Pleural pH 8.0 Pleural Total Protein 2.0 Pleural LDH 75 Pleural Glucose 144 11/24/17 11/25/17 11/25/17 21:01 04:47 04:47 WBC 34.5 H RBC 3.65 L Hgb 11.1 L Hct 35.3 MCV 96.6 MCH 30.3 MCHC 31.4 L RDW 16.8 Plt Count 116 L MPV 9.1 Sodium 144 Potassium 4.2 Chloride 107 Carbon Dioxide 30.3 Anion Gap 7 BUN 63 H Creatinine 2.40 H Estimated GFR 19 L POC Glucose 228 H Random Glucose 153 H Calcium 8.9 Lactate Dehydrogenase Pleural pH Pleural Total Protein Pleural LDH Pleural Glucose 11/25/17 07:26 WBC RBC Hgb Hct MCV MCH MCHC RDW Plt Count MPV Sodium Potassium Chloride Carbon Dioxide Anion Gap BUN Creatinine Estimated GFR POC Glucose 152 H Random Glucose Calcium Lactate Dehydrogenase Pleural pH Pleural Total Protein Pleural LDH Pleural Glucose Microbiology 11/24/17 08:45 Fluid - Pleural fluid Gram Stain - Final 11/24/17 08:45 Fluid - Pleural fluid Body Fluid Culture - Preliminary No growth in 24 hours Assessment and Plan - Assessment (1) Hypoxemia Code(s): R09.02 - Hypoxemia Status: Acute (2) Pulmonary edema, acute Code(s): J81.0 - Acute pulmonary edema Status: Acute (3) Pleural effusion Code(s): J90 - Pleural effusion, not elsewhere classified Status: Acute (4) Fluid overload Code(s): E87.70 - Fluid overload, unspecified Status: Acute (5) Ascites Code(s): R18.8 - Other ascites Status: Acute (6) CKD (chronic kidney disease) Code(s): N18.9 - Chronic kidney disease, unspecified Status: Acute - Plan 87-year-old female admitted with acute respiratory failure secondary to pulmonary edema and fluid overload. Comorbid conditions include atrial fibrillation and CKD. Acute respiratory failure/pulmonary edema and pleural effusion: Probably multifactorial. Renal failure, CHF, pleural effusion -Patient received 80 mg of IV Lasix in the emergency room. She is responding to Lasix. -Continue Lasix at 40 mg IV twice daily. -2D echocardiogram from 07/2017 showed the left ventricular systolic function is normal with an estimated ejection fraction in the range of 55-60%. -S/P thoracentesis on 11/24/17 and 1.5 liters removed. Fluid studies revealed transudative fluid. Cytology pending Acute on chronic renal failure: -Last documented creatinine was around 2.2. Patient has a history of temporary hemodialysis. She follows with Dr. Killian. -Appreciate nephrology following. Continue IV Lasix. Monitor response. -Renal functions improving. Early bilateral lower extremity cellulitis: -Continue to treat with Rocephin. Follow progress. Atrial fibrillation: Rate is controlled. Continue Lopressor. Resume Eliquis. Physical deconditioning: Secondary to comorbid issues above. Physical therapy consult. Will likely need SNF versus home health and PT. Diabetes: Sliding scale insulin with Accu-Cheks. GI prophylaxis: Stool softener PRN constipation. DVT PPx: Eliquis Discharge Planning: Plan to discharge tomorrow. Likely will need SNF. PT to evaluate
--- NOTE | 2017-11-25 14:46 | P.PNNP ---
Subjective Interval history: Patient is alert, breathing is better, started eating. Physical Exam Vital signs: Vital Signs 11/24/17 15:00 11/24/17 15:58 11/24/17 16:00 Temperature 96.4 F L Pulse Rate 68 68 Respiratory Rate 19 27 H Blood Pressure 122/55 L Pulse Oximetry 100 97 100 11/24/17 19:00 11/24/17 20:00 11/24/17 20:05 Temperature Pulse Rate 74 82 Respiratory Rate 44 H Blood Pressure 116/54 L Pulse Oximetry 96 89 L 11/24/17 20:36 11/24/17 22:00 11/25/17 00:00 Temperature 97.5 F L Pulse Rate 86 66 Respiratory Rate 38 H 26 H Blood Pressure 108/56 L 110/45 L Pulse Oximetry 96 91 L 96 11/25/17 04:00 11/25/17 07:00 Temperature 97.6 F Pulse Rate 74 Respiratory Rate 24 Blood Pressure 106/49 L Pulse Oximetry 96 98 Intake & Output 11/24/17 11/25/17 11/25/17 18:59 06:59 18:59 Intake Total 460 / 460 Output Total 730 / 730 920 / 920 310 / 310 Balance -270 / -270 -920 / -920 -310 / -310 Weight 96.3 kg Intake: IV 100 / 100 Rocephin Inj 1,000 MG In NS Inj 100 / 100 100 ML @ 200 mls/hr IV.SIG Q24H NICOLE Rx#:[id number] Oral 360 / 360 Output: Urine 50 / 50 920 / 920 Urine Amount (Catheter) 680 / 680 310 / 310 Indwelling Urethral Catheter 680 / 680 310 / 310 Other: Date of Last Bowel Movement 11/23/17 11/23/17 11/25/17 # Bowel Movements 0 Narrative: CONSTITUTIONAL/GENERAL: Elderly female in no acute distress. SKIN: Bilateral lower extremities with evidence of cellulitis. HEAD: Atraumatic. Normocephalic. CARDIOVASCULAR: Normal rate and irregular rhythm. No significant murmurs. RESPIRATORY/CHEST: Diminished breath sounds bilaterally at the bases. Otherwise clear to auscultation. GASTROINTESTINAL: Abdomen soft, non-tender, non-distended. MUSCULOSKELETAL: 2+ bilateral lower extremity edema - Urinary Catheter Management Indwelling Urethral Catheter Cath placed during this visit: yes Reason for continuing: Hourly intake/output Insertion date: 11/22/17 Insertion time: 09:50 Assessment and Plan - Plan 1. Fluid overload status. 2. Pleural effusion. 3. 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 4. Anemia. 5. Ascites. 6. Diabetes mellitus. 7. Chronic lymphocytic leukemia and anemia. The patient has advanced stage IV chronic kidney disease and baseline creatinine is close to 2.3. There is a possible element of some acute worsening. Continue the IV Lasix. Try to keep her in negative fluid balance. Follow up urine output and the BUN and creatinine. Avoid nephrotoxins. She has chronic kidney disease, most likely because of hypertensive or diabetic renal disease or renal vascular disease. Has some DEJAH, continue Lasix, Post Thoracentesis and 1.4 liters removed on 11/24. Creatinine is stable at 2.4, close to her baseline.
[2017-11-25] MEDS: Insulin Detemir Inj 1,000 UNIT/10 ML Vial SQ SCH (21:22)
[2017-11-26 00:39] VITALS: RESP 32
[2017-11-26 04:17] VITALS: BP 93/75
[2017-11-26 04:39] LABS: Hematocrit 35.6 % (35.0-46.0); Hemoglobin 11.1 gm/dL (11.6-15.3); Mean Corpuscular HGB Conc 31.3 % (32.0-36.0); Mean Corpuscular Volume 95.7 fL (80.0-100.0); Mean Platelet Volume 9.1 fL (7.0-11.0); Platelet Count 108 th/mm3 (150-450); Red Blood Count 3.72 mil/mm3 (4.00-5.30); Red Cell Distribution Width 16.4 % (11.6-17.2); White Blood Count 39.4 th/mm3 (4.0-11.0)
[2017-11-26 04:51] LABS: Potassium 4.3 meq/L (3.5-5.1)
[2017-11-26 04:54] LABS: Carbon Dioxide 30.1 meq/L (21.0-32.0)
[2017-11-26] MEDS: Chlorhexidine Gluconate 2% 1 Pack (2 Cloths) TOPICAL SCH (05:09)
[2017-11-26] MEDS: Metoprolol Tartrate 100 MG Tablet PO SCH (09:17)
[2017-11-26] MEDS: Insulin NovoLOG Aspart Correctional Sugar Inj SQ SCH ×3 (09:17→18:05)
[2017-11-26 12:11] VITALS: PULSE 88
--- NOTE | 2017-11-26 13:36 | P.DCO ---
- Physical Therapy Order: Evaluate and treat, Improve ambulation, Strength and gait training - Home Health Nursing Order: Medical education, CHF education, Medication education-adverse effect, Wound care and dressing changes - Certification I have seen patient Raya Mccabe on 11/26/17. My clinical findings support the need for the requested home health care services because: Limited mobility due to disease progression, Patient has SOB, Deconditioned with increased weakness, Limited ability to care for self, Need for psychosocial assistance I certify that my clinical findings support that this patient is homebound because: Unsteady gait/balance, Poor cardiac reserve
--- NOTE | 2017-11-26 13:48 | P.DS ---
Date of admission: 11/22/17 10:35 Primary care physician: Michael Henderson MD Brief History from admission: 87-year-old female with a medical history significant for CLL, atrial fibrillation, asthma, chronic renal failure, diabetes who presented to the hospital with complaints of worsening shortness of breath. Patient reports she has been short of breath at baseline for years but over the past couple of weeks , she noted increasing bilateral lower extremity swelling and worsening shortness of breath. She denies chest pain. Patient hypoxemic in the emergency room. Workup in the emergency room revealed obvious pulmonary edema on imaging, a moderate sized pleural effusion on the right. She has been given 80 mg of IV Lasix in the emergency room. So far she is responding. She will be admitted for further treatment. Update on the day of discharge 11/26/17. Discussed discharge planning with patient and her at bedside. He states he will be able to take care of her at home. They do not want to go to a [facility] facility because they would have to pay. They stated they already have home health arranged. Patient reports she is feeling better. DS: Diagnosis - Discharge Diagnosis (1) Hypoxemia Status: Acute (2) Pulmonary edema, acute Status: Acute (3) Pleural effusion Status: Acute (4) Fluid overload Status: Acute (5) CKD (chronic kidney disease) Status: Acute (6) Cellulitis, leg Status: Acute (7) Ascites Status: Acute DS: Summary Hospital Course: 87-year-old female admitted with acute respiratory failure secondary to pulmonary edema and fluid overload. Comorbid conditions include atrial fibrillation and CKD. Evaluation and treatment course detailed below: Acute respiratory failure/pulmonary edema and pleural effusion: Probably multifactorial. Renal failure, CHF, pleural effusion -Patient received 80 mg of IV Lasix in the emergency room. She responded to IV Lasix. She will continue on Lasix at home.. -2D echocardiogram from 07/2017 showed the left ventricular systolic function is normal with an estimated ejection fraction in the range of 55-60%. -S/P thoracentesis on 11/24/17 and 1.5 liters removed. Fluid studies revealed transudative fluid. Cytology negative for malignancy Acute on chronic renal failure: -Last documented creatinine was around 2.2. Patient has a history of temporary hemodialysis. She follows with Dr. Killian. -Nephrology followed the patient. Her renal function returned close to baseline. She is advised to follow up outpatient. Bilateral lower extremity cellulitis: -Treated with IV Rocephin. Still has residual cellulitis. Discharge on Keflex. Atrial fibrillation: Rate is controlled. Continue Lopressor. Resume Eliquis. Physical deconditioning: Secondary to comorbid issues above. Physical therapy followed the patient. She will continue rehabilitation efforts at home with physical therapy. Diabetes: Sliding scale insulin with Accu-Cheks. - Time Spent with Patient Total time spent providing and/or coordinating discharge services: Greater than 30 minutes - Quality: VTE Deep Vein Thrombosis/Pulmonary Embolism Present on Admission: No Exam Vital signs: Vital Signs 11/25/17 16:00 11/25/17 18:11 11/25/17 19:00 Temperature 98.2 F Pulse Rate 76 Respiratory Rate 24 Blood Pressure 140/60 Pulse Oximetry 96 100 11/25/17 20:00 11/25/17 21:02 11/26/17 00:00 Temperature 98.8 F 97.7 F Pulse Rate 92 H 64 Respiratory Rate 22 32 H Blood Pressure 152/59 H 110/52 L Pulse Oximetry 99 97 11/26/17 04:00 11/26/17 08:00 11/26/17 12:00 Temperature 97.3 F L 98.8 F 98.2 F Pulse Rate 68 88 Respiratory Rate Blood Pressure 93/75 L Pulse Oximetry Intake & Output 11/25/17 11/26/17 11/26/17 18:59 06:59 18:59 Intake Total 120 / 120 240 / 240 480 / 480 Output Total 310 / 310 300 / 300 400 / 400 Balance -190 / -190 -60 / -60 80 / 80 Weight 86.7 kg Intake: Oral 120 / 120 240 / 240 480 / 480 Output: Urine 300 / 300 400 / 400 Urine Amount (Catheter) 310 / 310 Indwelling Urethral Catheter 310 / 310 Other: # Voids 1 Date of Last Bowel Movement 11/25/17 11/26/17 Narrative: CONSTITUTIONAL/GENERAL: Elderly female in no acute distress. SKIN: Bilateral lower extremities with resolving cellulitis, couple of blisters on some of her toes bilaterally. HEAD: Atraumatic. Normocephalic. CARDIOVASCULAR: Normal rate and irregular rhythm. No significant murmurs. RESPIRATORY/CHEST: Diminished breath sounds at the bases. Otherwise clear to auscultation bilaterally. GASTROINTESTINAL: Abdomen soft, non-tender, non-distended. MUSCULOSKELETAL: 2+ bilateral lower extremity edema NEUROLOGICAL: Awake and alert. No focal deficits. Generalized weakness PSYCHIATRIC: No obvious mood problems. No apparent hallucinations or other psychotic thought process. Results Procedures completed during hospitalization: Ultrasound-guided thoracentesis Labs on day of discharge: Labs from last 24 hours 11/26/17 11/26/17 11/26/17 11:48 07:18 04:27 WBC RBC Hgb Hct MCV MCH MCHC RDW Plt Count MPV Sodium 142 Potassium 4.3 Chloride 106 Carbon Dioxide 30.1 Anion Gap 6 BUN 65 H Creatinine 2.30 H Estimated GFR 20 L POC Glucose 195 H 173 H Random Glucose 151 H Calcium 9.0 11/26/17 11/25/17 11/25/17 04:27 20:39 18:10 WBC 39.4 H RBC 3.72 L Hgb 11.1 L Hct 35.6 MCV 95.7 MCH 30.0 MCHC 31.3 L RDW 16.4 Plt Count 108 L MPV 9.1 Sodium Potassium Chloride Carbon Dioxide Anion Gap BUN Creatinine Estimated GFR POC Glucose 236 H 197 H Random Glucose Calcium Preliminary micro results at discharge 11/24/17 08:45 Body Fluid Culture - Preliminary Fluid - Pleural fluid No growth in 48 hours - Impressions ITS Impressions Chest CT 11/22/17 09:04 CONCLUSION: 1. Multiple abnormalities noted. There is a moderate right-sided pleural effusion with compressive atelectasis of the right lower lobe and to a lesser extent the right middle lobe. The groundglass opacities identified throughout the lungs and a perivascular distribution are consistent with pulmonary edema. Moderate enlargement of the heart with a small pericardial effusion. 2. Moderate ascites. Chest X-Ray 11/24/17 00:00 CONCLUSION: Right basilar atelectasis and small effusion. No pneumothorax Thoracentesis Ultrasound 11/24/17 06:00 CONCLUSION: 1. Successful ultrasound-guided right thoracentesis as described above. Discharge Plan - Discharge Disposition Patient Disposition: /Home Health Service - Discharge Condition Condition: Stable - Discharge Order Discharge Orders: Discharge Order (Routine); Ordered 11/26/17 Ordered By: Gelacio Nguyen - Physicians Team Primary Care Provider: Michael Henderson Attending Provider: Gelacio Nguyen Other Providers: Juan Killian MD
[2017-11-26 14:37] VITALS: O2SAT 94
[2017-11-26 16:34] VITALS: TEMP 97.8
--- NOTE | 2017-11-26 21:13 | P.PNNP ---
Subjective Interval history: Patient seen in late afternoon, feeling better, sitting on the chair. Physical Exam Vital signs: Vital Signs 11/26/17 00:00 11/26/17 04:00 11/26/17 08:00 Temperature 97.7 F 97.3 F L 98.8 F Pulse Rate 64 68 88 Respiratory Rate 32 H Blood Pressure 110/52 L 93/75 L Pulse Oximetry Pulse Oximetry [Resting on Room Air] Pulse Oximetry [Resting with Oxygen] 11/26/17 12:00 11/26/17 14:10 11/26/17 14:37 Temperature 98.2 F Pulse Rate Respiratory Rate Blood Pressure Pulse Oximetry 94 L Pulse Oximetry [Resting on Room Air] 86 L Pulse Oximetry [Resting with Oxygen] 94 L 11/26/17 16:00 Temperature 97.8 F Pulse Rate Respiratory Rate Blood Pressure Pulse Oximetry Pulse Oximetry [Resting on Room Air] Pulse Oximetry [Resting with Oxygen] Intake & Output 11/26/17 11/26/17 11/27/17 06:59 18:59 06:59 Intake Total 240 / 240 960 / 960 Output Total 300 / 300 1200 / 1200 Balance -60 / -60 -240 / -240 Weight 86.7 kg Intake: Oral 240 / 240 960 / 960 Output: Urine 300 / 300 1200 / 1200 Other: Date of Last Bowel Movement 11/26/17 Narrative: CONSTITUTIONAL/GENERAL: Elderly female in no acute distress. SKIN: Bilateral lower extremities with evidence of cellulitis. HEAD: Atraumatic. Normocephalic. CARDIOVASCULAR: Normal rate and irregular rhythm. No significant murmurs. RESPIRATORY/CHEST: Diminished breath sounds bilaterally at the bases. Otherwise clear to auscultation. GASTROINTESTINAL: Abdomen soft, non-tender, non-distended. MUSCULOSKELETAL: 2+ bilateral lower extremity edema - Urinary Catheter Management Indwelling Urethral Catheter Cath placed during this visit: yes, but has since been removed by the nurse Reason for continuing: Hourly intake/output Insertion date: 11/22/17 Insertion time: 09:50 Removal date: 11/25/17 Removal time: 12:30 Assessment and Plan - Plan 1. Fluid overload status. 2. Pleural effusion. 3. 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 4. Anemia. 5. Ascites. 6. Diabetes mellitus. 7. Chronic lymphocytic leukemia and anemia. The patient has advanced stage IV chronic kidney disease and baseline creatinine is close to 2.3. There is a possible element of some acute worsening. Continue the IV Lasix. Try to keep her in negative fluid balance. Follow up urine output and the BUN and creatinine. Avoid nephrotoxins. She has chronic kidney disease, most likely because of hypertensive or diabetic renal disease or renal vascular disease. Has some DEJAH, continue Lasix, Post Thoracentesis and 1.4 liters removed on 11/24. Creatinine is snow 2.3, close to her baseline. For discharge home. Told to restrict salt and fluid intake. To follow with me as out patient.
== END 2017-11-26 18:44 | disposition home health service (06) ==
LOC: PHED 07:09 → PHEDA 10:35 → PHICU 12:07
PROVIDERS: ADMIT Family Medicine; ATTEND Family Medicine

== ENCOUNTER 2017-11-30 08:30 | Inpatient (IN) ==
--- NOTE | 2017-11-30 08:49 | ED ---
HPI General Chief Complaint: Shortness of Breath/Dyspnea Stated Complaint: EVAC/Breathing difficulties Time Seen by Provider: 11/30/17 08:34 Source: patient and EMS Mode of arrival: EMS Limitations: no limitations History of Present Illness 87-year-old female complains of shortness of breath. Patient states that the shortness of breath started 3 days ago. Patient status post right thoracentesis for right pleural effusion. Patient has history of asthma on home O2. Patient denies any fever chills. Patient denies any coughing congestion. Patient was started on Keflex yesterday. Patient has history of CLL, chronic kidney disease and atrial fibrillation. Patient also complains increasing bilateral extremity swelling. Patient was admitted to [facility] 8 days ago and discharge 4 days ago with diagnosis of acute respiratory failure, pulmonary edema and pleural effusion. Patient is on Eliquis. Patient was discharged home on Bumex and Lasix 40 mg twice a day. Patient states that she had increasing shortness of breath and lower extremity swelling since discharge. MD Complaint: shortness of breath Onset (ago): day(s) Context: recent illness Severity: moderate Consistency/Duration: constant Exacerbating factors: nothing Known history of: asthma Treatment prior to arrival: oxygen Related Data Home Medications Medication Instructions Recorded Confirmed apixaban [Eliquis] 2.5 mg PO BID 11/22/17 11/30/17 aspirin 81 mg PO DAILY 11/22/17 11/30/17 atorvastatin 80 mg PO DAILY 11/22/17 11/30/17 cod liver oil 1 cap PO DAILY 11/22/17 11/30/17 coenzyme Q10 [CoQ-10] 100 mg PO DAILY 11/22/17 11/30/17 insulin detemir U-100 [Levemir 20 unit SUB-Q QPM 11/22/17 11/30/17 U-100 Insulin] ipratropium-albuterol 3 ml INHALATION Q6-8H PRN 11/22/17 11/30/17 metoprolol tartrate 50 mg PO BID 11/22/17 11/30/17 [id number] acid 1 tab PO DAILY 11/22/17 11/30/17 [Centrum Women] bumetanide 2 mg PO BID 11/30/17 11/30/17 fluticasone-vilanterol [Breo 1 inh INHALATION DAILY 11/30/17 11/30/17 Ellipta] furosemide [Lasix] 40 mg PO BID 11/30/17 11/30/17 hydrocodone-acetaminophen [Pima] 1 tab PO Q4H PRN 11/30/17 11/30/17 insulin lispro [Humalog U-100 1 sliding scale dose SUB-Q UD 11/30/17 11/30/17 Insulin] ipratropium bromide [Atrovent HFA] 2 puff INHALATION Q4H PRN 11/30/17 11/30/17 melatonin 6 mg PO HS 11/30/17 11/30/17 polyethylene glycol 3350 [Miralax] 17 g PO DAILY 11/30/17 11/30/17 potassium chloride 10 meq PO DAILY 11/30/17 11/30/17 Previous Rx's Medication Instructions Recorded cephalexin [Keflex] 500 mg PO TID #15 cap 11/26/17 Allergies Allergy/AdvReac Type Severity Reaction Status Date / Time adhesive tape Allergy Severe PATIENT Verified 11/26/17 00:49 GETS BLISTERS pregabalin Allergy Severe Anaphylaxis Verified 11/26/17 00:49 Review of Systems ROS: all other systems reviewed are negative PMFSH History History Provided By: Patient Medical History Medical History Atrial fibrillation (Acute) CKD (chronic kidney disease) (Acute) CLL (chronic lymphocytic leukemia) (Acute) Hx of atrial fibrillation, no current medication (Acute) Hx of diabetes mellitus (Acute) Surgical History Surgical History Hx of bilateral hip replacements (Acute) Hx of section (Acute) Hx of shoulder surgery (Acute) Family History Family History Other Family history non-contributory Social History Social History Substance History: No History of Abuse Second Hand Smoke Exposure: No Smoking Status: Former smoker Tobacco Type: Cigarettes How Often Do You Have a Drink Containing Alcohol: Never Recent Travel in [place] within the Last 8 Weeks: No Recent Out of Country Travel within the Last 8 Weeks: No Exam Narrative Exam Narrative: GENERAL: Well-nourished, well-developed patient. SKIN: Focused skin assessment warm/dry. HEAD: Normocephalic. EYES: No scleral icterus. No injection or drainage. NECK: Supple, trachea midline. No JVD or lymphadenopathy. CARDIOVASCULAR: Regular rate and rhythm without murmurs, gallops, or rubs. RESPIRATORY: Patient has decreased breath sounds on the right lung. No wheezes. Few rhonchi at the bases. GASTROINTESTINAL: Abdomen soft, non-tender, nondistended. MUSCULOSKELETAL: No cyanosis, or edema. BACK: Nontender without obvious deformity. No CVA tenderness. Neurologic exam normal. Course Initial Documented Vital Signs Temperature 98.2 F 11/30/17 08:38 Pulse Rate 68 11/30/17 08:38 Respiratory Rate 20 11/30/17 08:38 Blood Pressure 103/52 L 11/30/17 08:38 Pulse Oximetry 97 11/30/17 08:38 Last Documented Vital Signs Temperature 98.2 F 11/30/17 08:38 Pulse Rate 68 11/30/17 08:38 Respiratory Rate 20 11/30/17 08:38 Blood Pressure 103/52 L 11/30/17 08:38 Pulse Oximetry 97 11/30/17 08:40 Medical Decision Making MDM Narrative Medical decision making narrative: 87-year-old female with progressive shortness of breath. History of pulmonary edema and pleural effusion. Status post thoracentesis 3 days ago. Differential Diagnosis Differential Diagnosis: Differential diagnosis including pulmonary edema, pleural effusion, pneumothorax. Lab Data Lab results reviewed: Yes I reviewed the patient's lab results. Result diagrams: 11/30/17 09:00 11/30/17 09:00 Lab Results 11/30/17 11/30/17 11/30/17 Range/Units 09:00 09:00 09:00 CBC w Diff Slide review pending WBC 47.9 H (4.0-11.0) th/mm3 RBC 3.45 L (4.00-5.30) mil/mm3 Hgb 10.8 L (11.6-15.3) gm/dL Hct 32.3 L (35.0-46.0) % MCV 93.6 (80.0-100.0) fL MCH 31.4 (27.0-34.0) pg MCHC 33.5 (32.0-36.0) % RDW 16.9 (11.6-17.2) % Plt Count 105 L (150-450) th/mm3 MPV 9.9 (7.0-11.0) fL WBC Differential Manual diff final Seg Neuts % (Manual) 14 L (16-70) % Lymphocytes % (Manual) 82 H (9-44) % Monocytes % (Manual) 2 (0-8) % Eosinophils % (Manual) 1 (0-4) % Basophils % (Manual) 1 (0-2) % Abs Neuts (Manual) 6.7 (1.8-7.7) th/mm3 Differential Comment . Platelet Estimate Low L (Normal) Platelet Morphology Normal (Normal) Ovalocytes 1+ H (None) PT 11.4 (9.8-11.6) sec INR 1.1 Ratio D-Dimer Quant (PE/DVT) 2.33 H (0.00-0.50) mg/L FEU Sodium (136-145) meq/L Potassium (3.5-5.1) meq/L Chloride (98-107) meq/L Carbon Dioxide (21.0-32.0) meq/L Anion Gap (5-15) meq/L BUN (7-18) mg/dL Creatinine (0.50-1.00) mg/dL Estimated GFR (>89) mL/min Random Glucose (74-106) mg/dL Calcium (8.5-10.1) mg/dL Total Bilirubin (0.2-1.0) mg/dL AST (15-37) U/L ALT (10-53) U/L Alkaline Phosphatase (45-117) U/L Total Creatine Kinase (26-192) U/L Troponin I (0.02-0.05) ng/mL B-Natriuretic Peptide 202 H (0-100) pg/mL Total Protein (6.4-8.2) g/dL Albumin (3.4-5.0) g/dL 11/30/17 Range/Units 09:00 CBC w Diff WBC (4.0-11.0) th/mm3 RBC (4.00-5.30) mil/mm3 Hgb (11.6-15.3) gm/dL Hct (35.0-46.0) % MCV (80.0-100.0) fL MCH (27.0-34.0) pg MCHC (32.0-36.0) % RDW (11.6-17.2) % Plt Count (150-450) th/mm3 MPV (7.0-11.0) fL WBC Differential Seg Neuts % (Manual) (16-70) % Lymphocytes % (Manual) (9-44) % Monocytes % (Manual) (0-8) % Eosinophils % (Manual) (0-4) % Basophils % (Manual) (0-2) % Abs Neuts (Manual) (1.8-7.7) th/mm3 Differential Comment Platelet Estimate (Normal) Platelet Morphology (Normal) Ovalocytes (None) PT (9.8-11.6) sec INR Ratio D-Dimer Quant (PE/DVT) (0.00-0.50) mg/L FEU Sodium 143 (136-145) meq/L Potassium 4.4 (3.5-5.1) meq/L Chloride 106 (98-107) meq/L Carbon Dioxide 30.2 (21.0-32.0) meq/L Anion Gap 7 (5-15) meq/L BUN 80 H (7-18) mg/dL Creatinine 3.20 H (0.50-1.00) mg/dL Estimated GFR 14 L (>89) mL/min Random Glucose 149 H (74-106) mg/dL Calcium 9.1 (8.5-10.1) mg/dL Total Bilirubin 0.7 (0.2-1.0) mg/dL AST 18 (15-37) U/L ALT 19 (10-53) U/L Alkaline Phosphatase 120 H (45-117) U/L Total Creatine Kinase 35 (26-192) U/L Troponin I 0.03 (0.02-0.05) ng/mL B-Natriuretic Peptide (0-100) pg/mL Total Protein 6.0 L (6.4-8.2) g/dL Albumin 3.6 (3.4-5.0) g/dL Imaging Data Attestation: I personally reviewed and interpreted this imaging study as follows : Radiologist's impression: Chest X-Ray 11/30/17 08:41 CONCLUSION: Cardiomegaly with small pleural effusions and right basilar density Discharge Plan Discharge Disposition Patient Disposition: 30 Still Patient Discharge Details Diagnosis: Fluid overload Physicians Team ED Provider: Darien Salinas Primary Care Provider: Michael Henderson Rxs /Orders / Referrals /Forms Prescriptions: No Action atorvastatin 80 mg Tablet 80 mg PO DAILY RF: 0 ipratropium-albuterol 0.5 mg-3 mg(2.5 mg base)/3 mL Solution For Nebulization 3 ml INHALATION Q6-8H PRN (Reason: Respiratory Distress) RF: 0 metoprolol tartrate 100 mg Tablet 50 mg PO BID RF: 0 cod liver oil Capsule 1 cap PO DAILY RF: 0 aspirin 81 mg Tablet,Delayed Release (Dr/Ec) 81 mg PO DAILY RF: 0 coenzyme Q10 [CoQ-10] 100 mg Capsule 100 mg PO DAILY RF: 0 insulin detemir U-100 [Levemir U-100 Insulin] 100 unit/mL Solution 20 unit SUB-Q QPM RF: 0 [id number] acid [Centrum Women] 18-400 mg-mcg Tablet 1 tab PO DAILY RF: 0 apixaban [Eliquis] 2.5 mg Tablet 2.5 mg PO BID RF: 0 cephalexin [Keflex] 500 mg Capsule 500 mg PO TID Qty: 15 RF: 0 potassium chloride 10 mEq Capsule, Extended Release 10 meq PO DAILY RF: 0 bumetanide 2 mg Tablet 2 mg PO BID RF: 0 polyethylene glycol 3350 [Miralax] 17 gram Powder In Packet 17 g PO DAILY RF: 0 hydrocodone-acetaminophen [Pima] 7.5-325 mg Tablet 1 tab PO Q4H PRN (Reason: Pain) RF: 0 insulin lispro [Humalog U-100 Insulin] 100 unit/mL Solution 1 sliding scale dose SUB-Q UD RF: 0 ipratropium bromide [Atrovent HFA] 17 mcg/actuation Hfa Aerosol Inhaler 2 puff INHALATION Q4H PRN (Reason: Shortness Of Breath) RF: 0 melatonin 5 mg Tablet 6 mg PO HS RF: 0 fluticasone-vilanterol [Breo Ellipta] 100-25 mcg/dose Blister With Device 1 inh INHALATION DAILY RF: 0 furosemide [Lasix] 40 mg Tablet 40 mg PO BID RF: 0 Status ED Status: With Doctor
[2017-11-30 09:15] LABS: Hematocrit 32.3 % (35.0-46.0); Hemoglobin 10.8 gm/dL (11.6-15.3); Mean Corpuscular HGB Conc 33.5 % (32.0-36.0); Mean Corpuscular Hemoglobin 31.4 pg (27.0-34.0); Mean Corpuscular Volume 93.6 fL (80.0-100.0); Mean Platelet Volume 9.9 fL (7.0-11.0); Platelet Count 105 th/mm3 (150-450); Red Blood Count 3.45 mil/mm3 (4.00-5.30); Red Cell Distribution Width 16.9 % (11.6-17.2); White Blood Count 47.9 th/mm3 (4.0-11.0)
--- NOTE | 2017-11-30 09:24 | XR ---
EXAM DATE: 11/30/2017 9:04 AM EDT AGE/SEX: 87 years / Female INDICATIONS: Short of breath, bilateral lower leg swelling CLINICAL DATA: This is the patient's initial encounter. Patient reports that signs and symptoms have been present for 4 - 6 months and indicates a pain score of 0/10. MEDICAL/SURGICAL HISTORY: Chronic obstructive pulmonary disease. Leukemia. Diabetes mellitus type II. . Right hip and shoulder surgery COMPARISON: [facility], CHEST EXPIRATION ONLY, 11/24/2017. . FINDINGS: A single AP view of the chest demonstrates right basilar pleural-parenchymal density. Small left pleu ral effusion as well. Heart enlarged. Increase in pulmonary vascularity. The cardiomediastinal conto urs are unremarkable. Osseous structures are intact. CONCLUSION: Cardiomegaly with small pleural effusions and right basilar density Electronically signed by: Carlos Zhu MD 11/30/2017 9:23 AM EDT
[2017-11-30 09:27] LABS: INR 1.1 Ratio; Prothrombin Time 11.4 sec (9.8-11.6)
[2017-11-30 09:32] LABS: D-Dimer 2.33 mg/L FEU (0.00-0.50)
[2017-11-30 09:49] LABS: Eosinophils 1 % (0-4); Lymphocytes 82 % (9-44); Monocytes 2 % (0-8); Ovalocytes 1+; Platelet Morphology Normal (Normal)
[2017-11-30 09:58] LABS: Calcium 9.1 mg/dL (8.5-10.1)
[2017-11-30 09:59] LABS: Albumin 3.6 g/dL (3.4-5.0); Carbon Dioxide 30.2 meq/L (21.0-32.0); Glucose,Random 149 mg/dL (74-106)
[2017-11-30 10:02] LABS: Alanine Aminotransferase 19 U/L (10-53); Glomerular Filtration Rate 14 mL/min (>89)
[2017-11-30 10:04] LABS: Anion Gap 7 meq/L (5-15); Chloride 106 meq/L (98-107); Potassium 4.4 meq/L (3.5-5.1); Sodium 143 meq/L (136-145)
[2017-11-30 10:05] LABS: Alkaline Phosphatase 120 U/L (45-117)
[2017-11-30 10:07] LABS: Troponin I 0.03 ng/mL (0.02-0.05)
[2017-11-30 10:10] LABS: Creatine Kinase 35 U/L (26-192)
[2017-11-30 10:11] LABS: Blood Urea Nitrogen 80 mg/dL (7-18)
[2017-11-30 10:18] LABS: Aspartate Aminotransferase 18 U/L (15-37)
[2017-11-30] MEDS ORDERED: Dextrose 50% in Water 50 ML Vial IV.PUSH PRN (11:21)
[2017-11-30 11:45] LABS: Bilirubin,Urine Negative (Negative); Clarity,Urine Clear (Clear); Color,Urine Yellow (Yellw/Straw); Glucose,Urine (UA) Negative (Negative); Leukocyte Esterase,Urine Trace (Negative); Nitrite,Urine Negative (Negative); PH,Urine 5.5 (5.0-8.5); Urobilinogen,Urine 0.2 mg/dL (Less than 2)
[2017-11-30 11:56] LABS: Squamous Epithelial Cell,Urine 0-5 /hpf (0-5)
--- NOTE | 2017-11-30 12:03 | P.HP ---
History of Present Illness Primary Care Physician: Michael Henderson MD Chief Complaint: Lower extremity edema, shortness of breath History of Present Illness: 87-year-old rather unfortunate female with chronic lymphocytic leukemia, hypertension, hyperlipidemia, diabetes, chronic kidney disease, chronic anemia, history of atrial fibrillation status post ablation, history of recent pleural effusion status post thoracentesis who presented the hospital because of worsening lower extremity edema, shortness of breath. Patient states that she is just not been doing well ever since she underwent surgical intervention for hip replacement and shoulder repair. Ever since then she has had worsening of her chronic medical conditions. Patient recently with worsening pulmonary edema effusion requiring thoracentesis. Patient states that she was at a rehab facility for a couple months, she is at home now with home health care. She has had worsening lower extremity edema with fluid weepage. She does have bandages noted on her lower extremities has placed her by her home care nurse because of weeping skin. Because of the patient's worsening shortness of breath and lower extremity edema she came to emergency department for evaluation. Patient had workup done emergency department found to have a borderline elevated BNP, chest x-ray indicated cardiomegaly with small pleural effusions and right basilar density. When comparing to previous x-rays patient had previous right basilar atelectasis and small effusion 8 days ago. Laboratory studies do indicate worsening kidney failure. Because of patient's presenting symptoms, ER physician gave the patient Lasix 40 mg IV in the emergency department and recommending the patient be admitted for further evaluation and management. Upon evaluating the patient she denies any chest pain, nausea, vomiting, diaphoresis. He does admit to worsening shortness of breath, dyspnea on exertion, lower extremity edema. She states that her lower extremities have been weeping clear fluid, does not have any open wounds. Patient does indicate that her library specialist is Dr. Corey, school examiner is Dr. Killian - Diagnosis (1) Shortness of breath (2) Lower extremity edema (3) Fluid overload (4) Acute renal failure superimposed on stage 4 chronic kidney disease Review of Systems All other systems reviewed negative except as stated in HPI Constitutional: Reports fatigue, Reports weakness Cardiovascular: Reports leg swelling, Reports shortness of breath, Reports shortness of breath with activity FORMERLY [facility], [facility] - History History Provided By: Patient - Medical History Medical History: Medical History (Last Updated 11/30/17 @ 12:10 by EULALIA Xiong) Chronic kidney disease, stage IV (severe) Diabetes History of cardioversion Hypertension Hypogammaglobulinemia Pulmonary hypertension Atrial fibrillation CLL (chronic lymphocytic leukemia) Hx of atrial fibrillation, no current medication Hx of diabetes mellitus - Surgical History Surgical History: Surgical History (Last Updated 11/30/17 @ 12:10 by EULALIA Xiong) History of cardiac radiofrequency ablation History of tonsillectomy Hx of bilateral hip replacements Hx of section Hx of shoulder surgery - Family History Family History: Family History (Last Updated 11/30/17 @ 12:10 by EULALIA Xiong) Mother History of diabetes mellitus - Tobacco History Second Hand Smoke Exposure: No Tobacco Use In Past 30 Days: No Smoking Status: Former smoker Tobacco Type: Cigarettes - Alcohol History How Often Do You Have a Drink Containing Alcohol: Never - Substance Use History Substance History: No History of Abuse - Travel History Recent Travel in the [place] Within the Last 8 Weeks: No Recent Travel Out of the Country Within the Last 8 Weeks: No - Immunization History Tetanus Immunization: Unsure Hx Influenza Vaccine This Season: Yes Medications and Allergies Active Medications: Active Medications Apixaban (Eliquis) 2.5 mg PO BID NICOLE Aspirin (Ecotrin) 81 mg PO DAILY NICOLE Atorvastatin Calcium (Lipitor) 80 mg PO DAILY NICOLE Bumetanide (Bumex) 2 mg PO BID NICOLE Dextrose (D50w Vial) 50 ml IV.PUSH UNSCH PRN PRN Reason: PER HYPOGLYCEMIA PROTOCOL Fluticasone/Vilanterol (Breo Ellipta 100/25 Mcg Inh) 2 puff INH DAILY NICOLE Furosemide (Lasix) 40 mg PO BID NICOLE Glucagon (Glucagon Inj) 1 mg OTHER PRN PRN PRN Reason: for Hypoglycemia Protocol Insulin Aspart (Novolog Insulin Correctional Sugar Inj) 0 unit SQ ACHS NICOLE; Protocol Metoprolol Tartrate (Lopressor) 50 mg PO BID NICOLE Potassium Chloride (Kcl) 10 meq PO DAILY NICOLE Sodium Chloride (Ns Flush) 2 ml IV.FLUSH UNSCH PRN PRN Reason: FLUSH AFTER USING IV ACCESS Sodium Chloride (Ns Flush) 2 ml IV.FLUSH BID NICOLE Allergies Allergy/AdvReac Type Severity Reaction Status Date / Time adhesive tape Allergy Severe PATIENT Verified 11/26/17 00:49 GETS BLISTERS pregabalin Allergy Severe Anaphylaxis Verified 11/26/17 00:49 Home Medications Medication Instructions Recorded Confirmed Type apixaban [Eliquis] 2.5 mg PO BID 11/22/17 11/30/17 History aspirin 81 mg PO DAILY 11/22/17 11/30/17 History atorvastatin 80 mg PO DAILY 11/22/17 11/30/17 History cod liver oil 1 cap PO DAILY 11/22/17 11/30/17 History coenzyme Q10 [CoQ-10] 100 mg PO DAILY 11/22/17 11/30/17 History insulin detemir U-100 [Levemir 20 unit SUB-Q QPM 11/22/17 11/30/17 History U-100 Insulin] ipratropium-albuterol 3 ml INHALATION Q6-8H PRN 11/22/17 11/30/17 History metoprolol tartrate 50 mg PO BID 11/22/17 11/30/17 History jbyxjagpwfbz-jdku-coody acid 1 tab PO DAILY 11/22/17 11/30/17 History [Centrum Women] bumetanide 2 mg PO BID 11/30/17 11/30/17 History fluticasone-vilanterol [Breo 1 inh INHALATION DAILY 11/30/17 11/30/17 History Ellipta] furosemide [Lasix] 40 mg PO BID 11/30/17 11/30/17 History hydrocodone-acetaminophen [[place]] 1 tab PO Q4H PRN 11/30/17 11/30/17 History insulin lispro [Humalog U-100 1 sliding scale dose SUB-Q UD 11/30/17 11/30/17 History Insulin] ipratropium bromide [Atrovent HFA] 2 puff INHALATION Q4H PRN 11/30/17 11/30/17 History melatonin 6 mg PO HS 11/30/17 11/30/17 History polyethylene glycol 3350 [Miralax] 17 g PO DAILY 11/30/17 11/30/17 History potassium chloride 10 meq PO DAILY 11/30/17 11/30/17 History Exam Vital signs: Vital Signs 11/30/17 08:38 11/30/17 08:40 11/30/17 11:14 Temperature 98.2 F Pulse Rate 68 68 Respiratory Rate 20 18 Blood Pressure 103/52 L 107/55 L Pulse Oximetry 97 97 98 Intake & Output 11/29/17 11/30/1718 18:59 06:59 18:59 Output Total 200 / 200 Balance -200 / -200 Weight 95.254 kg Output: Urine 200 / 200 Narrative: GENERAL: Well-developed, well-nourished, in no acute distress. alert and orientated HEENT: Head is normocephalic without any lesions or masses noted. Facial features are symmetric. Eyes: Pupils equal round reactive to light. Extraocular muscles are intact. Conjunctivae were clear. Oropharyngeal: Pharynx without any erythema edema. Tongue is midline without deviation. Buccal mucosa is moist without any masses or lesions NECK: Supple without any masses. Trachea midline no deviation. No JVD, no bruits are appreciated CARDIAC: Regular rhythm, regular rate. S1/S2 are heard. No murmurs gallops or rubs. LUNGS: Clear to auscultation bilaterally. No wheeze, rhonchi or rales. No use of accessory muscles on inspiration or expiration. ABDOMEN: Soft, nontender. Nondistended. Bowel sounds heard in all 4 quadrants. No organomegaly or masses. Negative rebound, negative guarding EXTREMITIES: 3+ pitting bilateral lower extremity edema, bilateral lower extremities do have areas of weepage. Patient has areas of excoriation, pulses are equal bilaterally. No cyanosis or clubbing NEUROLOGY: Mood and affect appear appropriate. Cranial nerves II through XII grossly intact. Muscle strength 5/5 in upper and lower extremities bilaterally. Deep tendon reflexes are 2+ in upper and lower extremities bilaterally. Results - Labs CBC & Chem 7: 11/30/17 09:00 11/30/17 09:00 Labs: Laboratory Results - last 24 hr 11/30/17 11/30/17 11/30/17 09:00 09:00 09:00 CBC w Diff Slide review pending WBC 47.9 H RBC 3.45 L Hgb 10.8 L Hct 32.3 L MCV 93.6 MCH 31.4 MCHC 33.5 RDW 16.9 Plt Count 105 L MPV 9.9 WBC Differential Manual diff final Seg Neuts % (Manual) 14 L Lymphocytes % (Manual) 82 H Monocytes % (Manual) 2 Eosinophils % (Manual) 1 Basophils % (Manual) 1 Abs Neuts (Manual) 6.7 Differential Comment . Platelet Estimate Low L Platelet Morphology Normal Ovalocytes 1+ H PT 11.4 INR 1.1 D-Dimer Quant (PE/DVT) 2.33 H Sodium Potassium Chloride Carbon Dioxide Anion Gap BUN Creatinine Estimated GFR Random Glucose Calcium Total Bilirubin AST ALT Alkaline Phosphatase Total Creatine Kinase Troponin I B-Natriuretic Peptide 202 H Total Protein Albumin 11/30/17 09:00 CBC w Diff WBC RBC Hgb Hct MCV MCH MCHC RDW Plt Count MPV WBC Differential Seg Neuts % (Manual) Lymphocytes % (Manual) Monocytes % (Manual) Eosinophils % (Manual) Basophils % (Manual) Abs Neuts (Manual) Differential Comment Platelet Estimate Platelet Morphology Ovalocytes PT INR D-Dimer Quant (PE/DVT) Sodium 143 Potassium 4.4 Chloride 106 Carbon Dioxide 30.2 Anion Gap 7 BUN 80 H Creatinine 3.20 H Estimated GFR 14 L Random Glucose 149 H Calcium 9.1 Total Bilirubin 0.7 AST 18 ALT 19 Alkaline Phosphatase 120 H Total Creatine Kinase 35 Troponin I 0.03 B-Natriuretic Peptide Total Protein 6.0 L Albumin 3.6 - Imaging Impressions Chest X-Ray 11/30/17 08:41 CONCLUSION: Cardiomegaly with small pleural effusions and right basilar density Caprini VTE Risk Assessment Caprini VTE Risk Assessment: Moderate/High Risk (score >= 2) Caprini Risk Assessment Model: Point Value = 1 Point Value = 2 Point Value = 3 Point Value = 5 Age 41-60 Minor surgery BMI > 25 kg/m2 Swollen legs Varicose veins or History of unexplained or recurrent spontaneous Oral contraceptives or hormone replacement Sepsis (< 1 month) Serious lung disease, including pneumonia (< 1 month) Abnormal pulmonary function Acute myocardial infarction Congestive heart failure (< 1 month) History of inflammatory bowel disease Medical patient at bed rest Age 61-74 Arthroscopic surgery Major open surgery (> 45 min) Laparoscopic surgery (> 45 min) Malignancy Confined to bed (> 72 hours) Immobilizing plaster cast Central venous access Age >= 75 History of VTE Family history of VTE Factor V Leiden Prothrombin [id number] Lupus anticoagulant Anticardiolipin antibodies Elevated serum homocysteine Heparin-induced thrombocytopenia Other congenital or acquired thrombophilia Stroke (< 1 month) Elective arthroplasty Hip, pelvis, or leg fracture Acute spinal cord injury (< 1 month) Prophylaxis Regimen: Total Risk Factor Score Risk Level Prophylaxis Regimen 0-1 Low Early ambulation 2 Moderate Order ONE of the following: *Sequential Compression Device (SCD) *Heparin 5000 units SQ BID 3-4 Higher Order ONE of the following medications: *Heparin 5000 units SQ TID *Enoxaparin/Lovenox 40 mg SQ daily (WT < 150 kg, CrCl > 30 mL/min) *Enoxaparin/Lovenox 30 mg SQ daily (WT < 150 kg, CrCl > 10-29 mL/min) *Enoxaparin/Lovenox 30 mg SQ BID (WT < 150 kg, CrCl > 30 mL/min) AND/OR *Sequential Compression Device (SCD) 5 or more Highest Order ONE of the following medications: *Heparin 5000 units SQ TID (Preferred with Epidurals) *Enoxaparin/Lovenox 40 mg SQ daily (WT < 150 kg, CrCl > 30 mL/min) *Enoxaparin/Lovenox 30 mg SQ daily (WT < 150 kg, CrCl > 10-29 mL/min) *Enoxaparin/Lovenox 30 mg SQ BID (WT < 150 kg, CrCl > 30 mL/min) AND *Sequential Compression Device (SCD) Assessment and Plan - Assessment (1) Shortness of breath Code(s): R06.02 - Shortness of breath Status: Acute (2) Lower extremity edema Code(s): R60.0 - Localized edema Status: Acute (3) Fluid overload Code(s): E87.70 - Fluid overload, unspecified Status: Acute (4) Acute renal failure superimposed on stage 4 chronic kidney disease Code(s): N17.9 - Acute kidney failure, unspecified; N18.4 - Chronic kidney disease, stage 4 (severe) Status: Acute - Plan Fluid overload with worsening shortness of breath: -Multifactorial with patient having underlying severe pulmonary hypertension, recurrent pleural effusions, acute renal failure superimposed on chronic kidney disease stage IV -Echocardiogram was done approximately 4 month ago shows good ejection fraction 55-60%. Right atrial and ventricle were dilated indicating right heart failure. PA peak pressure 67 indicating significant pulmonary hypertension -Chest x-ray did not indicate significant pleural effusion this time. Does show small bibasilar -Mildly elevated BNP at 202 which is no significant change from previous a week ago at 185 -D-dimer was elevated, however does appear to be chronic elevation. Could be related to her chronic renal failure. Patient renal function will not allow for a pulmonary angiogram be performed. Due to the patient's shortness of breath would not want her risk doing a VQ scan at this time. Despite that. Patient is already anticoagulated on Eliquis for her atrial fibrillation. So it is very unlikely that the patient has an embolic event -Patient was given Lasix 40 g IV in the emergency department -We will continue her home medications of Lasix 40 mg p.o. twice daily, Bumex 2 mg p.o. twice daily -Strict input and output -Fluid restriction 1500 cc daily Acute renal failure superimposed on chronic kidney disease stage IV -Unfortunately patient had recent increase in diuretic due to fluid overload with pleural effusion, possibly causing worsening of her renal function -Patient's fluid overload may also be caused by worsening of her renal function. -Patient has had history of temporary dialysis -Nephrology consulted for further recommendations. Patient may also require short-term dialysis again to help with the fluid overload and improvement of her renal functions -Avoid nephrotoxins Right basilar density -Unknown etiology at this time, a review of previous chest x-rays patient does have history of right basilar atelectasis, is always documented pleural effusion -Recent chest CT done 8 days ago does show compressive atelectasis in the right lower lobe and lesser extent in the right middle lobe. There is groundglass opacities consistent with pulmonary edema. -Continue monitor with follow-up chest x-rays in outpatient setting -Clinically the patient is not presenting with symptoms of any upper respiratory infection, pneumonia Lower extremity edema, possible cellulitis -Likely related to fluid overload, however continue monitor for any infectious source -Blood cultures have been ascertained Physical deconditioning -Physical therapy evaluation Diabetes -Accu-Cheks with sliding scale insulin Atrial fibrillation, hypertension -Heart rate is controlled at this time -Continue home medication -Patient anticoagulated on Eliquis Chronic lymphocytic leukemia -Patient is followed by Dr. Quach in outpatient setting -Continue to follow CBC DVT prevention -Patient is on Eliquis (3) Fluid overload Qualifiers: Hypervolemia type: unspecified Qualified Code(s): E87.70 - Fluid overload, unspecified
--- NOTE | 2017-11-30 13:46 | ECG ---
Date Performed: 11/30/2017 Time Performed: 08:48:28 PTAGE: 87 years EKG: ATRIAL FIBRILLATION MARKED LEFT AXIS DEVIATION POSSIBLE ANTERIOR MYOCARDIAL INFARCTION ABNO RMAL ECG PREVIOUS TRACING : 11/22/2017 07.18 DOCTOR: Russell Mitchell Interpretating Date/Time 11/30/2017 13:43:42
[2017-11-30] MEDS: metOLazone 5 MG Tablet PO SCH (14:41)
[2017-11-30] MEDS: Insulin NovoLOG Aspart Correctional Sugar Inj SQ SCH ×3 (14:41→21:35)
[2017-11-30] MEDS: Metoprolol Tartrate 100 MG Tablet PO SCH ×2 (14:41→23:46)
[2017-11-30] MEDS: Potassium Chloride 10 MEQ ER Capsule PO SCH (14:41)
--- NOTE | 2017-11-30 17:21 | P.CONNP ---
History of Present Illness Service: Nephrology Reason for Consult: Acute on chronic kidney disease Primary Care Provider: Michael Henderson MD Family Provider: Michael Henderson MD Chief Complaint: Lower extremity edema, shortness of breath History of Present Illness: This is an 87 year old with multiple medical problems. They include stage IV CKD , diabetes, atrial fibrillation. Echocardiogram in July had revealed EF of 60% , but pulmonary artery pressure of 67, suggesting presence of pulmonary hypertension. Patient had PFT in 03/07 which was consistent with COPD. She developed right hip and shoulder fracture in July. Had developed DEJAH for which she had to undergo dialysis. Last dialysis was on 07/30/17. Baseline creatinine now is around 2.3. She has been admitted multiple number of times, most recently between and 11/26. On 11/24 she underwent thoracentesis with removal of about 1.3L of pleural fluid. Creatinine on discharge was 2.3. She was diuresed. She has been readmitted with difficulty breathing, lower extremity edema with weeping of the skin. Denies chest pain. Review of Systems Constitutional: Reports lack of energy, Reports malaise, Reports weakness Eyes: Denies blurry vision Ears, Nose, Mouth, and Throat: Denies bleeding gums, Denies nasal obstruction, Denies neck lump, Denies pain with swallowing Cardiovascular: Reports irregular heart rhythm, Reports leg swelling, Reports shortness of breath with activity, Denies chest pain, Denies chest pain at rest , Denies fainting, Denies rapid, pounding, or irregular heartbeat Gastrointestinal: Denies abdominal pain, Denies black, tarry stools, Denies difficulty swallowing Neurologic: Denies loss of vision [facility] - History History Provided By: Patient - Medical History Medical History: Medical History (Last Updated 11/30/17 @ 12:10 by EULALIA Xiong) Chronic kidney disease, stage IV (severe) Diabetes History of cardioversion Hypertension Hypogammaglobulinemia Pulmonary hypertension Atrial fibrillation CLL (chronic lymphocytic leukemia) Hx of atrial fibrillation, no current medication Hx of diabetes mellitus - Surgical History Surgical History: Surgical History (Last Updated 11/30/17 @ 12:10 by EULALIA Xiong) History of cardiac radiofrequency ablation History of tonsillectomy Hx of bilateral hip replacements Hx of section Hx of shoulder surgery - Family History Family History: Family History (Last Updated 11/30/17 @ 12:10 by EULALIA Xiong) Mother History of diabetes mellitus - Tobacco History Second Hand Smoke Exposure: No Tobacco Use In Past 30 Days: No Smoking Status: Former smoker Tobacco Type: Cigarettes - Alcohol History How Often Do You Have a Drink Containing Alcohol: Never - Substance Use History Substance History: No History of Abuse - Travel History Recent Travel in the [place] Within the Last 8 Weeks: No Recent Travel Out of the Country Within the Last 8 Weeks: No - Immunization History Tetanus Immunization: Unsure Hx Influenza Vaccine This Season: Yes Medications and Allergies Active Medications: Active Medications Apixaban (Eliquis) 2.5 mg PO BID [facility] Last Admin: 11/30/17 14:40 Dose: 2.5 mg Aspirin (Ecotrin) 81 mg PO DAILY [facility] Last Admin: 11/30/17 14:40 Dose: 81 mg Atorvastatin Calcium (Lipitor) 80 mg PO DAILY [facility] Last Admin: 11/30/17 14:40 Dose: 80 mg Bumetanide (Bumex) 2 mg PO BID [facility] Dextrose (D50w Vial) 50 ml IV.PUSH UNSCH PRN PRN Reason: PER HYPOGLYCEMIA PROTOCOL Fluticasone/Vilanterol (Breo Ellipta 100/25 Mcg Inh) 2 puff INH DAILY [facility] Last Admin: 11/30/17 15:37 Dose: 2 puff Glucagon (Glucagon Inj) 1 mg OTHER PRN PRN PRN Reason: for Hypoglycemia Protocol Insulin Aspart (Novolog Insulin Correctional Sugar Inj) 0 unit SQ ACHS [facility]; Protocol Last Admin: 11/30/17 14:41 Dose: Not Given Metolazone (Zaroxolyn) 5 mg PO DAILY [facility] Last Admin: 11/30/17 14:41 Dose: 5 mg Metoprolol Tartrate (Lopressor) 50 mg PO BID [facility] Last Admin: 11/30/17 14:41 Dose: 50 mg Potassium Chloride (Kcl) 10 meq PO DAILY [facility] Last Admin: 11/30/17 14:41 Dose: 10 meq Sodium Chloride (Ns Flush) 2 ml IV.FLUSH UNSCH PRN PRN Reason: FLUSH AFTER USING IV ACCESS Sodium Chloride (Ns Flush) 2 ml IV.FLUSH BID [facility] Allergies Allergy/AdvReac Type Severity Reaction Status Date / Time adhesive tape Allergy Severe PATIENT Verified 11/26/17 00:49 GETS BLISTERS pregabalin Allergy Severe Anaphylaxis Verified 11/26/17 00:49 Home Medications Medication Instructions Recorded Confirmed Type apixaban [Eliquis] 2.5 mg PO BID 11/22/17 11/30/17 History aspirin 81 mg PO DAILY 11/22/17 11/30/17 History atorvastatin 80 mg PO DAILY 11/22/17 11/30/17 History cod liver oil 1 cap PO DAILY 11/22/17 11/30/17 History coenzyme Q10 [CoQ-10] 100 mg PO DAILY 11/22/17 11/30/17 History insulin detemir U-100 [Levemir 20 unit SUB-Q QPM 11/22/17 11/30/17 History U-100 Insulin] ipratropium-albuterol 3 ml INHALATION Q6-8H PRN 11/22/17 11/30/17 History metoprolol tartrate 50 mg PO BID 11/22/17 11/30/17 History gsmfrhggvcvf-rkur-rlqmf acid 1 tab PO DAILY 11/22/17 11/30/17 History [Centrum Women] bumetanide 2 mg PO BID 11/30/17 11/30/17 History fluticasone-vilanterol [Breo 1 inh INHALATION DAILY 11/30/17 11/30/17 History Ellipta] furosemide [Lasix] 40 mg PO BID 11/30/17 11/30/17 History hydrocodone-acetaminophen [[place]] 1 tab PO Q4H PRN 11/30/17 11/30/17 History insulin lispro [Humalog U-100 1 sliding scale dose SUB-Q UD 11/30/17 11/30/17 History Insulin] ipratropium bromide [Atrovent HFA] 2 puff INHALATION Q4H PRN 11/30/17 11/30/17 History melatonin 6 mg PO HS 11/30/17 11/30/17 History polyethylene glycol 3350 [Miralax] 17 g PO DAILY 11/30/17 11/30/17 History potassium chloride 10 meq PO DAILY 11/30/17 11/30/17 History Exam Vital signs: Vital Signs 11/30/17 08:38 11/30/17 08:40 11/30/17 11:14 Temperature 98.2 F Pulse Rate 68 68 Respiratory Rate 20 18 Blood Pressure 103/52 L 107/55 L Pulse Oximetry 97 97 98 11/30/17 13:37 11/30/17 14:30 11/30/17 15:00 Temperature 97.5 F L 97.2 F L Pulse Rate 60 64 Respiratory Rate 20 20 Blood Pressure 124/56 L 128/56 L Pulse Oximetry 93 L 94 L 93 L Intake & Output 11/29/17 11/30/17 11/30/17 18:59 06:59 18:59 Intake Total 680 / 680 Output Total 400 / 400 Balance 280 / 280 Weight 102.6 kg Intake: Oral 680 / 680 Output: Urine 400 / 400 Other: Date of Last Bowel Movement 11/29/17 Weight On Admission 102.6 kg Narrative: GENERAL: Ill appearing elderly lady. On oxygen. SKIN: Legs are wrapped in dressing, weeping. Edema is noted. HEAD: Normocephalic. EYES: No scleral icterus. No injection or drainage. NECK: Supple, trachea midline. Prominent external jugular vein. CARDIOVASCULAR: irregular. RESPIRATORY: Breath sounds equal bilaterally. No accessory muscle use. GASTROINTESTINAL: Abdomen soft, non-tender, nondistended. EXTREMITIES: As above NEUROLOGICAL: Awake, alert, and oriented x 3. Non-focal. Results - Lab Results 11/30/17 09:00 11/30/17 09:00 Most recent lab results Calcium 9.1 mg/dL (8.5-10.1) 11/30/17 09:00 Assessment and Plan - Assessment (1) Acute renal failure superimposed on stage 4 chronic kidney disease Code(s): N17.9 - Acute kidney failure, unspecified; N18.4 - Chronic kidney disease, stage 4 (severe) Status: Acute Plan: patient has advanced renal dysfunction. Has no proteinuria, may have nephrosclerosis. Also had developed DEJAH in July, needed dialysis, may have been left with residual renal dysfunction. Presents with fluid overload, but pro BNP is not significantly elevated. Fluid overload could be related to renal disease itself. Also she has severe pulmonary hypertension, it may be causing her symptoms of shortness of breath and fluid buildup. She was on 2 different loop diuretics, I have stopped Lasix. Continue Bumex. I have added Metolazone. Overall her prognosis is guarded. She may be at risk for needing dialysis. Avoid nephrotoxic agents. Monitor fluid and electrolyte status. (2) Fluid overload Code(s): E87.70 - Fluid overload, unspecified Status: Acute Plan: See above. Continue Bumex and Metolazone. (3) Pulmonary hypertension Code(s): I27.20 - Pulmonary hypertension, unspecified Status: Acute Plan: Has history of COPD. Consider pulmonary evaluation. Consider repeating echocardiogram (4) Type 2 diabetes mellitus Code(s): E11.9 - Type 2 diabetes mellitus without complications Status: Acute Plan: maintain blood sugar between 140 and 180 while hospitalized. (5) Atrial fibrillation Code(s): I48.91 - Unspecified atrial fibrillation Status: Acute Plan: Patient is on Apixaban. - Plan Thanks for the consult. (2) Fluid overload Qualifiers: Hypervolemia type: unspecified Qualified Code(s): E87.70 - Fluid overload, unspecified
[2017-11-30] MEDS ORDERED: Furosemide 40 MG Tablet PO SCH (21:00)
[2017-12-01 05:57] LABS: Baso # (Auto) 0.8 th/mm3 (0.0-0.2); Baso % (Auto) 1.7 % (0.0-2.0); Eos # (Auto) 0.1 th/mm3 (0.0-0.4); Eos % (Auto) 0.2 % (0.0-4.0); Hematocrit 33.7 % (35.0-46.0); Hemoglobin 10.7 gm/dL (11.6-15.3); Lymph # (Auto) 37.5 th/mm3 (1.0-4.8); Lymph % (Auto) 84.1 % (9.0-44.0); Mean Corpuscular HGB Conc 31.8 % (32.0-36.0); Mean Corpuscular Hemoglobin 30.4 pg (27.0-34.0); Mean Corpuscular Volume 95.6 fL (80.0-100.0); Mean Platelet Volume 9.6 fL (7.0-11.0); Mono # (Auto) 1.3 th/mm3 (0.0-0.9); Mono % (Auto) 2.8 % (0.0-8.0); Neut % (Auto) 11.2 % (16.0-70.0); Platelet Count 103 th/mm3 (150-450); Red Blood Count 3.53 mil/mm3 (4.00-5.30); Red Cell Distribution Width 16.1 % (11.6-17.2); White Blood Count 44.7 th/mm3 (4.0-11.0)
[2017-12-01 06:08] LABS: Potassium 4.8 meq/L (3.5-5.1)
[2017-12-01 06:12] LABS: Calcium 9.1 mg/dL (8.5-10.1)
[2017-12-01 06:13] LABS: Acanthocytes 1+; Lymphocytes 84 % (9-44); Monocytes 3 % (0-8); Ovalocytes 2+
[2017-12-01 06:14] LABS: Platelet Morphology Normal (Normal); Tear Drop Cells 1+
[2017-12-01] MEDS: Insulin NovoLOG Aspart Correctional Sugar Inj SQ SCH ×4 (07:41→20:29)
[2017-12-01] MEDS: metOLazone 5 MG Tablet PO SCH (08:42)
[2017-12-01] MEDS: Potassium Chloride 10 MEQ ER Capsule PO SCH (08:43)
[2017-12-01] MEDS: Metoprolol Tartrate 100 MG Tablet PO SCH ×2 (08:43→20:23)
--- NOTE | 2017-12-01 09:41 | P.PN ---
Subjective Interval history: 87-year-old female who was seen and examined in follow-up today for fluid overload, renal failure. Patient still has not been producing as much urine as she would like. Patient only had 400 cc in the last 24 hours. Bladder scan was done this morning which only indicated 170 cc of urine. Patient is not responding appropriately to the diuretic with fluid output. Patient may require dialysis. Will need to consult with the recreational vehicle resort manager for further recommendations. Otherwise patient is doing well. Still has some shortness of breath. Still complaining of lower extremity edema. Physical Exam Vital signs: Vital Signs 11/30/17 11:14 11/30/17 13:37 11/30/17 14:30 Temperature 97.5 F L Pulse Rate 68 60 Respiratory Rate 18 20 Blood Pressure 107/55 L 124/56 L Pulse Oximetry 98 93 L 94 L 11/30/17 15:00 11/30/17 20:00 12/01/17 00:47 Temperature 97.2 F L 97.3 F L 97.1 F L Pulse Rate 64 74 73 Respiratory Rate 20 20 22 Blood Pressure 128/56 L 115/57 L 104/50 L Pulse Oximetry 93 L 98 93 L 12/01/17 04:00 12/01/17 08:00 Temperature 96.0 F L 96.3 F L Pulse Rate 73 72 Respiratory Rate 18 18 Blood Pressure 113/54 L 125/59 L Pulse Oximetry 95 96 Intake & Output 11/30/17 12/01/17 12/01/17 18:59 06:59 18:59 Intake Total 680 / 680 240 / 240 Output Total 400 / 400 100 / 100 Balance 280 / 280 240 / 240 -100 / -100 Weight 102.6 kg 103 kg Intake: Oral 680 / 680 240 / 240 Output: Urine 400 / 400 100 / 100 Other: # Voids 3 1 Date of Last Bowel Movement 11/29/17 Weight On Admission 102.6 kg Narrative: GENERAL: Well-developed, well-nourished, in no acute distress. alert and orientated HEENT: Head is normocephalic without any lesions or masses noted. Facial features are symmetric. Eyes: Extraocular muscles are intact. Conjunctivae were clear. NECK: Supple without any masses. Trachea midline no deviation. No JVD, CARDIAC: Regular rhythm, regular rate. S1/S2 are heard. No murmurs gallops or rubs. LUNGS: Clear to auscultation bilaterally. No wheeze, rhonchi or rales. No use of accessory muscles on inspiration or expiration. ABDOMEN: Soft, nontender. Nondistended. Bowel sounds heard in all 4 quadrants. No organomegaly or masses. Negative rebound, negative guarding EXTREMITIES: 3+ pitting bilateral lower extremity edema, bilateral lower extremities do have areas of weepage. Patient has areas of excoriation, pulses are equal bilaterally. No cyanosis or clubbing NEUROLOGY: Mood and affect appear appropriate. Cranial nerves II through XII grossly intact. Moving all extremities, speech clear Results - Labs CBC & Chem 7: 12/01/17 05:30 12/01/17 05:30 Laboratory Results - last 24 hr 11/30/17 11/30/17 11/30/17 09:00 09:00 09:00 CBC w Diff WBC RBC Hgb Hct MCV MCH MCHC RDW Plt Count MPV Neut % (Auto) Lymph % (Auto) [place] % (Auto) Eos % (Auto) Baso % (Auto) Neut # (Auto) Lymph # (Auto) [place] # (Auto) Eos # (Auto) Baso # (Auto) WBC Differential Manual diff final Seg Neuts % (Manual) 14 L Lymphocytes % (Manual) 82 H Monocytes % (Manual) 2 Eosinophils % (Manual) 1 Basophils % (Manual) 1 Abs Neuts (Manual) 6.7 Differential Comment Platelet Estimate Low L Platelet Morphology Normal Tear Drop Cells Ovalocytes 1+ H Acanthocytes (Spur) Keratocytes Sodium 143 Potassium 4.4 Chloride 106 Carbon Dioxide 30.2 Anion Gap 7 BUN 80 H Creatinine 3.20 H Estimated GFR 14 L POC Glucose Random Glucose 149 H Calcium 9.1 Total Bilirubin 0.7 AST 18 ALT 19 Alkaline Phosphatase 120 H Total Creatine Kinase 35 Troponin I 0.03 B-Natriuretic Peptide 202 H Total Protein 6.0 L Albumin 3.6 Ur Collection Type Urine Color Urine Clarity Urine pH Ur Specific [place] Urine Protein Urine Glucose (UA) Urine Ketones Urine Occult Blood Urine Nitrate Urine Bilirubin Urine Urobilinogen Ur Leukocyte Esterase Urine WBC Urine WBC Clumps Ur Squamous Epith Cells Micro UA Comment Urine Culture Comments 11/30/17 11/30/17 11/30/17 11:40 16:59 21:08 CBC w Diff WBC RBC Hgb Hct MCV MCH MCHC RDW Plt Count MPV Neut % (Auto) Lymph % (Auto) [place] % (Auto) Eos % (Auto) Baso % (Auto) Neut # (Auto) Lymph # (Auto) [place] # (Auto) Eos # (Auto) Baso # (Auto) WBC Differential Seg Neuts % (Manual) Lymphocytes % (Manual) Monocytes % (Manual) Eosinophils % (Manual) Basophils % (Manual) Abs Neuts (Manual) Differential Comment Platelet Estimate Platelet Morphology Tear Drop Cells Ovalocytes Acanthocytes (Spur) Keratocytes Sodium Potassium Chloride Carbon Dioxide Anion Gap BUN Creatinine Estimated GFR POC Glucose 161 H 218 H Random Glucose Calcium Total Bilirubin AST ALT Alkaline Phosphatase Total Creatine Kinase Troponin I B-Natriuretic Peptide Total Protein Albumin Ur Collection Type Clean catch Urine Color Yellow Urine Clarity Clear Urine pH 5.5 Ur Specific [place] 1.020 Urine Protein Negative Urine Glucose (UA) Negative Urine Ketones Negative Urine Occult Blood Negative Urine Nitrate Negative Urine Bilirubin Negative Urine Urobilinogen 0.2 Ur Leukocyte Esterase Trace H Urine WBC 9-20 H Urine WBC Clumps Occasional H Ur Squamous Epith Cells 0-5 Micro UA Comment Culture indicated Urine Culture Comments Culture indicated 12/01/17 12/01/17 12/01/17 05:30 05:30 07:21 CBC w Diff Slide review pending WBC 44.7 H RBC 3.53 L Hgb 10.7 L Hct 33.7 L MCV 95.6 MCH 30.4 MCHC 31.8 L RDW 16.1 Plt Count 103 L MPV 9.6 Neut % (Auto) 11.2 L Lymph % (Auto) 84.1 H [place] % (Auto) 2.8 Eos % (Auto) 0.2 Baso % (Auto) 1.7 Neut # (Auto) 5.0 Lymph # (Auto) 37.5 H [place] # (Auto) 1.3 H Eos # (Auto) 0.1 Baso # (Auto) 0.8 H WBC Differential Manual diff final Seg Neuts % (Manual) 13 L Lymphocytes % (Manual) 84 H Monocytes % (Manual) 3 Eosinophils % (Manual) Basophils % (Manual) Abs Neuts (Manual) 5.8 Differential Comment . Platelet Estimate Low L Platelet Morphology Normal Tear Drop Cells 1+ H Ovalocytes 2+ H Acanthocytes (Spur) 1+ H Keratocytes Occ H Sodium 140 Potassium 4.8 Chloride 105 Carbon Dioxide 29.0 Anion Gap 6 BUN 83 H Creatinine 3.20 H Estimated GFR 14 L POC Glucose 214 H Random Glucose 213 H Calcium 9.1 Total Bilirubin AST ALT Alkaline Phosphatase Total Creatine Kinase Troponin I B-Natriuretic Peptide Total Protein Albumin Ur Collection Type Urine Color Urine Clarity Urine pH Ur Specific [place] Urine Protein Urine Glucose (UA) Urine Ketones Urine Occult Blood Urine Nitrate Urine Bilirubin Urine Urobilinogen Ur Leukocyte Esterase Urine WBC Urine WBC Clumps Ur Squamous Epith Cells Micro UA Comment Urine Culture Comments Assessment and Plan - Assessment (1) Shortness of breath Code(s): R06.02 - Shortness of breath Status: Acute (2) Lower extremity edema Code(s): R60.0 - Localized edema Status: Acute (3) Fluid overload Code(s): E87.70 - Fluid overload, unspecified Status: Acute (4) Acute renal failure superimposed on stage 4 chronic kidney disease Code(s): N17.9 - Acute kidney failure, unspecified; N18.4 - Chronic kidney disease, stage 4 (severe) Status: Acute - Plan Fluid overload with worsening shortness of breath: Not responding to treatment -Multifactorial with patient having underlying severe pulmonary hypertension, recurrent pleural effusions, acute renal failure superimposed on chronic kidney disease stage IV -Echocardiogram was done approximately 4 month ago shows good ejection fraction 55-60%. Right atrial and ventricle were dilated indicating right heart failure. PA peak pressure 67 indicating significant pulmonary hypertension -Chest x-ray did not indicate significant pleural effusion this time. Does show small bibasilar -Mildly elevated BNP at 202 which is no significant change from previous a week ago at 185 -D-dimer was elevated, however does appear to be chronic elevation. Could be related to her chronic renal failure. Patient renal function will not allow for a pulmonary angiogram be performed. Due to the patient's shortness of breath would not want her risk doing a VQ scan at this time. Despite that. Patient is already anticoagulated on Eliquis for her atrial fibrillation. So it is very unlikely that the patient has an embolic event -Patient was given Lasix 40 g IV in the emergency department -Principal Technical Writer only recommending the use of Bumex at this time. -Strict input and output, patient with only 400 cc of urinary output. Bladder scan was performed which only showed 170 cc of urine this morning -Fluid restriction 1500 cc daily Acute renal failure superimposed on chronic kidney disease stage IV -Unfortunately patient had recent increase in diuretic due to fluid overload with pleural effusion, possibly causing worsening of her renal function -Patient's fluid overload may also be caused by worsening of her renal function. -Patient has had history of temporary dialysis -Nephrology consulted for further recommendations. -Patient may likely require short-term dialysis again to help with the fluid overload and improvement of her renal functions -Avoid nephrotoxins Right basilar density -Unknown etiology at this time, a review of previous chest x-rays patient does have history of right basilar atelectasis, is always documented pleural effusion -Recent chest CT done 8 days ago does show compressive atelectasis in the right lower lobe and lesser extent in the right middle lobe. There is groundglass opacities consistent with pulmonary edema. -Continue monitor with follow-up chest x-rays in outpatient setting -Clinically the patient is not presenting with symptoms of any upper respiratory infection, pneumonia Lower extremity edema, possible cellulitis -Likely related to fluid overload, however continue monitor for any infectious source -Blood cultures have been ascertained -Wound care nurse consultation Physical deconditioning -Physical therapy evaluation Diabetes -Accu-Cheks with sliding scale insulin Atrial fibrillation, hypertension -Heart rate is controlled at this time -Continue home medication -Patient anticoagulated on Eliquis Chronic lymphocytic leukemia -Patient is followed by Dr. Quach in outpatient setting -Continue to follow CBC DVT prevention -Patient is on Eliquis (3) Fluid overload Qualifiers: Hypervolemia type: unspecified Qualified Code(s): E87.70 - Fluid overload, unspecified
--- NOTE | 2017-12-01 20:59 | P.PNNP ---
Subjective Interval history: Patient is a 87-year-old with history of leukemia who has acute renal failure in atrial fibrillation and congestive heart failure along with chronic kidney disease follows with Dr. Killian Physical Exam Vital signs: Vital Signs 12/01/17 00:47 12/01/17 04:00 12/01/17 08:00 Temperature 97.1 F L 96.0 F L 96.3 F L Pulse Rate 73 73 72 Respiratory Rate 22 18 18 Blood Pressure 104/50 L 113/54 L 125/59 L Pulse Oximetry 93 L 95 99 12/01/17 12:00 12/01/17 16:00 12/01/17 19:42 Temperature 96.7 F L 97.8 F Pulse Rate 81 75 Respiratory Rate 18 18 Blood Pressure 116/59 L 132/56 L Pulse Oximetry 93 L 95 94 L 12/01/17 20:00 Temperature 97.4 F L Pulse Rate 90 Respiratory Rate 18 Blood Pressure 132/69 Pulse Oximetry 90 L Intake & Output 12/01/17 12/01/17 12/02/17 06:59 18:59 06:59 Intake Total 240 / 240 1200 / 1200 Output Total 480 / 480 Balance 240 / 240 720 / 720 Weight 103 kg Intake: Oral 240 / 240 1200 / 1200 Output: Urine 480 / 480 Other: # Voids 3 1 - Constitutional no acute distress - Routine HEENT Exam Head: Present: normocephalic Eye: Present: EOMI - Routine Neck Exam Present: supple - Routine Respiratory Exam Present: CTA bilaterally - Routine Cardiovascular Exam Present: S1, S2, irregular rhythm - Routine Abdominal Exam Present: soft - Routine Extremities Exam Present: edema - Routine Neurological Exam Present: alert Assessment and Plan - Assessment (1) Pulmonary edema, acute Code(s): J81.0 - Acute pulmonary edema Status: Acute (2) Fluid overload Code(s): E87.70 - Fluid overload, unspecified Status: Acute Qualifiers: Hypervolemia type: unspecified Qualified Code(s): E87.70 - Fluid overload, unspecified (3) CKD (chronic kidney disease) Code(s): N18.9 - Chronic kidney disease, unspecified Status: Acute - Plan Patient has responded to oral diuretics Bumex and Zaroxolyn with increasing urine output, patient states that the urine output has finally picked up There is no acute indication for dialysis if she continues to responds to conservative approach Dr. Killian is away Dr. Brand is covering and he asked me to see the patient Thanks for the consult.
[2017-12-02 06:20] LABS: Potassium 4.9 meq/L (3.5-5.1)
[2017-12-02 06:23] LABS: Carbon Dioxide 29.8 meq/L (21.0-32.0)
[2017-12-02] MEDS: metOLazone 5 MG Tablet PO SCH (08:07)
[2017-12-02] MEDS: Metoprolol Tartrate 100 MG Tablet PO SCH ×2 (08:08→21:07)
[2017-12-02] MEDS: Potassium Chloride 10 MEQ ER Capsule PO SCH (08:10)
[2017-12-02] MEDS: Insulin NovoLOG Aspart Correctional Sugar Inj SQ SCH ×4 (08:12→21:12)
--- NOTE | 2017-12-02 10:53 | P.PN ---
Subjective Interval history: 87-year-old female who is seen and examined in follow-up today for fluid overload, renal failure. Patient started improvement yesterday afternoon with improved urinary output. Presently the patient has had 1800 cc of urine output since yesterday. -200 fluid balance. Patient and family indicates that her leg swelling has significantly improved and they are the best they have looked in a long time. However, patient's renal functions have not improved. Patient did point out that she developed a nice bruise from a insulin shot on her abdomen since she is on the apixaban. Vital signs are stable. Patient remains afebrile. Physical Exam Vital signs: Vital Signs 12/01/17 12:00 12/01/17 16:00 12/01/17 19:42 Temperature 96.7 F L 97.8 F Pulse Rate 81 75 Respiratory Rate 18 18 Blood Pressure 116/59 L 132/56 L Pulse Oximetry 93 L 95 94 L 12/01/17 20:00 12/02/17 00:14 12/02/17 04:00 Temperature 97.4 F L 96.5 F L 96.3 F L Pulse Rate 80 65 74 Respiratory Rate 18 18 18 Blood Pressure 132/69 137/67 125/57 L Pulse Oximetry 90 L 92 L 90 L 12/02/17 07:46 12/02/17 08:00 Temperature 97.2 F L Pulse Rate 73 Respiratory Rate 21 Blood Pressure 117/58 L Pulse Oximetry 94 L 92 L Intake & Output 12/01/17 12/02/17 12/02/17 18:59 06:59 18:59 Intake Total 1200 / 1200 400 / 400 Output Total 480 / 480 1350 / 1350 Balance 720 / 720 -950 / -950 Intake: Oral 1200 / 1200 400 / 400 Output: Urine 480 / 480 1350 / 1350 Other: # Voids 1 Date of Last Bowel Movement 11/29/17 Narrative: GENERAL: Well-developed, well-nourished, in no acute distress. alert and orientated HEENT: Head is normocephalic without any lesions or masses noted. Facial features are symmetric. Eyes: Extraocular muscles are intact. Conjunctivae were clear. NECK: Supple without any masses. Trachea midline no deviation. No JVD, CARDIAC: Regular rhythm, regular rate. S1/S2 are heard. No murmurs gallops or rubs. LUNGS: Clear to auscultation bilaterally. No wheeze, rhonchi or rales. No use of accessory muscles on inspiration or expiration. ABDOMEN: Soft, nontender. Nondistended. Bowel sounds heard in all 4 quadrants. No organomegaly or masses. Negative rebound, negative guarding EXTREMITIES: 2+ pitting bilateral lower extremity edema, bilateral lower extremities do have areas of weepage. Patient has areas of excoriation, pulses are equal bilaterally. No cyanosis or clubbing NEUROLOGY: Mood and affect appear appropriate. Cranial nerves II through XII grossly intact. Moving all extremities, speech clear Results - Labs CBC & Chem 7: 12/01/17 05:30 12/02/17 05:45 Laboratory Results - last 24 hr 12/01/17 12/01/17 12/01/17 10:45 16:44 19:59 Sodium Potassium Chloride Carbon Dioxide Anion Gap BUN Creatinine Estimated GFR POC Glucose 243 H 228 H 239 H Random Glucose Calcium 12/02/17 12/02/17 05:45 07:40 Sodium 139 Potassium 4.9 Chloride 103 Carbon Dioxide 29.8 Anion Gap 6 BUN 88 H Creatinine 3.20 H Estimated GFR 14 L POC Glucose 221 H Random Glucose 210 H Calcium 9.0 Microbiology 11/30/17 11:40 Clean Catch Urine Urine Culture - Preliminary Yeast species 11/30/17 09:00 Blood - Peripheral Aerobic Blood Culture - Preliminary No growth in 1 day 11/30/17 09:00 Blood - Peripheral Anaerobic Blood Culture - Preliminary No growth in 1 day 11/30/17 09:05 Blood - Peripheral Aerobic Blood Culture - Preliminary No growth in 1 day 11/30/17 09:05 Blood - Peripheral Anaerobic Blood Culture - Preliminary No growth in 1 day Assessment and Plan - Assessment (1) Shortness of breath Code(s): R06.02 - Shortness of breath Status: Acute (2) Lower extremity edema Code(s): R60.0 - Localized edema Status: Acute (3) Fluid overload Code(s): E87.70 - Fluid overload, unspecified Status: Acute (4) Acute renal failure superimposed on stage 4 chronic kidney disease Code(s): N17.9 - Acute kidney failure, unspecified; N18.4 - Chronic kidney disease, stage 4 (severe) Status: Acute - Plan Fluid overload with worsening shortness of breath: Improving -Multifactorial with patient having underlying severe pulmonary hypertension, recurrent pleural effusions, acute renal failure superimposed on chronic kidney disease stage IV -Echocardiogram was done approximately 4 month ago shows good ejection fraction 55-60%. Right atrial and ventricle were dilated indicating right heart failure. PA peak pressure 67 indicating significant pulmonary hypertension -Chest x-ray did not indicate significant pleural effusion this time. Does show small bibasilar -Mildly elevated BNP at 202 which is no significant change from previous a week ago at 185 -D-dimer was elevated, however does appear to be chronic elevation. Could be related to her chronic renal failure. Patient renal function will not allow for a pulmonary angiogram be performed. Due to the patient's shortness of breath would not want her risk doing a VQ scan at this time. Despite that. Patient is already anticoagulated on Eliquis for her atrial fibrillation. So it is very unlikely that the patient has an embolic event -Patient was given Lasix 40 g IV in the emergency department -Boring Inspector only recommending the use of Bumex with the addition of Zaroxolyn. -Strict input and output, patient is now started to produce more urine with over 1800 cc yesterday. -Fluid restriction 1500 cc daily Acute renal failure superimposed on chronic kidney disease stage IV -Unfortunately patient had recent increase in diuretic due to fluid overload with pleural effusion, possibly causing worsening of her renal function -Patient's fluid overload may also be caused by worsening of her renal function. -Patient has had history of temporary dialysis -Nephrology consulted for further recommendations. -Patient now producing more urine. -Continue monitor renal function for improvement Right basilar density -Unknown etiology at this time, a review of previous chest x-rays patient does have history of right basilar atelectasis, is always documented pleural effusion -Recent chest CT done 8 days ago does show compressive atelectasis in the right lower lobe and lesser extent in the right middle lobe. There is groundglass opacities consistent with pulmonary edema. -Continue monitor with follow-up chest x-rays in outpatient setting -Clinically the patient is not presenting with symptoms of any upper respiratory infection, pneumonia Lower extremity edema, possible cellulitis, improving -Likely related to fluid overload, however continue monitor for any infectious source -Blood cultures have been ascertained -Wound care nurse consultation Physical deconditioning -Physical therapy evaluation Diabetes -Accu-Cheks with sliding scale insulin Atrial fibrillation, hypertension -Heart rate is controlled at this time -Continue home medication -Patient anticoagulated on Eliquis Chronic lymphocytic leukemia -Patient is followed by Dr. Quach in outpatient setting -Continue to follow CBC DVT prevention -Patient is on Eliquis Discharge Plannin-48 hours depending on patient's response to treatment. Anticipate discharge with home health care (3) Fluid overload Qualifiers: Hypervolemia type: unspecified Qualified Code(s): E87.70 - Fluid overload, unspecified
--- NOTE | 2017-12-02 10:55 | P.DCO ---
- Physical Therapy Order: Evaluate and treat, Improve ambulation, Strength and gait training - Home Health Nursing Order: Medical education, Signs/symptoms of disease process, Wound care and dressing changes, Nursing assessment with vital signs Instructions: 1.Please cleanse BLE with soap and water and pat dry. Apply lotion and leave open to air if no weeping.If patient has weeping to BLE please cleanse open weeping wounds with normal saline and spray intact skin with skin barrier film spray before covering with optilock dressing secured rolled gauze and tape. Change dressings every 3 to 5 days or as needed if saturated or dislodged. 2.Please elevate BLE when patient is sitting in chair or laying in bed. 3. Please cleanse coccyx, and bilateral inner buttock areas with Remedy barrier wipes and apply Calazime skin protectant paste BID and PRN and leave open to air 4. Please limit time sitting up in chair to 1 hour and please assist with turning and repositioning patient every 2 hours while in bed. - Home Health Aide Order: To assist in: Bathing and personal care, tarper and meal prep - Certification I have seen patient Raya Mccabe on 12/02/17. My clinical findings support the need for the requested home health care services because: Limited mobility due to disease progression, Deconditioned with increased weakness, Limited ability to care for self I certify that my clinical findings support that this patient is homebound because: Unsteady gait/balance, Unsafe to leave home unassisted
[2017-12-02] MEDS ORDERED: Docusate Sodium 100 MG Capsule PO PRN (14:18)
[2017-12-02] MEDS ORDERED: Temazepam 15 MG Capsule PO PRN (14:18)
[2017-12-02] MEDS ORDERED: Acetaminophen 325 MG Tablet PO PRN (14:18)
[2017-12-02] MEDS ORDERED: Polyethylene Glycol 3350 17 GM Packet PO ONE (15:00)
--- NOTE | 2017-12-02 17:56 | P.PNNP ---
Subjective Interval history: 87-year-old with atrial fibrillation and congestive heart failure chronic kidney disease follows with Dr. Killian Physical Exam Vital signs: Vital Signs 12/01/17 19:42 12/01/17 20:00 12/02/17 00:14 Temperature 97.4 F L 96.5 F L Pulse Rate 80 65 Respiratory Rate 18 18 Blood Pressure 132/69 137/67 Pulse Oximetry 94 L 90 L 92 L 12/02/17 04:00 12/02/17 07:46 12/02/17 08:00 Temperature 96.3 F L 97.2 F L Pulse Rate 74 73 Respiratory Rate 18 21 Blood Pressure 125/57 L 117/58 L Pulse Oximetry 90 L 94 L 92 L 12/02/17 12:00 12/02/17 15:49 Temperature 97.5 F L 97.0 F L Pulse Rate 64 70 Respiratory Rate 20 20 Blood Pressure 102/51 L 126/60 Pulse Oximetry 93 L 95 Intake & Output 12/01/17 12/02/17 12/02/17 18:59 06:59 18:59 Intake Total 1200 / 1200 400 / 400 Output Total 480 / 480 1350 / 1350 Balance 720 / 720 -950 / -950 Intake: Oral 1200 / 1200 400 / 400 Output: Urine 480 / 480 1350 / 1350 Other: # Voids 1 Date of Last Bowel Movement 11/29/17 11/29/17 - Constitutional no acute distress - Routine Neck Exam Present: supple - Routine Respiratory Exam Present: decreased breath sounds - Routine Cardiovascular Exam Present: irregularly irregular (That basis) - Routine Abdominal Exam Present: soft, normoactive bowel sounds - Routine Extremities Exam Present: edema Assessment and Plan - Assessment (1) Pulmonary edema, acute Code(s): J81.0 - Acute pulmonary edema Status: Acute (2) Fluid overload Code(s): E87.70 - Fluid overload, unspecified Status: Acute Qualifiers: Hypervolemia type: unspecified Qualified Code(s): E87.70 - Fluid overload, unspecified (3) CKD (chronic kidney disease) Code(s): N18.9 - Chronic kidney disease, unspecified Status: Acute - Plan Patient has responded to oral diuretics Bumex and Zaroxolyn with increasing urine output, patient states that the urine output has finally picked up Edema is going down Patient responding to diuretics 1.8 L UOP There is no acute indication for dialysis if she continues to responds to conservative approach Dr. Killian is away Dr. Brand is covering and he asked me to see the patient Thanks for the consult. Patient can be followed as outpatient with Dr. Killian/Cathie on diuretics okay for discharge from nephrology point of view if renal functions stable by am
[2017-12-03 06:05] LABS: Hematocrit 33.8 % (35.0-46.0); Hemoglobin 10.7 gm/dL (11.6-15.3); Mean Corpuscular HGB Conc 31.6 % (32.0-36.0); Mean Corpuscular Hemoglobin 30.8 pg (27.0-34.0); Mean Corpuscular Volume 97.3 fL (80.0-100.0); Mean Platelet Volume 9.8 fL (7.0-11.0); Platelet Count 66 th/mm3 (150-450); Red Blood Count 3.47 mil/mm3 (4.00-5.30); Red Cell Distribution Width 16.4 % (11.6-17.2); White Blood Count 41.2 th/mm3 (4.0-11.0)
[2017-12-03 06:14] LABS: Potassium 4.6 meq/L (3.5-5.1)
[2017-12-03 06:20] LABS: Lymphocytes 74 % (9-44); Monocytes 4 % (0-8); Ovalocytes 1+; Platelet Morphology Normal (Normal)
[2017-12-03 06:23] LABS: Carbon Dioxide 26.8 meq/L (21.0-32.0)
[2017-12-03] MEDS: Potassium Chloride 10 MEQ ER Capsule PO SCH (08:37)
[2017-12-03] MEDS: metOLazone 5 MG Tablet PO SCH (08:38)
[2017-12-03] MEDS: Metoprolol Tartrate 100 MG Tablet PO SCH ×2 (08:38→22:07)
[2017-12-03] MEDS: Insulin NovoLOG Aspart Correctional Sugar Inj SQ SCH ×4 (09:25→22:17)
--- NOTE | 2017-12-03 10:21 | P.PN ---
Subjective Interval history: 87-year-old female who is seen and examined today in follow-up for fluid overload. Patient clinically improving. Edema is much improved. Skin is drying out. However, BUN is continuing to increase. Discuss with nephrology made recommendations. Discussed with patient, at bedside. Patient is more somnolent today. Night nurse indicates that patient got out of bed last night, had her IV pulled out. Records indicate that patient was given Restoril last evening. Physical Exam Vital signs: Vital Signs 12/02/17 12:00 12/02/17 15:49 12/02/17 19:23 Temperature 97.5 F L 97.0 F L Pulse Rate 64 70 Respiratory Rate 20 20 Blood Pressure 102/51 L 126/60 Pulse Oximetry 93 L 95 99 12/02/17 20:00 12/03/17 00:00 12/03/17 08:00 Temperature 97.4 F L 97.1 F L 96.6 F L Pulse Rate 73 77 68 Respiratory Rate 18 18 18 Blood Pressure 123/55 L 113/55 L 129/61 Pulse Oximetry 93 L 90 L 93 L Intake & Output 12/02/17 12/03/17 12/03/17 18:59 06:59 18:59 Intake Total 720 / 720 200 / 200 Output Total 600 / 600 900 / 900 Balance 120 / 120 -700 / -700 Weight 103 kg Intake: Oral 720 / 720 200 / 200 Output: Urine 600 / 600 900 / 900 Other: Date of Last Bowel Movement 11/29/17 11/29/17 # Bowel Movements 0 Narrative: GENERAL: Well-developed, well-nourished, in no acute distress. alert and orientated HEENT: Head is normocephalic without any lesions or masses noted. Facial features are symmetric. Eyes: Extraocular muscles are intact. Conjunctivae were clear. NECK: Supple without any masses. Trachea midline no deviation. No JVD, CARDIAC: Regular rhythm, regular rate. S1/S2 are heard. No murmurs gallops or rubs. LUNGS: Clear to auscultation bilaterally. No wheeze, rhonchi or rales. No use of accessory muscles on inspiration or expiration. ABDOMEN: Soft, nontender. Nondistended. Bowel sounds heard in all 4 quadrants. No organomegaly or masses. Negative rebound, negative guarding EXTREMITIES: 2+ pitting bilateral lower extremity edema, bilateral lower extremities do have areas of weepage. Patient has areas of excoriation, pulses are equal bilaterally. No cyanosis or clubbing NEUROLOGY: Mood and affect appear appropriate. Cranial nerves II through XII grossly intact. Moving all extremities, speech clear Results - Labs CBC & Chem 7: 12/03/17 05:27 12/03/17 05:27 Laboratory Results - last 24 hr 12/02/17 12/02/17 12/02/17 12:07 16:49 21:11 CBC w Diff WBC RBC Hgb Hct MCV MCH MCHC RDW Plt Count MPV WBC Differential Seg Neuts % (Manual) Lymphocytes % (Manual) Monocytes % (Manual) Abs Neuts (Manual) Differential Comment Platelet Estimate Platelet Morphology Ovalocytes Keratocytes Sodium Potassium Chloride Carbon Dioxide Anion Gap BUN Creatinine Estimated GFR POC Glucose 273 H 221 H 209 H Random Glucose Calcium 12/03/17 12/03/17 12/03/17 05:27 05:27 08:47 CBC w Diff Slide review pending WBC 41.2 H RBC 3.47 L Hgb 10.7 L Hct 33.8 L MCV 97.3 MCH 30.8 MCHC 31.6 L RDW 16.4 Plt Count 66 L D MPV 9.8 WBC Differential Manual diff final Seg Neuts % (Manual) 22 Lymphocytes % (Manual) 74 H Monocytes % (Manual) 4 Abs Neuts (Manual) 9.1 H Differential Comment . Platelet Estimate Low L Platelet Morphology Normal Ovalocytes 1+ H Keratocytes Occ H Sodium 138 Potassium 4.6 Chloride 105 Carbon Dioxide 26.8 Anion Gap 6 BUN 91 H Creatinine 3.20 H Estimated GFR 14 L POC Glucose 229 H Random Glucose 221 H Calcium 9.0 Microbiology 11/30/17 09:00 Blood - Peripheral Aerobic Blood Culture - Preliminary No growth in 2 days 11/30/17 09:00 Blood - Peripheral Anaerobic Blood Culture - Preliminary No growth in 2 days 11/30/17 09:05 Blood - Peripheral Aerobic Blood Culture - Preliminary No growth in 2 days 11/30/17 09:05 Blood - Peripheral Anaerobic Blood Culture - Preliminary No growth in 2 days 11/30/17 11:40 Clean Catch Urine Urine Culture - Preliminary Yeast species Assessment and Plan - Assessment (1) Shortness of breath Code(s): R06.02 - Shortness of breath Status: Acute (2) Lower extremity edema Code(s): R60.0 - Localized edema Status: Acute (3) Fluid overload Code(s): E87.70 - Fluid overload, unspecified Status: Acute (4) Acute renal failure superimposed on stage 4 chronic kidney disease Code(s): N17.9 - Acute kidney failure, unspecified; N18.4 - Chronic kidney disease, stage 4 (severe) Status: Acute - Plan Fluid overload with worsening shortness of breath: Improving -Multifactorial with patient having underlying severe pulmonary hypertension, recurrent pleural effusions, acute renal failure superimposed on chronic kidney disease stage IV -Echocardiogram was done approximately 4 month ago shows good ejection fraction 55-60%. Right atrial and ventricle were dilated indicating right heart failure. PA peak pressure 67 indicating significant pulmonary hypertension -Chest x-ray did not indicate significant pleural effusion this time. Does show small bibasilar -Mildly elevated BNP at 202 which is no significant change from previous a week ago at 185 -D-dimer was elevated, however does appear to be chronic elevation. Could be related to her chronic renal failure. Patient renal function will not allow for a pulmonary angiogram be performed. Due to the patient's shortness of breath would not want her risk doing a VQ scan at this time. Despite that. Patient is already anticoagulated on Eliquis for her atrial fibrillation. So it is very unlikely that the patient has an embolic event -Patient was given Lasix 40 g IV in the emergency department -Steel Barrel Reamer only recommending the use of Bumex with the addition of Zaroxolyn. However due to the worsening of the BUN, recommended discontinuation of Zaroxolyn -Strict input and output, patient is now started to produce more urine with over 1800 cc yesterday. -Fluid restriction 1500 cc daily Acute renal failure superimposed on chronic kidney disease stage IV -Unfortunately patient had recent increase in diuretic due to fluid overload with pleural effusion, possibly causing worsening of her renal function -Patient's fluid overload may also be caused by worsening of her renal function. -Patient has had history of temporary dialysis -Nephrology consulted for further recommendations. -Patient now producing more urine. -Patient with worsening BUN, however creatinine remained stable, this was discussed with nephrology who recommended discontinuation of Zaroxolyn Right basilar density -Unknown etiology at this time, a review of previous chest x-rays patient does have history of right basilar atelectasis, is always documented pleural effusion -Recent chest CT done 8 days ago does show compressive atelectasis in the right lower lobe and lesser extent in the right middle lobe. There is groundglass opacities consistent with pulmonary edema. -Continue monitor with follow-up chest x-rays in outpatient setting -Clinically the patient is not presenting with symptoms of any upper respiratory infection, pneumonia Lower extremity edema, possible cellulitis, significantly improved -Likely related to fluid overload, however continue monitor for any infectious source -Blood cultures have been ascertained -Wound care nurse consultation Physical deconditioning -Physical therapy evaluation Diabetes -Accu-Cheks with sliding scale insulin Atrial fibrillation, hypertension -Heart rate is controlled at this time -Continue home medication -Patient anticoagulated on Eliquis Chronic lymphocytic leukemia -Patient is followed by Dr. Quach in outpatient setting -Continue to follow CBC DVT prevention -Patient is on Eliquis Discharge Plannin-48 hours depending on patient's response to treatment. Anticipate discharge with home health care (3) Fluid overload Qualifiers: Hypervolemia type: unspecified Qualified Code(s): E87.70 - Fluid overload, unspecified
--- NOTE | 2017-12-03 14:13 | XR ---
EXAM DATE: 12/03/2017 1:49 PM EDT AGE/SEX: 87 years / Female INDICATIONS: Short of breath CLINICAL DATA: This is the patient's subsequent encounter. Patient reports that signs and symptoms h ave been present for 1 day and indicates a pain score of 6/10. MEDICAL/SURGICAL HISTORY: . Diabetes. Chronic lymphocytic leukemia. Atrial fibrillation. Chroni c kidney disease. . Right hip replacement. Right shoulder surgery. COMPARISON: [facility], CHEST 1V SINGLE AP, 11/30/2017. . FINDINGS: Bilateral pleural-parenchymal opacities persist, right worse than left consistent with basilar infilt rates and layering effusions. Visualized cardiac contours are grossly unchanged. CONCLUSION: No significant interval change Electronically signed by: Eben Pruett MD 12/03/2017 2:12 PM EDT
[2017-12-03] MEDS ORDERED: Albumin Human 5% Inj 500 ML IV.SIG ONE (20:00)
[2017-12-03] MEDS: Melatonin 5 MG Tablet PO PRN (22:05)
[2017-12-04 07:09] LABS: Potassium 4.3 meq/L (3.5-5.1)
[2017-12-04 07:12] LABS: Carbon Dioxide 29.4 meq/L (21.0-32.0)
[2017-12-04] MEDS: Potassium Chloride 10 MEQ ER Capsule PO SCH (08:30)
[2017-12-04] MEDS: Metoprolol Tartrate 100 MG Tablet PO SCH ×2 (08:30→20:49)
[2017-12-04] MEDS: Insulin NovoLOG Aspart Correctional Sugar Inj SQ SCH ×4 (08:41→20:50)
[2017-12-04] MEDS ORDERED: Albumin Human 5% Inj 500 ML IV.SIG SCH (10:00)
--- NOTE | 2017-12-04 10:42 | P.PN ---
Subjective Interval history: 87-year-old female who is seen and examined today in follow-up for fluid overload, renal failure. Patient states that she is doing okay. Son indicates that she appears to be doing better than she was yesterday. Discussed with patient and family at bedside that her kidney functions are still not improving that they are worsening. Documentation indicates that patient has had a decrease in her urinary output overnight as well. Vital signs are stable, patient remains afebrile. Physical Exam Vital signs: Vital Signs 12/03/17 12:00 12/03/17 16:00 12/03/17 16:43 Temperature 97.1 F L 97.1 F L Pulse Rate 53 L 78 76 Respiratory Rate 18 18 22 Blood Pressure 92/52 L 101/51 L Pulse Oximetry 93 L 95 12/03/17 20:00 12/03/17 20:25 12/03/17 23:25 Temperature 96.9 F L Pulse Rate 80 92 H 74 Respiratory Rate 22 20 22 Blood Pressure 126/58 L Pulse Oximetry 92 L 93 L 12/04/17 00:00 12/04/17 07:55 Temperature 96.1 F L Pulse Rate 68 87 Respiratory Rate 22 22 Blood Pressure 102/50 L Pulse Oximetry 92 L Intake & Output 12/03/17 12/04/17 12/04/17 18:59 06:59 18:59 Intake Total 915 / 915 Output Total 450 / 450 Balance 465 / 465 Weight 105.5 kg Intake: IV 550 / 550 Alburx 5% Inj 500 ML @ 250 mls/ 550 / 550 hr IV.SIG ONCE ONE Rx#: [id number] Oral 365 / 365 Output: Urine 450 / 450 Other: # Urine Diapers 1 Date of Last Bowel Movement 12/04/17 # Bowel Movements 1 Narrative: GENERAL: Well-developed, well-nourished, in no acute distress. alert and orientated HEENT: Head is normocephalic without any lesions or masses noted. Facial features are symmetric. Eyes: Extraocular muscles are intact. Conjunctivae were clear. NECK: Supple without any masses. Trachea midline no deviation. No JVD, CARDIAC: Regular rhythm, regular rate. S1/S2 are heard. No murmurs gallops or rubs. LUNGS: Clear to auscultation bilaterally. No wheeze, rhonchi or rales. No use of accessory muscles on inspiration or expiration. ABDOMEN: Soft, nontender. Nondistended. Bowel sounds heard in all 4 quadrants. No organomegaly or masses. Negative rebound, negative guarding EXTREMITIES: 2+ pitting bilateral lower extremity edema, no longer appreciate any weeping from the lower extremities. Patient has areas of excoriation, pulses are equal bilaterally. No cyanosis or clubbing NEUROLOGY: Mood and affect appear appropriate. Cranial nerves II through XII grossly intact. Moving all extremities, speech clear Results - Labs CBC & Chem 7: 12/03/17 05:27 12/04/17 04:55 Laboratory Results - last 24 hr 12/03/17 12/03/17 12/03/17 12:12 17:27 22:12 Sodium Potassium Chloride Carbon Dioxide Anion Gap BUN Creatinine Estimated GFR POC Glucose 263 H 240 H 343 H Random Glucose Calcium 12/04/17 12/04/17 04:55 07:41 Sodium 138 Potassium 4.3 Chloride 101 Carbon Dioxide 29.4 Anion Gap 8 BUN 95 H Creatinine 3.40 H Estimated GFR 13 L POC Glucose 243 H Random Glucose 239 H Calcium 9.0 Microbiology 11/30/17 09:00 Blood - Peripheral Aerobic Blood Culture - Preliminary No growth in 3 days 11/30/17 09:00 Blood - Peripheral Anaerobic Blood Culture - Preliminary No growth in 3 days 11/30/17 09:05 Blood - Peripheral Aerobic Blood Culture - Preliminary No growth in 3 days 11/30/17 09:05 Blood - Peripheral Anaerobic Blood Culture - Preliminary No growth in 3 days 11/30/17 11:40 Clean Catch Urine Urine Culture - Final Alejandra glabrata - Imaging Impressions Chest X-Ray 12/03/17 13:19 CONCLUSION: No significant interval change Assessment and Plan - Assessment (1) Shortness of breath Code(s): R06.02 - Shortness of breath Status: Acute (2) Lower extremity edema Code(s): R60.0 - Localized edema Status: Acute (3) Fluid overload Code(s): E87.70 - Fluid overload, unspecified Status: Acute (4) Acute renal failure superimposed on stage 4 chronic kidney disease Code(s): N17.9 - Acute kidney failure, unspecified; N18.4 - Chronic kidney disease, stage 4 (severe) Status: Acute - Plan Fluid overload with worsening shortness of breath: Improving -Multifactorial with patient having underlying severe pulmonary hypertension, recurrent pleural effusions, acute renal failure superimposed on chronic kidney disease stage IV -Echocardiogram was done approximately 4 month ago shows good ejection fraction 55-60%. Right atrial and ventricle were dilated indicating right heart failure. PA peak pressure 67 indicating significant pulmonary hypertension -Chest x-ray did not indicate significant pleural effusion this time. Does show small bibasilar -Mildly elevated BNP at 202 which is no significant change from previous a week ago at 185 -D-dimer was elevated, however does appear to be chronic elevation. Could be related to her chronic renal failure. Patient renal function will not allow for a pulmonary angiogram be performed. Due to the patient's shortness of breath would not want her risk doing a VQ scan at this time. Despite that. Patient is already anticoagulated on Eliquis for her atrial fibrillation. So it is very unlikely that the patient has an embolic event -Patient was given Lasix 40 g IV in the emergency department -Sales Rep following the patient -Strict input and output, patient with decreased output again -Fluid restriction 1500 cc daily -Sales Rep recommending administration of albumin, digoxin, Diamox Acute renal failure superimposed on chronic kidney disease stage IV -Unfortunately patient had recent increase in diuretic due to fluid overload with pleural effusion, possibly causing worsening of her renal function -Patient's fluid overload may also be caused by worsening of her renal function. -Patient has had history of temporary dialysis -Nephrology consulted for further recommendations. -Patient urinary output has decreased to only 450 output in the last 24 hours. -Patient continues with worsening BUN and creatinine despite the discontinuation of Zaroxolyn Right basilar density -Unknown etiology at this time, a review of previous chest x-rays patient does have history of right basilar atelectasis, is always documented pleural effusion -Recent chest CT done 8 days ago does show compressive atelectasis in the right lower lobe and lesser extent in the right middle lobe. There is groundglass opacities consistent with pulmonary edema. -Continue monitor with follow-up chest x-rays in outpatient setting -Clinically the patient is not presenting with symptoms of any upper respiratory infection, pneumonia -Follow-up chest x-ray actually shows improvement from admission x-ray Lower extremity edema, possible cellulitis, significantly improved -Likely related to fluid overload, however continue monitor for any infectious source -Blood cultures have been ascertained -Wound care nurse consultation Physical deconditioning -Physical therapy evaluation Diabetes -Accu-Cheks with sliding scale insulin Atrial fibrillation, hypertension -Heart rate is controlled at this time -Continue home medication -Patient anticoagulated on Eliquis Chronic lymphocytic leukemia -Patient is followed by Dr. Quach in outpatient setting -Continue to follow CBC DVT prevention -Patient is on Eliquis Discharge Plannin-48 hours depending on patient's response to treatment. Anticipate discharge with home health care (3) Fluid overload Qualifiers: Hypervolemia type: unspecified Qualified Code(s): E87.70 - Fluid overload, unspecified
[2017-12-04] MEDS: Digoxin Inj 500 MCG/2 ML Ampul IV.PUSH SCH (10:47)
[2017-12-04] MEDS: acetaZOLAMIDE Inj 250 MG in Sodium Chlor 0.9% Inj 50 ML IV.SIG SCH ×2 (11:02→20:50)
--- NOTE | 2017-12-04 19:16 | P.PNNP ---
Subjective Interval history: Peripheral edema positive and shortness of breath Physical Exam Vital signs: Vital Signs 12/03/17 20:00 12/03/17 20:25 12/03/17 23:25 Temperature 96.9 F L Pulse Rate 80 92 H 74 Respiratory Rate 22 20 22 Blood Pressure 126/58 L Pulse Oximetry 92 L 93 L 12/04/17 00:00 12/04/17 07:55 12/04/17 08:00 Temperature 96.1 F L 96.8 F L Pulse Rate 68 87 92 H Respiratory Rate 22 22 20 Blood Pressure 102/50 L 115/55 L Pulse Oximetry 92 L 93 L 12/04/17 12:39 12/04/17 13:49 12/04/17 16:00 Temperature 97.1 F L 98.7 F Pulse Rate 76 70 83 Respiratory Rate 20 20 20 Blood Pressure 102/47 L 147/60 H Pulse Oximetry 95 90 L 12/04/17 16:04 Temperature Pulse Rate 89 Respiratory Rate 28 H Blood Pressure Pulse Oximetry Intake & Output 12/04/17 12/04/17 12/05/17 06:59 18:59 06:59 Intake Total 915 / 915 550 / 550 Output Total 450 / 450 200 / 200 Balance 465 / 465 350 / 350 Weight 105.5 kg Intake: IV 550 / 550 550 / 550 Alburx 5% Inj 500 ML @ 250 mls/ 550 / 550 500 / 500 hr IV.SIG Q12H NICOLE Rx#: [id number] Diamox Inj 250 MG In NS Inj 50 50 / 50 ML @ 100 mls/hr IV.SIG Q12HR NICOLE Rx#:[id number] Oral 365 / 365 Output: Urine 450 / 450 200 / 200 Other: # Voids 1 # Urine Diapers 1 Date of Last Bowel Movement 12/04/17 # Bowel Movements 1 - Constitutional moderate distress - Routine HEENT Exam Head: Present: normocephalic - Routine Respiratory Exam Present: decreased breath sounds - Routine Cardiovascular Exam Present: S1, S2, irregular rhythm - Routine Abdominal Exam Present: soft, distended - Routine Extremities Exam Present: edema Assessment and Plan - Assessment (1) Pulmonary edema, acute Code(s): J81.0 - Acute pulmonary edema Status: Acute (2) Fluid overload Code(s): E87.70 - Fluid overload, unspecified Status: Acute Qualifiers: Hypervolemia type: unspecified Qualified Code(s): E87.70 - Fluid overload, unspecified (3) CKD (chronic kidney disease) Code(s): N18.9 - Chronic kidney disease, unspecified Status: Acute - Plan Patient has responded to oral diuretics Bumex stopped and Diamox given with urine output declined urine output still not picked up give 1 dose of Bumex IV 1 mg DC albumin, patient states that he needs to go to the bathroom Edema is again getting worse Patient responding to diuretics up-and-down Urine output dropped to 400 cc There is indication for dialysis if she continues to be short of breath and has edema poor response to to conservative approach Discussed with family and they do not want to initiate dialysis at this point I have tried digoxin/Diamox/albumin now we are going to give her 1 dose of Bumex [address] Killian is away Dr. Brand is covering and he asked me to see the patient Monitor BMP check digoxin level in the morning and will discontinue albumin
[2017-12-05 06:11] LABS: Baso # (Auto) 1.3 th/mm3 (0.0-0.2); Baso % (Auto) 3.2 % (0.0-2.0); Eos # (Auto) 0.1 th/mm3 (0.0-0.4); Eos % (Auto) 0.3 % (0.0-4.0); Hematocrit 33.1 % (35.0-46.0); Hemoglobin 10.5 gm/dL (11.6-15.3); Lymph # (Auto) 34.2 th/mm3 (1.0-4.8); Lymph % (Auto) 82.1 % (9.0-44.0); Mean Corpuscular HGB Conc 31.7 % (32.0-36.0); Mean Corpuscular Hemoglobin 30.3 pg (27.0-34.0); Mean Corpuscular Volume 95.7 fL (80.0-100.0); Mean Platelet Volume 9.9 fL (7.0-11.0); Mono # (Auto) 0.7 th/mm3 (0.0-0.9); Mono % (Auto) 1.7 % (0.0-8.0); Neut # (Auto) 5.3 th/mm3 (1.8-7.7); Neut % (Auto) 12.7 % (16.0-70.0); Platelet Count 87 th/mm3 (150-450); Red Blood Count 3.46 mil/mm3 (4.00-5.30); Red Cell Distribution Width 16.6 % (11.6-17.2); White Blood Count 41.6 th/mm3 (4.0-11.0)
[2017-12-05 06:15] LABS: Potassium 4.3 meq/L (3.5-5.1)
[2017-12-05 06:36] LABS: Eosinophils 1 % (0-4); Lymphocytes 77 % (9-44); Monocytes 1 % (0-8)
[2017-12-05 06:37] LABS: Smudge Cells Present
--- NOTE | 2017-12-05 08:24 | XR ---
EXAM DATE: 12/05/2017 8:20 AM EDT AGE/SEX: 87 years / Female INDICATIONS: Short of breath CLINICAL DATA: This is the patient's subsequent encounter. Patient reports that signs and symptoms h ave been present for 3 days and indicates a pain score of 0/10. MEDICAL/SURGICAL HISTORY: . Diabetes. Chronic lymphocytic leukemia. Atrial fibrillation. Chron ic kidney disease. . Right hip replacement. Right shoulder surgery. COMPARISON: [facility], CHEST 1V SINGLE AP, 12/03/2017. . FINDINGS: Bilateral pleural effusions and basilar parenchymal disease persists, right worse than left with some increase in effusion from previous exam. Visualized cardiac contours are grossly stable. CONCLUSION: Worsening aeration with increasing effusion, particularly on the right Electronically signed by: Eben Pruett MD 12/05/2017 8:22 AM EDT
[2017-12-05] MEDS: Digoxin Inj 500 MCG/2 ML Ampul IV.PUSH SCH (08:45)
[2017-12-05] MEDS: Insulin NovoLOG Aspart Correctional Sugar Inj SQ SCH ×4 (08:46→22:42)
[2017-12-05] MEDS: Metoprolol Tartrate 100 MG Tablet PO SCH ×2 (08:46→22:41)
[2017-12-05] MEDS: acetaZOLAMIDE Inj 250 MG in Sodium Chlor 0.9% Inj 50 ML IV.SIG SCH ×2 (10:52→22:41)
--- NOTE | 2017-12-05 11:27 | P.PN ---
Subjective Interval history: 87-year-old female who is seen and examined today for follow-up on renal failure, fluid overload. Patient still not responding to treatment that well. She will does have hypoxia this morning requiring increased O2 supplementation. We will discussed with patient, family at bedside about her clinical condition with being maximized on medicinal treatment. Nephrology is following the patient and has added albumin, digoxin, Diamox without any significant improvement. Patient now developing significant pleural effusion again. As indicated by nephrology that patient does not want to pursue dialysis. CODE STATUS was discussed with the patient today in front of the family and she wishes to be a no code DNR, this is acknowledged by the family at bedside. Discussed with him that despite treatments that we are given her kidneys are not improving. She continues to have fluid overload. Without invasive procedures and treatments, her prognosis is not good. Blood pressure appears to be good. Patient is worsening respiratory status with increased O2 demand. Patient is afebrile Physical Exam Vital signs: Vital Signs 12/04/17 12:39 12/04/17 13:49 12/04/17 16:00 Temperature 97.1 F L 98.7 F Pulse Rate 76 70 83 Respiratory Rate 20 20 20 Blood Pressure 102/47 L 147/60 H Pulse Oximetry 95 90 L 12/04/17 16:04 12/04/17 19:35 12/04/17 20:00 Temperature 96 F L Pulse Rate 89 74 84 Respiratory Rate 28 H 20 20 Blood Pressure 125/56 L Pulse Oximetry 92 L 91 L 12/04/17 23:40 12/05/17 00:00 12/05/17 07:12 Temperature 96 F L Pulse Rate 84 79 Respiratory Rate 20 22 Blood Pressure 94/46 L Pulse Oximetry 92 L 89 L 98 12/05/17 08:00 Temperature 97.4 F L Pulse Rate 91 H Respiratory Rate 23 Blood Pressure 129/57 L Pulse Oximetry 95 Intake & Output 12/04/17 12/05/17 12/05/17 18:59 06:59 18:59 Intake Total 1090 / 1090 250 / 250 120 / 120 Output Total 200 / 200 500 / 500 200 / 200 Balance 890 / 890 -250 / -250 -80 / -80 Intake: IV 550 / 550 50 / 50 Alburx 5% Inj 500 ML @ 250 mls/ 500 / 500 hr IV.SIG Q12H NICOLE Rx#: [id number] Diamox Inj 250 MG In NS Inj 50 50 / 50 50 / 50 ML @ 100 mls/hr IV.SIG Q12HR NICOLE Rx#:[id number] Oral 540 / 540 200 / 200 120 / 120 Output: Urine 200 / 200 500 / 500 200 / 200 Other: # Voids 3 3 Date of Last Bowel Movement 12/04/17 12/04/17 # Bowel Movements 1 Narrative: GENERAL: Well-developed, well-nourished, in no acute distress. alert and orientated HEENT: Head is normocephalic without any lesions or masses noted. Facial features are symmetric. Eyes: Extraocular muscles are intact. Conjunctivae were clear. NECK: Supple without any masses. Trachea midline no deviation. No JVD, CARDIAC: Regular rhythm, regular rate. S1/S2 are heard. No murmurs gallops or rubs. LUNGS: Diminished lung sounds noted in the right lower lung mcmullen. No wheeze, rhonchi or rales. No use of accessory muscles on inspiration or expiration. ABDOMEN: Soft, nontender. Nondistended. Bowel sounds heard in all 4 quadrants. No organomegaly or masses. Negative rebound, negative guarding EXTREMITIES: 3+ pitting bilateral lower extremity edema, no longer appreciate any weeping from the lower extremities. Patient has areas of excoriation, pulses are equal bilaterally. No cyanosis or clubbing NEUROLOGY: Mood and affect appear appropriate. Cranial nerves II through XII grossly intact. Moving all extremities, speech clear Results - Labs CBC & Chem 7: 12/06/17 05:56 12/06/17 05:56 Laboratory Results - last 24 hr 12/04/17 12/04/17 12/04/17 11:12 16:07 20:44 CBC w Diff WBC RBC Hgb Hct MCV MCH MCHC RDW Plt Count MPV Neut % (Auto) Lymph % (Auto) [place] % (Auto) Eos % (Auto) Baso % (Auto) Neut # (Auto) Lymph # (Auto) [place] # (Auto) Eos # (Auto) Baso # (Auto) WBC Differential Seg Neuts % (Manual) Lymphocytes % (Manual) Monocytes % (Manual) Eosinophils % (Manual) Abs Neuts (Manual) Differential Comment Smudge Cells Sodium Potassium Chloride Carbon Dioxide Anion Gap BUN Creatinine Estimated GFR POC Glucose 276 H 279 H 231 H Random Glucose Calcium Digoxin 12/05/17 12/05/17 12/05/17 05:07 05:07 05:07 CBC w Diff Slide review pending WBC 41.6 H RBC 3.46 L Hgb 10.5 L Hct 33.1 L MCV 95.7 MCH 30.3 MCHC 31.7 L RDW 16.6 Plt Count 87 L D MPV 9.9 Neut % (Auto) 12.7 L Lymph % (Auto) 82.1 H [place] % (Auto) 1.7 Eos % (Auto) 0.3 Baso % (Auto) 3.2 H Neut # (Auto) 5.3 Lymph # (Auto) 34.2 H [place] # (Auto) 0.7 Eos # (Auto) 0.1 Baso # (Auto) 1.3 H WBC Differential Manual diff final Seg Neuts % (Manual) 21 Lymphocytes % (Manual) 77 H Monocytes % (Manual) 1 Eosinophils % (Manual) 1 Abs Neuts (Manual) 8.7 H Differential Comment . Smudge Cells Present H Sodium 139 Potassium 4.3 Chloride 103 Carbon Dioxide 30.0 Anion Gap 6 BUN 94 H Creatinine 3.30 H Estimated GFR 13 L POC Glucose Random Glucose 218 H Calcium 9.0 Digoxin 0.2 L 12/05/17 08:05 CBC w Diff WBC RBC Hgb Hct MCV MCH MCHC RDW Plt Count MPV Neut % (Auto) Lymph % (Auto) [place] % (Auto) Eos % (Auto) Baso % (Auto) Neut # (Auto) Lymph # (Auto) [place] # (Auto) Eos # (Auto) Baso # (Auto) WBC Differential Seg Neuts % (Manual) Lymphocytes % (Manual) Monocytes % (Manual) Eosinophils % (Manual) Abs Neuts (Manual) Differential Comment Smudge Cells Sodium Potassium Chloride Carbon Dioxide Anion Gap BUN Creatinine Estimated GFR POC Glucose 218 H Random Glucose Calcium Digoxin Microbiology 11/30/17 09:00 Blood - Peripheral Aerobic Blood Culture - Final No growth in 5 days 11/30/17 09:00 Blood - Peripheral Anaerobic Blood Culture - Final No growth in 5 days 11/30/17 09:05 Blood - Peripheral Aerobic Blood Culture - Final No growth in 5 days 11/30/17 09:05 Blood - Peripheral Anaerobic Blood Culture - Final No growth in 5 days - Imaging Impressions Chest X-Ray 12/05/17 08:04 CONCLUSION: Worsening aeration with increasing effusion, particularly on the right Assessment and Plan - Assessment (1) Shortness of breath Code(s): R06.02 - Shortness of breath Status: Acute (2) Lower extremity edema Code(s): R60.0 - Localized edema Status: Acute (3) Fluid overload Code(s): E87.70 - Fluid overload, unspecified Status: Acute (4) Acute renal failure superimposed on stage 4 chronic kidney disease Code(s): N17.9 - Acute kidney failure, unspecified; N18.4 - Chronic kidney disease, stage 4 (severe) Status: Acute - Plan Fluid overload with worsening shortness of breath: Improving -Multifactorial with patient having underlying severe pulmonary hypertension, recurrent pleural effusions, acute renal failure superimposed on chronic kidney disease stage IV -Echocardiogram was done approximately 4 month ago shows good ejection fraction 55-60%. Right atrial and ventricle were dilated indicating right heart failure. PA peak pressure 67 indicating significant pulmonary hypertension -Chest x-ray did not indicate significant pleural effusion this time. Does show small bibasilar -Mildly elevated BNP at 202 which is no significant change from previous a week ago at 185 -D-dimer was elevated, however does appear to be chronic elevation. Could be related to her chronic renal failure. Patient renal function will not allow for a pulmonary angiogram be performed. Due to the patient's shortness of breath would not want her risk doing a VQ scan at this time. Despite that. Patient is already anticoagulated on Eliquis for her atrial fibrillation. So it is very unlikely that the patient has an embolic event -Patient was given Lasix 40 g IV in the emergency department -[facility]n Hospital following the patient -Strict input and output, patient with decreased output -Fluid restriction 1500 cc daily -Rn Hospital administered albumin, digoxin, Diamox -No significant improvement after maximizing medical treatment. -Prognosis is not looking that good at this time. Discussed with patient and family about CODE STATUS. The requesting and acknowledge no code DNR. [facility] Hospital indicates that she does not want to pursue dialysis. Will consult palliative care to help attain goals of care. Acute renal failure superimposed on chronic kidney disease stage IV -Unfortunately patient had recent increase in diuretic due to fluid overload with pleural effusion, possibly causing worsening of her renal function -Patient's fluid overload may also be caused by worsening of her renal function. -Patient has had history of temporary dialysis -Nephrology consulted for further recommendations. -Patient urinary output is still diminished at only 700 output in the last 24 hours. -Patient continues with worsening BUN and creatinine despite the discontinuation of Zaroxolyn Recurrent right pleural effusion with hypoxia -Secondary to fluid overload, renal failure -Patient will require another thoracentesis for treatment, however unless patient fluid balance can be corrected and managed with medications/dialysis this will be a recurrent condition requiring repeat thoracentesis, increasing the risk of the thorax, lung injury. -Continue O2 supplementation maintain O2 sats greater than 92% Right basilar density -Unknown etiology at this time, a review of previous chest x-rays patient does have history of right basilar atelectasis, is always documented pleural effusion -Recent chest CT done 8 days ago does show compressive atelectasis in the right lower lobe and lesser extent in the right middle lobe. There is groundglass opacities consistent with pulmonary edema. -Continue monitor with follow-up chest x-rays in outpatient setting -Clinically the patient is not presenting with symptoms of any upper respiratory infection, pneumonia Lower extremity edema, possible cellulitis, -Likely related to fluid overload, however continue monitor for any infectious source -Blood cultures have been ascertained -Wound care nurse consultation Physical deconditioning -Physical therapy evaluation Diabetes -Accu-Cheks with sliding scale insulin Atrial fibrillation, hypertension -Heart rate is controlled at this time -Continue home medication -Patient anticoagulated on Eliquis Chronic lymphocytic leukemia -Patient is followed by Dr. Quach in outpatient setting -Continue to follow CBC DVT prevention -Patient is on Eliquis (3) Fluid overload Qualifiers: Hypervolemia type: unspecified Qualified Code(s): E87.70 - Fluid overload, unspecified
--- NOTE | 2017-12-05 14:30 | P.CONPAL ---
Consult Service: Palliative Care Requesting Physician: Sukumar Martin Reason for Consult: a. To assist with evaluation and management of symptoms including:dyspnea, anxiety b. To assist medical decision maker(s) with: better understanding of current medical conditions; weighing benefits/burdens of medical treatment options; making medical treatment decisions. Primary Care Provider: Michael Henderson MD History of Present Illness History of Present Illness: Patient is a 87-year-old with a past medical history of CLL, hypertension, hyperlipidemia, chronic kidney disease (stage IV), A. fib, congestive heart disease(EF of 55-60% with right dilated atria and ventricle) who had a recent hospitalization for increasing bilateral extremity swelling. Patient had acute respiratory failure pulmonary edema and pleural effusion. Underwent thoracentesis, removal of 1.3 l pleural fluid. Patient was given Lasix, eventually needed specialist, dialysis and stable enough to be discharge. Patient return with difficulty breathing on 11/30/2017. In the ER: * Temperature is 98.2, pulse is 60, respirations 20, blood pressure is 103/52, pulse ox is 97% * WBC 47.9, hemoglobin 10 point, hematocrit 32.3, placed on 5 * Sodium is 143, potassium 4.4, glucose 1 6, bicarb is 30.2, BUN is 80, creatinine is 3.20 * AST is 18, ALT is 19, alk phos is 120 * Troponin I 0.03 * BNP is 202 * Chest x-ray shows left pleural effusion. Heart and large increased pulmonary vascularity. Patient is cardiomegaly with small pleural effusion. Patient admitted to hospice service, for fluid overload. 12/01 to 12/02. Patient placed on multiple diuretics. Nephrology involved, involved bumex, Zaroxylyn: urine output increased. Pt on fluid restriction. However, pt however Cr continues to be 3.2 to 3.4 12/03 to 12/04. Have positive edema and shortness of breath. bumex stopped and diamox given as urine output has declined. Urine output continue to decline. Dialysis was ga up as conservative apporach has been failing. Family stated they do now want dialysis. 12/05- chest show worsening aeration and increasing effusion, particular on the right. palliative care consulted to review goals of care. Spoke with patient, patient's and pt's son. Pt up in recliner, gets short of breath if lay down, there is orthopenea. Discomfort is shortness of breath and fatigued. she is alert and oriented x 3. Patient able to tell me she has renal failure and shortness of breath. Long discussion with patient and family about her clinical condition. Discuss the difficulty with fluid homeostasis in the light of right sided cardiac disease, and chronic renal failure. Discuss that even with dialysis and throracentesis, effect is temoporary and her predisposition to return. Offered hospice as an option to transition to comfort care. Goals of care is the following.: * reaffirms DNR/DNI * pt and family has change of mind and pt state she is amenable to dialysis if needed. * pt does want thoracentesis. * they understand, pt at risk of decompesnation despite medical treatment. * Should that be the case they are amenable to reconsider hospice. Function/Cognitive Trajectory: recent several hospitalization. Have symptom of fatigue, orthopnea, fall. Review of Systems unobtainable due to mental condition Constitutional: Reports fatigue Eyes: Denies blurry vision, Denies bulging eyes Ears, Nose, Mouth, and Throat: Denies abnormal hearing, Denies bleeding gums, Denies change in voice, Denies difficulty swallowing Cardiovascular: Reports shortness of breath with activity (orthopnea), Denies chest pain, Denies chest pain at rest, Denies chest pain with activity Respiratory: Reports shortness of breath Gastrointestinal: Denies abdominal pain, Denies belching, Denies black, tarry stools, Denies bloating, Denies change in stools Musculoskeletal: Reports muscle weakness Neurologic: Denies abnormal speech, Denies behavioral changes Psychiatric: Denies anxiety, Denies confusion Hematologic/Lymphatic: Denies easy bleeding, Denies easy bruising Allergic/Immunologic: Reports other (allergic to adhesive tape, pregabalin) [facility] - History History Provided By: Patient - Medical History Medical History: Medical History (Last Reviewed 12/02/17 @ 08:47 by Macho Gradne) Chronic kidney disease, stage IV (severe) Diabetes History of cardioversion Hypertension Hypogammaglobulinemia Pulmonary hypertension Atrial fibrillation CLL (chronic lymphocytic leukemia) Hx of atrial fibrillation, no current medication Hx of diabetes mellitus - Surgical History Surgical History: Surgical History (Last Reviewed 12/02/17 @ 08:47 by [place]o [place]) History of cardiac radiofrequency ablation History of tonsillectomy Hx of bilateral hip replacements Hx of section Hx of shoulder surgery - Family History Family History: Family History (Last Updated 12/05/17 @ 15:03 by Luke Fuller MD) Mother History of diabetes mellitus Father Lung disease caused by breathing particles - Tobacco History Second Hand Smoke Exposure: No Tobacco Use In Past 30 Days: No Smoking Status: Former smoker Tobacco Type: Cigarettes - Alcohol History How Often Do You Have a Drink Containing Alcohol: Never - Substance Use History Substance History: No History of Abuse - Travel History Recent Travel in the [place] Within the Last 8 Weeks: No Recent Travel Out of the Country Within the Last 8 Weeks: No - Immunization History Tetanus Immunization: Unsure Hx Influenza Vaccine This Season: Yes Medications and Allergies Active Medications: Active Medications Acetaminophen (Tylenol) 650 mg PO Q4H PRN PRN Reason: Temp > 100.4 Al Hydroxide/Mg Hydroxide (Milk Of Magncolette Liq) 30 ml PO DAILY PRN PRN Reason: SEVERE CONSITIPATION Last Admin: 12/02/17 21:07 Dose: 30 ml Albuterol (Duoneb Neb (Prn)) 1 ampul NEB Q2HR NEB PRN PRN Reason: SHORTNESS OF BREATH/WHEEZING Last Admin: 12/04/17 16:00 Dose: 1 ampul Albuterol (Duoneb Neb (Hope)) 1 ampul NEB Q6HR WHILE AWAKE NEB HOPE Last Admin: 12/05/17 07:10 Dose: 1 ampul Apixaban (Eliquis) 2.5 mg PO BID HOPE Last Admin: 12/05/17 08:45 Dose: 2.5 mg Aspirin (Ecotrin) 81 mg PO DAILY HOPE Last Admin: 12/05/17 08:47 Dose: 81 mg Atorvastatin Calcium (Lipitor) 80 mg PO DAILY HOPE Last Admin: 12/05/17 08:44 Dose: 80 mg Bumetanide (Bumex Inj) 1 mg IV.PUSH DAILY HOPE Last Admin: 12/05/17 08:46 Dose: 1 mg Dextrose (D50w Vial) 50 ml IV.PUSH UNSCH PRN PRN Reason: PER HYPOGLYCEMIA PROTOCOL Digoxin (Lanoxin Inj) 125 mcg IV.PUSH DAILY HOPE Last Admin: 12/05/17 08:45 Dose: 125 mcg Docusate Sodium (Colace) 100 mg PO BID PRN PRN Reason: MILD/MODERATE CONSTIPATION Fluticasone/Vilanterol (Breo Ellipta 100/25 Mcg Inh) 2 puff INH DAILY [facility] Last Admin: 12/05/17 08:44 Dose: 2 puff Glucagon (Glucagon Inj) 1 mg OTHER PRN PRN PRN Reason: for Hypoglycemia Protocol Acetazolamide Sodium 250 mg/ (Sodium Chloride) 50 mls @ 100 mls/hr IV.SIG Q12HR [facility] Last Infusion: 12/05/17 11:22 Dose: Infused Insulin Aspart (Novolog Insulin Correctional Sugar Inj) 0 unit SQ ACHS [facility]; Protocol Last Admin: 12/05/17 12:12 Dose: 3 unit Melatonin (Melatonin) 5 mg PO HS PRN PRN Reason: INSOMNIA Last Admin: 12/03/17 22:05 Dose: 5 mg Metoprolol Tartrate (Lopressor) 50 mg PO BID [facility] Last Admin: 12/05/17 08:46 Dose: 50 mg Ondansetron HCl (Zofran Inj) 4 mg IV.PUSH Q6H PRN PRN Reason: NAUSEA Potassium Chloride (Klor-Con 10) 10 meq PO DAILY [facility] Last Admin: 12/05/17 08:47 Dose: 10 meq Sodium Chloride (Ns Flush) 2 ml IV.FLUSH UNSCH PRN PRN Reason: FLUSH AFTER USING IV ACCESS Sodium Chloride (Ns Flush) 2 ml IV.FLUSH BID [facility] Last Admin: 12/04/17 20:52 Dose: Not Given Allergies Allergy/AdvReac Type Severity Reaction Status Date / Time adhesive tape Allergy Severe PATIENT Verified 11/26/17 00:49 GETS BLISTERS pregabalin Allergy Severe Anaphylaxis Verified 11/26/17 00:49 Home Medications Medication Instructions Recorded Confirmed Type apixaban [Eliquis] 2.5 mg PO BID 11/22/17 11/30/17 History aspirin 81 mg PO DAILY 11/22/17 11/30/17 History atorvastatin 80 mg PO DAILY 11/22/17 11/30/17 History cod liver oil 1 cap PO DAILY 11/22/17 11/30/17 History coenzyme Q10 [CoQ-10] 100 mg PO DAILY 11/22/17 11/30/17 History insulin detemir U-100 [Levemir 20 unit SUB-Q QPM 11/22/17 11/30/17 History U-100 Insulin] ipratropium-albuterol 3 ml INHALATION Q6-8H PRN 11/22/17 11/30/17 History metoprolol tartrate 50 mg PO BID 11/22/17 11/30/17 History cdrvjpiwqaia-zhup-jiipg acid 1 tab PO DAILY 11/22/17 11/30/17 History [Centrum Women] bumetanide 2 mg PO BID 11/30/17 11/30/17 History fluticasone-vilanterol [Breo 1 inh INHALATION DAILY 11/30/17 11/30/17 History Ellipta] furosemide [Lasix] 40 mg PO BID 11/30/17 11/30/17 History hydrocodone-acetaminophen [[place]] 1 tab PO Q4H PRN 11/30/17 11/30/17 History insulin lispro [Humalog U-100 1 sliding scale dose SUB-Q UD 11/30/17 11/30/17 History Insulin] ipratropium bromide [Atrovent HFA] 2 puff INHALATION Q4H PRN 11/30/17 11/30/17 History melatonin 6 mg PO HS 11/30/17 11/30/17 History polyethylene glycol 3350 [Miralax] 17 g PO DAILY 11/30/17 11/30/17 History potassium chloride 10 meq PO DAILY 11/30/17 11/30/17 History Advance Directives Living Will: Yes (not available.) Physical Exam Vital Signs: Vital Signs - 24 hr 12/04/17 16:00 12/04/17 16:04 12/04/17 19:35 Temperature 98.7 F Pulse Rate 83 89 74 Respiratory Rate 20 28 H 20 Blood Pressure 147/60 H Pulse Oximetry 90 L 92 L 12/04/17 20:00 12/04/17 23:40 12/05/17 00:00 Temperature 96 F L 96 F L Pulse Rate 84 84 Respiratory Rate 20 20 Blood Pressure 125/56 L 94/46 L Pulse Oximetry 91 L 92 L 89 L 12/05/17 07:12 12/05/17 08:00 Temperature 97.4 F L Pulse Rate 79 91 H Respiratory Rate 22 23 Blood Pressure 129/57 L Pulse Oximetry 98 95 I&O: Intake & Output 12/03/17 12/04/17 12/05/17 12/06/17 06:59 06:59 06:59 06:59 Intake Total 1670 / 1670 915 / 915 1340 / 1340 410 / 410 Output Total 1800 / 1800 450 / 450 700 / 700 500 / 500 Balance -130 / -130 465 / 465 640 / 640 -90 / -90 Weight 103 kg 105.5 kg Physical Exam: CONSTITUTIONAL/GENERAL: This is an adequately nourished patient, frail, sitting at chair side. Fatigued but alert, conversant TUBES/LINES/DRAINS: NC, piv SKIN: No jaundice, rashes, or lesions. Ecchymoses on upper extremities. No wounds seen anteriorly. Skin temperature appropriate. Not diaphoretic. HEAD: Atraumatic. Normocephalic. EYES: Pupils equal and round and reactive. Extraocular motions intact. No scleral icterus. No injection or drainage. Fundi not examined. ENT: Hearing grossly normal. Nose without bleeding or purulent drainage. Throat without visible erythema, exudates, masses, or lesions. NECK: Trachea midline. Supple, nontender. No palpable thyroid enlargement or nodularity. CARDIOVASCULAR: Regular rate and rhythm without murmurs, gallops, or rubs. No JVD. Peripheral pulses symmetric. RESPIRATORY/CHEST:dull right basal lung sound. tachypnea. GASTROINTESTINAL: Abdomen soft, non-tender, nondistended. No hepato-splenomegaly , or palpable masses. No guarding. Bowel sounds present. GENITOURINARY: Without palpable bladder distension. Bryant catheter in place. MUSCULOSKELETAL: Extremities without clubbing, cyanosis, or edema. No joint tenderness or effusion noted. No calf tenderness. No mottling or clubbing. LYMPHATICS: No palpable cervical or supraclavicular adenopathy. NEUROLOGICAL: Awake and alert. Motor and sensory grossly within normal limits. Follows commands. Cognitively sharp.fatigued PSYCHIATRIC: No obvious anxiety/depression. no apparent hallucinations or other psychotic thought process. Diagnostic Tests Laboratory: Laboratory Results - last 72 hr 12/02/17 12/02/17 12/03/17 16:49 21:11 05:27 CBC w Diff WBC RBC Hgb Hct MCV MCH MCHC RDW Plt Count MPV Neut % (Auto) Lymph % (Auto) Alexander % (Auto) Eos % (Auto) Baso % (Auto) Neut # (Auto) Lymph # (Auto) Alexander # (Auto) Eos # (Auto) Baso # (Auto) WBC Differential Seg Neuts % (Manual) Lymphocytes % (Manual) Monocytes % (Manual) Eosinophils % (Manual) Abs Neuts (Manual) Differential Comment Smudge Cells Platelet Estimate Platelet Morphology Ovalocytes Keratocytes Sodium 138 Potassium 4.6 Chloride 105 Carbon Dioxide 26.8 Anion Gap 6 BUN 91 H Creatinine 3.20 H Estimated GFR 14 L POC Glucose 221 H 209 H Random Glucose 221 H Calcium 9.0 Digoxin 12/03/17 12/03/17 12/03/17 05:27 08:47 12:12 CBC w Diff Slide review pending WBC 41.2 H RBC 3.47 L Hgb 10.7 L Hct 33.8 L MCV 97.3 MCH 30.8 MCHC 31.6 L RDW 16.4 Plt Count 66 L D MPV 9.8 Neut % (Auto) Lymph % (Auto) Alexander % (Auto) Eos % (Auto) Baso % (Auto) Neut # (Auto) Lymph # (Auto) Alexander # (Auto) Eos # (Auto) Baso # (Auto) WBC Differential Manual diff final Seg Neuts % (Manual) 22 Lymphocytes % (Manual) 74 H Monocytes % (Manual) 4 Eosinophils % (Manual) Abs Neuts (Manual) 9.1 H Differential Comment . Smudge Cells Platelet Estimate Low L Platelet Morphology Normal Ovalocytes 1+ H Keratocytes Occ H Sodium Potassium Chloride Carbon Dioxide Anion Gap BUN Creatinine Estimated GFR POC Glucose 229 H 263 H Random Glucose Calcium Digoxin 12/03/17 12/03/17 12/04/17 17:27 22:12 04:55 CBC w Diff WBC RBC Hgb Hct MCV MCH MCHC RDW Plt Count MPV Neut % (Auto) Lymph % (Auto) Alexander % (Auto) Eos % (Auto) Baso % (Auto) Neut # (Auto) Lymph # (Auto) Alexander # (Auto) Eos # (Auto) Baso # (Auto) WBC Differential Seg Neuts % (Manual) Lymphocytes % (Manual) Monocytes % (Manual) Eosinophils % (Manual) Abs Neuts (Manual) Differential Comment Smudge Cells Platelet Estimate Platelet Morphology Ovalocytes Keratocytes Sodium 138 Potassium 4.3 Chloride 101 Carbon Dioxide 29.4 Anion Gap 8 BUN 95 H Creatinine 3.40 H Estimated GFR 13 L POC Glucose 240 H 343 H Random Glucose 239 H Calcium 9.0 Digoxin 12/04/17 12/04/17 12/04/17 07:41 11:12 16:07 CBC w Diff WBC RBC Hgb Hct MCV MCH MCHC RDW Plt Count MPV Neut % (Auto) Lymph % (Auto) Alexander % (Auto) Eos % (Auto) Baso % (Auto) Neut # (Auto) Lymph # (Auto) Alexander # (Auto) Eos # (Auto) Baso # (Auto) WBC Differential Seg Neuts % (Manual) Lymphocytes % (Manual) Monocytes % (Manual) Eosinophils % (Manual) Abs Neuts (Manual) Differential Comment Smudge Cells Platelet Estimate Platelet Morphology Ovalocytes Keratocytes Sodium Potassium Chloride Carbon Dioxide Anion Gap BUN Creatinine Estimated GFR POC Glucose 243 H 276 H 279 H Random Glucose Calcium Digoxin 12/04/17 12/05/17 12/05/17 20:44 05:07 05:07 CBC w Diff WBC RBC Hgb Hct MCV MCH MCHC RDW Plt Count MPV Neut % (Auto) Lymph % (Auto) Alexander % (Auto) Eos % (Auto) Baso % (Auto) Neut # (Auto) Lymph # (Auto) Alexander # (Auto) Eos # (Auto) Baso # (Auto) WBC Differential Seg Neuts % (Manual) Lymphocytes % (Manual) Monocytes % (Manual) Eosinophils % (Manual) Abs Neuts (Manual) Differential Comment Smudge Cells Platelet Estimate Platelet Morphology Ovalocytes Keratocytes Sodium 139 Potassium 4.3 Chloride 103 Carbon Dioxide 30.0 Anion Gap 6 BUN 94 H Creatinine 3.30 H Estimated GFR 13 L POC Glucose 231 H Random Glucose 218 H Calcium 9.0 Digoxin 0.2 L 12/05/17 12/05/17 12/05/17 05:07 08:05 11:51 CBC w Diff Slide review pending WBC 41.6 H RBC 3.46 L Hgb 10.5 L Hct 33.1 L MCV 95.7 MCH 30.3 MCHC 31.7 L RDW 16.6 Plt Count 87 L D MPV 9.9 Neut % (Auto) 12.7 L Lymph % (Auto) 82.1 H Alexander % (Auto) 1.7 Eos % (Auto) 0.3 Baso % (Auto) 3.2 H Neut # (Auto) 5.3 Lymph # (Auto) 34.2 H Alexander # (Auto) 0.7 Eos # (Auto) 0.1 Baso # (Auto) 1.3 H WBC Differential Manual diff final Seg Neuts % (Manual) 21 Lymphocytes % (Manual) 77 H Monocytes % (Manual) 1 Eosinophils % (Manual) 1 Abs Neuts (Manual) 8.7 H Differential Comment . Smudge Cells Present H Platelet Estimate Platelet Morphology Ovalocytes Keratocytes Sodium Potassium Chloride Carbon Dioxide Anion Gap BUN Creatinine Estimated GFR POC Glucose 218 H 231 H Random Glucose Calcium Digoxin Result Diagrams: 12/05/17 05:07 12/05/17 05:07 Microbiology: Microbiology 11/30/17 09:00 Aerobic Blood Culture - Final Blood - Peripheral No growth in 5 days Anaerobic Blood Culture - Final No growth in 5 days 11/30/17 09:05 Aerobic Blood Culture - Final Blood - Peripheral No growth in 5 days Anaerobic Blood Culture - Final No growth in 5 days 11/30/17 11:40 Urine Culture - Final Clean Catch Urine Alejandra glabrata Imaging: Chest X-Ray 11/30/17 08:41 CONCLUSION: Cardiomegaly with small pleural effusions and right basilar density Chest X-Ray 12/03/17 13:19 CONCLUSION: No significant interval change Chest X-Ray 12/05/17 08:04 CONCLUSION: Worsening aeration with increasing effusion, particularly on the right Patient/Family Conference Present at Family Conference: Patient's , and pt's son. Family Conference Location: Bedside Issues Discussed: * Palliative care role, purpose, approach * Additional medical, psychosocial, and spiritual history * Patients general health, functional status, and cognitive changes in the months leading up to the current hospitalization * Patient/family understanding of the current medical problems * Patient/family understanding of prognosis * Patients goals of care as best understood from advance directives and/or conversations and/or values * Current medical treatment options and benefits/burdens of those options * Likely scenarios comparing ongoing aggressive care with a transition to comfort measures only * Questions answered to the best of my ability * Palliative care contact information provided Assessment and Plan - Disease Oriented Problem List (1) Right-sided heart failure (2) Pulmonary edema, acute (3) Pleural effusion (4) Fluid overload (5) CKD (chronic kidney disease) (6) Shortness of breath Pertinent Non-Medical Issues: Psychosocial:Born in [place], raised in [place]. 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 . 2 sons, 1 grandchild. Been in [place] since s. Spiritual:Religion Legal: Reported has living will. copy not available. Per [place] Statuettes: health care proxy is pt's spouse Ethical issues impacting care: none. Prognosis: chronic kidney disease, right sided heart disease. Have a right sided pleural effusion. Pt at high risk of decompensation. snf prognosis appears poor. Code Status: No Code DNR Plan: == capacity- still has [facility]city to make medical decisions. However at risk of fluctations. == code: DNR/DNI ==goals of care: Long discussion with patient and family about her clinical condition. Discuss the difficulty with fluid homeostasis in the light of right sided cardiac disease, and chronic renal failure. Discuss that even with dialysis and thoracentesis, effect is temporary and her predisposition to return. Offered hospice as an option to transition to comfort care. Goals of care is the following.: * reaffirms DNR/DNI * pt and family has change of mind and pt state she is amenable to dialysis if needed. * pt does want thoracentesis. * they understand, pt at risk of decompensation despite medical treatment. * Should that be the case they are amenable to reconsider hospice. Assessment/Plan == dyspnea- right sided pleural effusion. cardiac and renal etiology likely.= No med recommendation currently. There is a plan for thoracentesis. == fatigued. due to cardiac/renal etiology- specialist seeing pt- no med rec. == palliative care will follow along for symptom management and review goals of care as clinical conditions evolves. Appreciation Thank you for the opportunity to participate in the care of Raya Mccabe.
[2017-12-05] MEDS ORDERED: Albumin Human 25% Inj 100 ML IV.SIG PRN (16:29)
[2017-12-05] MEDS ORDERED: Heparin 10,000 UNITS/10 ML Vial (for IV use) OTHER PRN ×2 (16:29)
[2017-12-05] MEDS ORDERED: Sod Chloride 0.9% Inj 1,000 ML IV.CONT PRN (16:29)
[2017-12-05] MEDS ORDERED: Acetaminophen 325 MG Tablet PO PRN (16:29)
[2017-12-05] MEDS ORDERED: Gelatin 12 MM/7 MM Topical Foam TOPICAL PRN (16:29)
[2017-12-05] MEDS ORDERED: Sod Chloride 0.9% Inj 1,000 ML OTHER PRN ×2 (16:29)
--- NOTE | 2017-12-05 16:33 | P.PNNP ---
Subjective Interval history: Patient is lethargic and tired and cannot lay flat as large pleural effusion Physical Exam Vital signs: Vital Signs 12/04/17 19:35 12/04/17 20:00 12/04/17 23:40 Temperature 96 F L Pulse Rate 74 84 Respiratory Rate 20 20 Blood Pressure 125/56 L Pulse Oximetry 92 L 91 L 92 L 12/05/17 00:00 12/05/17 07:12 12/05/17 08:00 Temperature 96 F L 97.4 F L Pulse Rate 84 79 91 H Respiratory Rate 20 22 23 Blood Pressure 94/46 L 129/57 L Pulse Oximetry 89 L 98 95 12/05/17 14:02 Temperature Pulse Rate 77 Respiratory Rate 24 Blood Pressure Pulse Oximetry Intake & Output 12/04/17 12/05/17 12/05/17 18:59 06:59 18:59 Intake Total 1090 / 1090 250 / 250 410 / 410 Output Total 200 / 200 500 / 500 500 / 500 Balance 890 / 890 -250 / -250 -90 / -90 Intake: IV 550 / 550 50 / 50 50 / 50 Alburx 5% Inj 500 ML @ 250 mls/ 500 / 500 hr IV.SIG Q12H NICOLE Rx#: [id number] Diamox Inj 250 MG In NS Inj 50 50 / 50 50 / 50 50 / 50 ML @ 100 mls/hr IV.SIG Q12HR NICOLE Rx#:[id number] Oral 540 / 540 200 / 200 360 / 360 Output: Urine 200 / 200 500 / 500 500 / 500 Other: # Voids 3 3 Date of Last Bowel Movement 12/04/17 12/04/17 # Bowel Movements 1 - Constitutional moderate distress - Routine HEENT Exam Head: Present: normocephalic - Routine Respiratory Exam Present: decreased breath sounds, prolonged expiratory phase - Routine Cardiovascular Exam Present: S1, S2, irregularly irregular - Routine Abdominal Exam Present: soft, normoactive bowel sounds, distended - Routine Extremities Exam Present: edema Assessment and Plan - Assessment (1) Pulmonary edema, acute Code(s): J81.0 - Acute pulmonary edema Status: Acute (2) Fluid overload Code(s): E87.70 - Fluid overload, unspecified Status: Acute Qualifiers: Hypervolemia type: unspecified Qualified Code(s): E87.70 - Fluid overload, unspecified (3) CKD (chronic kidney disease) Code(s): N18.9 - Chronic kidney disease, unspecified Status: Acute - Plan Patient has responded to oral diuretics Bumex stopped and Diamox given with urine output declined urine output still not picked up give 1 dose of Bumex IV 1 mg DC albumin, patient states that he needs to go to the bathroom Edema is again getting worse Patient responding to diuretics up-and-down Urine output dropped to 700 cc There is indication for dialysis if she continues to be short of breath and has edema poor response to to conservative approach Discussed with family and they finally agreed t consult placed for IR to place vascular access hemodialysis in the a.m. Dr. Killian is away Dr. Brand is covering and he asked me to see the patient Monitor SHEYLA toscano low. Hemodialysis in the am.
[2017-12-05] MEDS ORDERED: ALPRAZolam 0.25 MG Tablet PO ONE (23:12)
[2017-12-06 04:55] LABS: Hepatitis A IgM Antibody Nonreactive (Nonreactive)
[2017-12-06 04:56] LABS: Hepatitits B Surface Antigen Nonreactive (Nonreactive)
[2017-12-06] MEDS ORDERED: ALPRAZolam 0.25 MG Tablet PO SCH (06:30)
[2017-12-06 06:51] LABS: Baso # (Auto) 0.7 th/mm3 (0.0-0.2); Baso % (Auto) 1.4 % (0.0-2.0); Eos # (Auto) 0.1 th/mm3 (0.0-0.4); Eos % (Auto) 0.2 % (0.0-4.0); Hematocrit 34.8 % (35.0-46.0); Hemoglobin 10.7 gm/dL (11.6-15.3); Lymph # (Auto) 41.9 th/mm3 (1.0-4.8); Lymph % (Auto) 84.5 % (9.0-44.0); Mean Corpuscular Volume 97.2 fL (80.0-100.0); Mean Platelet Volume 10.4 fL (7.0-11.0); Mono # (Auto) 0.6 th/mm3 (0.0-0.9); Mono % (Auto) 1.3 % (0.0-8.0); Neut # (Auto) 6.3 th/mm3 (1.8-7.7); Neut % (Auto) 12.6 % (16.0-70.0); Platelet Count 96 th/mm3 (150-450); Red Blood Count 3.58 mil/mm3 (4.00-5.30); Red Cell Distribution Width 16.5 % (11.6-17.2); White Blood Count 49.6 th/mm3 (4.0-11.0)
[2017-12-06 07:09] LABS: Potassium 4.7 meq/L (3.5-5.1)
[2017-12-06 07:11] LABS: INR 1.1 Ratio; Prothrombin Time 11.1 sec (9.8-11.6)
[2017-12-06 07:14] LABS: Calcium 9.3 mg/dL (8.5-10.1); Carbon Dioxide 28.7 meq/L (21.0-32.0)
[2017-12-06] MEDS: Insulin NovoLOG Aspart Correctional Sugar Inj SQ SCH ×4 (07:34→20:07)
[2017-12-06 07:36] LABS: Mean Corpuscular HGB Conc 30.9 % (32.0-36.0)
[2017-12-06 08:52] LABS: Blast Cells 1 % (0-0); Eosinophils 1 % (0-4); Lymphocytes 90 % (9-44); Monocytes 2 % (0-8)
[2017-12-06 08:56] LABS: Ovalocytes 2+
[2017-12-06 08:57] LABS: Tear Drop Cells 1+
[2017-12-06 08:58] LABS: Platelet Morphology Normal (Normal)
[2017-12-06 08:59] LABS: Smudge Cells Present
--- NOTE | 2017-12-06 11:23 | P.PN ---
Subjective Interval history: 87-year-old female who is seen and examined today in follow-up for fluid overload, renal failure. Patient continues with respiratory insufficiency secondary to pleural effusion. Nursing staff indicates that the patient was up majority of the night walking around. Mild increase in patient's urinary output. Awaiting thoracentesis, Vas-Cath placement for continued care. Vital signs are stable, patient remains afebrile Physical Exam Vital signs: Vital Signs 12/05/17 14:02 12/05/17 16:00 12/05/17 19:24 Temperature 97.8 F Pulse Rate 77 112 H 74 Respiratory Rate 24 20 18 Blood Pressure 121/57 L Pulse Oximetry 95 94 L 12/05/17 20:00 12/06/17 00:00 12/06/17 04:00 Temperature 96 F L 97.2 F L 96 F L Pulse Rate 116 H 73 73 Respiratory Rate 20 20 26 H Blood Pressure 110/53 L 98/57 L 100/49 L Pulse Oximetry 93 L 97 97 12/06/17 04:59 Temperature Pulse Rate 72 Respiratory Rate 20 Blood Pressure Pulse Oximetry Intake & Output 12/05/17 12/06/17 12/06/17 18:59 06:59 18:59 Intake Total 410 / 410 110 / 110 Output Total 500 / 500 400 / 400 Balance -90 / -90 -290 / -290 Weight 106 kg Intake: IV 50 / 50 50 / 50 Diamox Inj 250 MG In NS Inj 50 50 / 50 50 / 50 ML @ 100 mls/hr IV.SIG Q12HR NICOLE Rx#:[id number] Oral 360 / 360 60 / 60 Output: Urine 500 / 500 400 / 400 Other: Date of Last Bowel Movement 12/04/17 Results - Labs CBC & Chem 7: 12/07/17 06:47 12/07/17 06:47 Laboratory Results - last 24 hr 12/05/17 12/05/17 12/05/17 11:51 16:17 17:00 CBC w Diff WBC RBC Hgb Hct MCV MCH MCHC RDW Plt Count MPV Neut % (Auto) Lymph % (Auto) Lucas % (Auto) Eos % (Auto) Baso % (Auto) Neut # (Auto) Lymph # (Auto) Lucas # (Auto) Eos # (Auto) Baso # (Auto) WBC Differential Seg Neuts % (Manual) Lymphocytes % (Manual) Monocytes % (Manual) Eosinophils % (Manual) Blast Cells % (Manual) Abs Neuts (Manual) Differential Comment Smudge Cells Platelet Estimate Platelet Morphology Tear Drop Cells Ovalocytes Keratocytes PT INR APTT Sodium Potassium Chloride Carbon Dioxide Anion Gap BUN Creatinine Estimated GFR POC Glucose 231 H 254 H Random Glucose Calcium Hepatitis A IgM Ab Nonreactive Hep Bs Antigen Nonreactive Hep B Core IgM Ab Nonreactive Hep C IgG Ab Nonreactive 12/05/17 12/06/17 12/06/17 22:40 05:56 05:56 CBC w Diff Slide review pending WBC 49.6 H RBC 3.58 L Hgb 10.7 L Hct 34.8 L MCV 97.2 MCH 30.0 MCHC 30.9 L RDW 16.5 Plt Count 96 L MPV 10.4 Neut % (Auto) 12.6 L Lymph % (Auto) 84.5 H Lucas % (Auto) 1.3 Eos % (Auto) 0.2 Baso % (Auto) 1.4 Neut # (Auto) 6.3 Lymph # (Auto) 41.9 H Lucas # (Auto) 0.6 Eos # (Auto) 0.1 Baso # (Auto) 0.7 H WBC Differential Manual diff final Seg Neuts % (Manual) 6 L Lymphocytes % (Manual) 90 H Monocytes % (Manual) 2 Eosinophils % (Manual) 1 Blast Cells % (Manual) 1 H Abs Neuts (Manual) 3.0 Differential Comment . Smudge Cells Present H Platelet Estimate Low L Platelet Morphology Normal Tear Drop Cells 1+ H Ovalocytes 2+ H Keratocytes Occ H PT INR APTT Sodium 138 Potassium 4.7 Chloride 102 Carbon Dioxide 28.7 Anion Gap 7 BUN 93 H Creatinine 3.50 H Estimated GFR 12 L POC Glucose 240 H Random Glucose 227 H Calcium 9.3 Hepatitis A IgM Ab Hep Bs Antigen Hep B Core IgM Ab Hep C IgG Ab 12/06/17 12/06/17 05:56 05:56 CBC w Diff WBC RBC Hgb Hct MCV MCH MCHC RDW Plt Count MPV Neut % (Auto) Lymph % (Auto) Lucas % (Auto) Eos % (Auto) Baso % (Auto) Neut # (Auto) Lymph # (Auto) Lucas # (Auto) Eos # (Auto) Baso # (Auto) WBC Differential Seg Neuts % (Manual) Lymphocytes % (Manual) Monocytes % (Manual) Eosinophils % (Manual) Blast Cells % (Manual) Abs Neuts (Manual) Differential Comment Smudge Cells Platelet Estimate Platelet Morphology Tear Drop Cells Ovalocytes Keratocytes PT 11.1 INR 1.1 APTT 22.3 L Sodium Potassium Chloride Carbon Dioxide Anion Gap BUN Creatinine Estimated GFR POC Glucose Random Glucose Calcium Hepatitis A IgM Ab Hep Bs Antigen Hep B Core IgM Ab Hep C IgG Ab Microbiology 11/30/17 09:00 Blood - Peripheral Aerobic Blood Culture - Final No growth in 5 days 11/30/17 09:00 Blood - Peripheral Anaerobic Blood Culture - Final No growth in 5 days 11/30/17 09:05 Blood - Peripheral Aerobic Blood Culture - Final No growth in 5 days 11/30/17 09:05 Blood - Peripheral Anaerobic Blood Culture - Final No growth in 5 days Assessment and Plan - Assessment (1) Shortness of breath Code(s): R06.02 - Shortness of breath Status: Acute (2) Lower extremity edema Code(s): R60.0 - Localized edema Status: Acute (3) Fluid overload Code(s): E87.70 - Fluid overload, unspecified Status: Acute (4) Acute renal failure superimposed on stage 4 chronic kidney disease Code(s): N17.9 - Acute kidney failure, unspecified; N18.4 - Chronic kidney disease, stage 4 (severe) Status: Acute - Plan Fluid overload with worsening shortness of breath: Improving -Multifactorial with patient having underlying severe pulmonary hypertension, recurrent pleural effusions, acute renal failure superimposed on chronic kidney disease stage IV -Echocardiogram was done approximately 4 month ago shows good ejection fraction 55-60%. Right atrial and ventricle were dilated indicating right heart failure. PA peak pressure 67 indicating significant pulmonary hypertension -Chest x-ray did not indicate significant pleural effusion this time. Does show small bibasilar -Mildly elevated BNP at 202 which is no significant change from previous a week ago at 185 -D-dimer was elevated, however does appear to be chronic elevation. Could be related to her chronic renal failure. Patient renal function will not allow for a pulmonary angiogram be performed. Due to the patient's shortness of breath would not want her risk doing a VQ scan at this time. Despite that. Patient is already anticoagulated on Eliquis for her atrial fibrillation. So it is very unlikely that the patient has an embolic event -Patient was given Lasix 40 g IV in the emergency department -Wire Chief following the patient -Strict input and output, patient with decreased output -Fluid restriction 1500 cc daily -Wire Chief administered albumin, digoxin, Diamox Acute renal failure superimposed on chronic kidney disease stage IV -Unfortunately patient had recent increase in diuretic due to fluid overload with pleural effusion, possibly causing worsening of her renal function -Patient's fluid overload may also be caused by worsening of her renal function. -Nephrology consulted for further recommendations. -Renal functions continue to worsen despite maximizing medical management -Patient was resistant to dialysis, presently she agrees to have dialysis done now -Patient urinary output is still diminished at only 900 output in the last 24 hours. -Plans for Vas-Cath placement and starting of dialysis Recurrent right pleural effusion with hypoxia -Secondary to fluid overload, renal failure -Patient will require another thoracentesis for treatment, however unless patient fluid balance can be corrected and managed with medications/dialysis this will be a recurrent condition requiring repeat thoracentesis, increasing the risk of the thorax, lung injury. -Continue O2 supplementation maintain O2 sats greater than 92% -Plans for thoracentesis to be performed today Right basilar density -Unknown etiology at this time, a review of previous chest x-rays patient does have history of right basilar atelectasis, is always documented pleural effusion -Recent chest CT done 8 days ago does show compressive atelectasis in the right lower lobe and lesser extent in the right middle lobe. There is groundglass opacities consistent with pulmonary edema. -Continue monitor with follow-up chest x-rays in outpatient setting -Clinically the patient is not presenting with symptoms of any upper respiratory infection, pneumonia Lower extremity edema, possible cellulitis, -Likely related to fluid overload, however continue monitor for any infectious source -Blood cultures have been ascertained -Wound care nurse consultation Physical deconditioning -Physical therapy evaluation Diabetes -Accu-Cheks with sliding scale insulin Atrial fibrillation, hypertension -Heart rate is controlled at this time -Continue home medication -Patient anticoagulated on Eliquis Chronic lymphocytic leukemia -Patient is followed by Dr. Quach in outpatient setting -Continue to follow CBC DVT prevention -Patient is on Eliquis CODE STATUS no code -It was discussed extensively with the patient and family by shore worker, palliative care, attending physician, myself that removal of the fluid by thoracentesis, dialysis does not overtly fix her chronic condition with the renal failure. It will obviously help her with quality of care and a short- term basis so she could breathe better, have less edema, however with the patient's severe pulmonary hypertension, renal failure there may not be a medical solution to her condition other than recurrent removal of fluid with invasive procedures. - palliative care was consulted to help delineate goals of treatment, they are continue to follow the patient Discharge Plannin-48 hours depending on patient's response to treatment. Anticipate discharge with home health care (3) Fluid overload Qualifiers: Hypervolemia type: unspecified Qualified Code(s): E87.70 - Fluid overload, unspecified
--- NOTE | 2017-12-06 12:05 | XR ---
EXAM DATE: 12/06/2017 12:02 PM EDT AGE/SEX: 87 years / Female INDICATIONS: Central line placement CLINICAL DATA: This is the patient's subsequent encounter. Patient reports that signs and symptoms h ave been present for 4 - 6 days and indicates a pain score of Nonresponsive. MEDICAL/SURGICAL HISTORY: . Diabetes. Chronic lymphocytic leukemia. Atrial fibrillation. Chroni c kidney disease. . . Right hip replacement. Right shoulder surgery. COMPARISON: [facility], CHEST 1V SINGLE AP, 12/05/2017. . FINDINGS: Single AP view of the chest. Right IJ central venous catheter is in place with the tip in the distal SVC. No evidence of pneumothorax. Bilateral pulmonary parenchymal opacity is again seen. Right-sided pleural effusion is no longer seen. CONCLUSION: Right IJ central venous catheter in place. Right-sided pleural effusion no longer seen. No evidence o f pneumothorax. Bilateral pulmonary parenchymal opacity unchanged. Electronically signed by: Faisal Baptiste MD 12/06/2017 12:04 PM EDT
--- NOTE | 2017-12-06 12:16 | IR ---
EXAM DATE: 12/06/2017 12:09 PM EDT AGE/SEX: 87 years / Female INDICATIONS: Patient with a history of chronic kidney disease. CLINICAL DATA: This is the patient's initial encounter. Patient reports that signs and symptoms have been present for 4 - 6 days and indicates a pain score of 6/10. MEDICAL/SURGICAL HISTORY: Hypertension. Diabetes. Chronic renal failure. chronic lymphocytic leukemiaHyperlipidemiaAnemiaA-FibHypogammaglobulinemiaPulmonary hypertension Tonsillectomy. Juan M an section. Bilateral hip replacementsShoulder surgery COMPARISON: No prior exams available for comparison. FLUORO TIME (min): 0 IMAGE SERIES: 0 ACCESS SITE: Right internal jugular vein DEVICE(S): 14 Slovenian double lumen Vas Cath . . PROCEDURE : 1. Ultrasound guided venipuncture. 2. Fluoroscopic guidance. 3. Central line placement. The risks, benefits and alternatives to the procedure were explained and verbal and written consent w as obtained. The site was prepped in sterile fashion. Full sterile technique was used, including ca p, mask, sterile gloves and gown and a large sterile sheet. Hand hygiene and 2% chlorhexidine prep w as utilized per protocol for cutaneous antisepsis with appropriate dry time for site. Sterile gel an d sterile probe cover were utilized for ultrasound guidance. The skin and subcutaneous tissues were infiltrated with local anesthetic solution. A suitable site a vinicio the vein was selected with ultrasound and fluoroscopic guidance. A small incision was made. Th e vein was accessed under direct ultrasound visualization using the micropuncture technique. The huang ropuncture set was exchanged for a 0.035 wire. The tract was dilated. The catheter was advanced int o position under direct fluoroscopic visualization, and was advanced with the tip at the junction of the superior vena cava and rt atrium. The catheter was fixed in place with suture and a sterile dres sing was applied. The patient tolerated the procedure well and there were no complications. CONCLUSION: 1. Uncomplicated line placement as above. Electronically signed by: Desmond Perdue MD 12/06/2017 12:15 PM EDT
--- NOTE | 2017-12-06 12:17 | IR ---
EXAM DATE: 12/06/2017 12:09 PM EDT AGE/SEX: 87 years / Female INDICATIONS: Patient with a history of pulmonary edema. CLINICAL DATA: This is the patient's initial encounter. Patient reports that signs and symptoms have been present for 4 - 6 days and indicates a pain score of 6/10. MEDICAL/SURGICAL HISTORY: Diabetes. Hypertension. Chronic renal failure. Hypogammaglobulinem iaA-FibHyperlipidemiaChronic lymphocytic leukemia Tonsillectomy. section. Bilateral hip re placementShoulder surgery COMPARISON: [facility], US GUIDED THORACENTESIS RIGHT, 11/24/2017. . FLUORO TIME (min): 0 ACCESS SITE: DEVICE(S): 6 Fr [id number] FLUID: Total volume of 1.8 LITERS of interiano fluid was removed. Fluid was discarded. Thoracentesis was therapeutic only.. . . PROCEDURE: 1. Ultrasound guided thoracentesis. The risks, benefits and alternatives to the procedure were explained and verbal and written consent w as obtained. The site was prepped in sterile fashion. Full sterile technique was used, including ca p, mask, sterile gloves and gown and a large sterile sheet. Hand hygiene and 2% chlorhexidine and/or betadine/alcohol prep was utilized per protocol for cutaneous antisepsis. The skin and subcutaneous tissues were infiltrated with local anesthetic solution. Ultrasound evaluation of the right hemithorax demonstrated a large pleural effusion. Single image was obtained and placed in PACS archive. Skin overlying the collection was then prepped and draped in us ual sterile fashion. 1% lidocaine solution was injected for local anesthesia. 6 Uzbek catheter was t hen advanced into the pleural space using trocar technique. A 1.8 L of straw-colored fluid was remove d. Catheter was then withdrawn and a small dressing applied to the puncture site. The above described fluid was removed without difficulty. The patient tolerated the procedure well a nd there were no complications. A chest radiograph is to be obtained. CONCLUSION: 1. Uncomplicated ultrasound guided thoracentesis. Electronically signed by: Desmond Perdue MD 12/06/2017 12:16 PM EDT
[2017-12-06] MEDS: Digoxin Inj 500 MCG/2 ML Ampul IV.PUSH SCH (12:57)
[2017-12-06] MEDS: Metoprolol Tartrate 100 MG Tablet PO SCH ×2 (12:57→20:03)
[2017-12-06] MEDS: acetaZOLAMIDE Inj 250 MG in Sodium Chlor 0.9% Inj 50 ML IV.SIG SCH ×2 (12:57→20:03)
--- NOTE | 2017-12-06 16:38 | P.PNNP ---
Subjective Interval history: tolerated HD and thoracentesis today Physical Exam Vital signs: Vital Signs 12/05/17 19:24 12/05/17 20:00 12/06/17 00:00 Temperature 96 F L 97.2 F L Pulse Rate 74 116 H 73 Respiratory Rate 18 20 20 Blood Pressure 110/53 L 98/57 L Pulse Oximetry 94 L 93 L 97 12/06/17 04:00 12/06/17 04:59 Temperature 96 F L Pulse Rate 73 72 Respiratory Rate 26 H 20 Blood Pressure 100/49 L Pulse Oximetry 97 Intake & Output 12/05/17 12/06/17 12/06/17 18:59 06:59 18:59 Intake Total 410 / 410 110 / 110 Output Total 500 / 500 400 / 400 500 / 500 Balance -90 / -90 -290 / -290 -500 / -500 Weight 106 kg Intake: IV 50 / 50 50 / 50 Diamox Inj 250 MG In NS Inj 50 50 / 50 50 / 50 ML @ 100 mls/hr IV.SIG Q12HR NICOLE Rx#:[id number] Oral 360 / 360 60 / 60 Output: Urine 500 / 500 400 / 400 Hemodialysis Amount 500 / 500 Other: Date of Last Bowel Movement 12/04/17 - Constitutional no acute distress - Routine HEENT Exam Head: Present: normocephalic Eye: Present: EOMI ENT: Present: mucous membranes moist - Routine Neck Exam Present: supple - Routine Respiratory Exam Present: decreased breath sounds - Routine Cardiovascular Exam Present: RRR - Routine Abdominal Exam Present: soft - Routine Extremities Exam Present: full ROM - Routine Skin Exam Present: intact - Routine Neurological Exam Present: alert, oriented X3 - Detailed Neurological Exam: Coma Scale Eye Opening: Spontaneous Assessment and Plan - Assessment (1) Pulmonary edema, acute Code(s): J81.0 - Acute pulmonary edema Status: Acute (2) Fluid overload Code(s): E87.70 - Fluid overload, unspecified Status: Acute Qualifiers: Hypervolemia type: unspecified Qualified Code(s): E87.70 - Fluid overload, unspecified Plan: (3) CKD (chronic kidney disease) Code(s): N18.9 - Chronic kidney disease, unspecified Status: Acute - Plan Patient initiated on dialysis today - 500cc UF tolerated. S/p 1.8L thoracentesis today. Ongoing edema - will plan for next HD Friday with UF as tolerated. Some ongoing bleeding and vascath site - continue dressings and monitor. Follow electrolytes Dr. Killian is away - covering for him. Monitor BMP dig low. .
[2017-12-06] MEDS ORDERED: Lidocaine 1% Inj 50 ML Vial ONE (16:52)
[2017-12-06] MEDS: Melatonin 5 MG Tablet PO PRN (20:04)
[2017-12-06 21:44] LABS: ABG Base Excess 4.6 mmol/L (-2-2); ABG PCO2 62 mmHg (38-42); ABG PO2 63 mmHg (61-120)
--- NOTE | 2017-12-07 06:46 | XR ---
EXAM DATE: 12/07/2017 6:36 AM EDT AGE/SEX: 87 years / Female INDICATIONS: Pleural effusion. CLINICAL DATA: This is the patient's subsequent encounter. Patient reports that signs and symptoms h ave been present for 3 days and indicates a pain score of Nonresponsive. MEDICAL/SURGICAL HISTORY: None. None. COMPARISON: [facility], CHEST 1V SINGLE AP, 12/06/2017. . FINDINGS: There is a double-lumen catheter in place from the right internal jugular approach with the tip overl sendy the SVC. The heart size is normal. There is mild diffuse increased interstitial markings. There is minimal blunting of the costophrenic angles. There is a right shoulder prosthesis present. CONCLUSION: Mild prominence of interstitium likely related to edema. Suspected mild bilateral effusions. Electronically signed by: Eben Pickard MD 12/07/2017 6:45 AM EDT
[2017-12-07 07:18] LABS: Baso # (Auto) 1.5 th/mm3 (0.0-0.2); Baso % (Auto) 3.3 % (0.0-2.0); Eos # (Auto) 0.1 th/mm3 (0.0-0.4); Eos % (Auto) 0.2 % (0.0-4.0); Hematocrit 30.7 % (35.0-46.0); Hemoglobin 9.7 gm/dL (11.6-15.3); Lymph # (Auto) 25.7 th/mm3 (1.0-4.8); Lymph % (Auto) 55.9 % (9.0-44.0); Mean Corpuscular HGB Conc 31.5 % (32.0-36.0); Mean Corpuscular Hemoglobin 30.3 pg (27.0-34.0); Mean Corpuscular Volume 96.1 fL (80.0-100.0); Mean Platelet Volume 10.3 fL (7.0-11.0); Mono # (Auto) 1.7 th/mm3 (0.0-0.9); Mono % (Auto) 3.8 % (0.0-8.0); Neut # (Auto) 16.9 th/mm3 (1.8-7.7); Neut % (Auto) 36.8 % (16.0-70.0); Platelet Count 84 th/mm3 (150-450); Red Cell Distribution Width 16.1 % (11.6-17.2); White Blood Count 45.9 th/mm3 (4.0-11.0)
[2017-12-07 07:20] LABS: Potassium 4.2 meq/L (3.5-5.1)
[2017-12-07 07:23] LABS: Calcium 8.8 mg/dL (8.5-10.1)
[2017-12-07 07:24] LABS: Carbon Dioxide 30.9 meq/L (21.0-32.0)
[2017-12-07 07:56] LABS: Blast Cells 2 % (0-0); Lymphocytes 87 % (9-44); Metamyelocytes 1 % (0-1)
[2017-12-07 07:58] LABS: Ovalocytes 2+; Platelet Morphology Normal (Normal); Tear Drop Cells 1+
[2017-12-07 07:59] LABS: Smudge Cells Present
[2017-12-07] MEDS: Insulin NovoLOG Aspart Correctional Sugar Inj SQ SCH ×4 (09:02→22:54)
[2017-12-07] MEDS: acetaZOLAMIDE Inj 250 MG in Sodium Chlor 0.9% Inj 50 ML IV.SIG SCH ×2 (09:03→21:00)
[2017-12-07] MEDS: Digoxin Inj 500 MCG/2 ML Ampul IV.PUSH SCH (09:23)
[2017-12-07] MEDS: Metoprolol Tartrate 100 MG Tablet PO SCH ×2 (09:24→21:00)
--- NOTE | 2017-12-07 09:39 | P.PN ---
Subjective Interval history: 87-year-old female who is seen and examined today for follow-up on fluid overload, renal failure. Nursing staff indicates patient had another bad night with unable to sleep, getting out of bed. Discussed patient's care with patient and this morning. Patient edema is much improved. Renal functions have improved after dialysis. Patient still with worsening respiratory status requiring 3-4 L of oxygen to maintain O2 saturation. Patient vital signs are stable. Patient afebrile Physical Exam Vital signs: Vital Signs 12/06/17 20:00 12/06/17 20:15 12/07/17 00:00 Temperature 96.5 F L 96.8 F L Pulse Rate 66 78 66 Respiratory Rate 18 20 18 Blood Pressure 116/53 L 98/68 L Pulse Oximetry 100 96 94 L 12/07/17 07:25 12/07/17 07:34 Temperature 96.7 F L Pulse Rate 97 H 76 Respiratory Rate 22 20 Blood Pressure 111/51 L Pulse Oximetry 96 92 L Intake & Output 12/06/17 12/07/17 12/07/17 18:59 06:59 18:59 Intake Total 50 / 50 Output Total 500 / 500 Balance -500 / -500 50 / 50 Weight 102.4 kg Intake: IV 50 / 50 Diamox Inj 250 MG In NS Inj 50 50 / 50 ML @ 100 mls/hr IV.SIG Q12HR NICOLE Rx#:[id number] Output: Hemodialysis Amount 500 / 500 Other: # Voids 1 Date of Last Bowel Movement 12/05/17 # Bowel Movements 1 Narrative: GENERAL: Well-developed, well-nourished, in no acute distress. alert and orientated HEENT: Head is normocephalic without any lesions or masses noted. Facial features are symmetric. Eyes: Extraocular muscles are intact. Conjunctivae were clear. NECK: Supple without any masses. Trachea midline no deviation. No JVD, Vas-Cath noted on the right side. Bleeding has improved. Only a 2 x 2 gauze without saturation CARDIAC: Regular rhythm, regular rate. S1/S2 are heard. No murmurs gallops or rubs. LUNGS: Diminished lung sounds noted in the right lower lung mcmullen. No wheeze, rhonchi or rales. No use of accessory muscles on inspiration or expiration. ABDOMEN: Soft, nontender. Nondistended. Bowel sounds heard in all 4 quadrants. No organomegaly or masses. Negative rebound, negative guarding EXTREMITIES: 2+ pitting bilateral lower extremity edema, no longer appreciate any weeping from the lower extremities. Patient has areas of excoriation, pulses are equal bilaterally. No cyanosis or clubbing NEUROLOGY: Mood and affect appear appropriate. Cranial nerves II through XII grossly intact. Moving all extremities, speech clear Results - Labs CBC & Chem 7: 12/07/17 06:47 12/07/17 06:47 Laboratory Results - last 24 hr 12/06/17 12/06/17 12/06/17 12:31 16:28 20:06 CBC w Diff WBC RBC Hgb Hct MCV MCH MCHC RDW Plt Count MPV Neut % (Auto) Lymph % (Auto) [place] % (Auto) Eos % (Auto) Baso % (Auto) Neut # (Auto) Lymph # (Auto) [place] # (Auto) Eos # (Auto) Baso # (Auto) WBC Differential Seg Neuts % (Manual) Lymphocytes % (Manual) Metamyelocytes % (Man) Blast Cells % (Manual) Abs Neuts (Manual) Differential Comment Smudge Cells Platelet Estimate Platelet Morphology Tear Drop Cells Ovalocytes Puncture Site Patient Temperature O2 Saturation ABG pH ABG pCO2 ABG pO2 ABG HCO3 ABG O2 Content ABG Base Excess ABG Methemoglobin Hemoglobin Carboxyhemoglobin O2 Delivery Device Liter Flow Inspired O2 Critical Value Sodium Potassium Chloride Carbon Dioxide Anion Gap BUN Creatinine Estimated GFR POC Glucose 243 H 187 H 261 H Random Glucose Calcium 12/06/17 12/07/17 12/07/17 21:30 06:47 06:47 CBC w Diff Slide review pending WBC 45.9 H RBC 3.20 L Hgb 9.7 L Hct 30.7 L MCV 96.1 MCH 30.3 MCHC 31.5 L RDW 16.1 Plt Count 84 L MPV 10.3 Neut % (Auto) 36.8 Lymph % (Auto) 55.9 H [place] % (Auto) 3.8 Eos % (Auto) 0.2 Baso % (Auto) 3.3 H Neut # (Auto) 16.9 H Lymph # (Auto) 25.7 H [place] # (Auto) 1.7 H Eos # (Auto) 0.1 Baso # (Auto) 1.5 H WBC Differential Manual diff final Seg Neuts % (Manual) 10 L Lymphocytes % (Manual) 87 H Metamyelocytes % (Man) 1 Blast Cells % (Manual) 2 H Abs Neuts (Manual) 5.0 Differential Comment . Smudge Cells Present H Platelet Estimate Low L Platelet Morphology Normal Tear Drop Cells 1+ H Ovalocytes 2+ H Puncture Site Right brachial Patient Temperature 98.6 O2 Saturation 91 ABG pH 7.31 L ABG pCO2 62 H* ABG pO2 63 ABG HCO3 30 H ABG O2 Content 11.0 L ABG Base Excess 4.6 H ABG Methemoglobin 0.6 Hemoglobin 8.6 L Carboxyhemoglobin 1.8 O2 Delivery Device Nasal cannula Liter Flow 4.00 Inspired O2 21 Critical Value Yes Sodium 141 Potassium 4.2 Chloride 104 Carbon Dioxide 30.9 Anion Gap 6 BUN 70 H Creatinine 2.90 H Estimated GFR 15 L POC Glucose Random Glucose 191 H Calcium 8.8 12/07/17 07:45 CBC w Diff WBC RBC Hgb Hct MCV MCH MCHC RDW Plt Count MPV Neut % (Auto) Lymph % (Auto) [place] % (Auto) Eos % (Auto) Baso % (Auto) Neut # (Auto) Lymph # (Auto) [place] # (Auto) Eos # (Auto) Baso # (Auto) WBC Differential Seg Neuts % (Manual) Lymphocytes % (Manual) Metamyelocytes % (Man) Blast Cells % (Manual) Abs Neuts (Manual) Differential Comment Smudge Cells Platelet Estimate Platelet Morphology Tear Drop Cells Ovalocytes Puncture Site Patient Temperature O2 Saturation ABG pH ABG pCO2 ABG pO2 ABG HCO3 ABG O2 Content ABG Base Excess ABG Methemoglobin Hemoglobin Carboxyhemoglobin O2 Delivery Device Liter Flow Inspired O2 Critical Value Sodium Potassium Chloride Carbon Dioxide Anion Gap BUN Creatinine Estimated GFR POC Glucose 176 H Random Glucose Calcium - Imaging Impressions Catheter Placement 12/06/17 00:00 CONCLUSION: 1. Uncomplicated line placement as above. Chest X-Ray 12/06/17 00:00 CONCLUSION: Right IJ central venous catheter in place. Right-sided pleural effusion no longer seen. No evidence of pneumothorax. Bilateral pulmonary parenchymal opacity unchanged. Thoracentesis 12/06/17 00:00 CONCLUSION: 1. Uncomplicated ultrasound guided thoracentesis. Chest X-Ray 12/07/17 06:00 CONCLUSION: Mild prominence of interstitium likely related to edema. Suspected mild bilateral effusions. Assessment and Plan - Assessment (1) Shortness of breath Code(s): R06.02 - Shortness of breath Status: Acute (2) Lower extremity edema Code(s): R60.0 - Localized edema Status: Acute (3) Fluid overload Code(s): E87.70 - Fluid overload, unspecified Status: Acute (4) Acute renal failure superimposed on stage 4 chronic kidney disease Code(s): N17.9 - Acute kidney failure, unspecified; N18.4 - Chronic kidney disease, stage 4 (severe) Status: Acute - Plan Fluid overload with worsening shortness of breath: Improving -Multifactorial with patient having underlying severe pulmonary hypertension, recurrent pleural effusions, acute renal failure superimposed on chronic kidney disease stage IV. 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 Right atrial and ventricle were dilated indicating right heart failure. PA peak pressure 67 indicating significant pulmonary hypertension -Chest x-ray did not indicate significant pleural effusion this time. Does show small bibasilar -Mildly elevated BNP at 202 which is no significant change from previous a week ago at 185 -D-dimer was elevated, however does appear to be chronic elevation. Could be related to her chronic renal failure. Patient renal function will not allow for a pulmonary angiogram be performed. Due to the patient's shortness of breath would not want her risk doing a VQ scan at this time. Despite that. Patient is already anticoagulated on Eliquis for her atrial fibrillation. So it is very unlikely that the patient has an embolic event -Patient was given Lasix 40 g IV in the emergency department -Color Technician following the patient -Strict input and output, patient with decreased output -Fluid restriction 1500 cc daily -Status post nephrology administered albumin, digoxin, Diamox Acute renal failure superimposed on chronic kidney disease stage IV -Unfortunately patient had recent increase in diuretic due to fluid overload with pleural effusion, possibly causing worsening of her renal function -Patient's fluid overload may also be caused by worsening of her renal function. -Nephrology consulted for further recommendations. -Renal functions improved after dialysis -No urine output was documented -Dialysis was done yesterday with improvement of her renal function, was only able to take off small amount of fluid before blood pressure dropping Recurrent right pleural effusion with hypoxia -Secondary to fluid overload, renal failure -Status post thoracentesis with removal of almost 2 L of fluid -Continue O2 supplementation maintain O2 sats greater than 92% Right basilar density -Unknown etiology at this time, a review of previous chest x-rays patient does have history of right basilar atelectasis, is always documented pleural effusion -Recent chest CT done 8 days ago does show compressive atelectasis in the right lower lobe and lesser extent in the right middle lobe. There is groundglass opacities consistent with pulmonary edema. -Continue monitor with follow-up chest x-rays in outpatient setting -Clinically the patient is not presenting with symptoms of any upper respiratory infection, pneumonia Lower extremity edema, possible cellulitis, -Likely related to fluid overload, however continue monitor for any infectious source -Blood cultures were negative for 5 days -Wound care nurse consultation Physical deconditioning -Physical therapy evaluation Diabetes -Accu-Cheks with sliding scale insulin Atrial fibrillation, hypertension -Heart rate is controlled at this time -Continue home medication -Anticoagulation on hold for the procedures and continue to hold secondary to bleeding at the Vas-Cath Chronic lymphocytic leukemia -Patient is followed by Dr. Quach in outpatient setting -Continue to follow CBC DVT prevention -Patient is on Eliquis CODE STATUS no code -It was discussed extensively with the patient and family by rvda master certified rv technician, palliative care, attending physician, myself that removal of the fluid by thoracentesis, dialysis does not overtly fix her chronic condition with the renal failure. It will obviously help her with quality of care and a short- term basis so she could breathe better, have less edema, however with the patient's severe pulmonary hypertension, renal failure there may not be a medical solution to her condition other than recurrent removal of fluid with invasive procedures. - palliative care was consulted to help delineate goals of treatment, they are continue to follow the patient (3) Fluid overload Qualifiers: Hypervolemia type: unspecified Qualified Code(s): E87.70 - Fluid overload, unspecified
--- NOTE | 2017-12-08 09:02 | P.PN ---
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 Again nursing staff indicates that patient did not sleep last night, had been put in restraints that she Try to get out of bed. Patient is more lethargic this morning. indicates that patient has had poor p.o. intake over the last 2 days. Discussed with him that could be a side effect of the dialysis, medical condition. Discussed with him possible need for feeding tube if she does not start eating. Vital signs are stable, patient remains afebrile Physical Exam Vital signs: Vital Signs 12/07/17 11:17 12/07/17 13:13 12/07/17 15:32 Temperature 96.8 F L Pulse Rate 78 79 Respiratory Rate 20 18 16 Blood Pressure 114/54 L Pulse Oximetry 91 L 12/07/17 15:47 12/07/17 20:00 12/07/17 21:12 Temperature 96.8 F L 96.7 F L Pulse Rate 74 81 70 Respiratory Rate 20 18 20 Blood Pressure 118/58 L 119/55 L Pulse Oximetry 92 L 96 94 L 12/08/17 00:00 12/08/17 07:31 Temperature 97.4 F L Pulse Rate 64 Respiratory Rate 18 Blood Pressure 106/57 L Pulse Oximetry 95 93 L Intake & Output 12/07/17 12/08/17 12/08/17 18:59 06:59 18:59 Intake Total 770 / 770 250 / 250 Output Total 150 / 150 250 / 250 Balance 620 / 620 0 / 0 Weight 102.4 kg Intake: IV 50 / 50 50 / 50 Diamox Inj 250 MG In NS Inj 50 50 / 50 50 / 50 ML @ 100 mls/hr IV.SIG Q12HR NICOLE Rx#:[id number] Oral 720 / 720 200 / 200 Output: Urine 150 / 150 250 / 250 Other: Date of Last Bowel Movement 12/07/17 # Bowel Movements 1 Narrative: GENERAL: Well-developed, well-nourished, in no acute distress. alert and orientated HEENT: Head is normocephalic without any lesions or masses noted. Facial features are symmetric. Eyes: Extraocular muscles are intact. Conjunctivae were clear. NECK: Supple without any masses. Trachea midline no deviation. No JVD, Vas-Cath noted on the right side. Bleeding has improved. Only a 2 x 2 gauze without saturation CARDIAC: Regular rhythm, regular rate. S1/S2 are heard. No murmurs gallops or rubs. LUNGS: Diminished lung sounds noted in the right lower lung mcmullen. No wheeze, rhonchi or rales. No use of accessory muscles on inspiration or expiration. ABDOMEN: Soft, nontender. Nondistended. Bowel sounds heard in all 4 quadrants. No organomegaly or masses. Negative rebound, negative guarding EXTREMITIES: 1+ pitting bilateral lower extremity edema, no longer appreciate any weeping from the lower extremities. Patient has areas of excoriation, pulses are equal bilaterally. No cyanosis or clubbing NEUROLOGY: Mood and affect appear appropriate. Cranial nerves II through XII grossly intact. Moving all extremities, speech clear Results - Labs CBC & Chem 7: 12/07/17 06:47 12/07/17 06:47 Laboratory Results - last 24 hr 12/07/17 12/07/17 12/07/17 11:36 17:08 22:48 POC Glucose 206 H 207 H 189 H 12/08/17 08:04 POC Glucose 179 H Assessment and Plan - Assessment (1) Shortness of breath Code(s): R06.02 - Shortness of breath Status: Acute (2) Lower extremity edema Code(s): R60.0 - Localized edema Status: Acute (3) Fluid overload Code(s): E87.70 - Fluid overload, unspecified Status: Acute (4) Acute renal failure superimposed on stage 4 chronic kidney disease Code(s): N17.9 - Acute kidney failure, unspecified; N18.4 - Chronic kidney disease, stage 4 (severe) Status: Acute - Plan Fluid overload with worsening shortness of breath: Improving -Multifactorial with patient having underlying severe pulmonary hypertension, recurrent pleural effusions, acute renal failure superimposed on chronic kidney disease stage IV. 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 Right atrial and ventricle were dilated indicating right heart failure. PA peak pressure 67 indicating significant pulmonary hypertension -Chest x-ray did not indicate significant pleural effusion this time. Does show small bibasilar -Mildly elevated BNP at 202 which is no significant change from previous a week ago at 185 -D-dimer was elevated, however does appear to be chronic elevation. Could be related to her chronic renal failure. Patient renal function will not allow for a pulmonary angiogram be performed. Due to the patient's shortness of breath would not want her risk doing a VQ scan at this time. Despite that. Patient is already anticoagulated on Eliquis for her atrial fibrillation. So it is very unlikely that the patient has an embolic event -Patient was given Lasix 40 g IV in the emergency department -Lithopone Charger following the patient -Strict input and output, patient with decreased output -Fluid restriction 1500 cc daily -Status post nephrology administered albumin, digoxin, Diamox Acute renal failure superimposed on chronic kidney disease stage IV -Unfortunately patient had recent increase in diuretic due to fluid overload with pleural effusion, possibly causing worsening of her renal function -Patient's fluid overload may also be caused by worsening of her renal function. -Nephrology consulted for further recommendations. -Renal functions improved after dialysis -No urine output was documented -Dialysis was done 12/06/17 with improvement of her renal function, was only able to take off small amount of fluid before blood pressure dropping -Plans for dialysis today Recurrent right pleural effusion with hypoxia -Secondary to fluid overload, renal failure -Status post thoracentesis with removal of almost 2 L of fluid -Continue O2 supplementation maintain O2 sats greater than 92% Poor p.o. intake -Patient indicates that she does not have an appetite and is not hungry - states that patient is not 8 in 2 days -Discussed with at bedside that the patient does not start having increased p.o. intake that may need to consider alternative feeding such as feeding tube. This should be addressed by palliative care. Right basilar density -Unknown etiology at this time, a review of previous chest x-rays patient does have history of right basilar atelectasis, is always documented pleural effusion -Recent chest CT done 8 days ago does show compressive atelectasis in the right lower lobe and lesser extent in the right middle lobe. There is groundglass opacities consistent with pulmonary edema. -Continue monitor with follow-up chest x-rays in outpatient setting -Clinically the patient is not presenting with symptoms of any upper respiratory infection, pneumonia Lower extremity edema, possible cellulitis, improved -Likely related to fluid overload, however continue monitor for any infectious source -Blood cultures were negative for 5 days -Wound care nurse consultation Physical deconditioning -Physical therapy evaluation Diabetes -Accu-Cheks with sliding scale insulin Atrial fibrillation, hypertension -Heart rate is controlled at this time -Continue home medication -resume Eliquis Chronic lymphocytic leukemia -Patient is followed by Dr. Quach in outpatient setting -Continue to follow CBC DVT prevention -Patient is on Eliquis CODE STATUS no code -It was discussed extensively with the patient and family by electric sealing machine operator, palliative care, attending physician, myself that removal of the fluid by thoracentesis, dialysis does not overtly fix her chronic condition with the renal failure. It will obviously help her with quality of care and a short- term basis so she could breathe better, have less edema, however with the patient's severe pulmonary hypertension, renal failure there may not be a medical solution to her condition other than recurrent removal of fluid with invasive procedures. - palliative care was consulted to help delineate goals of treatment, they are continue to follow the patient (3) Fluid overload Qualifiers: Hypervolemia type: unspecified Qualified Code(s): E87.70 - Fluid overload, unspecified
[2017-12-08 09:56] LABS: Potassium 4.2 meq/L (3.5-5.1)
[2017-12-08 09:57] LABS: Calcium 8.9 mg/dL (8.5-10.1)
[2017-12-08 09:58] LABS: Carbon Dioxide 32.3 meq/L (21.0-32.0)
[2017-12-08] MEDS: Digoxin Inj 500 MCG/2 ML Ampul IV.PUSH SCH (10:21)
[2017-12-08] MEDS: acetaZOLAMIDE Inj 250 MG in Sodium Chlor 0.9% Inj 50 ML IV.SIG SCH ×2 (10:25→22:41)
[2017-12-08] MEDS: Metoprolol Tartrate 100 MG Tablet PO SCH ×2 (10:30→22:46)
[2017-12-08] MEDS: Insulin NovoLOG Aspart Correctional Sugar Inj SQ SCH ×4 (10:37→22:49)
--- NOTE | 2017-12-08 17:59 | P.PNPAL ---
Reason for Visit Reason for visit: a. To assist with evaluation and management of symptoms including: anxiety, confusion b. To assist medical decision maker(s) with: better understanding of current medical conditions; weighing benefits/burdens of medical treatment options; making medical treatment decisions. Subjective Subjective/Interval History: Patient now on restraints. Patient has worsening confusion. When I walk in she says "I on 02/05." This is a drastic change. Spoke with patient's spouse. Reviewed labs, including Cr. Discussed her confusion. Discussed that she is not eating. Offered hospice services. I told him I am sorry that condition has not improve, now with worsening mentation, not eating, and Cr again is climbing up. He is amenable to at the very least meet with hospice, plan on meeting them at 10:00am. I encourage him to tour the care center, he seems to want to just take patient home. Family/Friend Interactions: see above Advance Directives Living Will: Completed, but not made available Objective Vital Signs: Vital Signs 12/07/17 20:00 12/07/17 21:12 12/08/17 00:00 Temperature 96.7 F L 97.4 F L Pulse Rate 81 70 64 Respiratory Rate 18 20 18 Blood Pressure 119/55 L 106/57 L Pulse Oximetry 96 94 L 95 12/08/17 07:31 12/08/17 08:00 12/08/17 11:15 Temperature 97.5 F L Pulse Rate 72 56 L Respiratory Rate 20 22 Blood Pressure 130/58 L Pulse Oximetry 93 L 92 L 12/08/17 11:20 Temperature Pulse Rate 77 Respiratory Rate 19 Blood Pressure 115/59 L Pulse Oximetry 94 L Intake & Output 12/07/17 12/08/17 12/08/17 18:59 06:59 18:59 Intake Total 770 / 770 250 / 250 50 / 50 Output Total 150 / 150 250 / 250 Balance 620 / 620 0 / 0 50 / 50 Weight 102.4 kg Intake: IV 50 / 50 50 / 50 50 / 50 Diamox Inj 250 MG In NS Inj 50 50 / 50 50 / 50 50 / 50 ML @ 100 mls/hr IV.SIG Q12HR NICOLE Rx#:[id number] Oral 720 / 720 200 / 200 Output: Urine 150 / 150 250 / 250 Other: Date of Last Bowel Movement 12/07/17 # Bowel Movements 1 Physical Exam: CONSTITUTIONAL/GENERAL: This is an adequately nourished patient, frail, sitting at chair side. Fatigued not conversant TUBES/LINES/DRAINS: NC, piv, porras SKIN: No jaundice, rashes, or lesions. Ecchymoses on upper extremities. No wounds seen anteriorly. Skin temperature appropriate. Not diaphoretic. EYES: Pupils equal and round and reactive. Extraocular motions intact. ENT: Hearing grossly normal. Nose without bleeding or purulent drainage. Throat without visible erythema, exudates, masses, or lesions. NECK: Trachea midline. Supple, nontender. No palpable thyroid enlargement or nodularity. CARDIOVASCULAR: Regular rate and rhythm without murmurs, gallops, or rubs. No JVD. RESPIRATORY/CHEST:faint rhonchi bilaterally. GASTROINTESTINAL: Abdomen soft, non-tender, nondistended. No hepato-splenomegaly , or palpable masses. No guarding. Bowel sounds present. GENITOURINARY: Without palpable bladder distension. Porras catheter in place. MUSCULOSKELETAL: ext remains edemetous. LYMPHATICS: No palpable cervical or supraclavicular adenopathy. NEUROLOGICAL: confused. lethargic. PSYCHIATRIC: No obvious anxiety/depression. no apparent hallucinations or other psychotic thought process. Diagnostic Tests Laboratory: Laboratory Results - last 72 hr 12/05/17 12/05/17 12/06/17 17:00 22:40 05:56 CBC w Diff WBC RBC Hgb Hct MCV MCH MCHC RDW Plt Count MPV Neut % (Auto) Lymph % (Auto) [place] % (Auto) Eos % (Auto) Baso % (Auto) Neut # (Auto) Lymph # (Auto) [place] # (Auto) Eos # (Auto) Baso # (Auto) WBC Differential Seg Neuts % (Manual) Lymphocytes % (Manual) Monocytes % (Manual) Eosinophils % (Manual) Metamyelocytes % (Man) Blast Cells % (Manual) Abs Neuts (Manual) Differential Comment Smudge Cells Platelet Estimate Platelet Morphology Tear Drop Cells Ovalocytes Keratocytes PT INR APTT Puncture Site Patient Temperature O2 Saturation ABG pH ABG pCO2 ABG pO2 ABG HCO3 ABG O2 Content ABG Base Excess ABG Methemoglobin Hemoglobin Carboxyhemoglobin O2 Delivery Device Liter Flow Inspired O2 Critical Value Sodium 138 Potassium 4.7 Chloride 102 Carbon Dioxide 28.7 Anion Gap 7 BUN 93 H Creatinine 3.50 H Estimated GFR 12 L POC Glucose 240 H Random Glucose 227 H Calcium 9.3 Hepatitis A IgM Ab Nonreactive Hep Bs Antigen Nonreactive Hep B Core IgM Ab Nonreactive Hep C IgG Ab Nonreactive 12/06/17 12/06/17 12/06/17 05:56 05:56 05:56 CBC w Diff Slide review pending WBC 49.6 H RBC 3.58 L Hgb 10.7 L Hct 34.8 L MCV 97.2 MCH 30.0 MCHC 30.9 L RDW 16.5 Plt Count 96 L MPV 10.4 Neut % (Auto) 12.6 L Lymph % (Auto) 84.5 H [place] % (Auto) 1.3 Eos % (Auto) 0.2 Baso % (Auto) 1.4 Neut # (Auto) 6.3 Lymph # (Auto) 41.9 H [place] # (Auto) 0.6 Eos # (Auto) 0.1 Baso # (Auto) 0.7 H WBC Differential Manual diff final Seg Neuts % (Manual) 6 L Lymphocytes % (Manual) 90 H Monocytes % (Manual) 2 Eosinophils % (Manual) 1 Metamyelocytes % (Man) Blast Cells % (Manual) 1 H Abs Neuts (Manual) 3.0 Differential Comment . Smudge Cells Present H Platelet Estimate Low L Platelet Morphology Normal Tear Drop Cells 1+ H Ovalocytes 2+ H Keratocytes Occ H PT 11.1 INR 1.1 APTT 22.3 L Puncture Site Patient Temperature O2 Saturation ABG pH ABG pCO2 ABG pO2 ABG HCO3 ABG O2 Content ABG Base Excess ABG Methemoglobin Hemoglobin Carboxyhemoglobin O2 Delivery Device Liter Flow Inspired O2 Critical Value Sodium Potassium Chloride Carbon Dioxide Anion Gap BUN Creatinine Estimated GFR POC Glucose Random Glucose Calcium Hepatitis A IgM Ab Hep Bs Antigen Hep B Core IgM Ab Hep C IgG Ab 12/06/17 12/06/17 12/06/17 12:31 16:28 20:06 CBC w Diff WBC RBC Hgb Hct MCV MCH MCHC RDW Plt Count MPV Neut % (Auto) Lymph % (Auto) [place] % (Auto) Eos % (Auto) Baso % (Auto) Neut # (Auto) Lymph # (Auto) [place] # (Auto) Eos # (Auto) Baso # (Auto) WBC Differential Seg Neuts % (Manual) Lymphocytes % (Manual) Monocytes % (Manual) Eosinophils % (Manual) Metamyelocytes % (Man) Blast Cells % (Manual) Abs Neuts (Manual) Differential Comment Smudge Cells Platelet Estimate Platelet Morphology Tear Drop Cells Ovalocytes Keratocytes PT INR APTT Puncture Site Patient Temperature O2 Saturation ABG pH ABG pCO2 ABG pO2 ABG HCO3 ABG O2 Content ABG Base Excess ABG Methemoglobin Hemoglobin Carboxyhemoglobin O2 Delivery Device Liter Flow Inspired O2 Critical Value Sodium Potassium Chloride Carbon Dioxide Anion Gap BUN Creatinine Estimated GFR POC Glucose 243 H 187 H 261 H Random Glucose Calcium Hepatitis A IgM Ab Hep Bs Antigen Hep B Core IgM Ab Hep C IgG Ab 12/06/17 12/07/17 12/07/17 21:30 06:47 06:47 CBC w Diff Slide review pending WBC 45.9 H RBC 3.20 L Hgb 9.7 L Hct 30.7 L MCV 96.1 MCH 30.3 MCHC 31.5 L RDW 16.1 Plt Count 84 L MPV 10.3 Neut % (Auto) 36.8 Lymph % (Auto) 55.9 H [place] % (Auto) 3.8 Eos % (Auto) 0.2 Baso % (Auto) 3.3 H Neut # (Auto) 16.9 H Lymph # (Auto) 25.7 H [place] # (Auto) 1.7 H Eos # (Auto) 0.1 Baso # (Auto) 1.5 H WBC Differential Manual diff final Seg Neuts % (Manual) 10 L Lymphocytes % (Manual) 87 H Monocytes % (Manual) Eosinophils % (Manual) Metamyelocytes % (Man) 1 Blast Cells % (Manual) 2 H Abs Neuts (Manual) 5.0 Differential Comment . Smudge Cells Present H Platelet Estimate Low L Platelet Morphology Normal Tear Drop Cells 1+ H Ovalocytes 2+ H Keratocytes PT INR APTT Puncture Site Right brachial Patient Temperature 98.6 O2 Saturation 91 ABG pH 7.31 L ABG pCO2 62 H* ABG pO2 63 ABG HCO3 30 H ABG O2 Content 11.0 L ABG Base Excess 4.6 H ABG Methemoglobin 0.6 Hemoglobin 8.6 L Carboxyhemoglobin 1.8 O2 Delivery Device Nasal cannula Liter Flow 4.00 Inspired O2 21 Critical Value Yes Sodium 141 Potassium 4.2 Chloride 104 Carbon Dioxide 30.9 Anion Gap 6 BUN 70 H Creatinine 2.90 H Estimated GFR 15 L POC Glucose Random Glucose 191 H Calcium 8.8 Hepatitis A IgM Ab Hep Bs Antigen Hep B Core IgM Ab Hep C IgG Ab 12/07/17 12/07/17 12/07/17 07:45 11:36 17:08 CBC w Diff WBC RBC Hgb Hct MCV MCH MCHC RDW Plt Count MPV Neut % (Auto) Lymph % (Auto) [place] % (Auto) Eos % (Auto) Baso % (Auto) Neut # (Auto) Lymph # (Auto) [place] # (Auto) Eos # (Auto) Baso # (Auto) WBC Differential Seg Neuts % (Manual) Lymphocytes % (Manual) Monocytes % (Manual) Eosinophils % (Manual) Metamyelocytes % (Man) Blast Cells % (Manual) Abs Neuts (Manual) Differential Comment Smudge Cells Platelet Estimate Platelet Morphology Tear Drop Cells Ovalocytes Keratocytes PT INR APTT Puncture Site Patient Temperature O2 Saturation ABG pH ABG pCO2 ABG pO2 ABG HCO3 ABG O2 Content ABG Base Excess ABG Methemoglobin Hemoglobin Carboxyhemoglobin O2 Delivery Device Liter Flow Inspired O2 Critical Value Sodium Potassium Chloride Carbon Dioxide Anion Gap BUN Creatinine Estimated GFR POC Glucose 176 H 206 H 207 H Random Glucose Calcium Hepatitis A IgM Ab Hep Bs Antigen Hep B Core IgM Ab Hep C IgG Ab 12/07/17 12/08/17 12/08/17 22:48 08:04 09:15 CBC w Diff WBC RBC Hgb Hct MCV MCH MCHC RDW Plt Count MPV Neut % (Auto) Lymph % (Auto) [place] % (Auto) Eos % (Auto) Baso % (Auto) Neut # (Auto) Lymph # (Auto) [place] # (Auto) Eos # (Auto) Baso # (Auto) WBC Differential Seg Neuts % (Manual) Lymphocytes % (Manual) Monocytes % (Manual) Eosinophils % (Manual) Metamyelocytes % (Man) Blast Cells % (Manual) Abs Neuts (Manual) Differential Comment Smudge Cells Platelet Estimate Platelet Morphology Tear Drop Cells Ovalocytes Keratocytes PT INR APTT Puncture Site Patient Temperature O2 Saturation ABG pH ABG pCO2 ABG pO2 ABG HCO3 ABG O2 Content ABG Base Excess ABG Methemoglobin Hemoglobin Carboxyhemoglobin O2 Delivery Device Liter Flow Inspired O2 Critical Value Sodium 142 Potassium 4.2 Chloride 104 Carbon Dioxide 32.3 H Anion Gap 6 BUN 74 H Creatinine 3.20 H Estimated GFR 14 L POC Glucose 189 H 179 H Random Glucose 182 H Calcium 8.9 Hepatitis A IgM Ab Hep Bs Antigen Hep B Core IgM Ab Hep C IgG Ab 12/08/17 12/08/17 12/08/17 10:16 11:51 17:00 CBC w Diff WBC RBC Hgb Hct MCV MCH MCHC RDW Plt Count MPV Neut % (Auto) Lymph % (Auto) [place] % (Auto) Eos % (Auto) Baso % (Auto) Neut # (Auto) Lymph # (Auto) [place] # (Auto) Eos # (Auto) Baso # (Auto) WBC Differential Seg Neuts % (Manual) Lymphocytes % (Manual) Monocytes % (Manual) Eosinophils % (Manual) Metamyelocytes % (Man) Blast Cells % (Manual) Abs Neuts (Manual) Differential Comment Smudge Cells Platelet Estimate Platelet Morphology Tear Drop Cells Ovalocytes Keratocytes PT INR APTT Puncture Site Patient Temperature O2 Saturation ABG pH ABG pCO2 ABG pO2 ABG HCO3 ABG O2 Content ABG Base Excess ABG Methemoglobin Hemoglobin Carboxyhemoglobin O2 Delivery Device Liter Flow Inspired O2 Critical Value Sodium Potassium Chloride Carbon Dioxide Anion Gap BUN Creatinine Estimated GFR POC Glucose 199 H 202 H 191 H Random Glucose Calcium Hepatitis A IgM Ab Hep Bs Antigen Hep B Core IgM Ab Hep C IgG Ab Result Diagrams: 12/07/17 06:47 12/08/17 09:15 Imaging: Laboratory Tests 11/30/17 11/30/17 11/30/17 09:00 09:00 09:00 CBC w Diff Slide review pending WBC 47.9 H RBC 3.45 L Hgb 10.8 L Hct 32.3 L MCV 93.6 MCH 31.4 MCHC 33.5 RDW 16.9 Plt Count 105 L MPV 9.9 Neut % (Auto) Lymph % (Auto) [place] % (Auto) Eos % (Auto) Baso % (Auto) Neut # (Auto) Lymph # (Auto) [place] # (Auto) Eos # (Auto) Baso # (Auto) WBC Differential Manual diff final Seg Neuts % (Manual) 14 L Lymphocytes % (Manual) 82 H Monocytes % (Manual) 2 Eosinophils % (Manual) 1 Basophils % (Manual) 1 Metamyelocytes % (Man) Blast Cells % (Manual) Abs Neuts (Manual) 6.7 Differential Comment . Smudge Cells Platelet Estimate Low L Platelet Morphology Normal Tear Drop Cells Ovalocytes 1+ H Acanthocytes (Spur) Keratocytes PT 11.4 INR 1.1 APTT D-Dimer Quant (PE/DVT) 2.33 H Puncture Site Patient Temperature O2 Saturation ABG pH ABG pCO2 ABG pO2 ABG HCO3 ABG O2 Content ABG Base Excess ABG Methemoglobin Hemoglobin Carboxyhemoglobin O2 Delivery Device Liter Flow Inspired O2 Critical Value Sodium Potassium Chloride Carbon Dioxide Anion Gap BUN Creatinine Estimated GFR POC Glucose Random Glucose Calcium Total Bilirubin AST ALT Alkaline Phosphatase Total Creatine Kinase Troponin I B-Natriuretic Peptide 202 H Total Protein Albumin Ur Collection Type Urine Color Urine Clarity Urine pH Ur Specific [place] Urine Protein Urine Glucose (UA) Urine Ketones Urine Occult Blood Urine Nitrate Urine Bilirubin Urine Urobilinogen Ur Leukocyte Esterase Urine WBC Urine WBC Clumps Ur Squamous Epith Cells Micro UA Comment Urine Culture Comments Digoxin Hepatitis A IgM Ab Hep Bs Antigen Hep B Core IgM Ab Hep C IgG Ab 11/30/17 11/30/17 11/30/17 09:00 11:40 16:59 CBC w Diff WBC RBC Hgb Hct MCV MCH MCHC RDW Plt Count MPV Neut % (Auto) Lymph % (Auto) [place] % (Auto) Eos % (Auto) Baso % (Auto) Neut # (Auto) Lymph # (Auto) [place] # (Auto) Eos # (Auto) Baso # (Auto) WBC Differential Seg Neuts % (Manual) Lymphocytes % (Manual) Monocytes % (Manual) Eosinophils % (Manual) Basophils % (Manual) Metamyelocytes % (Man) Blast Cells % (Manual) Abs Neuts (Manual) Differential Comment Smudge Cells Platelet Estimate Platelet Morphology Tear Drop Cells Ovalocytes Acanthocytes (Spur) Keratocytes PT INR APTT D-Dimer Quant (PE/DVT) Puncture Site Patient Temperature O2 Saturation ABG pH ABG pCO2 ABG pO2 ABG HCO3 ABG O2 Content ABG Base Excess ABG Methemoglobin Hemoglobin Carboxyhemoglobin O2 Delivery Device Liter Flow Inspired O2 Critical Value Sodium 143 Potassium 4.4 Chloride 106 Carbon Dioxide 30.2 Anion Gap 7 BUN 80 H Creatinine 3.20 H Estimated GFR 14 L POC Glucose 161 H Random Glucose 149 H Calcium 9.1 Total Bilirubin 0.7 AST 18 ALT 19 Alkaline Phosphatase 120 H Total Creatine Kinase 35 Troponin I 0.03 B-Natriuretic Peptide Total Protein 6.0 L Albumin 3.6 Ur Collection Type Clean catch Urine Color Yellow Urine Clarity Clear Urine pH 5.5 Ur Specific [place] 1.020 Urine Protein Negative Urine Glucose (UA) Negative Urine Ketones Negative Urine Occult Blood Negative Urine Nitrate Negative Urine Bilirubin Negative Urine Urobilinogen 0.2 Ur Leukocyte Esterase Trace H Urine WBC 9-20 H Urine WBC Clumps Occasional H Ur Squamous Epith Cells 0-5 Micro UA Comment Culture indicated Urine Culture Comments Culture indicated Digoxin Hepatitis A IgM Ab Hep Bs Antigen Hep B Core IgM Ab Hep C IgG Ab 11/30/17 12/01/17 12/01/17 21:08 05:30 05:30 CBC w Diff Slide review pending WBC 44.7 H RBC 3.53 L Hgb 10.7 L Hct 33.7 L MCV 95.6 MCH 30.4 MCHC 31.8 L RDW 16.1 Plt Count 103 L MPV 9.6 Neut % (Auto) 11.2 L Lymph % (Auto) 84.1 H [place] % (Auto) 2.8 Eos % (Auto) 0.2 Baso % (Auto) 1.7 Neut # (Auto) 5.0 Lymph # (Auto) 37.5 H [place] # (Auto) 1.3 H Eos # (Auto) 0.1 Baso # (Auto) 0.8 H WBC Differential Manual diff final Seg Neuts % (Manual) 13 L Lymphocytes % (Manual) 84 H Monocytes % (Manual) 3 Eosinophils % (Manual) Basophils % (Manual) Metamyelocytes % (Man) Blast Cells % (Manual) Abs Neuts (Manual) 5.8 Differential Comment . Smudge Cells Platelet Estimate Low L Platelet Morphology Normal Tear Drop Cells 1+ H Ovalocytes 2+ H Acanthocytes (Spur) 1+ H Keratocytes Occ H PT INR APTT D-Dimer Quant (PE/DVT) Puncture Site Patient Temperature O2 Saturation ABG pH ABG pCO2 ABG pO2 ABG HCO3 ABG O2 Content ABG Base Excess ABG Methemoglobin Hemoglobin Carboxyhemoglobin O2 Delivery Device Liter Flow Inspired O2 Critical Value Sodium 140 Potassium 4.8 Chloride 105 Carbon Dioxide 29.0 Anion Gap 6 BUN 83 H Creatinine 3.20 H Estimated GFR 14 L POC Glucose 218 H Random Glucose 213 H Calcium 9.1 Total Bilirubin AST ALT Alkaline Phosphatase Total Creatine Kinase Troponin I B-Natriuretic Peptide Total Protein Albumin Ur Collection Type Urine Color Urine Clarity Urine pH Ur Specific [place] Urine Protein Urine Glucose (UA) Urine Ketones Urine Occult Blood Urine Nitrate Urine Bilirubin Urine Urobilinogen Ur Leukocyte Esterase Urine WBC Urine WBC Clumps Ur Squamous Epith Cells Micro UA Comment Urine Culture Comments Digoxin Hepatitis A IgM Ab Hep Bs Antigen Hep B Core IgM Ab Hep C IgG Ab 12/01/17 12/01/17 12/01/17 07:21 10:45 16:44 CBC w Diff WBC RBC Hgb Hct MCV MCH MCHC RDW Plt Count MPV Neut % (Auto) Lymph % (Auto) [place] % (Auto) Eos % (Auto) Baso % (Auto) Neut # (Auto) Lymph # (Auto) [place] # (Auto) Eos # (Auto) Baso # (Auto) WBC Differential Seg Neuts % (Manual) Lymphocytes % (Manual) Monocytes % (Manual) Eosinophils % (Manual) Basophils % (Manual) Metamyelocytes % (Man) Blast Cells % (Manual) Abs Neuts (Manual) Differential Comment Smudge Cells Platelet Estimate Platelet Morphology Tear Drop Cells Ovalocytes Acanthocytes (Spur) Keratocytes PT INR APTT D-Dimer Quant (PE/DVT) Puncture Site Patient Temperature O2 Saturation ABG pH ABG pCO2 ABG pO2 ABG HCO3 ABG O2 Content ABG Base Excess ABG Methemoglobin Hemoglobin Carboxyhemoglobin O2 Delivery Device Liter Flow Inspired O2 Critical Value Sodium Potassium Chloride Carbon Dioxide Anion Gap BUN Creatinine Estimated GFR POC Glucose 214 H 243 H 228 H Random Glucose Calcium Total Bilirubin AST ALT Alkaline Phosphatase Total Creatine Kinase Troponin I B-Natriuretic Peptide Total Protein Albumin Ur Collection Type Urine Color Urine Clarity Urine pH Ur Specific [place] Urine Protein Urine Glucose (UA) Urine Ketones Urine Occult Blood Urine Nitrate Urine Bilirubin Urine Urobilinogen Ur Leukocyte Esterase Urine WBC Urine WBC Clumps Ur Squamous Epith Cells Micro UA Comment Urine Culture Comments Digoxin Hepatitis A IgM Ab Hep Bs Antigen Hep B Core IgM Ab Hep C IgG Ab 12/01/17 12/02/17 12/02/17 19:59 05:45 07:40 CBC w Diff WBC RBC Hgb Hct MCV MCH MCHC RDW Plt Count MPV Neut % (Auto) Lymph % (Auto) [place] % (Auto) Eos % (Auto) Baso % (Auto) Neut # (Auto) Lymph # (Auto) [place] # (Auto) Eos # (Auto) Baso # (Auto) WBC Differential Seg Neuts % (Manual) Lymphocytes % (Manual) Monocytes % (Manual) Eosinophils % (Manual) Basophils % (Manual) Metamyelocytes % (Man) Blast Cells % (Manual) Abs Neuts (Manual) Differential Comment Smudge Cells Platelet Estimate Platelet Morphology Tear Drop Cells Ovalocytes Acanthocytes (Spur) Keratocytes PT INR APTT D-Dimer Quant (PE/DVT) Puncture Site Patient Temperature O2 Saturation ABG pH ABG pCO2 ABG pO2 ABG HCO3 ABG O2 Content ABG Base Excess ABG Methemoglobin Hemoglobin Carboxyhemoglobin O2 Delivery Device Liter Flow Inspired O2 Critical Value Sodium 139 Potassium 4.9 Chloride 103 Carbon Dioxide 29.8 Anion Gap 6 BUN 88 H Creatinine 3.20 H Estimated GFR 14 L POC Glucose 239 H 221 H Random Glucose 210 H Calcium 9.0 Total Bilirubin AST ALT Alkaline Phosphatase Total Creatine Kinase Troponin I B-Natriuretic Peptide Total Protein Albumin Ur Collection Type Urine Color Urine Clarity Urine pH Ur Specific [place] Urine Protein Urine Glucose (UA) Urine Ketones Urine Occult Blood Urine Nitrate Urine Bilirubin Urine Urobilinogen Ur Leukocyte Esterase Urine WBC Urine WBC Clumps Ur Squamous Epith Cells Micro UA Comment Urine Culture Comments Digoxin Hepatitis A IgM Ab Hep Bs Antigen Hep B Core IgM Ab Hep C IgG Ab 12/02/17 12/02/17 12/02/17 12:07 16:49 21:11 CBC w Diff WBC RBC Hgb Hct MCV MCH MCHC RDW Plt Count MPV Neut % (Auto) Lymph % (Auto) [place] % (Auto) Eos % (Auto) Baso % (Auto) Neut # (Auto) Lymph # (Auto) [place] # (Auto) Eos # (Auto) Baso # (Auto) WBC Differential Seg Neuts % (Manual) Lymphocytes % (Manual) Monocytes % (Manual) Eosinophils % (Manual) Basophils % (Manual) Metamyelocytes % (Man) Blast Cells % (Manual) Abs Neuts (Manual) Differential Comment Smudge Cells Platelet Estimate Platelet Morphology Tear Drop Cells Ovalocytes Acanthocytes (Spur) Keratocytes PT INR APTT D-Dimer Quant (PE/DVT) Puncture Site Patient Temperature O2 Saturation ABG pH ABG pCO2 ABG pO2 ABG HCO3 ABG O2 Content ABG Base Excess ABG Methemoglobin Hemoglobin Carboxyhemoglobin O2 Delivery Device Liter Flow Inspired O2 Critical Value Sodium Potassium Chloride Carbon Dioxide Anion Gap BUN Creatinine Estimated GFR POC Glucose 273 H 221 H 209 H Random Glucose Calcium Total Bilirubin AST ALT Alkaline Phosphatase Total Creatine Kinase Troponin I B-Natriuretic Peptide Total Protein Albumin Ur Collection Type Urine Color Urine Clarity Urine pH Ur Specific [place] Urine Protein Urine Glucose (UA) Urine Ketones Urine Occult Blood Urine Nitrate Urine Bilirubin Urine Urobilinogen Ur Leukocyte Esterase Urine WBC Urine WBC Clumps Ur Squamous Epith Cells Micro UA Comment Urine Culture Comments Digoxin Hepatitis A IgM Ab Hep Bs Antigen Hep B Core IgM Ab Hep C IgG Ab 12/03/17 12/03/17 12/03/17 05:27 05:27 08:47 CBC w Diff Slide review pending WBC 41.2 H RBC 3.47 L Hgb 10.7 L Hct 33.8 L MCV 97.3 MCH 30.8 MCHC 31.6 L RDW 16.4 Plt Count 66 L D MPV 9.8 Neut % (Auto) Lymph % (Auto) [place] % (Auto) Eos % (Auto) Baso % (Auto) Neut # (Auto) Lymph # (Auto) [place] # (Auto) Eos # (Auto) Baso # (Auto) WBC Differential Manual diff final Seg Neuts % (Manual) 22 Lymphocytes % (Manual) 74 H Monocytes % (Manual) 4 Eosinophils % (Manual) Basophils % (Manual) Metamyelocytes % (Man) Blast Cells % (Manual) Abs Neuts (Manual) 9.1 H Differential Comment . Smudge Cells Platelet Estimate Low L Platelet Morphology Normal Tear Drop Cells Ovalocytes 1+ H Acanthocytes (Spur) Keratocytes Occ H PT INR APTT D-Dimer Quant (PE/DVT) Puncture Site Patient Temperature O2 Saturation ABG pH ABG pCO2 ABG pO2 ABG HCO3 ABG O2 Content ABG Base Excess ABG Methemoglobin Hemoglobin Carboxyhemoglobin O2 Delivery Device Liter Flow Inspired O2 Critical Value Sodium 138 Potassium 4.6 Chloride 105 Carbon Dioxide 26.8 Anion Gap 6 BUN 91 H Creatinine 3.20 H Estimated GFR 14 L POC Glucose 229 H Random Glucose 221 H Calcium 9.0 Total Bilirubin AST ALT Alkaline Phosphatase Total Creatine Kinase Troponin I B-Natriuretic Peptide Total Protein Albumin Ur Collection Type Urine Color Urine Clarity Urine pH Ur Specific [place] Urine Protein Urine Glucose (UA) Urine Ketones Urine Occult Blood Urine Nitrate Urine Bilirubin Urine Urobilinogen Ur Leukocyte Esterase Urine WBC Urine WBC Clumps Ur Squamous Epith Cells Micro UA Comment Urine Culture Comments Digoxin Hepatitis A IgM Ab Hep Bs Antigen Hep B Core IgM Ab Hep C IgG Ab 12/03/17 12/03/17 12/03/17 12:12 17:27 22:12 CBC w Diff WBC RBC Hgb Hct MCV MCH MCHC RDW Plt Count MPV Neut % (Auto) Lymph % (Auto) [place] % (Auto) Eos % (Auto) Baso % (Auto) Neut # (Auto) Lymph # (Auto) [place] # (Auto) Eos # (Auto) Baso # (Auto) WBC Differential Seg Neuts % (Manual) Lymphocytes % (Manual) Monocytes % (Manual) Eosinophils % (Manual) Basophils % (Manual) Metamyelocytes % (Man) Blast Cells % (Manual) Abs Neuts (Manual) Differential Comment Smudge Cells Platelet Estimate Platelet Morphology Tear Drop Cells Ovalocytes Acanthocytes (Spur) Keratocytes PT INR APTT D-Dimer Quant (PE/DVT) Puncture Site Patient Temperature O2 Saturation ABG pH ABG pCO2 ABG pO2 ABG HCO3 ABG O2 Content ABG Base Excess ABG Methemoglobin Hemoglobin Carboxyhemoglobin O2 Delivery Device Liter Flow Inspired O2 Critical Value Sodium Potassium Chloride Carbon Dioxide Anion Gap BUN Creatinine Estimated GFR POC Glucose 263 H 240 H 343 H Random Glucose Calcium Total Bilirubin AST ALT Alkaline Phosphatase Total Creatine Kinase Troponin I B-Natriuretic Peptide Total Protein Albumin Ur Collection Type Urine Color Urine Clarity Urine pH Ur Specific [place] Urine Protein Urine Glucose (UA) Urine Ketones Urine Occult Blood Urine Nitrate Urine Bilirubin Urine Urobilinogen Ur Leukocyte Esterase Urine WBC Urine WBC Clumps Ur Squamous Epith Cells Micro UA Comment Urine Culture Comments Digoxin Hepatitis A IgM Ab Hep Bs Antigen Hep B Core IgM Ab Hep C IgG Ab 12/04/17 12/04/17 12/04/17 04:55 07:41 11:12 CBC w Diff WBC RBC Hgb Hct MCV MCH MCHC RDW Plt Count MPV Neut % (Auto) Lymph % (Auto) [place] % (Auto) Eos % (Auto) Baso % (Auto) Neut # (Auto) Lymph # (Auto) [place] # (Auto) Eos # (Auto) Baso # (Auto) WBC Differential Seg Neuts % (Manual) Lymphocytes % (Manual) Monocytes % (Manual) Eosinophils % (Manual) Basophils % (Manual) Metamyelocytes % (Man) Blast Cells % (Manual) Abs Neuts (Manual) Differential Comment Smudge Cells Platelet Estimate Platelet Morphology Tear Drop Cells Ovalocytes Acanthocytes (Spur) Keratocytes PT INR APTT D-Dimer Quant (PE/DVT) Puncture Site Patient Temperature O2 Saturation ABG pH ABG pCO2 ABG pO2 ABG HCO3 ABG O2 Content ABG Base Excess ABG Methemoglobin Hemoglobin Carboxyhemoglobin O2 Delivery Device Liter Flow Inspired O2 Critical Value Sodium 138 Potassium 4.3 Chloride 101 Carbon Dioxide 29.4 Anion Gap 8 BUN 95 H Creatinine 3.40 H Estimated GFR 13 L POC Glucose 243 H 276 H Random Glucose 239 H Calcium 9.0 Total Bilirubin AST ALT Alkaline Phosphatase Total Creatine Kinase Troponin I B-Natriuretic Peptide Total Protein Albumin Ur Collection Type Urine Color Urine Clarity Urine pH Ur Specific [place] Urine Protein Urine Glucose (UA) Urine Ketones Urine Occult Blood Urine Nitrate Urine Bilirubin Urine Urobilinogen Ur Leukocyte Esterase Urine WBC Urine WBC Clumps Ur Squamous Epith Cells Micro UA Comment Urine Culture Comments Digoxin Hepatitis A IgM Ab Hep Bs Antigen Hep B Core IgM Ab Hep C IgG Ab 12/04/17 12/04/17 12/05/17 16:07 20:44 05:07 CBC w Diff WBC RBC Hgb Hct MCV MCH MCHC RDW Plt Count MPV Neut % (Auto) Lymph % (Auto) [place] % (Auto) Eos % (Auto) Baso % (Auto) Neut # (Auto) Lymph # (Auto) [place] # (Auto) Eos # (Auto) Baso # (Auto) WBC Differential Seg Neuts % (Manual) Lymphocytes % (Manual) Monocytes % (Manual) Eosinophils % (Manual) Basophils % (Manual) Metamyelocytes % (Man) Blast Cells % (Manual) Abs Neuts (Manual) Differential Comment Smudge Cells Platelet Estimate Platelet Morphology Tear Drop Cells Ovalocytes Acanthocytes (Spur) Keratocytes PT INR APTT D-Dimer Quant (PE/DVT) Puncture Site Patient Temperature O2 Saturation ABG pH ABG pCO2 ABG pO2 ABG HCO3 ABG O2 Content ABG Base Excess ABG Methemoglobin Hemoglobin Carboxyhemoglobin O2 Delivery Device Liter Flow Inspired O2 Critical Value Sodium Potassium Chloride Carbon Dioxide Anion Gap BUN Creatinine Estimated GFR POC Glucose 279 H 231 H Random Glucose Calcium Total Bilirubin AST ALT Alkaline Phosphatase Total Creatine Kinase Troponin I B-Natriuretic Peptide Total Protein Albumin Ur Collection Type Urine Color Urine Clarity Urine pH Ur Specific [place] Urine Protein Urine Glucose (UA) Urine Ketones Urine Occult Blood Urine Nitrate Urine Bilirubin Urine Urobilinogen Ur Leukocyte Esterase Urine WBC Urine WBC Clumps Ur Squamous Epith Cells Micro UA Comment Urine Culture Comments Digoxin 0.2 L Hepatitis A IgM Ab Hep Bs Antigen Hep B Core IgM Ab Hep C IgG Ab 12/05/17 12/05/17 12/05/17 05:07 05:07 08:05 CBC w Diff Slide review pending WBC 41.6 H RBC 3.46 L Hgb 10.5 L Hct 33.1 L MCV 95.7 MCH 30.3 MCHC 31.7 L RDW 16.6 Plt Count 87 L D MPV 9.9 Neut % (Auto) 12.7 L Lymph % (Auto) 82.1 H [place] % (Auto) 1.7 Eos % (Auto) 0.3 Baso % (Auto) 3.2 H Neut # (Auto) 5.3 Lymph # (Auto) 34.2 H [place] # (Auto) 0.7 Eos # (Auto) 0.1 Baso # (Auto) 1.3 H WBC Differential Manual diff final Seg Neuts % (Manual) 21 Lymphocytes % (Manual) 77 H Monocytes % (Manual) 1 Eosinophils % (Manual) 1 Basophils % (Manual) Metamyelocytes % (Man) Blast Cells % (Manual) Abs Neuts (Manual) 8.7 H Differential Comment . Smudge Cells Present H Platelet Estimate Platelet Morphology Tear Drop Cells Ovalocytes Acanthocytes (Spur) Keratocytes PT INR APTT D-Dimer Quant (PE/DVT) Puncture Site Patient Temperature O2 Saturation ABG pH ABG pCO2 ABG pO2 ABG HCO3 ABG O2 Content ABG Base Excess ABG Methemoglobin Hemoglobin Carboxyhemoglobin O2 Delivery Device Liter Flow Inspired O2 Critical Value Sodium 139 Potassium 4.3 Chloride 103 Carbon Dioxide 30.0 Anion Gap 6 BUN 94 H Creatinine 3.30 H Estimated GFR 13 L POC Glucose 218 H Random Glucose 218 H Calcium 9.0 Total Bilirubin AST ALT Alkaline Phosphatase Total Creatine Kinase Troponin I B-Natriuretic Peptide Total Protein Albumin Ur Collection Type Urine Color Urine Clarity Urine pH Ur Specific [place] Urine Protein Urine Glucose (UA) Urine Ketones Urine Occult Blood Urine Nitrate Urine Bilirubin Urine Urobilinogen Ur Leukocyte Esterase Urine WBC Urine WBC Clumps Ur Squamous Epith Cells Micro UA Comment Urine Culture Comments Digoxin Hepatitis A IgM Ab Hep Bs Antigen Hep B Core IgM Ab Hep C IgG Ab 12/05/17 12/05/17 12/05/17 11:51 16:17 17:00 CBC w Diff WBC RBC Hgb Hct MCV MCH MCHC RDW Plt Count MPV Neut % (Auto) Lymph % (Auto) [place] % (Auto) Eos % (Auto) Baso % (Auto) Neut # (Auto) Lymph # (Auto) [place] # (Auto) Eos # (Auto) Baso # (Auto) WBC Differential Seg Neuts % (Manual) Lymphocytes % (Manual) Monocytes % (Manual) Eosinophils % (Manual) Basophils % (Manual) Metamyelocytes % (Man) Blast Cells % (Manual) Abs Neuts (Manual) Differential Comment Smudge Cells Platelet Estimate Platelet Morphology Tear Drop Cells Ovalocytes Acanthocytes (Spur) Keratocytes PT INR APTT D-Dimer Quant (PE/DVT) Puncture Site Patient Temperature O2 Saturation ABG pH ABG pCO2 ABG pO2 ABG HCO3 ABG O2 Content ABG Base Excess ABG Methemoglobin Hemoglobin Carboxyhemoglobin O2 Delivery Device Liter Flow Inspired O2 Critical Value Sodium Potassium Chloride Carbon Dioxide Anion Gap BUN Creatinine Estimated GFR POC Glucose 231 H 254 H Random Glucose Calcium Total Bilirubin AST ALT Alkaline Phosphatase Total Creatine Kinase Troponin I B-Natriuretic Peptide Total Protein Albumin Ur Collection Type Urine Color Urine Clarity Urine pH Ur Specific [place] Urine Protein Urine Glucose (UA) Urine Ketones Urine Occult Blood Urine Nitrate Urine Bilirubin Urine Urobilinogen Ur Leukocyte Esterase Urine WBC Urine WBC Clumps Ur Squamous Epith Cells Micro UA Comment Urine Culture Comments Digoxin Hepatitis A IgM Ab Nonreactive Hep Bs Antigen Nonreactive Hep B Core IgM Ab Nonreactive Hep C IgG Ab Nonreactive 12/05/17 12/06/17 12/06/17 22:40 05:56 05:56 CBC w Diff Slide review pending WBC 49.6 H RBC 3.58 L Hgb 10.7 L Hct 34.8 L MCV 97.2 MCH 30.0 MCHC 30.9 L RDW 16.5 Plt Count 96 L MPV 10.4 Neut % (Auto) 12.6 L Lymph % (Auto) 84.5 H [place] % (Auto) 1.3 Eos % (Auto) 0.2 Baso % (Auto) 1.4 Neut # (Auto) 6.3 Lymph # (Auto) 41.9 H [place] # (Auto) 0.6 Eos # (Auto) 0.1 Baso # (Auto) 0.7 H WBC Differential Manual diff final Seg Neuts % (Manual) 6 L Lymphocytes % (Manual) 90 H Monocytes % (Manual) 2 Eosinophils % (Manual) 1 Basophils % (Manual) Metamyelocytes % (Man) Blast Cells % (Manual) 1 H Abs Neuts (Manual) 3.0 Differential Comment . Smudge Cells Present H Platelet Estimate Low L Platelet Morphology Normal Tear Drop Cells 1+ H Ovalocytes 2+ H Acanthocytes (Spur) Keratocytes Occ H PT INR APTT D-Dimer Quant (PE/DVT) Puncture Site Patient Temperature O2 Saturation ABG pH ABG pCO2 ABG pO2 ABG HCO3 ABG O2 Content ABG Base Excess ABG Methemoglobin Hemoglobin Carboxyhemoglobin O2 Delivery Device Liter Flow Inspired O2 Critical Value Sodium 138 Potassium 4.7 Chloride 102 Carbon Dioxide 28.7 Anion Gap 7 BUN 93 H Creatinine 3.50 H Estimated GFR 12 L POC Glucose 240 H Random Glucose 227 H Calcium 9.3 Total Bilirubin AST ALT Alkaline Phosphatase Total Creatine Kinase Troponin I B-Natriuretic Peptide Total Protein Albumin Ur Collection Type Urine Color Urine Clarity Urine pH Ur Specific [place] Urine Protein Urine Glucose (UA) Urine Ketones Urine Occult Blood Urine Nitrate Urine Bilirubin Urine Urobilinogen Ur Leukocyte Esterase Urine WBC Urine WBC Clumps Ur Squamous Epith Cells Micro UA Comment Urine Culture Comments Digoxin Hepatitis A IgM Ab Hep Bs Antigen Hep B Core IgM Ab Hep C IgG Ab 12/06/17 12/06/17 12/06/17 05:56 05:56 12:31 CBC w Diff WBC RBC Hgb Hct MCV MCH MCHC RDW Plt Count MPV Neut % (Auto) Lymph % (Auto) [place] % (Auto) Eos % (Auto) Baso % (Auto) Neut # (Auto) Lymph # (Auto) [place] # (Auto) Eos # (Auto) Baso # (Auto) WBC Differential Seg Neuts % (Manual) Lymphocytes % (Manual) Monocytes % (Manual) Eosinophils % (Manual) Basophils % (Manual) Metamyelocytes % (Man) Blast Cells % (Manual) Abs Neuts (Manual) Differential Comment Smudge Cells Platelet Estimate Platelet Morphology Tear Drop Cells Ovalocytes Acanthocytes (Spur) Keratocytes PT 11.1 INR 1.1 APTT 22.3 L D-Dimer Quant (PE/DVT) Puncture Site Patient Temperature O2 Saturation ABG pH ABG pCO2 ABG pO2 ABG HCO3 ABG O2 Content ABG Base Excess ABG Methemoglobin Hemoglobin Carboxyhemoglobin O2 Delivery Device Liter Flow Inspired O2 Critical Value Sodium Potassium Chloride Carbon Dioxide Anion Gap BUN Creatinine Estimated GFR POC Glucose 243 H Random Glucose Calcium Total Bilirubin AST ALT Alkaline Phosphatase Total Creatine Kinase Troponin I B-Natriuretic Peptide Total Protein Albumin Ur Collection Type Urine Color Urine Clarity Urine pH Ur Specific [place] Urine Protein Urine Glucose (UA) Urine Ketones Urine Occult Blood Urine Nitrate Urine Bilirubin Urine Urobilinogen Ur Leukocyte Esterase Urine WBC Urine WBC Clumps Ur Squamous Epith Cells Micro UA Comment Urine Culture Comments Digoxin Hepatitis A IgM Ab Hep Bs Antigen Hep B Core IgM Ab Hep C IgG Ab 12/06/17 12/06/17 12/06/17 16:28 20:06 21:30 CBC w Diff WBC RBC Hgb Hct MCV MCH MCHC RDW Plt Count MPV Neut % (Auto) Lymph % (Auto) [place] % (Auto) Eos % (Auto) Baso % (Auto) Neut # (Auto) Lymph # (Auto) [place] # (Auto) Eos # (Auto) Baso # (Auto) WBC Differential Seg Neuts % (Manual) Lymphocytes % (Manual) Monocytes % (Manual) Eosinophils % (Manual) Basophils % (Manual) Metamyelocytes % (Man) Blast Cells % (Manual) Abs Neuts (Manual) Differential Comment Smudge Cells Platelet Estimate Platelet Morphology Tear Drop Cells Ovalocytes Acanthocytes (Spur) Keratocytes PT INR APTT D-Dimer Quant (PE/DVT) Puncture Site Right brachial Patient Temperature 98.6 O2 Saturation 91 ABG pH 7.31 L ABG pCO2 62 H* ABG pO2 63 ABG HCO3 30 H ABG O2 Content 11.0 L ABG Base Excess 4.6 H ABG Methemoglobin 0.6 Hemoglobin 8.6 L Carboxyhemoglobin 1.8 O2 Delivery Device Nasal cannula Liter Flow 4.00 Inspired O2 21 Critical Value Yes Sodium Potassium Chloride Carbon Dioxide Anion Gap BUN Creatinine Estimated GFR POC Glucose 187 H 261 H Random Glucose Calcium Total Bilirubin AST ALT Alkaline Phosphatase Total Creatine Kinase Troponin I B-Natriuretic Peptide Total Protein Albumin Ur Collection Type Urine Color Urine Clarity Urine pH Ur Specific [place] Urine Protein Urine Glucose (UA) Urine Ketones Urine Occult Blood Urine Nitrate Urine Bilirubin Urine Urobilinogen Ur Leukocyte Esterase Urine WBC Urine WBC Clumps Ur Squamous Epith Cells Micro UA Comment Urine Culture Comments Digoxin Hepatitis A IgM Ab Hep Bs Antigen Hep B Core IgM Ab Hep C IgG Ab 12/07/17 12/07/17 12/07/17 06:47 06:47 07:45 CBC w Diff Slide review pending WBC 45.9 H RBC 3.20 L Hgb 9.7 L Hct 30.7 L MCV 96.1 MCH 30.3 MCHC 31.5 L RDW 16.1 Plt Count 84 L MPV 10.3 Neut % (Auto) 36.8 Lymph % (Auto) 55.9 H [place] % (Auto) 3.8 Eos % (Auto) 0.2 Baso % (Auto) 3.3 H Neut # (Auto) 16.9 H Lymph # (Auto) 25.7 H [place] # (Auto) 1.7 H Eos # (Auto) 0.1 Baso # (Auto) 1.5 H WBC Differential Manual diff final Seg Neuts % (Manual) 10 L Lymphocytes % (Manual) 87 H Monocytes % (Manual) Eosinophils % (Manual) Basophils % (Manual) Metamyelocytes % (Man) 1 Blast Cells % (Manual) 2 H Abs Neuts (Manual) 5.0 Differential Comment . Smudge Cells Present H Platelet Estimate Low L Platelet Morphology Normal Tear Drop Cells 1+ H Ovalocytes 2+ H Acanthocytes (Spur) Keratocytes PT INR APTT D-Dimer Quant (PE/DVT) Puncture Site Patient Temperature O2 Saturation ABG pH ABG pCO2 ABG pO2 ABG HCO3 ABG O2 Content ABG Base Excess ABG Methemoglobin Hemoglobin Carboxyhemoglobin O2 Delivery Device Liter Flow Inspired O2 Critical Value Sodium 141 Potassium 4.2 Chloride 104 Carbon Dioxide 30.9 Anion Gap 6 BUN 70 H Creatinine 2.90 H Estimated GFR 15 L POC Glucose 176 H Random Glucose 191 H Calcium 8.8 Total Bilirubin AST ALT Alkaline Phosphatase Total Creatine Kinase Troponin I B-Natriuretic Peptide Total Protein Albumin Ur Collection Type Urine Color Urine Clarity Urine pH Ur Specific [place] Urine Protein Urine Glucose (UA) Urine Ketones Urine Occult Blood Urine Nitrate Urine Bilirubin Urine Urobilinogen Ur Leukocyte Esterase Urine WBC Urine WBC Clumps Ur Squamous Epith Cells Micro UA Comment Urine Culture Comments Digoxin Hepatitis A IgM Ab Hep Bs Antigen Hep B Core IgM Ab Hep C IgG Ab 12/07/17 12/07/17 12/07/17 11:36 17:08 22:48 CBC w Diff WBC RBC Hgb Hct MCV MCH MCHC RDW Plt Count MPV Neut % (Auto) Lymph % (Auto) [place] % (Auto) Eos % (Auto) Baso % (Auto) Neut # (Auto) Lymph # (Auto) [place] # (Auto) Eos # (Auto) Baso # (Auto) WBC Differential Seg Neuts % (Manual) Lymphocytes % (Manual) Monocytes % (Manual) Eosinophils % (Manual) Basophils % (Manual) Metamyelocytes % (Man) Blast Cells % (Manual) Abs Neuts (Manual) Differential Comment Smudge Cells Platelet Estimate Platelet Morphology Tear Drop Cells Ovalocytes Acanthocytes (Spur) Keratocytes PT INR APTT D-Dimer Quant (PE/DVT) Puncture Site Patient Temperature O2 Saturation ABG pH ABG pCO2 ABG pO2 ABG HCO3 ABG O2 Content ABG Base Excess ABG Methemoglobin Hemoglobin Carboxyhemoglobin O2 Delivery Device Liter Flow Inspired O2 Critical Value Sodium Potassium Chloride Carbon Dioxide Anion Gap BUN Creatinine Estimated GFR POC Glucose 206 H 207 H 189 H Random Glucose Calcium Total Bilirubin AST ALT Alkaline Phosphatase Total Creatine Kinase Troponin I B-Natriuretic Peptide Total Protein Albumin Ur Collection Type Urine Color Urine Clarity Urine pH Ur Specific [place] Urine Protein Urine Glucose (UA) Urine Ketones Urine Occult Blood Urine Nitrate Urine Bilirubin Urine Urobilinogen Ur Leukocyte Esterase Urine WBC Urine WBC Clumps Ur Squamous Epith Cells Micro UA Comment Urine Culture Comments Digoxin Hepatitis A IgM Ab Hep Bs Antigen Hep B Core IgM Ab Hep C IgG Ab 12/08/17 12/08/17 12/08/17 08:04 09:15 10:16 CBC w Diff WBC RBC Hgb Hct MCV MCH MCHC RDW Plt Count MPV Neut % (Auto) Lymph % (Auto) [place] % (Auto) Eos % (Auto) Baso % (Auto) Neut # (Auto) Lymph # (Auto) [place] # (Auto) Eos # (Auto) Baso # (Auto) WBC Differential Seg Neuts % (Manual) Lymphocytes % (Manual) Monocytes % (Manual) Eosinophils % (Manual) Basophils % (Manual) Metamyelocytes % (Man) Blast Cells % (Manual) Abs Neuts (Manual) Differential Comment Smudge Cells Platelet Estimate Platelet Morphology Tear Drop Cells Ovalocytes Acanthocytes (Spur) Keratocytes PT INR APTT D-Dimer Quant (PE/DVT) Puncture Site Patient Temperature O2 Saturation ABG pH ABG pCO2 ABG pO2 ABG HCO3 ABG O2 Content ABG Base Excess ABG Methemoglobin Hemoglobin Carboxyhemoglobin O2 Delivery Device Liter Flow Inspired O2 Critical Value Sodium 142 Potassium 4.2 Chloride 104 Carbon Dioxide 32.3 H Anion Gap 6 BUN 74 H Creatinine 3.20 H Estimated GFR 14 L POC Glucose 179 H 199 H Random Glucose 182 H Calcium 8.9 Total Bilirubin AST ALT Alkaline Phosphatase Total Creatine Kinase Troponin I B-Natriuretic Peptide Total Protein Albumin Ur Collection Type Urine Color Urine Clarity Urine pH Ur Specific [place] Urine Protein Urine Glucose (UA) Urine Ketones Urine Occult Blood Urine Nitrate Urine Bilirubin Urine Urobilinogen Ur Leukocyte Esterase Urine WBC Urine WBC Clumps Ur Squamous Epith Cells Micro UA Comment Urine Culture Comments Digoxin Hepatitis A IgM Ab Hep Bs Antigen Hep B Core IgM Ab Hep C IgG Ab 12/08/17 12/08/17 11:51 17:00 CBC w Diff WBC RBC Hgb Hct MCV MCH MCHC RDW Plt Count MPV Neut % (Auto) Lymph % (Auto) [place] % (Auto) Eos % (Auto) Baso % (Auto) Neut # (Auto) Lymph # (Auto) [place] # (Auto) Eos # (Auto) Baso # (Auto) WBC Differential Seg Neuts % (Manual) Lymphocytes % (Manual) Monocytes % (Manual) Eosinophils % (Manual) Basophils % (Manual) Metamyelocytes % (Man) Blast Cells % (Manual) Abs Neuts (Manual) Differential Comment Smudge Cells Platelet Estimate Platelet Morphology Tear Drop Cells Ovalocytes Acanthocytes (Spur) Keratocytes PT INR APTT D-Dimer Quant (PE/DVT) Puncture Site Patient Temperature O2 Saturation ABG pH ABG pCO2 ABG pO2 ABG HCO3 ABG O2 Content ABG Base Excess ABG Methemoglobin Hemoglobin Carboxyhemoglobin O2 Delivery Device Liter Flow Inspired O2 Critical Value Sodium Potassium Chloride Carbon Dioxide Anion Gap BUN Creatinine Estimated GFR POC Glucose 202 H 191 H Random Glucose Calcium Total Bilirubin AST ALT Alkaline Phosphatase Total Creatine Kinase Troponin I B-Natriuretic Peptide Total Protein Albumin Ur Collection Type Urine Color Urine Clarity Urine pH Ur Specific [place] Urine Protein Urine Glucose (UA) Urine Ketones Urine Occult Blood Urine Nitrate Urine Bilirubin Urine Urobilinogen Ur Leukocyte Esterase Urine WBC Urine WBC Clumps Ur Squamous Epith Cells Micro UA Comment Urine Culture Comments Digoxin Hepatitis A IgM Ab Hep Bs Antigen Hep B Core IgM Ab Hep C IgG Ab Assessment and Plan - Disease Oriented Problem List (1) Right-sided heart failure (2) Pulmonary edema, acute (3) Pleural effusion (4) Fluid overload (5) CKD (chronic kidney disease) (6) Shortness of breath - Symptom Scale (1) Confusion 0-10 Scale: Unable to quantify (2) Anxiety 0-10 Scale: Unable to quantify Pertinent Non-Medical Issues: Psychosocial:Born in [place], raised in [place]. 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 . 2 sons, 1 grandchild. Been in [place] since . Spiritual:[employer]: Reported has living will. copy not available. Per [place]: health care proxy is pt's spouse Ethical issues impacting care: none. Prognosis: chronic kidney disease, right sided heart disease. Have a right sided pleural effusion. Pt at high risk of decompensation. Now with encephalopathy on restraints. Cr increasing again. Prognosis appears poor. Code Status: No Code DNR Plan: == capacity- still has [facility] to make medical decisions. However at risk of fluctations. == code: DNR/DNI ==goals of care: Spoke with patient's spouse. Reviewed labs, including Cr. Discussed her confusion. Discussed that she is not eating. Offered hospice services. I told him I am sorry that condition has not improve, now with worsening mentation, not eating, and Cr again is climbing up. He is amenable to at the very least meet with hospice, plan on meeting them at 10:00am. I encourage him to tour the care center, he seems to want to just take patient home. Assessment/Plan == confusion/anxiety- encephalopathy likely multifactorial, new setting, renal insufficiency, pain. PRN pain meds available. == palliative care will follow along for symptom management and review goals of care as clinical conditions evolves.
--- NOTE | 2017-12-08 21:17 | P.PNNP ---
Subjective Interval history: Patient is confused he tried to pull her line/Vas-Cath during dialysis now dialysis flow is okay but she is bleeding around the catheter She is confused Physical Exam Vital signs: Vital Signs 12/08/17 00:00 12/08/17 07:31 12/08/17 08:00 Temperature 97.4 F L 97.5 F L Pulse Rate 64 72 Respiratory Rate 18 20 Blood Pressure 106/57 L 130/58 L Pulse Oximetry 95 93 L 92 L 12/08/17 11:15 12/08/17 11:20 12/08/17 16:00 Temperature 97.5 F L Pulse Rate 56 L 77 78 Respiratory Rate 22 19 20 Blood Pressure 115/59 L 121/58 L Pulse Oximetry 94 L 93 L Intake & Output 12/08/17 12/08/17 12/09/17 06:59 18:59 06:59 Intake Total 250 / 250 110 / 110 Output Total 250 / 250 250 / 250 Balance 0 / 0 -140 / -140 Weight 102.4 kg Intake: IV 50 / 50 50 / 50 Diamox Inj 250 MG In NS Inj 50 50 / 50 50 / 50 ML @ 100 mls/hr IV.SIG Q12HR NICOLE Rx#:[id number] Oral 200 / 200 60 / 60 Output: Urine 250 / 250 250 / 250 - Constitutional no acute distress - Routine HEENT Exam Head: Present: normocephalic Eye: Present: EOMI - Routine Neck Exam Present: supple (Bleeding around the Vas-Cath) - Routine Respiratory Exam Present: CTA bilaterally - Routine Abdominal Exam Present: soft, normoactive bowel sounds - Routine Extremities Exam Present: edema Assessment and Plan - Assessment (1) Pulmonary edema, acute Code(s): J81.0 - Acute pulmonary edema Status: Acute (2) Fluid overload Code(s): E87.70 - Fluid overload, unspecified Status: Acute Qualifiers: Hypervolemia type: unspecified Qualified Code(s): E87.70 - Fluid overload, unspecified (3) CKD (chronic kidney disease) Code(s): N18.9 - Chronic kidney disease, unspecified Status: Acute - Plan Patient initiated on dialysis seen during treatment she pulled on her VASCATH bleeding around the catheter is still in place flow is good suture is intact UF 1.8 L Ordered the Gelfoam and cryoprecipitate/DDAVP Ongoing edema - will plan for next HD Wed UF as tolerated. Some ongoing bleeding and vascath site - continue dressings and monitor. Follow electrolytes Dr. Killian is away - covering for him. Monitor BMP .
[2017-12-08] MEDS ORDERED: DESMOPRESSIN IV.SIG ONE (22:00)
[2017-12-08] MEDS ORDERED: SODIUM CHLOR 0.9% IV.SIG ONE (22:00)
[2017-12-08] MEDS ORDERED: Gelatin Size 100 Topical Foam TOPICAL ONE (22:15)
[2017-12-09 06:45] LABS: Baso # (Auto) 0.4 th/mm3 (0.0-0.2); Baso % (Auto) 0.7 % (0.0-2.0); Hematocrit 29.9 % (35.0-46.0); Hemoglobin 9.7 gm/dL (11.6-15.3); Lymph % (Auto) 78.9 % (9.0-44.0); Mean Corpuscular HGB Conc 32.4 % (32.0-36.0); Mean Corpuscular Hemoglobin 31.3 pg (27.0-34.0); Mean Corpuscular Volume 96.5 fL (80.0-100.0); Mean Platelet Volume 10.6 fL (7.0-11.0); Mono # (Auto) 1.7 th/mm3 (0.0-0.9); Mono % (Auto) 3.1 % (0.0-8.0); Neut # (Auto) 9.4 th/mm3 (1.8-7.7); Neut % (Auto) 17.3 % (16.0-70.0); Platelet Count 97 th/mm3 (150-450); Red Blood Count 3.09 mil/mm3 (4.00-5.30); Red Cell Distribution Width 17.6 % (11.6-17.2); White Blood Count 54.5 th/mm3 (4.0-11.0)
[2017-12-09 07:06] LABS: Potassium 4.9 meq/L (3.5-5.1)
[2017-12-09 07:08] LABS: Calcium 9.1 mg/dL (8.5-10.1)
[2017-12-09 07:09] LABS: Carbon Dioxide 30.7 meq/L (21.0-32.0)
[2017-12-09 07:24] LABS: Lymphocytes 81 % (9-44); Platelet Morphology Normal (Normal); Smudge Cells Present
[2017-12-09 07:28] LABS: Digoxin 1.2 ng/mL (0.8-2.0)
--- NOTE | 2017-12-09 08:41 | P.DN ---
Pronouncement Note - Date and Time of Date of : 12/09/17 Time of : 06:55 - PCOD Preliminary cause of : Cardiac arrest (cardiopulmonary renal disease) - Additional Data Confirmation of : no pulse, no respirations, no heart sounds, pupils fixed and dilated () Family: at bedside Attending physician: London Mcfadden MD
--- NOTE | 2017-12-17 15:47 | P.DN ---
Discharge Sum: Prov - Provider Primary care physician: Michael Henderson MD Consults: 11/30/17 12:01 Consult to Nephrology Routine Consulting Provider: Seun Jones Does the patient have a Rn Homecare who follows them?: Yes Preferred Nephrology Director Of Aviation:: Shahida Killian Reason for Consultation: Acute on chronic renal failure with signs of fluid overload Notified:: Service Spoke with:: BEN Date Notified:: 11/30/17 Time Notified:: 12:58 Ordering Provider: JARVIS 12/05/17 08:03 Consult to Palliative Care Routine Consulting Provider: Luke Fuller Reason for Consultation: Renal failure, worsening respiratory status, does not want dialysis. Appreciate evaluation for goals of care Notified:: Service Spoke with:: mary Date Notified:: 12/05/17 Time Notified:: 08:48 Ordering Provider: JARVIS 12/08/17 17:59 Consult to Hospice Routine Consulting Provider: Call Back Comment: Meet with pt's spouse tomorrow at around 10AM in pt's room. Discharge Sum: Diag Discharge Sum: Summary - Date and Time Date of admission: 12/04/17 12:19 Date of : 12/09/17 Time of : 06:55 - Summary Details: Fluid overload with worsening shortness of breath: -Multifactorial with patient having underlying severe pulmonary hypertension, recurrent pleural effusions, acute renal failure superimposed on chronic kidney disease stage IV. Likely cardio/pulmonary renal syndrome Acute renal failure superimposed on chronic kidney disease stage IV -No significant improvement of renal function despite initiation of hemodialysis Recurrent right pleural effusion with hypoxia -Secondary to fluid overload, renal failure -Status post thoracentesis with removal of almost 2 L of fluid -Continue O2 supplementation maintain O2 sats greater than 92% Poor p.o. intake -Patient indicates that she does not have an appetite and is not hungry - states that patient is not 8 in 2 days -Discussed with at bedside that the patient does not start having increased p.o. intake that may need to consider alternative feeding such as feeding tube. This should be addressed by palliative care. Right basilar density -Unknown etiology at this time, a review of previous chest x-rays patient does have history of right basilar atelectasis, is always documented pleural effusion -Recent chest CT done 8 days ago does show compressive atelectasis in the right lower lobe and lesser extent in the right middle lobe. There is groundglass opacities consistent with pulmonary edema. Lower extremity edema, possible cellulitis -Likely related to fluid overload, however continue monitor for any infectious source -Blood cultures were negative for 5 days -Wound care nurse consultation Physical deconditioning -Physical therapy evaluation Diabetes -Accu-Cheks with sliding scale insulin Atrial fibrillation, hypertension -Heart rate is controlled at this time -Continue home medication -resume Eliquis Chronic lymphocytic leukemia -Patient is followed by Dr. Quach in outpatient setting -Continue to follow CBC DVT prevention -Patient is on Eliquis CODE STATUS no code -Followed by Palliative care team. has agreed to meet with hospice when pt developed cardiac arrest - Additional Data Confirmation of as documented by pronouncing clinician: no pulse, no respirations, no heart sounds, pupils fixed and dilated Family: at bedside Attending physician: London Mcfadden MD
== END 2017-12-09 09:18 | disposition expired ==
LOC: PHEDA 08:30 → PHED 08:30 → OBSVTOIN 10:42 → INTOOBSV 10:42 → PHEDA 11:44 → PH3 11:50
PROVIDERS: ADMIT Internal Medicine; ATTEND Internal Medicine